=== PATIENT | male | born 1955 | race African-American/Black ===

== ENCOUNTER 2020-04-26 15:14 | Inpatient (IN) | payer BC ==
--- NOTE | 2020-04-26 15:38 | PDOC ---
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 Loss of appetite with poor PO fluid intake PE: Lethargic weak CTA RRR Plan: Labs EKG CXR Likely admit Pt to precede to ED for further treatment and care
[2020-04-26] MEDS ORDERED: SODIUM CHLORIDE 0.9% 500 ML INFUS.BAG IV ONE (16:28)
[2020-04-26 16:33] LABS: BASO % 0.4 % (0-2.0); EOS % 0.5 % (0-4.5); HEMATOCRIT 35.8 % (35.4-49); HEMOGLOBIN 11.6 GM/dL (11.7-16.9); LYMPH % 2.3 % (8-40); MCH 30.9 pg (25.7-33.7); MCHC 32.5 g/dl (32.0-35.9); MEAN PLT VOLUME 8.8 fl (7.5-11.1); MONO % 6.3 % (3.8-10.2); NEUT % 90.5 % (42.8-82.8); PLATELET COUNT 204 K/MM3 (134-434); RBC 3.77 M/mm3 (4.00-5.60); RDW 18.6 % (11.9-15.9); WHITE BLOOD COUNT 11.4 K/mm3 (4.0-10.0)
[2020-04-26 16:39] LABS: INR 1.12 (0.83-1.09); PROTHROMBIN TIME (PATIENT) 13.2 SEC (9.7-13.0)
--- NOTE | 2020-04-26 16:41 | PDOC ---
History of Present Illness - General Chief Complaint: Weakness Stated Complaint: DEHYDRATION/WEAKNESS Time Seen by Provider: 04/26/20 15:32 History Source: Patient, Spouse Exam Limitations: No Limitations - History of Present Illness Initial Comments: 65M with hx/o lung cancer with brain mets presents to the ED with lethargy and dehydration. His accompanied him and states that he didn't eat yesterday or today and wasn't drinking today, but has been prior. The patient states that he does not like the taste of water and prefers sweet tea. His last cancer treatment was in February 2020 and stopped bc he was becoming ataxic. He denies dizziness/lightheadedness, syncope, chest pain, SOB, n/v, diarrhea, constipation, dysuria, numbness, tingling, or weakness. PCP: Dr. Toscano PMH: See HPI SH: gammaknife therapy Allergies: NKDA ROS GENERAL/CONSTITUTIONAL: No fever or chills. No weakness. HEENT: No change in vision. No ear pain or discharge. No sore throat. CARDIOVASCULAR: No chest pain or shortness of breath RESPIRATORY: No cough, wheezing, or hemoptysis. GASTROINTESTINAL: No nausea, vomiting, diarrhea or constipation. GENITOURINARY: No dysuria, frequency, or change in urination. MUSCULOSKELETAL: No joint or muscle swelling or pain. No neck or back pain. SKIN: No rash NEUROLOGIC: No headache, vertigo, loss of consciousness, or change in strength/sensation. ENDOCRINE: No increased thirst. No abnormal weight change HEMATOLOGIC/LYMPHATIC: No anemia, easy bleeding, or history of blood clots. ALLERGIC/IMMUNOLOGIC: No hives or skin allergy. PE GENERAL: Awake, alert, and fully oriented, appears lethargic HEAD: No signs of trauma, normocephalic, atraumatic EYES: PERRLA, EOMI, sclera anicteric, conjunctiva clear ENT: Auricles normal inspection, hearing grossly normal, nares patent, oropharynx clear without exudates. Dry mucosa NECK: Normal ROM, supple, no lymphadenopathy, JVD, or masses HEART: Regular rate and rhythm, normal S1 and S2, no murmurs, rubs or gallops, peripheral pulses normal and equal bilaterally. LUNGS: No distress, speaks full sentences, clear to auscultation bilaterally ABDOMEN: Soft, nontender, normoactive bowel sounds. No guarding, no rebound. No masses EXTREMITIES: Normal inspection, Normal range of motion, no edema. No clubbing or cyanosis. NEUROLOGICAL: CNII-XII grossly intact. Normal speech, normal gait, no focal sensorimotor deficits SKIN: Warm, Dry, normal turgor, no rashes or lesions noted 04/26/20 18:48 Past History - Medical History Allergies/Adverse Reactions: Allergies Allergy/AdvReac Type Severity Reaction Status Date / Time No Known Allergies Allergy Verified 07/11/15 09:21 Cancer: Yes COPD: No - Immunization History Immunization Up to Date: No - Psycho-Social/Smoking History Smoking History: Former smoker Have you smoked in the past 12 months: No Information on smoking cessation initiated: No *Physical Exam - Vital Signs Last Vital Signs Temp Pulse Resp BP Pulse Ox 98.8 F 76 16 130/77 98 04/26/20 15:35 04/26/20 15:35 04/26/20 15:35 04/26/20 15:35 04/26/20 16:14 ED Treatment Course - LABORATORY CBC & Chemistry Diagram: 04/26/20 16:00 04/26/20 16:00 - RADIOLOGY Radiology Studies Ordered: Category Date Time Status HEAD CT WITHOUT CONTRAST [CT] Stat CT Scan 04/26/20 16:14 Ordered CHEST X-RAY PORTABLE* [RAD] Stat Radiology 04/26/20 15:55 Ordered Medical Decision Making - Medical Decision Making 65M with hx/o lung cancer with brain mets presents to the ED for lethargy and dehydration. The patient's said he did not eat yesterday and today and didn't drink water today. CBC remarkable for Hgb 11.6 and borderline leukocytosis at 11.4. CMP remarkable for hypocalcemia with Ca 7.9, hyponatremia with Na 130, and BUN 21.6. Coags unremarkable. CT Head did not demonstrate intracranial bleeding, mass effect, or midline displacement. While in the ED, the patient got 1L NS and was eating. He will be admitted for IV fluids and management of failure to thrive. Discharge - Discharge Information Problems reviewed: Yes Clinical Impression/Diagnosis: Failure to thrive Qualifiers: Failure to thrive age range: in adult Qualified Code(s): R62.7 - Adult failure to thrive Condition: Guarded - Admission Yes - Follow up/Referral Referrals: Manjit Toscano MD [Primary Care Provider] - - Patient Discharge Instructions - Post Discharge Activity
[2020-04-26 16:42] LABS: ACTIVATED PTT 29.6 SECONDS (25.2-36.5)
[2020-04-26 16:53] LABS: ALBUMIN 3.2 g/dl (3.4-5.0); ALK PHOS 63 U/L (45-117); ANION GAP 9 MMOL/L (8-16); BLOOD UREA NITROGEN 21.9 mg/dL (7-18); CALCIUM 7.9 mg/dL (8.5-10.1); CHLORIDE 100 mmol/L (98-107); CO2 21 mmol/L (21-32); GLUCOSE,RANDOM 85 mg/dL (74-106); LIPASE 95 U/L (73-393); N-TERMINAL BNP 1471.8 pg/ml (5-125); POTASSIUM 5.1 mmol/L (3.5-5.1); SGOT/AST 66 U/L (15-37); SGPT/ALT 71 U/L (13-61); SODIUM 130 mmol/L (136-145); TOT PROT 6.6 g/dl (6.4-8.2)
[2020-04-26] MEDS ORDERED: SODIUM CHLORIDE 1,000 ML IV SCH (19:15)
--- NOTE | 2020-04-26 19:22 | HP ---
Admitting History and Physical - Primary Care Physician PCP: Manjit Toscano - Admission Chief Complaint: Lethargy, Dehydration History of Present Illness: This is a 65 y/o male with a PMHx of Lung Ca with metastasis Brain (04/25/16). Who presents to the ED with his for lethargy and dehydration. Per the Mr. Ramon has had a decrease in his oral intake for the last several days. She also reports him being lethargic today. She reports that he is normally ambulatory with a walker and he has not been ambulatory since last Thursday. The denies patient having fever, chills, cough, SOB, MAY, CP, palpitations, AP, N/V/D, constipation, dysuria. She denies sick contacts or recent travel. 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 ? Antibiotic name/dose unknown po Mon, Wed, Fri only. (the will bring it in tomorrow) Family Medical History Family History: Unable to Obtain Family Hx Cancer: Mother (unknown- ), Sister (Lung) Family Hx Coronary Artery Disease: Sister Other Family History: Brother- HIV/AIDs- Review of Systems Unable to obtain ROS, reason: Clinical Condition Physical Examination Vital Signs: Vital Signs Temperature 98.8 F 04/26/20 15:35 Pulse Rate 65 04/26/20 17:02 Respiratory Rate 16 04/26/20 15:35 Blood Pressure 130/77 04/26/20 15:35 O2 Sat by Pulse Oximetry (%) 98 04/26/20 17:02 Constitutional: Yes: Thin, Other (lethargic) Eyes: Yes: Conjunctiva Clear (pale), EOM Intact, PERRL HENT: Yes: Atraumatic, Normocephalic, Other (dry mucous membranes) Neck: Yes: Supple, Trachea Midline Cardiovascular: Yes: Regular Rate and Rhythm, S1, S2 Respiratory: Yes: Regular, CTA Bilaterally Gastrointestinal: Yes: Soft, Hypoactive Bowel Sounds. No: Tenderness, Tenderne ss, Epigastrium ...Rectal Exam: Yes: Deferred Renal/: Yes: WNL Breast(s): Yes: WNL Musculoskeletal: Yes: Muscle Weakness (LUE) Extremities: Yes: Other (Left UE contracture) Edema: Yes Edema: LLE: 1+ (foot/ankle), RLE: 1+ (foot/ankle) Integumentary: Yes: Tenting, Other (dry) Neurological: Yes: Lethargy, Weakness (LUE) Psychiatric: Yes: Other (Lethargic) Labs: CBC, BMP 04/26/20 16:00 04/26/20 16:00 Laboratory Results - last 24 hr 04/26/20 04/26/20 04/26/20 16:00 16:00 16:00 WBC 11.4 H RBC 3.77 L Hgb 11.6 L Hct 35.8 MCV 95.0 MCH 30.9 MCHC 32.5 RDW 18.6 H Plt Count 204 MPV 8.8 Absolute Neuts (auto) 10.4 H Neutrophils % 90.5 H Lymphocytes % 2.3 L Monocytes % 6.3 Eosinophils % 0.5 Basophils % 0.4 Nucleated RBC % 0 PT with INR 13.20 H INR 1.12 H PTT (Actin FS) 29.6 Sodium Potassium Chloride Carbon Dioxide Anion Gap BUN Creatinine Est GFR (CKD-EPI)AfAm Est GFR (CKD-EPI)NonAf Random Glucose Lactic Acid Calcium Total Bilirubin AST ALT Alkaline Phosphatase Creatine Kinase Creatine Kinase Index CK-MB (CK-2) Troponin I B-Natriuretic Peptide Total Protein Albumin Lipase Urine Color Urine Appearance Urine pH Ur Specific [place] Urine Protein Urine Glucose (UA) Urine Ketones Urine Blood Urine Nitrite Urine Bilirubin Urine Urobilinogen Ur Leukocyte Esterase Urine WBC (Auto) Urine RBC (Auto) Urine Casts (Auto) U Epithel Cells (Auto) Urine Bacteria (Auto) Blood Type O POSITIVE Antibody Screen Negative 04/26/20 04/26/20 04/26/20 16:00 16:00 19:50 WBC RBC Hgb Hct MCV MCH MCHC RDW Plt Count MPV Absolute Neuts (auto) Neutrophils % Lymphocytes % Monocytes % Eosinophils % Basophils % Nucleated RBC % PT with INR INR PTT (Actin FS) Sodium 130 L Potassium 5.1 Chloride 100 Carbon Dioxide 21 Anion Gap 9 BUN 21.9 H Creatinine 1.0 Est GFR (CKD-EPI)AfAm 91.78 Est GFR (CKD-EPI)NonAf 79.19 Random Glucose 85 Lactic Acid 0.9 Calcium 7.9 L Total Bilirubin 1.0 AST 66 H ALT 71 H Alkaline Phosphatase 63 Creatine Kinase 352 H Creatine Kinase Index 1.1 CK-MB (CK-2) 4.1 H Troponin I < 0.02 B-Natriuretic Peptide 1471.8 H Total Protein 6.6 Albumin 3.2 L Lipase 95 Urine Color Yellow Urine Appearance Clear Urine pH 6.0 Ur Specific [place] 1.004 L Urine Protein Negative Urine Glucose (UA) Negative Urine Ketones Negative Urine Blood Trace Urine Nitrite Negative Urine Bilirubin Negative Urine Urobilinogen 0.2 Ur Leukocyte Esterase Negative Urine WBC (Auto) 2 Urine RBC (Auto) 5 Urine Casts (Auto) 0 U Epithel Cells (Auto) 1 Urine Bacteria (Auto) 31 Blood Type Antibody Screen Intake & Output 04/24/20 04/25/20 04/26/20 04/27/20 23:59 23:59 23:59 23:59 Weight 68.039 kg Current Medications Generic Name Dose Route Start Last Admin Trade Name Freq PRN Reason Stop Dose Admin Acetaminophen 650 mg 04/26/20 21:38 Tylenol - PO Q4H PRN PAIN Dexamethasone 2 mg 04/27/20 10:00 Decadron - PO DAILY SHARI Sodium Chloride 1,000 mls @ 42 mls/hr 04/26/20 19:15 04/26/20 20:12 Normal Saline - IV 42 mls/hr ASDIR SHARI Administration Imaging - Results Chest X-ray: Report Reviewed, Image Reviewed Cat Scan: Report Reviewed, Image Reviewed EKG: Image Reviewed Problem List - Problems (1) Failure to thrive Assessment/Plan: Likely secondary to advancing disease process vs dehydration BUN 21.9 Albumin 3.2 NS bolus given in ED Continue gentle IVF Encourage PO intake Consider RD eval Monitor CBC, CMP Code(s): [id number] - Qualifiers: Failure to thrive age range: in adult Qualified Code(s): R62.7 - Adult failure to thrive (2) Dehydration Assessment/Plan: see above Code(s): E86.0 - DEHYDRATION (3) Hyponatremia Assessment/Plan: Likely secondary to Dehydration Na Deficit 383 NS bolus given in ED Will continue gentle IVF Urine Osmo, Serum osmo, Na spot, Urine Lytes-pending Consider Nephrology consult if no improvement Code(s): E87.1 - HYPO-OSMOLALITY AND HYPONATREMIA (4) Metastatic lung cancer (metastasis from lung to other site) Assessment/Plan: s/p Gammaknife Therapy s/p Chemo/RT (completed) Head CT- neg ICH Consider Oncology consult Monitor CBC, CMP Monitor vitals Code(s): C34.90 - MALIGNANT NEOPLASM OF UNSP PART OF UNSP BRONCHUS OR LUNG (5) Hypocalcemia Assessment/Plan: Calcium corrected 8.5 Code(s): E83.51 - HYPOCALCEMIA (6) Leukocytosis Assessment/Plan: less likely Infection Pt is currently on corticosteroids Blood Cultures-pending Urine Culture-pending Chest Xray image reviewed- did not appreciate an infiltrate Will defer ABX for now Monitor CBC Monitor vitals Code(s): D72.829 - ELEVATED WHITE BLOOD CELL COUNT, UNSPECIFIED Assessment/Plan This is a 65 y/o male with a PMHx of Lung ca with Brain mets (04/2016) s/p Gammaknife Therapy x2, s/p chemo/RT (not active), Immunotherapy (stopped last February). Admitted to [facility] for Failure to Thrive, Hyponatremia for further evaluation of their emergent condition. Plan: See Problem List FEN NS@42ml/hr Replete lytes prn Regular Diet DVT ppx OOB SCDs Lovenox SQ Dispo: Requires Inpatient Care Visit type - Emergency Visit Emergency Visit: Yes ED Registration Date: 04/26/20 Care time: The patient presented to the Emergency Department on the above date and was hospitalized for further evaluation of their emergent condition. - New Patient This patient is new to me today: Yes Date on this admission: 04/26/20 - Critical Care Critical Care patient: No
[2020-04-26 20:30] LABS: EPI CELLS 1 /uL (0-25.1); HYALINE CASTS 0 /uL (0-3.1); URINE APPEARANCE CLEAR; URINE BACTERIA 31 /uL (0-1359); URINE BILIRUBIN NEGATIVE (NEGATIVE); URINE COLOR YELLOW; URINE GLUCOSE (UA) NEGATIVE (NEGATIVE); URINE KETONE NEGATIVE (NEGATIVE); URINE LEUK ESTERASE NEGATIVE (NEGATIVE); URINE NITRITE NEGATIVE (NEGATIVE); URINE PROTEIN NEGATIVE (NEGATIVE); URINE RBC 5 /uL (0-23.9); URINE UROBILINOGEN 0.2 mg/dL (0.2-1.0); URINE WBC 2 /uL (0-25.8)
[2020-04-27 04:19] VITALS: BMI 23.0
[2020-04-27 08:35] LABS: BASO % 0.5 % (0-2.0); EOS % 1.3 % (0-4.5); HEMATOCRIT 34.2 % (35.4-49); HEMOGLOBIN 11.3 GM/dL (11.7-16.9); LYMPH % 7.3 % (8-40); MCH 31.6 pg (25.7-33.7); MCHC 33.1 g/dl (32.0-35.9); MEAN CELL VOLUME 95.5 fl (80-96); MEAN PLT VOLUME 7.8 fl (7.5-11.1); MONO % 8.2 % (3.8-10.2); NEUT % 82.7 % (42.8-82.8); PLATELET COUNT 185 K/MM3 (134-434); RBC 3.59 M/mm3 (4.00-5.60); RDW 18.7 % (11.9-15.9); WHITE BLOOD COUNT 6.8 K/mm3 (4.0-10.0)
[2020-04-27 08:54] LABS: ALBUMIN 2.9 g/dl (3.4-5.0); BILIRUBIN,TOTAL 0.7 mg/dL (0.2-1); BLOOD UREA NITROGEN 19.2 mg/dL (7-18); CALCIUM 7.7 mg/dL (8.5-10.1); CREATININE 0.7 mg/dL (0.55-1.3); MAGNESIUM 2.2 mg/dL (1.8-2.4); POTASSIUM 4.1 mmol/L (3.5-5.1); TOT PROT 5.8 g/dl (6.4-8.2)
[2020-04-27] MEDS ORDERED: PT OWN MED DRAWER 7, Y5N ONE (10:01)
[2020-04-27] MEDS: DEXAMETHASONE 4 MG TABLET (FP) PO SCH (10:03)
--- NOTE | 2020-04-27 10:40 | PN ---
Progress Note, Physician Chief Complaint: AMS Lethargy Hyponatremia RLL pneumonia History of Present Illness: NAD lethargic answering in single words and nodding his head, falling asleep. Denies any pain,N/V/D at this time. - Current Medication List Current Medications: Active Medications Acetaminophen (Tylenol -) 650 mg PO Q4H PRN PRN Reason: PAIN Dexamethasone (Decadron -) 2 mg PO DAILY [facility] Last Admin: 04/27/20 10:03 Dose: 2 mg Documented by: Sodium Chloride (Normal Saline -) 1,000 mls @ 42 mls/hr IV ASDIR [facility] Last Admin: 04/26/20 20:12 Dose: 42 mls/hr Documented by: - Objective Vital Signs: Vital Signs Temperature 98.8 F 04/27/20 06:18 Pulse Rate 60 04/27/20 06:18 Respiratory Rate 18 04/27/20 06:18 Blood Pressure 124/71 04/27/20 06:18 O2 Sat by Pulse Oximetry (%) 99 04/27/20 06:18 Constitutional: Yes: Well Nourished, No Distress, Calm, Other (weak appearing) Cardiovascular: Yes: Regular Rate and Rhythm Respiratory: Yes: Regular, CTA Bilaterally Gastrointestinal: Yes: Normal Bowel Sounds, Soft Genitourinary: Yes: WNL Musculoskeletal: Yes: Muscle Weakness Extremities: Yes: WNL Edema: No Peripheral Pulses WNL: Yes Neurological: Yes: Alert, Lethargy Psychiatric: Yes: Alert Labs: CBC, BMP 04/27/20 07:40 04/27/20 07:40 INR, PTT INR 1.12 (0.83-1.09) H 04/26/20 16:00 Problem List - Problems (1) Dehydration Assessment/Plan: -Continue IVF -Encourage PO intake Problems reviewed: Yes Code(s): E86.0 - DEHYDRATION (2) Failure to thrive Problems reviewed: Yes Code(s): [id number] - Qualifiers: Failure to thrive age range: in adult Qualified Code(s): R62.7 - Adult failure to thrive (3) Leukocytosis Assessment/Plan: -BC/UC pending -Afebrile -CXR possible BLL pneumonia Problems reviewed: Yes Code(s): D72.829 - ELEVATED WHITE BLOOD CELL COUNT, UNSPECIFIED (4) Metastatic lung cancer (metastasis from lung to other site) Assessment/Plan: -CXR reviewed -Oncology consult -Palliative care consult Problems reviewed: Yes Code(s): C34.90 - MALIGNANT NEOPLASM OF UNSP PART OF UNSP BRONCHUS OR LUNG (5) Pneumonia Assessment/Plan: -CXR BLL possible infiltrates -Pulmonary consult -Start Azithro + Rocephin -ID consult -afebrile -Monitor leukocytosis -CT chest upon pulmonary discretion Problems reviewed: Yes Code(s): J18.9 - PNEUMONIA, UNSPECIFIED ORGANISM (6) Odynophagia Assessment/Plan: -Oral vs esophageal candidiasis? 2/2 to chemo + immunotherapy -Speech therapy consult -ENT consult -Tylenol for pain -Nystatin swish and swallow -magic mouthwash Problems reviewed: Yes Code(s): R13.10 - DYSPHAGIA, UNSPECIFIED (7) Elevated LFTs Assessment/Plan: -U/S Liver negative for any acute pathology -Trending down -monitor trend Problems reviewed: Yes Code(s): R79.89 - OTHER SPECIFIED ABNORMAL FINDINGS OF BLOOD CHEMISTRY Assessment/Plan See problem list
--- NOTE | 2020-04-27 11:17 | EKG ---
Test Reason : Blood Pressure : / mmHG Vent. Rate : 054 BPM Atrial Rate : 054 BPM P-R Int : 180 ms QRS Dur : 086 ms QT Int : 434 ms P-R-T Axes : 074 071 041 degrees QTc Int : 411 ms SINUS BRADYCARDIA WITH MARKED SINUS ARRHYTHMIA WITH CHEST PAIN PRESENCE, CONSIDER ACUTE ISCHMIA PREMATURE VENTRICULAR COMPLEXES OTHERWISE NORMAL ECG NO PREVIOUS ECGS AVAILABLE Confirmed by LORE CHANEL, KYLE ([id number]) on 04/27/2020 11:16:35 AM Referred By: Confirmed By:KYLE TORREZ MD
--- NOTE | 2020-04-27 11:19 | CONSULT ---
Consult Consult Specialty:: Nephrology Reason for Consultation:: hyponatremia - History of Present Illness Chief Complaint: sent in for lethargy History of Present Illness: Pt is a 65 year old mal with pmhx of lung cancer with brain mets who presented with lethargy. He was found to be hyponatremic and I was called to evaluate him. He has had decreased po intake for the week before admission. He normally ambulated with a walker. He is a poor historian. He says he came in because he felt sick. Family denies fevers or chills. 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[employer] History of Recent Travel: No Home Medications - Allergies Allergies/Adverse Reactions: Allergies Allergy/AdvReac Type Severity Reaction Status Date / Time No Known Allergies Allergy Verified 07/11/15 09:21 Family Medical History Family History: Denies Review of Systems - Review of Systems Constitutional: reports: Loss of Appetite, Malaise, Weakness Eyes: reports: No Symptoms HENT: reports: No Symptoms Neck: reports: No Symptoms Cardiovascular: reports: No Symptoms Respiratory: reports: No Symptoms Gastrointestinal: reports: No Symptoms Genitourinary: reports: No Symptoms Musculoskeletal: reports: No Symptoms Integumentary: reports: No Symptoms Neurological: reports: No Symptoms Endocrine: reports: No Symptoms Hematology/Lymphatic: reports: No Symptoms Psychiatric: reports: No Symptoms Physical Exam Vital Signs: Vital Signs Temperature 98.8 F 04/27/20 06:18 Pulse Rate 60 04/27/20 06:18 Respiratory Rate 18 04/27/20 06:18 Blood Pressure 124/71 04/27/20 06:18 O2 Sat by Pulse Oximetry (%) 99 04/27/20 06:18 Constitutional: Yes: Calm Eyes: Yes: Conjunctiva Clear HENT: Yes: Atraumatic Neck: Yes: Supple Cardiovascular: Yes: S1, S2 Respiratory: Yes: CTA Bilaterally Gastrointestinal: Yes: Soft Renal/: Yes: WNL Musculoskeletal: Yes: Muscle Weakness Extremities: Yes: WNL Edema: No Neurological: Yes: Confusion Labs: CBC, BMP 04/27/20 07:40 04/27/20 07:40 Imaging - Results X-ray: Report Reviewed Problem List - Problems (1) Dehydration Code(s): E86.0 - DEHYDRATION (2) Failure to thrive Code(s): [id number] - Qualifiers: Failure to thrive age range: in adult Qualified Code(s): R62.7 - Adult failure to thrive (3) Hyponatremia Code(s): E87.1 - HYPO-OSMOLALITY AND HYPONATREMIA (4) Metastatic lung cancer (metastasis from lung to other site) Code(s): C34.90 - MALIGNANT NEOPLASM OF UNSP PART OF UNSP BRONCHUS OR LUNG Assessment/Plan Current Medications Generic Name Dose Route Start Last Admin Trade Name Freq PRN Reason Stop Dose Admin Acetaminophen 650 mg 04/26/20 21:38 Tylenol - PO Q4H PRN PAIN Dexamethasone 2 mg 04/27/20 10:00 04/27/20 10:03 Decadron - PO 2 mg DAILY SHARI Administration Sodium Chloride 1,000 mls @ 42 mls/hr 04/26/20 19:15 04/26/20 20:12 Normal Saline - IV 42 mls/hr ASDIR SHARI Administration Laboratory Tests 04/26/20 04/26/20 04/26/20 16:00 19:50 19:50 Sodium 130 L BUN 21.9 H Creatinine 1.0 Ur Specific [place] 1.004 L Urine Protein Negative Urine Blood Trace Ur Random Sodium 36 L 04/27/20 07:40 Sodium 137 BUN 19.2 H Creatinine 0.7 Ur Specific [place] Urine Protein Urine Blood Ur Random Sodium Impression 1. hyponatremia 2. dehydration 3. failure to thrive 4. lung cancer with mets Plan - cont fluids - change to 1/2 ns to decrease rate of rise - repeat labs in am - monitor volume status - encourage po intake
--- NOTE | 2020-04-27 12:48 | CONSULT ---
Consultation: REQUESTING PROVIDER: Manuel Briones ENTERTAINMENT & MEDIA CORRESPONDENT CONSULT REQUEST: We have been asked to medically evaluate this patient for Metastases to brain. HISTORY OF PRESENT ILLNESS: Pt. is a 65 y.o. M w/ PMHx. of Lung CA (Metastases to Brain, s/p RT to brain(gamma knife x2) and to chest, s/p chemotherapy, s/p immunotherapy) presents for increased lethargy. Pt. denies any pain and is unclear why he is in the hospital. Pt. does endorse weakness. Pt. answering only in 1 word answers but endorses decreased PO intake over the last few days and decreased ability to ambulate. Pt. states that his cancer workup and and procedures were all done at [facility]. Pt states he last saw his oncologist 1 year ago, unable to provide name. Pt. denies any symptoms currently aside from generalized weakness. Pt. denies pain anywhere. Pt. denies numbness/tingling in extremities. Pt. denies history of fever, chills, nausea, vomiting, constipation or diarrhea. Pt. states he would like to be FULL CODE. Discussed with at bedside who stated that Pt. was in his usual state of health until Thursday when became dehydrated. It was noted that he had increased difficulty clearing his throat and tolerating PO intake including fluids. Pt. also had increased weakness and was unable to ambulate with walker. brought Pt. here for dehydration and increased weakness. Of note Pt. was discontinued from immunotherapy and steroids in February by primary Oncologist Dr. Sal Thapa because of increased difficulty ambulating. Per Pt. last had brain imaged in February and there were no changes to his brain lesions, he was told his masses were stable. REVIEW OF SYSTEMS: As above PHYSICAL EXAMINATION Vital Signs - 24 hr 04/26/20 04/26/20 04/26/20 15:35 16:14 17:02 Temperature 98.8 F Pulse Rate 76 65 Pulse Rate [ Apical] Respiratory 16 Rate Blood Pressure 130/77 Blood Pressure [Right Arm] O2 Sat by Pulse 99 98 98 Oximetry (%) 04/26/20 04/27/20 04/27/20 19:25 00:54 04:00 Temperature 98.9 F 99.0 F Pulse Rate 58 L 62 Pulse Rate [ 58 L 60 Apical] Respiratory 21 H 19 20 Rate Blood Pressure 104/65 Blood Pressure 99/65 106/62 [Right Arm] O2 Sat by Pulse 99 98 99 Oximetry (%) 04/27/20 06:18 Temperature 98.8 F Pulse Rate 60 Pulse Rate [ Apical] Respiratory 18 Rate Blood Pressure 124/71 Blood Pressure [Right Arm] O2 Sat by Pulse 99 Oximetry (%) GENERAL: Awake, alert, and fully oriented, in no acute distress. HEAD: Normal with no signs of trauma. EYES: Sclera anicteric, conjunctiva clear. EARS, NOSE, THROAT: Ears normal, nares patent, oropharynx clear without exudates. Dry mucous membranes. NECK: Normal range of motion, supple without lymphadenopathy, JVD, or masses. LUNGS: Breath sounds equal, clear to auscultation bilaterally anteriorly. No wheezes, and no crackles. No accessory muscle use. HEART: Regular rate and rhythm, normal S1 and S2 without murmur ABDOMEN: Soft, nontender, not distended, normoactive bowel sounds, no guarding, no rebound. MUSCULOSKELETAL: Normal range of motion at all joints. No bony deformities or tenderness. UPPER EXTREMITIES: 2+ radial pulses, warm, well-perfused. No cyanosis. No peripheral edema. LOWER EXTREMITIES: 2+ dorsal pedal pulses, warm, well-perfused. No calf tenderness. No peripheral edema. NEUROLOGICAL: Decreased proximal muscle strength 3/5 in lower extremities, 5/5 in upper extremities. No sensory deficits. PSYCHIATRIC: Decreased affect, Decreased eye contact. Stilted speech. SKIN: Warm, dry, normal turgor Laboratory Results - last 24 hr 04/26/20 04/26/20 04/26/20 16:00 16:00 16:00 WBC 11.4 H RBC 3.77 L Hgb 11.6 L Hct 35.8 MCV 95.0 MCH 30.9 MCHC 32.5 RDW 18.6 H Plt Count 204 MPV 8.8 Absolute Neuts (auto) 10.4 H Neutrophils % 90.5 H Lymphocytes % 2.3 L Monocytes % 6.3 Eosinophils % 0.5 Basophils % 0.4 Nucleated RBC % 0 PT with INR 13.20 H INR 1.12 H PTT (Actin FS) 29.6 Sodium Potassium Chloride Carbon Dioxide Anion Gap BUN Creatinine Est GFR (CKD-EPI)AfAm Est GFR (CKD-EPI)NonAf Random Glucose Serum Osmolality Lactic Acid Calcium Magnesium Total Bilirubin AST ALT Alkaline Phosphatase Creatine Kinase Creatine Kinase Index CK-MB (CK-2) Troponin I B-Natriuretic Peptide Total Protein Albumin Lipase Urine Color Urine Appearance Urine pH Ur Specific [place] Urine Protein Urine Glucose (UA) Urine Ketones Urine Blood Urine Nitrite Urine Bilirubin Urine Urobilinogen Ur Leukocyte Esterase Urine WBC (Auto) Urine RBC (Auto) Urine Casts (Auto) U Epithel Cells (Auto) Urine Bacteria (Auto) Urine Osmolality Ur Random Sodium Blood Type O POSITIVE Antibody Screen Negative 04/26/20 04/26/20 04/26/20 16:00 16:00 19:50 WBC RBC Hgb Hct MCV MCH MCHC RDW Plt Count MPV Absolute Neuts (auto) Neutrophils % Lymphocytes % Monocytes % Eosinophils % Basophils % Nucleated RBC % PT with INR INR PTT (Actin FS) Sodium 130 L Potassium 5.1 Chloride 100 Carbon Dioxide 21 Anion Gap 9 BUN 21.9 H Creatinine 1.0 Est GFR (CKD-EPI)AfAm 91.78 Est GFR (CKD-EPI)NonAf 79.19 Random Glucose 85 Serum Osmolality Lactic Acid 0.9 Calcium 7.9 L Magnesium Total Bilirubin 1.0 AST 66 H ALT 71 H Alkaline Phosphatase 63 Creatine Kinase 352 H Creatine Kinase Index 1.1 CK-MB (CK-2) 4.1 H Troponin I < 0.02 B-Natriuretic Peptide 1471.8 H Total Protein 6.6 Albumin 3.2 L Lipase 95 Urine Color Yellow Urine Appearance Clear Urine pH 6.0 Ur Specific [place] 1.004 L Urine Protein Negative Urine Glucose (UA) Negative Urine Ketones Negative Urine Blood Trace Urine Nitrite Negative Urine Bilirubin Negative Urine Urobilinogen 0.2 Ur Leukocyte Esterase Negative Urine WBC (Auto) 2 Urine RBC (Auto) 5 Urine Casts (Auto) 0 U Epithel Cells (Auto) 1 Urine Bacteria (Auto) 31 Urine Osmolality Ur Random Sodium Blood Type Antibody Screen 04/26/20 04/27/20 04/27/20 19:50 07:40 07:40 WBC 6.8 RBC 3.59 L Hgb 11.3 L Hct 34.2 L MCV 95.5 MCH 31.6 MCHC 33.1 RDW 18.7 H Plt Count 185 MPV 7.8 D Absolute Neuts (auto) 5.6 Neutrophils % 82.7 Lymphocytes % 7.3 L D Monocytes % 8.2 Eosinophils % 1.3 D Basophils % 0.5 Nucleated RBC % 0 PT with INR INR PTT (Actin FS) Sodium 137 Potassium 4.1 Chloride 107 Carbon Dioxide 20 L Anion Gap 10 BUN 19.2 H Creatinine 0.7 Est GFR (CKD-EPI)AfAm 115.59 Est GFR (CKD-EPI)NonAf 99.73 Random Glucose 87 Serum Osmolality Lactic Acid Calcium 7.7 L Magnesium 2.2 Total Bilirubin 0.7 AST 42 H ALT 69 H Alkaline Phosphatase 63 Creatine Kinase Creatine Kinase Index CK-MB (CK-2) Troponin I B-Natriuretic Peptide Total Protein 5.8 L Albumin 2.9 L Lipase Urine Color Urine Appearance Urine pH Ur Specific [place] Urine Protein Urine Glucose (UA) Urine Ketones Urine Blood Urine Nitrite Urine Bilirubin Urine Urobilinogen Ur Leukocyte Esterase Urine WBC (Auto) Urine RBC (Auto) Urine Casts (Auto) U Epithel Cells (Auto) Urine Bacteria (Auto) Urine Osmolality 160 L Ur Random Sodium 36 L Blood Type Antibody Screen 04/27/20 07:40 WBC RBC Hgb Hct MCV MCH MCHC RDW Plt Count MPV Absolute Neuts (auto) Neutrophils % Lymphocytes % Monocytes % Eosinophils % Basophils % Nucleated RBC % PT with INR INR PTT (Actin FS) Sodium Potassium Chloride Carbon Dioxide Anion Gap BUN Creatinine Est GFR (CKD-EPI)AfAm Est GFR (CKD-EPI)NonAf Random Glucose Serum Osmolality 292 Lactic Acid Calcium Magnesium Total Bilirubin AST ALT Alkaline Phosphatase Creatine Kinase Creatine Kinase Index CK-MB (CK-2) Troponin I B-Natriuretic Peptide Total Protein Albumin Lipase Urine Color Urine Appearance Urine pH Ur Specific [place] Urine Protein Urine Glucose (UA) Urine Ketones Urine Blood Urine Nitrite Urine Bilirubin Urine Urobilinogen Ur Leukocyte Esterase Urine WBC (Auto) Urine RBC (Auto) Urine Casts (Auto) U Epithel Cells (Auto) Urine Bacteria (Auto) Urine Osmolality Ur Random Sodium Blood Type Antibody Screen Active Medications Generic Name Dose Route Start Last Admin Trade Name Freq PRN Reason Stop Dose Admin Acetaminophen 650 mg 04/26/20 21:38 Tylenol - PO Q4H PRN PAIN Dexamethasone 2 mg 04/27/20 10:00 04/27/20 10:03 Decadron - PO 2 mg DAILY SHARI Administration Sodium Chloride 1,000 mls @ 42 mls/hr 04/26/20 19:15 04/26/20 20:12 Normal Saline - IV 42 mls/hr ASDIR SHARI Administration ASSESSMENT/PLAN: Pt. is a 65 y.o. M w/ PMHx. of Lung CA (Metastases to Brain, s/p RT to brain(gamma knife?) and to chest) presents for increased lethargy. #Hx. of Lung CA (s/p SRS to brain and RT to chest) Head CT: Moderate to marked periventricular and subcortical white matter hypodensity noted without mass effect, suspected from chronic microvascular ischemic gliosis. Per discussion with those hyposensities may be masses. 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 is s/p gamma knife x2, s/p chemotherapy, s/p immunotherapy FULL CODE c/w IV hydration until taking adequate PO intake Dispo: Thank you for this consultative opportunity. Visit type - Emergency Visit Emergency Visit: Yes ED Registration Date: 04/26/20 Care time: The patient presented to the Emergency Department on the above date and was hospitalized for further evaluation of their emergent condition. - New Patient This patient is new to me today: Yes Date on this admission: 04/27/20 - Critical Care Critical Care patient: No ATTENDING PHYSICIAN STATEMENT I saw and evaluated the patient. I reviewed the resident's note and discussed the case with the resident. I agree with the resident's findings and plan as documented. SUBJECTIVE: OBJECTIVE: ASSESSMENT AND PLAN:
[2020-04-27] MEDS: SODIUM CHLORIDE 0.45% 1,000 ML IV SCH (15:17)
[2020-04-27] MEDS: ACETAMINOPHEN 325 MG TABLET (FP) PO PRN (18:24)
--- NOTE | 2020-04-27 21:17 | CON.HO ---
Consult - text type - Consultation Consultation Note: ATTENDING PHYSICIAN STATEMENT I saw and evaluated the patient. I reviewed the resident's note and discussed the case with the resident. I agree with the resident's findings and plan as documented. Discussed with patients in detail PAtient unable to give detaile history due to throat pain generalized weakness Pt. is a 65 y.o. M w/ PMHx. of Lung CA , diagnosed 2016, ?? stage IIIB initially progressing to stage IV. Initially treated with SRS x2 ?? in Received chemotherapy and had been on immunotherapy for 2 yrs. Last received 01/22 Unclear if immunotherapy was stopped due to ?/ toxicity -- is unclear but states that he was on steroids and since steroid use he slowly stopped walking over last 2-3 months ? steroid myopathy He presents with odynophagia, failure to thrive Head CT: Moderate to marked periventricular and subcortical white matter hypodensity noted without mass effect, suspected from chronic microvascular ischemic gliosis. Abd US: No acute pathology odynophagia -- check throat culture check ENT consult will discuss with ID Continue decadron 2mg with bactrim prophylaxis On rocephin/azithro for LLL infiltrate Rt. > Lt. leg weakness -- ? 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 No back pain PAtient has an appt. to f/u with primary oncologist/neurologist as outpatient on the
[2020-04-27] MEDS ORDERED: AZITHROMYCIN IVPB 500 MG/250 ML BAG IVPB ONE (22:32)
[2020-04-27] MEDS ORDERED: cefTRIAXone SODIUM 1 GM VIAL ONE (22:55)
[2020-04-27] MEDS ORDERED: DEXTROSE 5%-WATER - 50 ML IVPB ONE (22:55)
[2020-04-27] MEDS: MAG HYDROX/ALH/SMC/DPHA/LIDO 240 ML MOUTHWASH MM SCH (23:30)
[2020-04-28] MEDS: CEFTRIAXONE 1 GM in DEXTROSE 5%-WATER - 50 ML IVPB SCH ×2 (00:35→09:24)
[2020-04-28] MEDS: NYSTATIN 500,000 UNITS/5 ML SUSPENSION PO SCH ×7 (00:36→23:59)
[2020-04-28] MEDS: MAG HYDROX/ALH/SMC/DPHA/LIDO 240 ML MOUTHWASH MM SCH ×6 (05:41→23:48)
[2020-04-28] MEDS: SODIUM CHLORIDE 0.45% 1,000 ML IV SCH (06:49)
[2020-04-28 07:41] LABS: BASO % 0.4 % (0-2.0); EOS % 0.8 % (0-4.5); HEMATOCRIT 37.5 % (35.4-49); HEMOGLOBIN 12.2 GM/dL (11.7-16.9); LYMPH % 3.8 % (8-40); MCH 30.8 pg (25.7-33.7); MCHC 32.6 g/dl (32.0-35.9); MEAN CELL VOLUME 94.6 fl (80-96); MONO % 3.6 % (3.8-10.2); NEUT % 91.4 % (42.8-82.8); PLATELET COUNT 190 K/MM3 (134-434); RBC 3.97 M/mm3 (4.00-5.60); RDW 18.3 % (11.9-15.9); WHITE BLOOD COUNT 11.7 K/mm3 (4.0-10.0)
[2020-04-28 08:04] LABS: ALBUMIN 2.7 g/dl (3.4-5.0); BILIRUBIN,TOTAL 0.6 mg/dL (0.2-1); BLOOD UREA NITROGEN 15.7 mg/dL (7-18); CALCIUM 7.8 mg/dL (8.5-10.1); CREATININE 0.7 mg/dL (0.55-1.3); POTASSIUM 3.7 mmol/L (3.5-5.1); TOT PROT 5.8 g/dl (6.4-8.2)
[2020-04-28] MEDS ORDERED: DEXTROSE 5%-WATER - 50 ML IVPB ONE (09:09)
[2020-04-28] MEDS ORDERED: cefTRIAXone SODIUM 1 GM VIAL ONE (09:09)
[2020-04-28] MEDS: DEXAMETHASONE 4 MG TABLET (FP) PO SCH (09:24)
[2020-04-28] MEDS: AZITHROMYCIN IVPB 250 MG in DEXTROSE 5%-WATER - 250 ML IVPB SCH (09:24)
--- NOTE | 2020-04-28 09:36 | PN ---
Progress Note, Physician Chief Complaint: AMS Lethargy Hyponatremia RLL pneumonia History of Present Illness: NAD lethargic, opens his eyes to name doesn't answer any questions Ate 25% of his breakfast - Current Medication List Current Medications: Active Medications Acetaminophen (Tylenol -) 650 mg PO Q4H PRN PRN Reason: PAIN Last Admin: 04/27/20 18:24 Dose: 650 mg Documented by: Dexamethasone (Decadron -) 2 mg PO DAILY SHARI Last Admin: 04/28/20 09:24 Dose: 2 mg Documented by: Sodium Chloride (1/2 Normal Saline) 1,000 mls @ 75 mls/hr IV ASDIR SHARI Last Admin: 04/28/20 06:49 Dose: 75 mls/hr Documented by: Azithromycin 250 mg/ Dextrose 250 mls @ 250 mls/hr IVPB DAILY SHARI Last Admin: 04/28/20 09:24 Dose: 250 mls/hr Documented by: Ceftriaxone Sodium 1 gm/ (Dextrose) 50 mls @ 100 mls/hr IVPB DAILY [facility]; Protocol Last Admin: 04/28/20 09:24 Dose: 100 mls/hr Documented by: Lidocaine/Aluminum/Magnesium/Simeth (Magic Mouthwash *Sjr Formula* -) 5 ml MM Q6HPO [facility] Last Admin: 04/28/20 06:59 Dose: Not Given Documented by: Nystatin (Nystatin Oral Suspension -) 500,000 units PO Q6HPO [facility] Last Admin: 04/28/20 06:59 Dose: Not Given Documented by: - Objective Vital Signs: Vital Signs Temperature 99 F 04/28/20 06:00 Pulse Rate 72 04/28/20 06:00 Respiratory Rate 18 04/28/20 06:00 Blood Pressure 143/80 04/28/20 06:00 O2 Sat by Pulse Oximetry (%) 97 04/28/20 06:00 Constitutional: Yes: Well Nourished, No Distress, Calm Cardiovascular: Yes: Regular Rate and Rhythm Respiratory: Yes: Regular, CTA Bilaterally Gastrointestinal: Yes: Normal Bowel Sounds, Soft Genitourinary: Yes: WNL Musculoskeletal: Yes: Muscle Weakness Extremities: Yes: WNL Edema: No Peripheral Pulses WNL: Yes Neurological: Yes: Alert, Confusion Labs: CBC, BMP 04/28/20 07:05 04/28/20 07:05 INR, PTT INR 1.12 (0.83-1.09) H 04/26/20 16:00 Problem List - Problems (1) Dehydration Assessment/Plan: -Continue IVF -Encourage PO intake Problems reviewed: Yes Code(s): E86.0 - DEHYDRATION (2) Failure to thrive Problems reviewed: Yes Code(s): NHT5466 - Qualifiers: Failure to thrive age range: in adult Qualified Code(s): R62.7 - Adult failure to thrive (3) Leukocytosis Assessment/Plan: -BC/UC pending -Afebrile -CXR possible BLL pneumonia Problems reviewed: Yes Code(s): D72.829 - ELEVATED WHITE BLOOD CELL COUNT, UNSPECIFIED (4) Metastatic lung cancer (metastasis from lung to other site) Assessment/Plan: -CXR reviewed -Oncology consult -Palliative care consult Problems reviewed: Yes Code(s): C34.90 - MALIGNANT NEOPLASM OF UNSP PART OF UNSP BRONCHUS OR LUNG (5) Pneumonia Assessment/Plan: -CXR BLL possible infiltrates -Pulmonary consult -Start Azithro + Rocephin -ID consult -afebrile -Monitor leukocytosis -CT chest upon pulmonary discretion Problems reviewed: Yes Code(s): J18.9 - PNEUMONIA, UNSPECIFIED ORGANISM (6) Odynophagia Assessment/Plan: -Oral vs esophageal candidiasis? 2/2 to chemo + immunotherapy -Speech therapy consult -ENT consult -Tylenol for pain -Nystatin swish and swallow -magic mouthwash Problems reviewed: Yes Code(s): R13.10 - DYSPHAGIA, UNSPECIFIED (7) Elevated LFTs Assessment/Plan: -U/S Liver negative for any acute pathology -resolved -monitor trend Problems reviewed: Yes Code(s): R79.89 - OTHER SPECIFIED ABNORMAL FINDINGS OF BLOOD CHEMISTRY Assessment/Plan See problem list
[2020-04-28 09:47] LABS: PLATELET ESTIMATE NORMAL
--- NOTE | 2020-04-28 11:40 | CON.PULM ---
Consult Consult Specialty:: PULMONARY Referred by:: BOUBACAR Reason for Consultation:: LUNG CA W BRAIN METS - History of Present Illness Chief Complaint: FAILURE TO THRIVE History of Present Illness: This is a 65 y/o male with a PMHx of Lung Ca with metastasis Brain (04/25/16). Who presents to the ED with his for lethargy and dehydration. Per the Mr. Ramon has had a decrease in his oral intake for the last several days. She also reports him being lethargic today. She reports that he is normally ambulatory with a walker and he has not been ambulatory since last Thursday. The denies patient having fever, chills, cough, SOB, MAY, CP, palpitations, AP, N/V/D, constipation, dysuria. She denies sick contacts or recent travel. 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 History of Recent Travel: No Home Medications - Allergies Allergies/Adverse Reactions: Allergies Allergy/AdvReac Type Severity Reaction Status Date / Time No Known Allergies Allergy Verified 07/11/15 09:21 Family Medical History Family History: Unable to Obtain Review of Systems Unable to obtain ROS, reason: unable Physical Exam Vital Sings: Vital Signs Temperature 98.9 F 04/28/20 11:12 Pulse Rate 78 04/28/20 11:12 Respiratory Rate 18 04/28/20 11:12 Blood Pressure 132/76 04/28/20 11:12 O2 Sat by Pulse Oximetry (%) 99 04/28/20 11:12 Constitutional: Yes: No Distress Eyes: Yes: EOM Intact HENT: Yes: Normocephalic Neck: Yes: Trachea Midline Cardiovascular: Yes: Regular Rate and Rhythm Respiratory: Yes: Diminished Gastrointestinal: Yes: Normal Bowel Sounds Edema: No Labs: CBC, BMP 04/28/20 07:05 04/28/20 07:05 rest reviewed Imaging - Results Chest X-ray: Report Reviewed Cat Scan: Report Reviewed Ultrasound: Report Reviewed Problem List - Problems (1) Dehydration Code(s): E86.0 - DEHYDRATION (2) Elevated LFTs Code(s): R79.89 - OTHER SPECIFIED ABNORMAL FINDINGS OF BLOOD CHEMISTRY (3) Failure to thrive Code(s): [id number] - Qualifiers: Failure to thrive age range: in adult Qualified Code(s): R62.7 - Adult failure to thrive (4) Metastatic lung cancer (metastasis from lung to other site) Code(s): C34.90 - MALIGNANT NEOPLASM OF UNSP PART OF UNSP BRONCHUS OR LUNG Assessment/Plan FAILURE TO THRIVE HYPONATREMIA METASTATIC LUNG CA TO BRAIN SUPPORTIVE CARE CORRECT NA NUTRITION IV ANTIBIOTICS FOR PRESUMED PNEUMONIA WILL FOLLOW Libby VIRGEN MD
--- NOTE | 2020-04-28 13:07 | CON.ID ---
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 Cardio/Vascular: No: AFIB Pulmonary: Yes: Cancer (with Brain mets) Gastrointestinal: No: Ascites Renal/: Yes: Renal Inusuff - Alcohol/Substance Use Hx Alcohol Use: No History of Substance Use: reports: None - Smoking History Smoking history: Former smoker Have you smoked in the past 12 months: No - Social History Usual Living Arrangement: With Spouse ADL: Family Assistance 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 History of Recent Travel: No Home Medications - Allergies Allergies/Adverse Reactions: Allergies Allergy/AdvReac Type Severity Reaction Status Date / Time No Known Allergies Allergy Verified 07/11/15 09:21 Family Medical History Family History: Unable to Obtain Physical Exam Vital Signs: Vital Signs Temperature 98.9 F 04/28/20 11:12 Pulse Rate 78 04/28/20 11:12 Respiratory Rate 18 04/28/20 11:12 Blood Pressure 132/76 04/28/20 11:12 O2 Sat by Pulse Oximetry (%) 99 04/28/20 11:12 Constitutional: Yes: Well Nourished, No Distress, Calm, Other (alert) Eyes: Yes: WNL HENT: Yes: Atraumatic, Normocephalic. No: Thrush Neck: Yes: Supple Cardiovascular: Yes: Regular Rate and Rhythm Respiratory: Yes: Regular, Diminished (at bases) Gastrointestinal: Yes: Normal Bowel Sounds, Soft ...Rectal Exam: Yes: Deferred Renal/: No: Bladder Distention, Ram Present Extremities: Yes: WNL Edema: No Neurological: Yes: Alert, Other (follows commands, not talking to me but per nurse speaks with ) Labs: CBC, BMP 04/28/20 07:05 04/28/20 07:05 Imaging - Results Chest X-ray: Report Reviewed, Image Reviewed Cat Scan: Report Reviewed Problem List - Problems (1) Pneumonia Code(s): J18.9 - PNEUMONIA, UNSPECIFIED ORGANISM (2) Metastatic lung cancer (metastasis from lung to other site) Code(s): C34.90 - MALIGNANT NEOPLASM OF UNSP PART OF UNSP BRONCHUS OR LUNG (3) Failure to thrive Code(s): [id number] - Qualifiers: Failure to thrive age range: in adult Qualified Code(s): R62.7 - Adult failure to thrive Assessment/Plan no recent admissions, covid pcr negative continue rocephin and zithromax for CAP f/u culutres f/u legionella urinary antigen metastatic lung cancer- management per hospitalist
--- NOTE | 2020-04-28 14:04 | PN ---
Progress Note, Physician History of Present Illness: Pt seen and examined at bedside. He appears comfortable. - Current Medication List Current Medications: Active Medications Acetaminophen (Tylenol -) 650 mg PO Q4H PRN PRN Reason: PAIN Last Admin: 04/27/20 18:24 Dose: 650 mg Documented by: Dexamethasone (Decadron -) 2 mg PO DAILY SHARI Last Admin: 04/28/20 09:24 Dose: 2 mg Documented by: Sodium Chloride (1/2 Normal Saline) 1,000 mls @ 75 mls/hr IV ASDIR SHARI Last Admin: 04/28/20 06:49 Dose: 75 mls/hr Documented by: Azithromycin 250 mg/ Dextrose 250 mls @ 250 mls/hr IVPB DAILY SHARI Last Admin: 04/28/20 09:24 Dose: 250 mls/hr Documented by: Ceftriaxone Sodium 1 gm/ (Dextrose) 50 mls @ 100 mls/hr IVPB DAILY SHARI; Protocol Last Admin: 04/28/20 09:24 Dose: 100 mls/hr Documented by: Lidocaine/Aluminum/Magnesium/Simeth (Magic Mouthwash *Sjr Formula* -) 5 ml MM Q6HPO SHARI Last Admin: 04/28/20 06:59 Dose: Not Given Documented by: Nystatin (Nystatin Oral Suspension -) 500,000 units PO Q6HPO SHARI Last Admin: 04/28/20 06:59 Dose: Not Given Documented by: Trimethoprim/Sulfamethoxazole (Bactrim Ds -) 1 each PO MoWeFr@1000 SHARI - Objective Vital Signs: Vital Signs Temperature 98.9 F 04/28/20 11:12 Pulse Rate 78 04/28/20 11:12 Respiratory Rate 18 04/28/20 11:12 Blood Pressure 132/76 04/28/20 11:12 O2 Sat by Pulse Oximetry (%) 99 04/28/20 11:12 Constitutional: Yes: Calm Eyes: Yes: Conjunctiva Clear HENT: Yes: Atraumatic Neck: Yes: Supple Cardiovascular: Yes: S1, S2 Respiratory: Yes: CTA Bilaterally Gastrointestinal: Yes: Soft Genitourinary: Yes: Incontinence Musculoskeletal: Yes: Muscle Weakness Edema: No Neurological: Yes: Confusion Labs: CBC, BMP 04/28/20 07:05 04/28/20 07:05 INR, PTT INR 1.12 (0.83-1.09) H 04/26/20 16:00 Problem List - Problems (1) Dehydration Code(s): E86.0 - DEHYDRATION (2) Failure to thrive Code(s): [id number] - Qualifiers: Failure to thrive age range: in adult Qualified Code(s): R62.7 - Adult failure to thrive (3) Hyponatremia Code(s): E87.1 - HYPO-OSMOLALITY AND HYPONATREMIA (4) Metastatic lung cancer (metastasis from lung to other site) Code(s): C34.90 - MALIGNANT NEOPLASM OF UNSP PART OF UNSP BRONCHUS OR LUNG Assessment/Plan Current Medications Generic Name Dose Route Start Last Admin Trade Name Freq PRN Reason Stop Dose Admin Acetaminophen 650 mg 04/26/20 21:38 04/27/20 18:24 Tylenol - PO 650 mg Q4H PRN Administration PAIN Dexamethasone 2 mg 04/27/20 10:00 04/28/20 09:24 Decadron - PO 2 mg DAILY SHARI Administration Sodium Chloride 1,000 mls @ 75 mls/hr 04/27/20 15:15 04/28/20 06:49 1/2 Normal Saline IV 75 mls/hr ASDIR SHARI Administration Azithromycin 250 mg/ Dextrose 250 mls @ 250 mls/hr 04/28/20 10:00 04/28/20 09:24 IVPB 250 mls/hr DAILY SHARI Administration Ceftriaxone Sodium 1 gm/ 50 mls @ 100 mls/hr 04/27/20 22:36 04/28/20 09:24 Dextrose IVPB 100 mls/hr DAILY SHARI Administration Protocol Lidocaine/Aluminum/Magnesium/Simeth 5 ml 04/28/20 00:00 04/28/20 06:59 Magic Mouthwash *Sjr Formula* - MM Not Given Q6HPO SHARI Nystatin 500,000 units 04/28/20 00:00 04/28/20 06:59 Nystatin Oral Suspension - PO Not Given Q6HPO SHARI Trimethoprim/Sulfamethoxazole 1 each 04/30/20 10:00 Bactrim Ds - PO MoWeFr@1000 SHARI Impression 1. hyponatremia 2. dehydration 3. failure to thrive 4. lung cancer with mets Plan - change fluids to ns - encourage po intake - repeat labs in am - monitor volume status - will add potassium to fluids as well
[2020-04-28] MEDS: SODIUM CHLORIDE 1,000 ML with POTASSIUM CHLORIDE 10 MEQ IVPB SCH ×2 (14:14→14:25)
[2020-04-28] MEDS ORDERED: PT OWN MED DRAWER 7, Y5N ONE ×2 (14:19→23:39)
[2020-04-28] MEDS ORDERED: POTASSIUM CHLORIDE 10 MEQ in SODIUM CHLORIDE 1,000 ML IVPB SCH (14:24)
--- NOTE | 2020-04-28 14:51 | CON.ENT ---
Consult Consult Specialty:: ENT Referred by:: Dr Toscano Reason for Consultation:: Decreased oral intake - History of Present Illness Chief Complaint: Decreased oral intake History of Present Illness: Pt with failure to thrive, lethargy, inability to walk, decreased oral intake. I have seen him in my office 4 yrs ago for 35-40 db sensorineural hearing loss. I observed a nursing assistant feed him. He falls asleep, when not stimulated. He can slowly swallow pureed diet. There are no upper airway sounds, nor coughing with po intake. He has a h/o lung ca with brain mets and hyponatremia. - History Source History Provided By: Medical Record Limitations to Obtaining History: Other (He visually acknowledges me, but will not talk. 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 History of Recent Travel: No Home Medications - Allergies Allergies/Adverse Reactions: Allergies Allergy/AdvReac Type Severity Reaction Status Date / Time No Known Allergies Allergy Verified 07/11/15 09:21 Physical Exam-ENT Vital Signs: Vital Signs Temperature 98.9 F 04/28/20 11:12 Pulse Rate 78 04/28/20 11:12 Respiratory Rate 18 04/28/20 11:12 Blood Pressure 132/76 04/28/20 11:12 O2 Sat by Pulse Oximetry (%) 99 04/28/20 11:12 Constitutional: Yes: No Distress Head: Yes: WNL, Normocephalic Face: Yes: WNL, Symmetrical Eyes: Yes: WNL Nose: Yes: WNL Nasal Passage: Yes: WNL Oral/Pharynx: Yes: WNL Outer Ear: Yes: WNL Ear Canal: Yes: WNL Neck: Yes: WNL, Supple, Trachea Midline Problem List - Problems (1) Sensorineural hearing loss (SNHL) of both ears Assessment/Plan: Last audiogram 4 years ago showed significant bilateral hearing loss of 35-40 db. Code(s): H90.3 - SENSORINEURAL HEARING LOSS, BILATERAL (2) Failure to thrive Assessment/Plan: Decreased oral intake most likely due to neuromotor coordination issues, since his PE is NORMAL. Code(s): [id number] - Qualifiers: Failure to thrive age range: in adult Qualified Code(s): R62.7 - Adult failure to thrive (3) Odynophagia Assessment/Plan: I don't believe there is any odynophagia (pain on swallowing) other than perhaps a dry dehydrated throat with reduced saliva. Code(s): R13.10 - DYSPHAGIA, UNSPECIFIED Procedure Note Procedure: fiberoptic laryngoscopy through a normal, non obstructed nose, without sign of infection. The nasopharynx, oropharynx and hypopharynx appear normal. His larynx is normal in appearance and there is no paralysis nor obstruction.
--- NOTE | 2020-04-28 15:03 | CON.NEURO ---
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 Cardio/Vascular: No: AFIB Pulmonary: Yes: Cancer (with Brain mets) Gastrointestinal: No: Ascites Renal/: Yes: Renal Inusuff - Alcohol/Substance Use Hx Alcohol Use: No History of Substance Use: reports: None - Smoking History Smoking history: Former smoker Have you smoked in the past 12 months: No - Social History ADL: Family Assistance 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 History of Recent Travel: No Home Medications - Allergies Allergies/Adverse Reactions: Allergies Allergy/AdvReac Type Severity Reaction Status Date / Time No Known Allergies Allergy Verified 07/11/15 09:21 Family Medical History Family History: Unable to Obtain Review of Systems - Review of Systems Constitutional: reports: Loss of Appetite, Malaise, Night Sweats Neurological: reports: Dizziness, Incoordination, Numbness, Parasthesia Physical Exam-Neuro Vital Signs: Vital Signs Temperature 98.9 F 04/28/20 11:12 Pulse Rate 78 04/28/20 11:12 Respiratory Rate 18 04/28/20 11:12 Blood Pressure 132/76 04/28/20 11:12 O2 Sat by Pulse Oximetry (%) 99 04/28/20 11:12 Constitutional: Yes: Well Nourished Neck: Yes: WNL Cardiovascular: Yes: WNL Respiratory: Yes: WNL Gastrointestinal: Yes: WNL Labs: CBC, BMP 04/28/20 07:05 04/28/20 07:05 INR, PTT INR 1.12 (0.83-1.09) H 04/26/20 16:00 - Neuro Exam Level Of Consciousness: Yes: Oriented to Person, Oriented to Place, Oriented to Time Eyes: Yes: PERRLA Speech: Garbled Dominant Hand: Right Cranial Nerves II-XII Intact: Yes DTR's: 1+ Left Tricep, 1+ Right Tricep, 1+ Left Brachioradialis, 1+ Right Brachioradialis Response to light touch: Abnormal Response to pain prick: Abnormal Response to temperature: Abnormal Motor Strength: 3/5: Left Arm, Right Arm, Left Leg Imaging - Results Cat Scan: Image Reviewed Assessment/Plan Lung Cancer with Brain Mets ?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 will try to get the records 2. MRI BRAIN no Christopher 3. fall precautions 4. CK MM MYOGLOBIN ALDOLASE 5. PT 6. DVT prophylaxis 7. NCV EMG LOWER EXT NICO VITAL MD
[2020-04-29] MEDS: POTASSIUM CHLORIDE 10 MEQ in SODIUM CHLORIDE 1,000 ML IVPB SCH ×2 (04:12→15:48)
[2020-04-29] MEDS: MAG HYDROX/ALH/SMC/DPHA/LIDO 240 ML MOUTHWASH MM SCH ×3 (05:02→17:53)
[2020-04-29] MEDS: NYSTATIN 500,000 UNITS/5 ML SUSPENSION PO SCH ×3 (05:02→17:53)
[2020-04-29 08:02] LABS: ALBUMIN 2.4 g/dl (3.4-5.0); BILIRUBIN,TOTAL 0.5 mg/dL (0.2-1); BLOOD UREA NITROGEN 16.3 mg/dL (7-18); CALCIUM 7.5 mg/dL (8.5-10.1); CREATININE 0.8 mg/dL (0.55-1.3); POTASSIUM 4.4 mmol/L (3.5-5.1); TOT PROT 5.3 g/dl (6.4-8.2)
--- NOTE | 2020-04-29 08:19 | PN ---
Progress Note, Physician Chief Complaint: AMS Lethargy Hyponatremia RLL pneumonia History of Present Illness: NAD More alert and awake Ate 100% of his breakfast AXO x 3 - Current Medication List Current Medications: Active Medications Acetaminophen (Tylenol -) 650 mg PO Q4H PRN PRN Reason: PAIN Last Admin: 04/27/20 18:24 Dose: 650 mg Documented by: Dexamethasone (Decadron -) 2 mg PO DAILY [facility] Last Admin: 04/28/20 09:24 Dose: 2 mg Documented by: Azithromycin 250 mg/ Dextrose 250 mls @ 250 mls/hr IVPB DAILY [facility] Last Admin: 04/28/20 09:24 Dose: 250 mls/hr Documented by: Ceftriaxone Sodium 1 gm/ (Dextrose) 50 mls @ 100 mls/hr IVPB DAILY [facility]; Protocol Last Admin: 04/28/20 09:24 Dose: 100 mls/hr Documented by: Potassium Chloride 10 meq/ (Sodium Chloride) 1,005 mls @ 42 mls/hr IVPB Q24H [facility] Last Admin: 04/29/20 04:12 Dose: 42 mls/hr Documented by: Lidocaine/Aluminum/Magnesium/Simeth (Magic Mouthwash *Sjr Formula* -) 5 ml MM Q6HPO [facility] Last Admin: 04/29/20 05:02 Dose: 5 ml Documented by: Nystatin (Nystatin Oral Suspension -) 500,000 units PO Q6HPO [facility] Last Admin: 04/29/20 05:02 Dose: 500,000 units Documented by: Trimethoprim/Sulfamethoxazole (Bactrim Ds -) 1 each PO MoWeFr@1000 [facility] - Objective Vital Signs: Vital Signs Temperature 98.5 F 04/29/20 05:00 Pulse Rate 51 L 04/29/20 05:00 Respiratory Rate 18 04/29/20 05:00 Blood Pressure 88/54 L 04/29/20 05:00 O2 Sat by Pulse Oximetry (%) 97 04/29/20 05:00 Constitutional: Yes: Well Nourished, No Distress, Calm Cardiovascular: Yes: Regular Rate and Rhythm Respiratory: Yes: Regular, CTA Bilaterally Gastrointestinal: Yes: Normal Bowel Sounds, Soft Genitourinary: Yes: WNL Musculoskeletal: Yes: Muscle Weakness Extremities: Yes: WNL Edema: No Peripheral Pulses WNL: Yes Neurological: Yes: Alert, Oriented Psychiatric: Yes: Alert, Oriented Labs: CBC, BMP 04/28/20 07:05 04/29/20 06:55 INR, PTT INR 1.12 (0.83-1.09) H 04/26/20 16:00 Problem List - Problems (1) Dehydration Assessment/Plan: -Continue IVF -Encourage PO intake Problems reviewed: Yes Code(s): E86.0 - DEHYDRATION (2) Failure to thrive Problems reviewed: Yes Code(s): [id number] - Qualifiers: Failure to thrive age range: in adult Qualified Code(s): R62.7 - Adult failure to thrive (3) Leukocytosis Assessment/Plan: -BC/UC: Microbiology 04/28/20 21:51 Legionella Antigen - Final Urine For Antigen Detection Streptococcus pneumoniae Antigen (M - Final 04/27/20 03:50 Blood Culture - Preliminary Blood - Peripheral Venous NO GROWTH OBTAINED AFTER 48 HOURS, INCUBATION TO CONTINUE FOR 3 DAYS. 04/27/20 03:50 Blood Culture - Preliminary Blood - Peripheral Venous NO GROWTH OBTAINED AFTER 48 HOURS, INCUBATION TO CONTINUE FOR 3 DAYS. -Afebrile -CXR possible BLL pneumonia Problems reviewed: Yes Code(s): D72.829 - ELEVATED WHITE BLOOD CELL COUNT, UNSPECIFIED (4) Metastatic lung cancer (metastasis from lung to other site) Assessment/Plan: -CXR reviewed -Oncology consult -Palliative care consult -Started on dexamethasone Problems reviewed: Yes Code(s): C34.90 - MALIGNANT NEOPLASM OF UNSP PART OF UNSP BRONCHUS OR LUNG (5) Pneumonia Assessment/Plan: -CXR BLL possible infiltrates -Pulmonary consult -Start Rocephin -ID consult -afebrile -Monitor leukocytosis -CT chest upon pulmonary discretion Problems reviewed: Yes Code(s): J18.9 - PNEUMONIA, UNSPECIFIED ORGANISM (6) Odynophagia Assessment/Plan: -Oral vs esophageal candidiasis? 2/2 to chemo + immunotherapy -Speech therapy consult -ENT consult appreciated -Tylenol for pain -Nystatin swish and swallow -magic mouthwash -Throat culture pending Problems reviewed: Yes Code(s): R13.10 - DYSPHAGIA, UNSPECIFIED (7) Elevated LFTs Assessment/Plan: -U/S Liver negative for any acute pathology -resolved -monitor trend Problems reviewed: Yes Code(s): R79.89 - OTHER SPECIFIED ABNORMAL FINDINGS OF BLOOD CHEMISTRY Assessment/Plan See problem list
[2020-04-29] MEDS ORDERED: DEXTROSE 5%-WATER - 50 ML IVPB ONE (09:28)
[2020-04-29] MEDS ORDERED: cefTRIAXone SODIUM 1 GM VIAL ONE (09:28)
[2020-04-29] MEDS: CEFTRIAXONE 1 GM in DEXTROSE 5%-WATER - 50 ML IVPB SCH (09:44)
[2020-04-29] MEDS: AZITHROMYCIN IVPB 250 MG in DEXTROSE 5%-WATER - 250 ML IVPB SCH (09:44)
[2020-04-29] MEDS: DEXAMETHASONE 4 MG TABLET (FP) PO SCH (09:44)
--- NOTE | 2020-04-29 11:06 | PN ---
Progress Note (short form) - Note Progress Note: PULMONARY APPEARS IN NO DISTRESS EYES OPEN NODS ANSWERS TO QUESTIONS NEURO EVAL REVIEWED MRI/NO KRIS PENDING AFEBRILE Problem List - Problems (1) Dehydration Code(s): E86.0 - DEHYDRATION (2) Elevated LFTs Code(s): R79.89 - OTHER SPECIFIED ABNORMAL FINDINGS OF BLOOD CHEMISTRY (3) Failure to thrive Code(s): [id number] - Qualifiers: Failure to thrive age range: in adult Qualified Code(s): R62.7 - Adult failure to thrive (4) Metastatic lung cancer (metastasis from lung to other site) Code(s): C34.90 - MALIGNANT NEOPLASM OF UNSP PART OF UNSP BRONCHUS OR LUNG
--- NOTE | 2020-04-29 11:08 | PN ---
Progress Note (short form) - Note Progress Note: PULMONARY APPEARS IN NO DISTRESS EYES OPEN NODS ANSWERS TO QUESTIONS NEURO EVAL REVIEWED MRI/NO KRIS PENDING AFEBRILE Constitutional: Yes: No Distress Eyes: Yes: EOM Intact HENT: Yes: Normocephalic Neck: Yes: Trachea Midline Cardiovascular: Yes: Regular Rate and Rhythm Respiratory: Yes: Diminished Gastrointestinal: Yes: Normal Bowel Sounds Edema: No Chest X-ray: Report Reviewed Cat Scan: Report Reviewed Ultrasound: Report Reviewed LABS NOTED Problem List - Problems (1) Dehydration Code(s): E86.0 - DEHYDRATION (2) Elevated LFTs Code(s): R79.89 - OTHER SPECIFIED ABNORMAL FINDINGS OF BLOOD CHEMISTRY (3) Failure to thrive Code(s): [id number] - Qualifiers: Failure to thrive age range: in adult Qualified Code(s): R62.7 - Adult failure to thrive (4) Metastatic lung cancer (metastasis from lung to other site) Code(s): C34.90 - MALIGNANT NEOPLASM OF UNSP PART OF UNSP BRONCHUS OR LUNG Assessment/Plan FAILURE TO THRIVE HYPONATREMIA CORRECTED METASTATIC LUNG CA TO BRAIN SUPPORTIVE CARE MRI BRAIN PENDING MAY NEED INCREASED DECADRON NUTRITION IV ANTIBIOTICS FOR PRESUMED PNEUMONIA Libby VIRGEN MD Problem List - Problems (1) Dehydration Code(s): E86.0 - DEHYDRATION (2) Elevated LFTs Code(s): R79.89 - OTHER SPECIFIED ABNORMAL FINDINGS OF BLOOD CHEMISTRY (3) Failure to thrive Code(s): [id number] - Qualifiers: Failure to thrive age range: in adult Qualified Code(s): R62.7 - Adult failure to thrive (4) Metastatic lung cancer (metastasis from lung to other site) Code(s): C34.90 - MALIGNANT NEOPLASM OF UNSP PART OF UNSP BRONCHUS OR LUNG
--- NOTE | 2020-04-29 13:54 | PN ---
Progress Note (short form) - Note Progress Note: more alert and conversant no complaints ate breakfast denies cough Vital Signs Period Temp Pulse Resp BP Sys/Blake Pulse Ox Last 24 Hr 98 F-98.7 F 51-66 18-18 88-101/54-62 97-100 cor-rrr lungs decreased bs at bases abd soft,nt ext no edema CBC, BMP 04/28/20 07:05 04/29/20 06:55 Microbiology 04/28/20 21:51 Urine For Antigen Detection Legionella Antigen - Final 04/28/20 21:51 Urine For Antigen Detection Streptococcus pneumoniae Antigen (M - Final 04/27/20 03:50 Blood - Peripheral Venous Blood Culture - Preliminary NO GROWTH OBTAINED AFTER 48 HOURS, INCUBATION TO CONTINUE FOR 3 DAYS. 04/27/20 03:50 Blood - Peripheral Venous Blood Culture - Preliminary NO GROWTH OBTAINED AFTER 48 HOURS, INCUBATION TO CONTINUE FOR 3 DAYS. 04/26/20 19:50 Urine - Urine Clean Catch Urine Culture - Final Normal Urogenital Layla a/p CAP- continue rocephin, can d/c zithromax metastatic lung cancer- per oncology Problem List - Problems (1) Pneumonia Code(s): J18.9 - PNEUMONIA, UNSPECIFIED ORGANISM (2) Metastatic lung cancer (metastasis from lung to other site) Code(s): C34.90 - MALIGNANT NEOPLASM OF UNSP PART OF UNSP BRONCHUS OR LUNG (3) Failure to thrive Code(s): [id number] - Qualifiers: Failure to thrive age range: in adult Qualified Code(s): R62.7 - Adult failure to thrive
--- NOTE | 2020-04-29 14:49 | PN ---
Progress Note, Physician History of Present Illness: Pt seen and examined at bedside. He is awake and appears comfortable. He is tolerating diet and says that he feels better today. - Current Medication List Current Medications: Active Medications Acetaminophen (Tylenol -) 650 mg PO Q4H PRN PRN Reason: PAIN Last Admin: 04/27/20 18:24 Dose: 650 mg Documented by: Dexamethasone (Decadron -) 2 mg PO DAILY [facility] Last Admin: 04/29/20 09:44 Dose: 2 mg Documented by: Ceftriaxone Sodium 1 gm/ (Dextrose) 50 mls @ 100 mls/hr IVPB DAILY [facility]; Protocol Last Admin: 04/29/20 09:44 Dose: 100 mls/hr Documented by: Potassium Chloride 10 meq/ (Sodium Chloride) 1,005 mls @ 42 mls/hr IVPB Q24H [facility] Last Admin: 04/29/20 04:12 Dose: 42 mls/hr Documented by: Lidocaine/Aluminum/Magnesium/Simeth (Magic Mouthwash *Sjr Formula* -) 5 ml MM Q6HPO [facility] Last Admin: 04/29/20 13:08 Dose: 5 ml Documented by: Nystatin (Nystatin Oral Suspension -) 500,000 units PO Q6HPO [facility] Last Admin: 04/29/20 13:09 Dose: 500,000 units Documented by: Trimethoprim/Sulfamethoxazole (Bactrim Ds -) 1 each PO MoWeFr@1000 [facility] - Objective Vital Signs: Vital Signs Temperature 98.6 F 04/29/20 14:36 Pulse Rate 57 L 04/29/20 14:36 Respiratory Rate 18 04/29/20 14:36 Blood Pressure 87/62 L 04/29/20 14:36 O2 Sat by Pulse Oximetry (%) 98 04/29/20 14:36 Constitutional: Yes: Calm Eyes: Yes: Conjunctiva Clear HENT: Yes: Atraumatic Neck: Yes: Supple Cardiovascular: Yes: S1, S2 Respiratory: Yes: CTA Bilaterally Gastrointestinal: Yes: Soft Genitourinary: Yes: WNL Musculoskeletal: Yes: WNL Edema: No Neurological: Yes: Oriented Psychiatric: Yes: Oriented Labs: CBC, BMP 04/28/20 07:05 04/29/20 06:55 INR, PTT INR 1.12 (0.83-1.09) H 04/26/20 16:00 Problem List - Problems (1) Dehydration Code(s): E86.0 - DEHYDRATION (2) Failure to thrive Code(s): [id number] - Qualifiers: Failure to thrive age range: in adult Qualified Code(s): R62.7 - Adult failure to thrive (3) Hyponatremia Code(s): E87.1 - HYPO-OSMOLALITY AND HYPONATREMIA (4) Metastatic lung cancer (metastasis from lung to other site) Code(s): C34.90 - MALIGNANT NEOPLASM OF UNSP PART OF UNSP BRONCHUS OR LUNG Assessment/Plan Current Medications Generic Name Dose Route Start Last Admin Trade Name Freq PRN Reason Stop Dose Admin Acetaminophen 650 mg 04/26/20 21:38 04/27/20 18:24 Tylenol - PO 650 mg Q4H PRN Administration PAIN Dexamethasone 2 mg 04/27/20 10:00 04/29/20 09:44 Decadron - PO 2 mg DAILY [facility] Administration Ceftriaxone Sodium 1 gm/ 50 mls @ 100 mls/hr 04/27/20 22:36 04/29/20 09:44 Dextrose IVPB 100 mls/hr DAILY [facility] Administration Protocol Potassium Chloride 10 meq/ 1,005 mls @ 42 mls/hr 04/29/20 14:24 04/29/20 04:12 Sodium Chloride IVPB 42 mls/hr Q24H [facility] Administration Lidocaine/Aluminum/Magnesium/Simeth 5 ml 04/28/20 00:00 04/29/20 13:08 Magic Mouthwash *Sjr Formula* - MM 5 ml Q6HPO [facility] Administration Nystatin 500,000 units 04/28/20 00:00 04/29/20 13:09 Nystatin Oral Suspension - PO 500,000 units Q6HPO [facility] Administration Trimethoprim/Sulfamethoxazole 1 each 04/30/20 10:00 Bactrim Ds - PO MoWeFr@1000 [facility] Impression 1. hyponatremia 2. dehydration 3. failure to thrive 4. lung cancer with mets Plan - cont fluids as bp is low - repeat labs in am - sodium improved - monitor volume status
[2020-04-29] MEDS ORDERED: POTASSIUM CHLORIDE 10 MEQ in SODIUM CHLORIDE 1,000 ML IVPB SCH (15:39)
[2020-04-30] MEDS: MAG HYDROX/ALH/SMC/DPHA/LIDO 240 ML MOUTHWASH MM SCH ×4 (00:04→18:51)
[2020-04-30] MEDS: NYSTATIN 500,000 UNITS/5 ML SUSPENSION PO SCH ×4 (00:04→18:53)
[2020-04-30] MEDS ORDERED: POTASSIUM CHLORIDE 10 MEQ in SODIUM CHLORIDE 1,000 ML IVPB SCH (02:11)
[2020-04-30] MEDS: ACETAMINOPHEN 325 MG TABLET (FP) PO PRN (04:12)
--- NOTE | 2020-04-30 08:41 | PN ---
Progress Note, Physician - Current Medication List Current Medications: Active Medications Acetaminophen (Tylenol -) 650 mg PO Q4H PRN PRN Reason: PAIN Last Admin: 04/30/20 04:12 Dose: 650 mg Documented by: Dexamethasone (Decadron -) 2 mg PO DAILY [facility] Last Admin: 04/29/20 09:44 Dose: 2 mg Documented by: Ceftriaxone Sodium 1 gm/ (Dextrose) 50 mls @ 100 mls/hr IVPB DAILY [facility]; Protocol Last Admin: 04/29/20 09:44 Dose: 100 mls/hr Documented by: Potassium Chloride 10 meq/ (Sodium Chloride) 1,005 mls @ 60 mls/hr IVPB Q24H [facility] Last Admin: 04/30/20 02:36 Dose: 60 mls/hr Documented by: Lidocaine/Aluminum/Magnesium/Simeth (Magic Mouthwash *Sjr Formula* -) 5 ml MM Q6HPO [facility] Last Admin: 04/30/20 05:46 Dose: 5 ml Documented by: Nystatin (Nystatin Oral Suspension -) 500,000 units PO Q6HPO [facility] Last Admin: 04/30/20 05:46 Dose: 500,000 units Documented by: Trimethoprim/Sulfamethoxazole (Bactrim Ds -) 1 each PO MoWeFr@1000 [facility] - Objective Vital Signs: Vital Signs Temperature 98.0 F 04/30/20 06:09 Pulse Rate 51 L 04/30/20 06:09 Respiratory Rate 18 04/30/20 06:09 Blood Pressure 103/60 04/30/20 06:09 O2 Sat by Pulse Oximetry (%) 99 04/30/20 06:09 Labs: CBC, BMP 04/28/20 07:05 04/29/20 06:55 INR, PTT INR 1.12 (0.83-1.09) H 04/26/20 16:00 Assessment/Plan - Problems (1) Dehydration Assessment/Plan: -Continue IVF -Encourage PO intake Problems reviewed: Yes Code(s): E86.0 - DEHYDRATION (2) Failure to thrive Problems reviewed: Yes Code(s): [id number] - Qualifiers: Failure to thrive age range: in adult Qualified Code(s): R62.7 - Adult gladys lure to thrive (3) Leukocytosis Assessment/Plan: -BC/UC: Microbiology 04/27/20 03:50 Blood - Peripheral Venous Blood Culture - Preliminary NO GROWTH OBTAINED AFTER 72 HOURS, INCUBATION TO CONTINUE FOR 2 DAYS. 04/27/20 03:50 Blood - Peripheral Venous Blood Culture - Preliminary NO GROWTH OBTAINED AFTER 72 HOURS, INCUBATION TO CONTINUE FOR 2 DAYS. 04/28/20 21:51 Urine For Antigen Detection Legionella Antigen - Final 04/28/20 21:51 Urine For Antigen Detection Streptococcus pneumoniae Antigen (M - Final 04/26/20 19:50 Urine - Urine Clean Catch Urine Culture - Final Normal Urogenital Layla -Afebrile -CXR possible BLL pneumonia Problems reviewed: Yes Code(s): D72.829 - ELEVATED WHITE BLOOD CELL COUNT, UNSPECIFIED (4) Metastatic lung cancer (metastasis from lung to other site) Assessment/Plan: -CXR reviewed -Oncology consult -Palliative care consult -Started on dexamethasone Problems reviewed: Yes Code(s): C34.90 - MALIGNANT NEOPLASM OF UNSP PART OF UNSP BRONCHUS OR LUNG (5) Pneumonia Assessment/Plan: -CXR BLL possible infiltrates -Pulmonary consult -Start Rocephin -ID consult -afebrile -Monitor leukocytosis -CT chest upon pulmonary discretion Problems reviewed: Yes Code(s): J18.9 - PNEUMONIA, UNSPECIFIED ORGANISM (6) Odynophagia Assessment/Plan: -Oral vs esophageal candidiasis? 2/2 to chemo + immunotherapy -Speech therapy consult -ENT consult appreciated -Tylenol for pain -Nystatin swish and swallow -magic mouthwash -Throat culture pending Problems reviewed: Yes Code(s): R13.10 - DYSPHAGIA, UNSPECIFIED (7) Elevated LFTs Assessment/Plan: -U/S Liver negative for any acute pathology -resolved -monitor trend Problems reviewed: Yes Code(s): R79.89 - OTHER SPECIFIED ABNORMAL FINDINGS OF BLOOD CHEMISTRY
[2020-04-30 09:17] LABS: BASO % 0.3 % (0-2.0); EOS % 2.6 % (0-4.5); HEMOGLOBIN 10.7 GM/dL (11.7-16.9); LYMPH % 12.8 % (8-40); MCH 30.7 pg (25.7-33.7); MCHC 32.4 g/dl (32.0-35.9); MEAN CELL VOLUME 94.8 fl (80-96); MEAN PLT VOLUME 7.7 fl (7.5-11.1); MONO % 9.6 % (3.8-10.2); NEUT % 74.7 % (42.8-82.8); PLATELET COUNT 207 K/MM3 (134-434); RBC 3.48 M/mm3 (4.00-5.60); RDW 18.4 % (11.9-15.9); WHITE BLOOD COUNT 5.8 K/mm3 (4.0-10.0)
[2020-04-30 09:40] LABS: ALBUMIN 2.7 g/dl (3.4-5.0); BILIRUBIN,TOTAL 0.6 mg/dL (0.2-1); BLOOD UREA NITROGEN 15.2 mg/dL (7-18); CALCIUM 7.9 mg/dL (8.5-10.1); CREATININE 0.7 mg/dL (0.55-1.3); TOT PROT 5.6 g/dl (6.4-8.2)
[2020-04-30] MEDS ORDERED: cefTRIAXone SODIUM 1 GM VIAL ONE (10:11)
[2020-04-30] MEDS ORDERED: DEXTROSE 5%-WATER - 50 ML IVPB ONE (10:11)
[2020-04-30] MEDS: SULFAMETHOXAZOLE/TRIMETHOPRIM 800MG/160MG D.S. TABLET PO SCH (10:14)
[2020-04-30] MEDS: DEXAMETHASONE 4 MG TABLET (FP) PO SCH (10:14)
[2020-04-30] MEDS: CEFTRIAXONE 1 GM in DEXTROSE 5%-WATER - 50 ML IVPB SCH (10:15)
--- NOTE | 2020-04-30 11:23 | PN ---
Progress Note (short form) - Note Progress Note: PULMONARY Denies shortness of breath. +nonproductive cough. No fevers recorded. Vital Signs Period Temp Pulse Resp BP Sys/Blake Pulse Ox Last 24 Hr 98.0 F-98.6 F 51-57 18-18 87-103/51-62 97-99 Gen: NAD at rest Heart: RRR Lung: basilar rales Abd: soft, nontender Ext: no edema CBC, BMP 04/30/20 08:25 04/30/20 08:25 Active Medications Acetaminophen (Tylenol -) 650 mg PO Q4H PRN PRN Reason: PAIN Last Admin: 04/30/20 04:12 Dose: 650 mg Documented by: Dexamethasone (Decadron -) 2 mg PO DAILY [facility] Last Admin: 04/30/20 10:14 Dose: 2 mg Documented by: Ceftriaxone Sodium 1 gm/ (Dextrose) 50 mls @ 100 mls/hr IVPB DAILY [facility]; Protocol Last Admin: 04/30/20 10:15 Dose: 100 mls/hr Documented by: Potassium Chloride 10 meq/ (Sodium Chloride) 1,005 mls @ 60 mls/hr IVPB Q24H [facility] Last Admin: 04/30/20 02:36 Dose: 60 mls/hr Documented by: Lidocaine/Aluminum/Magnesium/Simeth (Magic Mouthwash *Sjr Formula* -) 5 ml MM Q6HPO [facility] Last Admin: 04/30/20 05:46 Dose: 5 ml Documented by: Nystatin (Nystatin Oral Suspension -) 500,000 units PO Q6HPO [facility] Last Admin: 04/30/20 05:46 Dose: 500,000 units Documented by: Trimethoprim/Sulfamethoxazole (Bactrim Ds -) 1 each PO MoWeFr@1000 [facility] Last Admin: 04/30/20 10:14 Dose: 1 each Documented by: A/P Pneumonia Hyponatremia improving Metastatic Lung Cancer Failure to Thrive Anemia - continue antibiotics - O2 to keep SpO2 >90% - PO as tolerated - DVT prophylaxis
[2020-04-30] MEDS ORDERED: PT OWN MED DRAWER 7, Y5N ONE (12:23)
--- NOTE | 2020-04-30 13:42 | PN ---
Progress Note, Physician History of Present Illness: events noted chart reviewed Seen on the floor Alert awake oriented Feels slightly better Still no MRI done - Current Medication List Current Medications: Active Medications Acetaminophen (Tylenol -) 650 mg PO Q4H PRN PRN Reason: PAIN Last Admin: 04/30/20 04:12 Dose: 650 mg Documented by: Dexamethasone (Decadron -) 2 mg PO DAILY [facility] Last Admin: 04/30/20 10:14 Dose: 2 mg Documented by: Ceftriaxone Sodium 1 gm/ (Dextrose) 50 mls @ 100 mls/hr IVPB DAILY [facility]; Protocol Last Admin: 04/30/20 10:15 Dose: 100 mls/hr Documented by: Potassium Chloride 10 meq/ (Sodium Chloride) 1,005 mls @ 60 mls/hr IVPB Q24H [facility] Last Admin: 04/30/20 02:36 Dose: 60 mls/hr Documented by: Lidocaine/Aluminum/Magnesium/Simeth (Magic Mouthwash *Sjr Formula* -) 5 ml MM Q6HPO [facility] Last Admin: 04/30/20 12:40 Dose: 5 ml Documented by: Nystatin (Nystatin Oral Suspension -) 500,000 units PO Q6HPO [facility] Last Admin: 04/30/20 12:28 Dose: 500,000 units Documented by: Trimethoprim/Sulfamethoxazole (Bactrim Ds -) 1 each PO MoWeFr@1000 [facility] Last Admin: 04/30/20 10:14 Dose: 1 each Documented by: - Objective Vital Signs: Vital Signs Temperature 98.0 F 04/30/20 06:09 Pulse Rate 51 L 04/30/20 06:09 Respiratory Rate 18 04/30/20 06:09 Blood Pressure 103/60 04/30/20 06:09 O2 Sat by Pulse Oximetry (%) 99 04/30/20 06:09 Constitutional: Yes: Well Nourished Eyes: Yes: WNL HENT: Yes: WNL (median) Neurological: Yes: Alert, Oriented, Babinski negative, Cran Nerves II-XII Intact ...Motor Strength: WNL Labs: CBC, BMP 04/30/20 08:25 04/30/20 08:25 INR, PTT INR 1.12 (0.83-1.09) H 04/26/20 16:00 Problem List - Problems (1) Dehydration Code(s): E86.0 - DEHYDRATION (2) Metastatic lung cancer (metastasis from lung to other site) Code(s): C34.90 - MALIGNANT NEOPLASM OF UNSP PART OF UNSP BRONCHUS OR LUNG Assessment/Plan 1. MRI of the brain with no contrast. Seizure precautions. 3. Ativan when necessary seizure. 4. Trial of Remeron 50 mg once daily. 5. follow-up with the infectious disease specialist
--- NOTE | 2020-04-30 15:06 | PN ---
Progress Note (short form) - Note Progress Note: more alert and conversant reports discomfort in his throat when he swallows Vital Signs Period Temp Pulse Resp BP Sys/Blake Pulse Ox Last 24 Hr 98.0 F-98.2 F 51-56 18-18 89-103/51-62 97-99 heent-no thrush, no pharyngitis cor-rrr lungs decreased bs at bases abd soft,nt ext no edema CBC, BMP 04/30/20 08:25 04/30/20 08:25 Microbiology 04/28/20 15:30 Throat Throat Culture - Preliminary 04/27/20 03:50 Blood - Peripheral Venous Blood Culture - Preliminary NO GROWTH OBTAINED AFTER 72 HOURS, INCUBATION TO CONTINUE FOR 2 DAYS. 04/27/20 03:50 Blood - Peripheral Venous Blood Culture - Preliminary NO GROWTH OBTAINED AFTER 72 HOURS, INCUBATION TO CONTINUE FOR 2 DAYS. 04/28/20 21:51 Urine For Antigen Detection Legionella Antigen - Final 04/28/20 21:51 Urine For Antigen Detection Streptococcus pneumoniae Antigen (M - Final 04/26/20 19:50 Urine - Urine Clean Catch Urine Culture - Final Normal Urogenital Layla a/p CAP- continue rocephin,day #4 metastatic lung cancer- per oncology-awaiting MRI, on decadron throat pain- consider ENT eval if it persists Problem List - Problems (1) Pneumonia Code(s): J18.9 - PNEUMONIA, UNSPECIFIED ORGANISM (2) Metastatic lung cancer (metastasis from lung to other site) Code(s): C34.90 - MALIGNANT NEOPLASM OF UNSP PART OF UNSP BRONCHUS OR LUNG (3) Failure to thrive Code(s): [id number] - Qualifiers: Failure to thrive age range: in adult Qualified Code(s): R62.7 - Adult failure to thrive
--- NOTE | 2020-04-30 16:39 | PN ---
Progress Note, Physician History of Present Illness: Pt seen and examined at bedside. He is awake and more interactive. He is tolerating diet. - Current Medication List Current Medications: Active Medications Acetaminophen (Tylenol -) 650 mg PO Q4H PRN PRN Reason: PAIN Last Admin: 04/30/20 04:12 Dose: 650 mg Documented by: Dexamethasone (Decadron -) 2 mg PO DAILY SHARI Last Admin: 04/30/20 10:14 Dose: 2 mg Documented by: Ceftriaxone Sodium 1 gm/ (Dextrose) 50 mls @ 100 mls/hr IVPB DAILY SHARI; Protocol Last Admin: 04/30/20 10:15 Dose: 100 mls/hr Documented by: Potassium Chloride 10 meq/ (Sodium Chloride) 1,005 mls @ 60 mls/hr IVPB Q24H [facility]ARI Last Admin: 04/30/20 02:36 Dose: 60 mls/hr Documented by: Lidocaine/Aluminum/Magnesium/Simeth (Magic Mouthwash *Sjr Formula* -) 5 ml MM Q 6HPO SHARI Last Admin: 04/30/20 12:40 Dose: 5 ml Documented by: Nystatin (Nystatin Oral Suspension -) 500,000 units PO Q6HPO SHARI Last Admin: 04/30/20 12:28 Dose: 500,000 units Documented by: Trimethoprim/Sulfamethoxazole (Bactrim Ds -) 1 each PO MoWeFr@1000 [facility] Last Admin: 04/30/20 10:14 Dose: 1 each Documented by: - Objective Vital Signs: Vital Signs Temperature 98.2 F 04/30/20 15:49 Pulse Rate 58 L 04/30/20 15:49 Respiratory Rate 18 04/30/20 15:49 Blood Pressure 102/71 04/30/20 15:49 O2 Sat by Pulse Oximetry (%) 99 04/30/20 06:09 Constitutional: Yes: Calm Eyes: Yes: Conjunctiva Clear HENT: Yes: Atraumatic Neck: Yes: Supple Cardiovascular: Yes: S1, S2 Respiratory: Yes: CTA Bilaterally Gastrointestinal: Yes: Soft Genitourinary: Yes: WNL Musculoskeletal: Yes: WNL Edema: No Integumentary: Yes: WNL Neurological: Yes: Oriented Labs: CBC, BMP 04/30/20 08:25 04/30/20 08:25 INR, PTT INR 1.12 (0.83-1.09) H 04/26/20 16:00 Problem List - Problems (1) Dehydration Code(s): E86.0 - DEHYDRATION (2) Failure to thrive Code(s): MBR1599 - Qualifiers: Failure to thrive age range: in adult Qualified Code(s): R62.7 - Adult failure to thrive (3) Hyponatremia Code(s): E87.1 - HYPO-OSMOLALITY AND HYPONATREMIA (4) Metastatic lung cancer (metastasis from lung to other site) Code(s): C34.90 - MALIGNANT NEOPLASM OF UNSP PART OF UNSP BRONCHUS OR LUNG Assessment/Plan Current Medications Generic Name Dose Route Start Last Admin Trade Name Freq PRN Reason Stop Dose Admin Acetaminophen 650 mg 04/26/20 21:38 04/30/20 04:12 Tylenol - PO 650 mg Q4H PRN Administration PAIN Dexamethasone 2 mg 04/27/20 10:00 04/30/20 10:14 Decadron - PO 2 mg DAILY SHARI Administration Ceftriaxone Sodium 1 gm/ 50 mls @ 100 mls/hr 04/27/20 22:36 04/30/20 10:15 Dextrose IVPB 100 mls/hr DAILY SHARI Administration Protocol Potassium Chloride 10 meq/ 1,005 mls @ 60 mls/hr 04/30/20 02:11 04/30/20 02:36 Sodium Chloride IVPB 60 mls/hr Q24H SHARI Administration Lidocaine/Aluminum/Magnesium/Simeth 5 ml 04/28/20 00:00 04/30/20 12:40 Magic Mouthwash *Sjr Formula* - MM 5 ml Q6HPO SHARI Administration Nystatin 500,000 units 04/28/20 00:00 04/30/20 12:28 Nystatin Oral Suspension - PO 500,000 units Q6HPO SHARI Administration Trimethoprim/Sulfamethoxazole 1 each 04/30/20 10:00 04/30/20 10:14 Bactrim Ds - PO 1 each [id number]@1000 SHARI Administration Impression 1. hyponatremia 2. dehydration 3. failure to thrive 4. lung cancer with mets Plan - decrease rate of fluids - repeat labs in am - sodium stable - encourage po intake - volume status stable
--- NOTE | 2020-04-30 16:46 | CONSULT ---
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 History of Recent Travel: No History - Admission Reason For Visit: DEHYDRATION FAILURE TO THRIVE - Hearing Hearing: Normal Hearing Aide: No Speech Evaluation - Communication Primary Language: AZERBAIJANI Communication: Yes: Within Normal Limits, Simple Responses Oral Expression Ability: Yes: Moderate Impairment - Speech Production Apraxia: No Able to Make Needs Known: Yes: Mildly Impaired Intelligibility: Yes: Mildly Impaired - Speech Characteristics Voice Loudness: Moderately Soft/Quiet Voice Pitch: Yes: Moderatley Low Voice Phonatory-based Quality: Yes: Hoarse, Breathy Speech Pattern: Impaired Speech Clarity: < 50% Nasal Resonance: Normal Articulation: Yes: Precise Dysfluency: Yes: Tonic Voice, Other Observations: Yes: Progressively Weak Voice Voice Comment: Vocal quality is impaired characterized as breathy with reduced intensity - Language/Auditory Comprehension Follows: Yes: 1 Stage Simple Commands (wfl), 2 Stage Simple Commands (wfl) Observation: Able to respond to yes/no queries: Yes, Yes/No Confusion: No, Comprehends Conversational Speech: Yes, Benefits from Slow Speech: No, Benefits from Repetiton: No, Benefits from Increased Volume of Speech: No - Language/Verbal Expression Able to Respond to Simple Queries: Yes: Mildly Impaired Able to Communicate Wants and Needs: Yes: Mildly Impaired (secondary to vocal quality) Functional Communication Status: Yes: Mildly Impaired Aware of Errors: Yes Attempts to Correct Errors: Yes Use of Gestures: No Written Expression: not examined Oral Expression: impaired Reading Comprehension: not examined Calculations: not examined Attention: Yes: Intact - Memory/Perception USP Memory: Yes: WNL - Swallow Evaluation/Bedside Assessment Current Nutritional Intake: Dysphagia Pureed, [place] Textured Liquids Oral Secretions: Yes: WFL Tracheostomy Present: No Patient on Ventilator: No Dentition: Yes: Adequate Facial Symmetry at Rest: Symmetrical Facial Symmetry on Retraction: Symmetrical Facial Movement: Controlled Sensation: Normal Facial Comment: WFL for speech and swallowing purposes Jaw Position: Open at Rest Against Resistance Opening: Normal Against Resistance Closing: Normal Pucker Lips: Normal Smile: Normal Lips, Comment: WFL for speech and swallowing purposes Lingual Movement: Normal Lingual Speed of Movement: Normal Lingual Movement Strgth Against Opposition: Normal Lingual Movement Characteristics: Normal Lingual Comment: WFL for speech and swallowing purposes Soft Palate Description: Normal Color Hard Palate Description: Normal Color Gag Reflex: Strong Bite Reflex: Present Velopharyngeal Movement: Normal Laryngeal Elevation: WFL Laryngeal Movement: Able to Palpate Needs Assistance: Yes Rate of Intake: WFL Bolus Size: WFL Labial Seal: WFL Chewing: WFL Oral Prep Time: WFL A-P Transit: WFL Pocketing: None Timing of Swallow: Delayed (2-4 seconds) Odynophagia: Pharyngeal Coughing/Throat Clear: No Change in Voice: No Other Findings/Remarks: 65 yo male seen at bedside for swallow eval to r/o dysphagia with family member present for this session.Pt is minimally verbal A&Ox3, cooperative, reliable yes / no response and able to follow some directives with minimal difficulty.PMHX includes metastatic Lung CA, FTT, PNA. Admitted for dehydration. Vocal quality is impaired characterized as breathy with reduced intensity and pitch. Dental status is WFL. Volitional airway protection (without bolus) and swallow is WNL. Hypothryriod elevation was present/strong to palpation of the anterior neck. Pt reports "pain in the throat" when swallowing. Current diet pureed with thicken liquids Pt given PO trials of pureed with total assistance revealed, good acceptance, adequate bolus formation and A P transport with a mild delayed pharyngeal swallow (2-3 second average). No change in voicing or respiration after the swallow. Pt given po trials of ice chips via spoon and thicken liquids via cup with minimal assistance revealed adequate acceptance, labial containment and bolus control. Pharyngeal swallows are mildly delayed. No change in voicing or respiration after the swallow. Recommendations - Speech Evaluation, Impression/Plan Impression: The oral and pharyngeal swallow is adequate for po intake of pureed solids and thicken liquids. Labial containment, bolus transport, and initiation of swallow were WFL. No coughing or changes in voicing to suggest penetration / aspiration at bedside at this time. However, pt continues to grimace in pain with swallowing. Director Talent Acquisition Goals: Tolerate the least restrictive diet without s/s of aspiration- like behavior. Short Term Goals: Tolerate puree with thicken liquids without s/s of aspiration - Dysphagia Impressions/Plan Swallowing Skills: Impaired Dysphagia Impressions: Mild Impairment (secondary to pain with swallowing), Risk of Aspiration, Ongoing Evaluation *Silent aspiration: cannot be R/O at bedside Dysphagia Evaluation Summary: Continue po intake of puree and nectar thicken liquids as tolerated secondary to pain with swallowing. PERSONAL FINANCIAL PLANNER to follow up for diet tolerance. Observe standard aspiration precautions. Crush medications in applesauce for ease of swallowing. Results given verbally to credit charge authorizer and to PCP via chart. - Recommendations Diet Consistency: Dysphagia Pureed Medication Administration: Crushed with applesauce Liquids: [place] Thick
--- NOTE | 2020-04-30 17:19 | CONSULT ---
Consult Consult Specialty:: Palliative care Referred by:: Manjit Tsocano Reason for Consultation:: Goals of care - History of Present Illness Chief Complaint: metastatic lung cancer with FTT History of Present Illness: 65 y/o male with a PMHx of Lung Ca with metastasis Brain (04/25/16) who was in [facility] till last Thursday when he developed lethargy and increased weakness, difficulty ambulating and presented to ED on 04/26/20. Per the Mr. Ramon has had a decrease in his oral intake for the last several days. . She reports that he is normally ambulatory with a walker and he has not been ambulatory since last Thursday. The denies patient having fever, chills, cough, SOB, MAY, CP, palpitations, AP, N/V/D, constipation, dysuria. She denies sick contacts or recent travel. 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 Loss, Weakness HENT: reports: Difficult Swallowing, Throat Pain Musculoskeletal: reports: Muscle Weakness Physical Exam Vital Signs: Vital Signs Temperature 98.2 F 04/30/20 15:49 Pulse Rate 58 L 04/30/20 15:49 Respiratory Rate 18 04/30/20 15:49 Blood Pressure 102/71 04/30/20 15:49 O2 Sat by Pulse Oximetry (%) 99 04/30/20 06:09 Constitutional: Yes: Well Nourished, Calm Eyes: Yes: WNL, Conjunctiva Clear, EOM Intact HENT: Yes: Atraumatic, Normocephalic Neck: Yes: Supple Cardiovascular: Yes: Regular Rate and Rhythm Respiratory: Yes: Regular, CTA Bilaterally Gastrointestinal: Yes: Normal Bowel Sounds, Soft Neurological: Yes: Alert, Oriented Labs: CBC, BMP 04/30/20 08:25 04/30/20 08:25 Imaging - Results Chest X-ray: Report Reviewed Cat Scan: Report Reviewed Ultrasound: Report Reviewed Problem List - Problems (1) Dehydration Code(s): E86.0 - DEHYDRATION (2) Failure to thrive Code(s): [id number] - Qualifiers: Failure to thrive age range: in adult Qualified Code(s): R62.7 - Adult failure to thrive (3) Metastatic lung cancer (metastasis from lung to other site) Code(s): C34.90 - MALIGNANT NEOPLASM OF UNSP PART OF UNSP BRONCHUS OR LUNG (4) Odynophagia Code(s): R13.10 - DYSPHAGIA, UNSPECIFIED (5) Pneumonia Code(s): J18.9 - PNEUMONIA, UNSPECIFIED ORGANISM Assessment/Plan 65 y/o male with metastatic lung cancer diagnosed 2016, ?? stage IIIB initially progressing to stage IV. Initially treated with SRS x2 ?? in Received chemotherapy and had been on immunotherapy for 2 yrs. Last received . As per pt's primary oncologist is Dr Sal Thapa at [place]- [phone]. He is also followed by neurologist at [place]. His immunotherapy was discontinued as he was having difficulty ambulating thought to be due to toxicity of the treatment. He was then started on steroids and his weakness improved and he was able to ambulate with a cane. He lives at home with his who is his primary caregiver. Before last thursday patient was independent in ADLs with a cane. Hx + hearing loss Patient presented to [facility] with weakness, lethargy, dehydration, abnl LFT, elevated CK ( mild), painful and difficult swallowing. Abnl CXR with rt pl effusion, rt atelectasis, mild leucocytosis- on a/bs for pneumonia on nystatin for oral candidiasis - ENT examn nl FTT- lost 15 lb in 3 weeks CTH shows stable hypodensities- MRI brain pending ( no mass effect) Patient has been slowly improving with hydration, a/bs ST- now tolerating pureed diet with NTL I had a detailed conversation with pt's and his . Patient was alert, conversant. provided most of the history. As per , pt's CTH and chest were stable back in February and he was scheduled for a f/up with his oncologist on 05/02 when the plan was to dc decadron and he would have rpt imaging. We discussed advanced directives and patient is a full code. I would recommend to continue current supportive care. If esophageal candidiasis is a concern he might benefit from diflucan magic mouthwash 15 cc qid swish and swallow marinol/ remeron may be considered as appetite stimulant He would benefit from multidisciplinary rehab We discussed possible STR for now so patient can regain his strength f/up with oncology. Thankyou for allowing me to participate in the care of this patient. Please call with questions. Be Dubon MD [phone] Total time for chart review, examination, conference and coordination of care- 70 minutes.
[2020-04-30] MEDS: POTASSIUM CHLORIDE 10 MEQ in SODIUM CHLORIDE 1,000 ML IVPB SCH ×2 (18:40→18:50)
[2020-05-01] MEDS: MAG HYDROX/ALH/SMC/DPHA/LIDO 240 ML MOUTHWASH MM SCH ×4 (00:21→18:55)
[2020-05-01] MEDS: NYSTATIN 500,000 UNITS/5 ML SUSPENSION PO SCH ×4 (00:21→18:55)
--- NOTE | 2020-05-01 09:27 | PN ---
Progress Note (short form) - Note Progress Note: Palliative care f/up 65 y/o male with metastatic lung cancer diagnosed 2016, ?? stage IIIB initially progressing to stage IV. Initially treated with SRS x2 ?? in 2017/2018 Received chemotherapy and had been on immunotherapy for 2 yrs. Last received 01/22. lethargy and confusion improving appetite remains poor weak frail VSS labs reviewed AMS Lethargy Hyponatremia- resolved RLL pneumonia- on iv a/bs As per pt's primary oncologist is Dr Sal Thapa at [place]- [phone]. He is also followed by neurologist at [place]- Neurology Dr Gregor Abad [phone]. His immunotherapy was discontinued as he was having difficulty ambulating thought to be due to toxicity of the treatment. He was then started on steroids and his weakness improved and he was able to ambulate with a cane. He lives at home with his who is his primary caregiver. Before last thursday patient was independent in ADLs with a cane. Hx + hearing loss Patient presented to [facility] with weakness, lethargy, dehydration, abnl LFT, elevated CK ( mild), painful and difficult swallowing. Abnl CXR with rt pl effusion, rt atelectasis, mild leucocytosis- on a/bs for pneumonia FTT- lost 15 lb in 3 weeks CTH shows stable hypodensities- MRI brain pending ( no mass effect) Patient has been slowly improving with hydration, a/bs ST- now tolerating pureed diet with NTL on diflucan and magic mouthwash appears more comfortable today As per , pt's CTH and chest were stable back in February and he was scheduled for a f/up with his oncologist on 05/02 when the plan was to dc decadron and he would have rpt imaging. We discussed advanced directives and patient is a full code. continue current supportive care. ? esophageal candidiasis - diflucan, magic mouthwash 15 cc qid swish and swallow marinol/ remeron may be considered as appetite stimulant He would benefit from multidisciplinary rehab We discussed possible STR for now so patient can regain his strength patient is currently off chemotherapy and may be appropriate for STR. f/up with oncology. Team is reaching out to pt's primary oncologist and neurologist regarding disease status and current plan of care, prognosis. WIll follow. Problem List - Problems (1) Dehydration Code(s): E86.0 - DEHYDRATION (2) Failure to thrive Code(s): GQI2019 - Qualifiers: Failure to thrive age range: in adult Qualified Code(s): R62.7 - Adult failure to thrive (3) Metastatic lung cancer (metastasis from lung to other site) Code(s): C34.90 - MALIGNANT NEOPLASM OF UNSP PART OF UNSP BRONCHUS OR LUNG (4) Odynophagia Code(s): R13.10 - DYSPHAGIA, UNSPECIFIED (5) Pneumonia Code(s): J18.9 - PNEUMONIA, UNSPECIFIED ORGANISM
[2020-05-01] MEDS ORDERED: DEXTROSE 5%-WATER - 50 ML IVPB ONE (09:52)
[2020-05-01] MEDS ORDERED: cefTRIAXone SODIUM 1 GM VIAL ONE (09:52)
[2020-05-01] MEDS ORDERED: PT OWN MED DRAWER 7, Y5N ONE ×2 (09:52→14:40)
[2020-05-01] MEDS: CEFTRIAXONE 1 GM in DEXTROSE 5%-WATER - 50 ML IVPB SCH (10:29)
[2020-05-01] MEDS: DEXAMETHASONE 4 MG TABLET (FP) PO SCH (10:29)
[2020-05-01 10:46] LABS: BASO % 0.6 % (0-2.0); EOS % 3.8 % (0-4.5); HEMATOCRIT 37.7 % (35.4-49); HEMOGLOBIN 12.1 GM/dL (11.7-16.9); MEAN CELL VOLUME 96.7 fl (80-96); MEAN PLT VOLUME 7.7 fl (7.5-11.1); MONO % 8.8 % (3.8-10.2); NEUT % 75.8 % (42.8-82.8); PLATELET COUNT 68 K/MM3 (134-434); RDW 17.9 % (11.9-15.9); WHITE BLOOD COUNT 6.9 K/mm3 (4.0-10.0)
--- NOTE | 2020-05-01 11:58 | PN ---
Progress Note, Physician History of Present Illness: pulmonary awake,alert,non-verbal today,comfortable,-sob - Current Medication List Current Medications: Active Medications Acetaminophen (Tylenol -) 650 mg PO Q4H PRN PRN Reason: PAIN Last Admin: 04/30/20 04:12 Dose: 650 mg Documented by: Dexamethasone (Decadron -) 2 mg PO DAILY [facility] Last Admin: 05/01/20 10:29 Dose: 2 mg Documented by: Ceftriaxone Sodium 1 gm/ (Dextrose) 50 mls @ 100 mls/hr IVPB DAILY SHARI; Protocol Last Admin: 05/01/20 10:29 Dose: 100 mls/hr Documented by: Potassium Chloride 10 meq/ (Sodium Chloride) 1,005 mls @ 40 mls/hr IVPB Q24H [facility] Last Admin: 04/30/20 18:50 Dose: 40 mls/hr Documented by: Lidocaine/Aluminum/Magnesium/Simeth (Magic Mouthwash *Sjr Formula* -) 5 ml MM Q6HPO [facility] Last Admin: 05/01/20 05:07 Dose: 5 ml Documented by: Nystatin (Nystatin Oral Suspension -) 500,000 units PO Q6HPO [facility] Last Admin: 05/01/20 05:07 Dose: 500,000 units Documented by: Trimethoprim/Sulfamethoxazole (Bactrim Ds -) 1 each PO [id number]@1000 [facility] Last Admin: 04/30/20 10:14 Dose: 1 each Documented by: - Objective Vital Signs: Vital Signs Temperature 98.5 F 05/01/20 04:00 Pulse Rate 64 05/01/20 04:00 Respiratory Rate 18 05/01/20 04:00 Blood Pressure 120/64 05/01/20 04:00 O2 Sat by Pulse Oximetry (%) 98 05/01/20 04:00 Constitutional: Yes: Well Nourished, Calm Eyes: Yes: WNL HENT: Yes: WNL Neck: Yes: WNL Cardiovascular: Yes: Regular Rate and Rhythm, S1, S2 Respiratory: Yes: Diminished Gastrointestinal: Yes: Normal Bowel Sounds, Soft Extremities: Yes: WNL Edema: No Labs: CBC, BMP 05/01/20 10:15 Assessment/Plan A/P Pneumonia Hyponatremia improved Metastatic Lung Cancer Failure to Thrive Anemia - antibiotics - O2 to keep SpO2 >90% - PO as tolerated - DVT prophylaxis - chest x-ray DR GARCIA
--- NOTE | 2020-05-01 12:19 | PN ---
Progress Note, Physician Chief Complaint: AMS Lethargy Hyponatremia RLL pneumonia History of Present Illness: NAD Alert and awake but delayed speech Didn't eat much of his breakfast, refusing lunch was AXO x 3, more verbal on Thursday, - Current Medication List Current Medications: Active Medications Acetaminophen (Tylenol -) 650 mg PO Q4H PRN PRN Reason: PAIN Last Admin: 04/30/20 04:12 Dose: 650 mg Documented by: Dexamethasone (Decadron -) 2 mg PO DAILY [facility] Last Admin: 05/01/20 10:29 Dose: 2 mg Documented by: Ceftriaxone Sodium 1 gm/ (Dextrose) 50 mls @ 100 mls/hr IVPB DAILY [facility]; Protocol Last Admin: 05/01/20 10:29 Dose: 100 mls/hr Documented by: Potassium Chloride 10 meq/ (Sodium Chloride) 1,005 mls @ 40 mls/hr IVPB Q24H [facility] Last Admin: 04/30/20 18:50 Dose: 40 mls/hr Documented by: Lidocaine/Aluminum/Magnesium/Simeth (Magic Mouthwash *Sjr Formula* -) 5 ml MM Q6HPO [facility] Last Admin: 05/01/20 05:07 Dose: 5 ml Documented by: Nystatin (Nystatin Oral Suspension -) 500,000 units PO Q6HPO [facility] Last Admin: 05/01/20 05:07 Dose: 500,000 units Documented by: Trimethoprim/Sulfamethoxazole (Bactrim Ds -) 1 each PO MoWeFr@1000 [facility] Last Admin: 04/30/20 10:14 Dose: 1 each Documented by: - Objective Vital Signs: Vital Signs Temperature 98.5 F 05/01/20 04:00 Pulse Rate 64 05/01/20 04:00 Respiratory Rate 18 05/01/20 04:00 Blood Pressure 120/64 05/01/20 04:00 O2 Sat by Pulse Oximetry (%) 98 05/01/20 04:00 Constitutional: Yes: Well Nourished, No Distress, Calm Cardiovascular: Yes: Regular Rate and Rhythm Respiratory: Yes: Regular, CTA Bilaterally Gastrointestinal: Yes: Normal Bowel Sounds, Soft Genitourinary: Yes: WNL Musculoskeletal: Yes: Muscle Weakness Extremities: Yes: WNL Edema: No Peripheral Pulses WNL: Yes Neurological: Yes: Alert, Lethargy Psychiatric: Yes: Alert Labs: CBC, BMP 05/01/20 10:15 04/30/20 08:25 INR, PTT INR 1.12 (0.83-1.09) H 04/26/20 16:00 Problem List - Problems (1) Dehydration Assessment/Plan: -Continue IVF -Encourage PO intake Problems reviewed: Yes Code(s): E86.0 - DEHYDRATION (2) Failure to thrive Problems reviewed: Yes Code(s): [id number] - Qualifiers: Failure to thrive age range: in adult Qualified Code(s): R62.7 - Adult failure to thrive (3) Leukocytosis Assessment/Plan: -ID consult -Afebrile -IV Rocephin -Cultures: Microbiology 04/28/20 15:30 Throat Throat Culture - Final Yeast Like Organism 04/27/20 03:50 Blood - Peripheral Venous Blood Culture - Preliminary NO GROWTH OBTAINED AFTER 96 HOURS, INCUBATION TO CONTINUE FOR 1 DAYS. 04/27/20 03:50 Blood - Peripheral Venous Blood Culture - Preliminary NO GROWTH OBTAINED AFTER 96 HOURS, INCUBATION TO CONTINUE FOR 1 DAYS. 04/28/20 21:51 Urine For Antigen Detection Legionella Antigen - Final 04/28/20 21:51 Urine For Antigen Detection Streptococcus pneumoniae Antigen (M - Final 04/26/20 19:50 Urine - Urine Clean Catch Urine Culture - Final Normal Urogenital Layla Problems reviewed: Yes Code(s): D72.829 - ELEVATED WHITE BLOOD CELL COUNT, UNSPECIFIED (4) Metastatic lung cancer (metastasis from lung to other site) Assessment/Plan: -CXR reviewed -Oncology consult -Palliative care consult -Started on dexamethasone Problems reviewed: Yes Code(s): C34.90 - MALIGNANT NEOPLASM OF UNSP PART OF UNSP BRONCHUS OR LUNG (5) Pneumonia Assessment/Plan: -CXR BLL possible infiltrates -Pulmonary consult -IV Rocephin -ID consult -afebrile -Monitor leukocytosis -Repeat CXR Problems reviewed: Yes Code(s): J18.9 - PNEUMONIA, UNSPECIFIED ORGANISM (6) Odynophagia Assessment/Plan: -Oral vs esophageal candidiasis? 2/2 to chemo + immunotherapy -Speech therapy consult -ENT consult appreciated -Tylenol for pain -Nystatin swish and swallow -magic mouthwash -Diflucan 100 mg po daily -Throat culture yeast like org -MRI brain without contrast Problems reviewed: Yes Code(s): R13.10 - DYSPHAGIA, UNSPECIFIED (7) Elevated LFTs Assessment/Plan: -U/S Liver negative for any acute pathology -resolved -monitor trend Problems reviewed: Yes Code(s): R79.89 - OTHER SPECIFIED ABNORMAL FINDINGS OF BLOOD CHEMISTRY (8) Weakness Assessment/Plan: -MRI brain without contrast -EMG -Seen by Neurology -Also check B12, thyroid profile Problems reviewed: Yes Code(s): R53.1 - WEAKNESS (9) Sensorineural hearing loss (SNHL) of both ears Assessment/Plan: -Seen by ENT -Last audiogram 4 years ago showed significant bilateral hearing loss of 35-40 db. Problems reviewed: Yes Code(s): H90.3 - SENSORINEURAL HEARING LOSS, BILATERAL Assessment/Plan See problem list Spoke RN for Gregor Brandt at Left msg for Dr Sal Thapa at (alt ext [phone]) Left msg for [facility] GI + DVT ppx
[2020-05-01] MEDS ORDERED: FLUCONAZOLE 100 MG TABLET (UD) PO SCH (12:45)
[2020-05-01] MEDS ORDERED: HEPARIN NA (PORCINE) 5,000 UNITS/ML 1ML VIAL SQ SCH (13:15)
[2020-05-01 14:42] LABS: ALBUMIN 2.7 g/dl (3.4-5.0); BILIRUBIN,TOTAL 0.4 mg/dL (0.2-1); BLOOD UREA NITROGEN 14.1 mg/dL (7-18); CREATININE 0.7 mg/dL (0.55-1.3); POTASSIUM 4.2 mmol/L (3.5-5.1); TOT PROT 5.9 g/dl (6.4-8.2)
[2020-05-01] MEDS: FLUCONAZOLE 100 MG TABLET (UD) PO SCH (15:17)
[2020-05-01] MEDS: ACETAMINOPHEN 325 MG TABLET (FP) PO PRN (15:17)
[2020-05-01] MEDS: PANTOPRAZOLE SODIUM 40 MG VIAL IVPUSH SCH (15:18)
--- NOTE | 2020-05-01 16:50 | PN ---
Progress Note, Physician History of Present Illness: Pt seen and examined at bedside. He is awake and appears comfortable. - Current Medication List Current Medications: Active Medications Acetaminophen (Tylenol -) 650 mg PO Q4H PRN PRN Reason: PAIN Last Admin: 05/01/20 15:17 Dose: 650 mg Documented by: Amino Acids (Prosource No Carb Liquid Pkt) 30 ml PO BID@0800,1730 [facility] Dexamethasone (Decadron -) 2 mg PO DAILY [facility] Last Admin: 05/01/20 10:29 Dose: 2 mg Documented by: Fluconazole (Diflucan -) 100 mg PO DAILY [facility] Last Admin: 05/01/20 15:17 Dose: 100 mg Documented by: Heparin Sodium (Porcine) (Heparin -) 5,000 unit SQ BID [facility] Last Admin: 05/01/20 15:20 Dose: 5,000 unit Documented by: Ceftriaxone Sodium 1 gm/ (Dextrose) 50 mls @ 100 mls/hr IVPB DAILY [facility]; Protocol Last Admin: 05/01/20 10:29 Dose: 100 mls/hr Documented by: Potassium Chloride 10 meq/ (Sodium Chloride) 1,005 mls @ 40 mls/hr IVPB Q24H [facility] Last Admin: 04/30/20 18:50 Dose: 40 mls/hr Documented by: Lidocaine/Aluminum/Magnesium/Simeth (Magic Mouthwash *Sjr Formula* -) 5 ml MM Q6HPO [facility] Last Admin: 05/01/20 12:52 Dose: 5 ml Documented by: Nystatin (Nystatin Oral Suspension -) 500,000 units PO Q6HPO [facility] Last Admin: 05/01/20 12:52 Dose: 500,000 units Documented by: Pantoprazole Sodium (Protonix Iv) 40 mg IVPUSH DAILY [facility] Last Admin: 05/01/20 15:18 Dose: 40 mg Documented by: Trimethoprim/Sulfamethoxazole (Bactrim Ds -) 1 each PO MoWeFr@1000 [facility] Last Admin: 04/30/20 10:14 Dose: 1 each Documented by: - Objective Vital Signs: Vital Signs Temperature 98.3 F 05/01/20 14:00 Pulse Rate 63 05/01/20 14:00 Respiratory Rate 18 05/01/20 14:00 Blood Pressure 114/82 05/01/20 14:00 O2 Sat by Pulse Oximetry (%) 94 L 05/01/20 14:00 Constitutional: Yes: Calm Eyes: Yes: Conjunctiva Clear HENT: Yes: Atraumatic Cardiovascular: Yes: S1, S2 Respiratory: Yes: CTA Bilaterally Gastrointestinal: Yes: Normal Bowel Sounds, Soft Genitourinary: Yes: WNL Musculoskeletal: Yes: WNL Extremities: Yes: WNL Edema: No Integumentary: Yes: WNL Neurological: Yes: Oriented Psychiatric: Yes: Oriented Labs: CBC, BMP 05/01/20 10:15 05/01/20 13:11 INR, PTT INR 1.12 (0.83-1.09) H 04/26/20 16:00 Problem List - Problems (1) Dehydration Code(s): E86.0 - DEHYDRATION (2) Failure to thrive Code(s): [id number] - Qualifiers: Failure to thrive age range: in adult Qualified Code(s): R62.7 - Adult failure to thrive (3) Hyponatremia Code(s): E87.1 - HYPO-OSMOLALITY AND HYPONATREMIA (4) Metastatic lung cancer (metastasis from lung to other site) Code(s): C34.90 - MALIGNANT NEOPLASM OF UNSP PART OF UNSP BRONCHUS OR LUNG Assessment/Plan Current Medications Generic Name Dose Route Start Last Admin Trade Name Freq PRN Reason Stop Dose Admin Acetaminophen 650 mg 04/26/20 21:38 05/01/20 15:17 Tylenol - PO 650 mg Q4H PRN Administration PAIN Amino Acids 30 ml 05/01/20 17:30 Prosource No Carb Liquid Pkt PO BID@0800,1730 [facility] Dexamethasone 2 mg 04/27/20 10:00 05/01/20 10:29 Decadron - PO 2 mg DAILY [facility] Administration Fluconazole 100 mg 05/01/20 13:30 05/01/20 15:17 Diflucan - PO 100 mg DAILY [facility] Administration Heparin Sodium (Porcine) 5,000 unit 05/01/20 13:15 05/01/20 15:20 Heparin - SQ 5,000 unit BID [facility] Administration Ceftriaxone Sodium 1 gm/ 50 mls @ 100 mls/hr 04/27/20 22:36 05/01/20 10:29 Dextrose IVPB 100 mls/hr DAILY [facility] Administration Protocol Potassium Chloride 10 meq/ 1,005 mls @ 40 mls/hr 04/30/20 16:39 04/30/20 18:50 Sodium Chloride IVPB 40 mls/hr Q24H [facility] Administration Lidocaine/Aluminum/Magnesium/Simeth 5 ml 04/28/20 00:00 05/01/20 12:52 Magic Mouthwash *Sjr Formula* - MM 5 ml Q6HPO [facility] Administration Nystatin 500,000 units 04/28/20 00:00 05/01/20 12:52 Nystatin Oral Suspension - PO 500,000 units Q6HPO [facility] Administration Pantoprazole Sodium 40 mg 05/01/20 13:30 05/01/20 15:18 Protonix Iv IVPUSH 40 mg DAILY [facility] Administration Trimethoprim/Sulfamethoxazole 1 each 04/30/20 10:00 04/30/20 10:14 Bactrim Ds - PO 1 each MoWeFr@1000 [facility] Administration Impression 1. hyponatremia 2. dehydration 3. failure to thrive 4. lung cancer with mets Plan - lytes are stable - encourage po intake - sodium stable - volume status stable - will follow prn
[2020-05-01] MEDS: AMINO ACIDS/PROTEIN HYDROLYS 30 ML LIQUID.PKT PO SCH (18:55)
[2020-05-01] MEDS: POTASSIUM CHLORIDE 10 MEQ in SODIUM CHLORIDE 1,000 ML IVPB SCH (18:55)
[2020-05-02] MEDS: NYSTATIN 500,000 UNITS/5 ML SUSPENSION PO SCH ×4 (00:05→18:31)
[2020-05-02] MEDS: POTASSIUM CHLORIDE 10 MEQ in SODIUM CHLORIDE 1,000 ML IVPB SCH (00:06)
[2020-05-02] MEDS: MAG HYDROX/ALH/SMC/DPHA/LIDO 240 ML MOUTHWASH MM SCH ×4 (00:06→18:31)
[2020-05-02 09:15] LABS: BASO % 0.3 % (0-2.0); EOS % 2.8 % (0-4.5); HEMATOCRIT 34.6 % (35.4-49); HEMOGLOBIN 11.1 GM/dL (11.7-16.9); LYMPH % 9.8 % (8-40); MCH 30.3 pg (25.7-33.7); MCHC 32.1 g/dl (32.0-35.9); MEAN CELL VOLUME 94.2 fl (80-96); MEAN PLT VOLUME 7.2 fl (7.5-11.1); MONO % 7.3 % (3.8-10.2); NEUT % 79.8 % (42.8-82.8); PLATELET COUNT 254 K/MM3 (134-434); RBC 3.67 M/mm3 (4.00-5.60); RDW 17.8 % (11.9-15.9); WHITE BLOOD COUNT 8.3 K/mm3 (4.0-10.0)
[2020-05-02 09:39] LABS: ALBUMIN 2.8 g/dl (3.4-5.0); BILIRUBIN,TOTAL 0.5 mg/dL (0.2-1); BLOOD UREA NITROGEN 14.7 mg/dL (7-18); CALCIUM 8.4 mg/dL (8.5-10.1); CREATININE 0.7 mg/dL (0.55-1.3); POTASSIUM 4.5 mmol/L (3.5-5.1); TOT PROT 6.1 g/dl (6.4-8.2)
--- NOTE | 2020-05-02 10:17 | PN ---
Progress Note, Physician Chief Complaint: AMS Lethargy Hyponatremia RLL pneumonia History of Present Illness: NAD Alert and awake, eating breakfast, appetite still decreased Rocephin day 6 - Current Medication List Current Medications: Active Medications Acetaminophen (Tylenol -) 650 mg PO Q4H PRN PRN Reason: PAIN Last Admin: 05/01/20 15:17 Dose: 650 mg Documented by: Amino Acids (Prosource No Carb Liquid Pkt) 30 ml PO BID@0800,1730 [facility] Last Admin: 05/01/20 18:55 Dose: Not Given Documented by: Dexamethasone (Decadron -) 4 mg PO DAILY [facility] Fluconazole (Diflucan -) 100 mg PO DAILY [facility] Last Admin: 05/01/20 15:17 Dose: 100 mg Documented by: Ceftriaxone Sodium 1 gm/ (Dextrose) 50 mls @ 100 mls/hr IVPB DAILY [facility]; Protocol Last Admin: 05/01/20 10:29 Dose: 100 mls/hr Documented by: Potassium Chloride 10 meq/ (Sodium Chloride) 1,005 mls @ 40 mls/hr IVPB Q24H [facility] Last Admin: 05/02/20 00:06 Dose: 40 mls/hr Documented by: Lidocaine/Aluminum/Magnesium/Simeth (Magic Mouthwash *Sjr Formula* -) 5 ml MM Q6HPO [facility] Last Admin: 05/02/20 06:14 Dose: 5 ml Documented by: Nystatin (Nystatin Oral Suspension -) 500,000 units PO Q6HPO [facility] Last Admin: 05/02/20 06:15 Dose: 500,000 units Documented by: Pantoprazole Sodium (Protonix Iv) 40 mg IVPUSH DAILY [facility] Last Admin: 05/01/20 15:18 Dose: 40 mg Documented by: Trimethoprim/Sulfamethoxazole (Bactrim Ds -) 1 each PO MoWeFr@1000 [facility] Last Admin: 04/30/20 10:14 Dose: 1 each Documented by: - Objective Vital Signs: Vital Signs Temperature 98.1 F 05/02/20 06:00 Pulse Rate 68 05/02/20 06:00 Respiratory Rate 18 05/02/20 06:00 Blood Pressure 162/97 05/02/20 06:00 O2 Sat by Pulse Oximetry (%) 96 05/02/20 06:00 Constitutional: Yes: Well Nourished, No Distress, Calm Cardiovascular: Yes: Regular Rate and Rhythm Respiratory: Yes: Regular, CTA Bilaterally Gastrointestinal: Yes: Normal Bowel Sounds, Soft Genitourinary: Yes: Incontinence Musculoskeletal: Yes: Muscle Weakness Extremities: Yes: WNL Edema: No Peripheral Pulses WNL: Yes Neurological: Yes: Alert, Oriented Psychiatric: Yes: Alert, Oriented Labs: CBC, BMP 05/02/20 07:55 05/02/20 06:00 INR, PTT INR 1.12 (0.83-1.09) H 04/26/20 16:00 Problem List - Problems (1) Dehydration Assessment/Plan: -Resolved -Encourage PO intake Problems reviewed: Yes Code(s): E86.0 - DEHYDRATION (2) Failure to thrive Problems reviewed: Yes Code(s): [id number] - Qualifiers: Failure to thrive age range: in adult Qualified Code(s): R62.7 - Adult failure to thrive (3) Leukocytosis Assessment/Plan: -ID consult -Afebrile -IV Rocephin -Cultures: Microbiology 04/28/20 15:30 Throat Throat Culture - Final Yeast Like Organism 04/27/20 03:50 Blood - Peripheral Venous Blood Culture - Preliminary NO GROWTH OBTAINED AFTER 96 HOURS, INCUBATION TO CONTINUE FOR 1 DAYS. 04/27/20 03:50 Blood - Peripheral Venous Blood Culture - Preliminary NO GROWTH OBTAINED AFTER 96 HOURS, INCUBATION TO CONTINUE FOR 1 DAYS. 04/28/20 21:51 Urine For Antigen Detection Legionella Antigen - Final 04/28/20 21:51 Urine For Antigen Detection Streptococcus pneumoniae Antigen (M - Final 04/26/20 19:50 Urine - Urine Clean Catch Urine Culture - Final Normal Urogenital Layla Problems reviewed: Yes Code(s): D72.829 - ELEVATED WHITE BLOOD CELL COUNT, UNSPECIFIED (4) Metastatic lung cancer (metastasis from lung to other site) Assessment/Plan: -CXR reviewed -Oncology consult -Palliative care consult -Increase dexamethasone to 4 mg po dialy Problems reviewed: Yes Code(s): C34.90 - MALIGNANT NEOPLASM OF UNSP PART OF UNSP BRONCHUS OR LUNG (5) Pneumonia Assessment/Plan: -CXR BLL possible infiltrates -Pulmonary consult -IV Rocephin -ID consult -afebrile -Monitor leukocytosis -Repeat CXR-no changes Problems reviewed: Yes Code(s): J18.9 - PNEUMONIA, UNSPECIFIED ORGANISM (6) Odynophagia Assessment/Plan: -Oral vs esophageal candidiasis? 2/2 to chemo + immunotherapy -Speech therapy consult -ENT consult appreciated -Tylenol for pain -Nystatin swish and swallow -magic mouthwash -Diflucan 100 mg po daily -Throat culture yeast like org -MRI brain without contrast-reviewed Problems reviewed: Yes Code(s): R13.10 - DYSPHAGIA, UNSPECIFIED (7) Elevated LFTs Assessment/Plan: -U/S Liver negative for any acute pathology -resolved -monitor trend Code(s): R79.89 - OTHER SPECIFIED ABNORMAL FINDINGS OF BLOOD CHEMISTRY (8) Weakness Assessment/Plan: -MRI brain without contrast -EMG -Seen by Neurology -Also check B12, thyroid profile Problems reviewed: Yes Code(s): R53.1 - WEAKNESS (9) Sensorineural hearing loss (SNHL) of both ears Assessment/Plan: -Seen by ENT -Last audiogram 4 years ago showed significant bilateral hearing loss of 35-40 db. Problems reviewed: Yes Code(s): H90.3 - SENSORINEURAL HEARING LOSS, BILATERAL Assessment/Plan See problem list Spoke RN for Gregor Brandt at Left msg for Dr Sal Thapa at (alt [phone]) Left msg for Mon[facility] GI + DVT ppx
--- NOTE | 2020-05-02 10:37 | PN ---
Progress Note, Physician History of Present Illness: pulmonary awake,non-verbal,-sob,-congestion - Current Medication List Current Medications: Active Medications Acetaminophen (Tylenol -) 650 mg PO Q4H PRN PRN Reason: PAIN Last Admin: 05/01/20 15:17 Dose: 650 mg Documented by: Amino Acids (Prosource No Carb Liquid Pkt) 30 ml PO BID@0800,1730 [facility] Last Admin: 05/01/20 18:55 Dose: Not Given Documented by: Dexamethasone (Decadron -) 4 mg PO DAILY [facility] Fluconazole (Diflucan -) 100 mg PO DAILY [facility] Last Admin: 05/01/20 15:17 Dose: 100 mg Documented by: Ceftriaxone Sodium 1 gm/ (Dextrose) 50 mls @ 100 mls/hr IVPB DAILY [facility]; Protocol Last Admin: 05/01/20 10:29 Dose: 100 mls/hr Documented by: Potassium Chloride 10 meq/ (Sodium Chloride) 1,005 mls @ 40 mls/hr IVPB Q24H [facility] Last Admin: 05/02/20 00:06 Dose: 40 mls/hr Documented by: Lidocaine/Aluminum/Magnesium/Simeth (Magic Mouthwash *Sjr Formula* -) 5 ml MM Q6HPO [facility] Last Admin: 05/02/20 06:14 Dose: 5 ml Documented by: Nystatin (Nystatin Oral Suspension -) 500,000 units PO Q6HPO [facility] Last Admin: 05/02/20 06:15 Dose: 500,000 units Documented by: Pantoprazole Sodium (Protonix Iv) 40 mg IVPUSH DAILY [facility] Last Admin: 05/01/20 15:18 Dose: 40 mg Documented by: Trimethoprim/Sulfamethoxazole (Bactrim Ds -) 1 each PO MoWeFr@1000 [facility] Last Admin: 04/30/20 10:14 Dose: 1 each Documented by: - Objective Vital Signs: Vital Signs Temperature 98.1 F 05/02/20 06:00 Pulse Rate 68 05/02/20 06:00 Respiratory Rate 18 05/02/20 06:00 Blood Pressure 162/97 05/02/20 06:00 O2 Sat by Pulse Oximetry (%) 96 05/02/20 06:00 Constitutional: Yes: Well Nourished, Calm Eyes: Yes: WNL HENT: Yes: WNL Neck: Yes: WNL Cardiovascular: Yes: Regular Rate and Rhythm, S1, S2 Respiratory: Yes: CTA Bilaterally Gastrointestinal: Yes: Normal Bowel Sounds, Soft Extremities: Yes: WNL Edema: No Labs: CBC, BMP 05/02/20 07:55 05/02/20 06:00 INR, PTT INR 1.12 (0.83-1.09) H 04/26/20 16:00 - ....Imaging Chest X-ray: Report Reviewed, Image Reviewed Assessment/Plan A/P Pneumonia Hyponatremia improved Metastatic Lung Cancer Failure to Thrive Anemia - antibiotics - O2 to keep SpO2 >90% - PO as tolerated - DVT prophylaxis DR GARCIA
[2020-05-02] MEDS ORDERED: cefTRIAXone SODIUM 1 GM VIAL ONE (10:59)
[2020-05-02] MEDS ORDERED: PT OWN MED DRAWER 7, Y5N ONE ×3 (10:59→17:25)
[2020-05-02] MEDS ORDERED: DEXTROSE 5%-WATER - 50 ML IVPB ONE (10:59)
[2020-05-02] MEDS: SULFAMETHOXAZOLE/TRIMETHOPRIM 800MG/160MG D.S. TABLET PO SCH (11:07)
[2020-05-02] MEDS: DEXAMETHASONE 4 MG TABLET (FP) PO SCH ×2 (11:07→12:01)
[2020-05-02] MEDS: AMINO ACIDS/PROTEIN HYDROLYS 30 ML LIQUID.PKT PO SCH ×2 (11:07→18:31)
[2020-05-02] MEDS: FLUCONAZOLE 100 MG TABLET (UD) PO SCH (11:07)
[2020-05-02] MEDS: PANTOPRAZOLE SODIUM 40 MG VIAL IVPUSH SCH (11:08)
[2020-05-02] MEDS: CEFTRIAXONE 1 GM in DEXTROSE 5%-WATER - 50 ML IVPB SCH (11:09)
[2020-05-02] MEDS: ACETAMINOPHEN 325 MG TABLET (FP) PO PRN ×3 (11:10→23:17)
--- NOTE | 2020-05-02 11:57 | PN ---
Progress Note, Physician History of Present Illness: Pt seen and examined at bedside. He is awake and appears comfortable. - Current Medication List Current Medications: Active Medications Acetaminophen (Tylenol -) 650 mg PO Q4H PRN PRN Reason: PAIN Last Admin: 05/02/20 11:10 Dose: 650 mg Documented by: Amino Acids (Prosource No Carb Liquid Pkt) 30 ml PO BID@0800,1730 [facility] Last Admin: 05/02/20 11:07 Dose: 30 ml Documented by: Dexamethasone (Decadron -) 4 mg PO DAILY [facility] Last Admin: 05/02/20 11:07 Dose: 4 mg Documented by: Fluconazole (Diflucan -) 100 mg PO DAILY [facility] Last Admin: 05/02/20 11:07 Dose: 100 mg Documented by: Ceftriaxone Sodium 1 gm/ (Dextrose) 50 mls @ 100 mls/hr IVPB DAILY [facility]; Protocol Last Admin: 05/02/20 11:09 Dose: 100 mls/hr Documented by: Potassium Chloride 10 meq/ (Sodium Chloride) 1,005 mls @ 40 mls/hr IVPB Q24H [facility] Last Admin: 05/02/20 00:06 Dose: 40 mls/hr Documented by: Lidocaine/Aluminum/Magnesium/Simeth (Magic Mouthwash *Sjr Formula* -) 5 ml MM Q6HPO [facility] Last Admin: 05/02/20 06:14 Dose: 5 ml Documented by: Nystatin (Nystatin Oral Suspension -) 500,000 units PO Q6HPO [facility] Last Admin: 05/02/20 06:15 Dose: 500,000 units Documented by: Pantoprazole Sodium (Protonix Iv) 40 mg IVPUSH DAILY [facility] Last Admin: 05/02/20 11:08 Dose: 40 mg Documented by: Trimethoprim/Sulfamethoxazole (Bactrim Ds -) 1 each PO MoWeFr@1000 [facility] Last Admin: 05/02/20 11:07 Dose: 1 each Documented by: - Objective Vital Signs: Vital Signs Temperature 98.1 F 05/02/20 06:00 Pulse Rate 68 05/02/20 06:00 Respiratory Rate 18 05/02/20 06:00 Blood Pressure 162/97 05/02/20 06:00 O2 Sat by Pulse Oximetry (%) 96 05/02/20 06:00 Constitutional: Yes: Calm Eyes: Yes: Conjunctiva Clear HENT: Yes: Atraumatic Neck: Yes: Supple Cardiovascular: Yes: S1, S2 Respiratory: Yes: CTA Bilaterally Gastrointestinal: Yes: Soft Genitourinary: Yes: WNL Edema: No Neurological: Yes: Oriented Psychiatric: Yes: Oriented Labs: CBC, BMP 05/02/20 07:55 05/02/20 06:00 INR, PTT INR 1.12 (0.83-1.09) H 04/26/20 16:00 Problem List - Problems (1) Dehydration Code(s): E86.0 - DEHYDRATION (2) Failure to thrive Code(s): [id number] - Qualifiers: Failure to thrive age range: in adult Qualified Code(s): R62.7 - Adult failure to thrive (3) Hyponatremia Code(s): E87.1 - HYPO-OSMOLALITY AND HYPONATREMIA (4) Metastatic lung cancer (metastasis from lung to other site) Code(s): C34.90 - MALIGNANT NEOPLASM OF UNSP PART OF UNSP BRONCHUS OR LUNG Assessment/Plan Current Medications Generic Name Dose Route Start Last Admin Trade Name Freq PRN Reason Stop Dose Admin Acetaminophen 650 mg 04/26/20 21:38 05/02/20 11:10 Tylenol - PO 650 mg Q4H PRN Administration PAIN Amino Acids 30 ml 05/01/20 17:30 05/02/20 11:07 Prosource No Carb Liquid Pkt PO 30 ml BID@0800,1730 [facility] Administration Dexamethasone 4 mg 05/02/20 10:00 05/02/20 11:07 Decadron - PO 4 mg DAILY [facility] Administration Fluconazole 100 mg 05/01/20 13:30 05/02/20 11:07 Diflucan - PO 100 mg DAILY [facility] Administration Ceftriaxone Sodium 1 gm/ 50 mls @ 100 mls/hr 04/27/20 22:36 05/02/20 11:09 Dextrose IVPB 100 mls/hr DAILY [facility] Administration Protocol Potassium Chloride 10 meq/ 1,005 mls @ 40 mls/hr 04/30/20 16:39 05/02/20 00:06 Sodium Chloride IVPB 40 mls/hr Q24H [facility] Administration Lidocaine/Aluminum/Magnesium/Simeth 5 ml 04/28/20 00:00 05/02/20 06:14 Magic Mouthwash *Sjr Formula* - MM 5 ml Q6HPO [facility] Administration Nystatin 500,000 units 04/28/20 00:00 05/02/20 06:15 Nystatin Oral Suspension - PO 500,000 units Q6HPO [facility] Administration Pantoprazole Sodium 40 mg 05/01/20 13:30 05/02/20 11:08 Protonix Iv IVPUSH 40 mg DAILY [facility] Administration Trimethoprim/Sulfamethoxazole 1 each 04/30/20 10:00 05/02/20 11:07 Bactrim Ds - PO 1 each MoWeFr@1000 [facility] Administration Impression 1. hyponatremia 2. dehydration 3. failure to thrive 4. lung cancer with mets Plan - can d/c fluids - sodium stable - cont pt - volume status stable - will follow prn
--- NOTE | 2020-05-02 13:41 | CONSULT ---
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 He was admitted with failure to thrive 2/2 advancing cancer vs dehydration, as well as hypoNa ad hypoCa. Pulm was consulted for possible PNA. Neuro was consulted for weakness, who recommended MRI brain, EMG, and neuropathy work-up. MRI brain 05/01/2020 showed no acute pathology. Physiatry was requested to perform EMG BLE, evaluate for myopathy vs neuropathy. 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 Notes diffusely weak, has Ram in place Physical Exam Vital Signs: Vital Signs Temperature 98.1 F 05/02/20 10:00 Pulse Rate 91 H 05/02/20 10:00 Respiratory Rate 18 05/02/20 10:00 Blood Pressure 115/80 05/02/20 10:00 O2 Sat by Pulse Oximetry (%) 96 05/02/20 06:00 Musculoskeletal: Yes: Other (General: calm elderly AAM sitting in bed NAD, hypophonic, slow to follow commands; reduced BLE PROM 2/2 diffusely increased tone, 1/5 L HF, 2/5 R HF/ B KE, 3/5 B DF/ EHL; no BLE pitting edema, no B calf tenderness) Labs: CBC, BMP 05/02/20 07:55 05/02/20 06:00 Assessment/Plan Electrodiagnostics were performed, please see scanned images for details (EMG sometimes entered under day of admission, not day performed). This was an abnormal study. There is electrophysiological evidence of a sensorimotor axonal neuropathy without evidence of demyelination. Needle study was limited by weakness, but R iliopsoas showed increased polyphasics and decreased amplitude which is seen in myopathy. Impression: 1) Deficits mobility/ ADLs 2) Gait abnormality 3) Sensorimotor axonal peripheral neuropathy: ddx includes but is not limited to chronic disease, hypothyroidism, gout, connective tissue disease (RA, SLE), vitamin deficiency (B12, folate, thiamine), steroid use 4) Possible myopathy 5) Failure to thrive 6) Dehydration 7) Metastatic lung cancer with mets to brain 8) PNA 9) Odynophagia 10) Sensorieural hearing loss B ears 11) BMI WNL 12) Up to date flu shot, no documented pneumovax 13) Anemia Recomendations: 1) PT for stretching strengthening ROM and functional mobility 2) Falls, safety precautions 3) Cardiopulmonary precautions 4) DVT ppx: was on hep sc, now held 5) Denies constipation on current bowel regimen 6) Skin protection: float heels, frequent turning 7) Nutrition consult for FTT 8) ST, ENT following odynophagia 9) Monitor CBC given anemia 10) Continue work-up per Neurology 11) Continue plan per primary team 12) Discharge planning: given level of weakness, he will likely benefit from inpatient rehabilitation once medically stable Thank you for this referral.
[2020-05-03] MEDS: MAG HYDROX/ALH/SMC/DPHA/LIDO 240 ML MOUTHWASH MM SCH ×5 (00:26→23:58)
[2020-05-03] MEDS: NYSTATIN 500,000 UNITS/5 ML SUSPENSION PO SCH ×5 (00:26→23:57)
[2020-05-03] MEDS ORDERED: PT OWN MED DRAWER 7, Y5N ONE (09:57)
[2020-05-03] MEDS ORDERED: cefTRIAXone SODIUM 1 GM VIAL ONE (09:58)
[2020-05-03] MEDS ORDERED: DEXTROSE 5%-WATER - 50 ML IVPB ONE (09:58)
[2020-05-03] MEDS: AMINO ACIDS/PROTEIN HYDROLYS 30 ML LIQUID.PKT PO SCH ×2 (10:01→18:07)
[2020-05-03] MEDS: FLUCONAZOLE 100 MG TABLET (UD) PO SCH (10:01)
[2020-05-03] MEDS: DEXAMETHASONE 4 MG TABLET (FP) PO SCH (10:01)
[2020-05-03] MEDS: CEFTRIAXONE 1 GM in DEXTROSE 5%-WATER - 50 ML IVPB SCH (10:02)
[2020-05-03] MEDS: PANTOPRAZOLE SODIUM 40 MG VIAL IVPUSH SCH (10:34)
--- NOTE | 2020-05-03 10:37 | PN ---
Progress Note, Physician Chief Complaint: AMS Lethargy Hyponatremia RLL pneumonia History of Present Illness: NAD, lethargic today Refusing to eat Rocephin day 7 Was trying to get out of bed earlier - Current Medication List Current Medications: Active Medications Acetaminophen (Tylenol -) 650 mg PO Q4H PRN PRN Reason: PAIN Last Admin: 05/02/20 23:17 Dose: 650 mg Documented by: Amino Acids (Prosource No Carb Liquid Pkt) 30 ml PO BID@0800,1730 [facility] Last Admin: 05/03/20 10:01 Dose: 30 ml Documented by: Dexamethasone (Decadron -) 4 mg PO DAILY [facility] Last Admin: 05/03/20 10:01 Dose: 4 mg Documented by: Fluconazole (Diflucan -) 100 mg PO DAILY [facility] Last Admin: 05/03/20 10:01 Dose: 100 mg Documented by: Ceftriaxone Sodium 1 gm/ (Dextrose) 50 mls @ 100 mls/hr IVPB DAILY [facility]; Protocol Last Admin: 05/03/20 10:02 Dose: 100 mls/hr Documented by: Lidocaine/Aluminum/Magnesium/Simeth (Magic Mouthwash *Sjr Formula* -) 5 ml MM Q6HPO [facility] Last Admin: 05/03/20 06:11 Dose: 5 ml Documented by: Nystatin (Nystatin Oral Suspension -) 500,000 units PO Q6HPO [facility] Last Admin: 05/03/20 06:10 Dose: 500,000 units Documented by: Pantoprazole Sodium (Protonix Iv) 40 mg IVPUSH DAILY [facility] Last Admin: 05/02/20 11:08 Dose: 40 mg Documented by: Trimethoprim/Sulfamethoxazole (Bactrim Ds -) 1 each PO MoWeFr@1000 [facility] Last Admin: 05/02/20 11:07 Dose: 1 each Documented by: - Objective Vital Signs: Vital Signs Temperature 98.4 F 05/03/20 08:50 Pulse Rate 56 L 05/03/20 08:50 Respiratory Rate 18 05/03/20 08:50 Blood Pressure 127/78 05/03/20 08:50 O2 Sat by Pulse Oximetry (%) 99 05/03/20 08:50 Constitutional: Yes: Well Nourished, No Distress, Calm Cardiovascular: Yes: Regular Rate and Rhythm Respiratory: Yes: Regular, CTA Bilaterally Gastrointestinal: Yes: Normal Bowel Sounds, Soft Genitourinary: Yes: Incontinence Musculoskeletal: Yes: Muscle Weakness Extremities: Yes: WNL Edema: No Peripheral Pulses WNL: Yes Neurological: Yes: Alert Psychiatric: Yes: Alert Labs: CBC, BMP 05/02/20 07:55 05/02/20 06:00 INR, PTT INR 1.12 (0.83-1.09) H 04/26/20 16:00 Problem List - Problems (1) Dehydration Assessment/Plan: -Resolved -Encourage PO intake Problems reviewed: Yes Code(s): E86.0 - DEHYDRATION (2) Failure to thrive Problems reviewed: Yes Code(s): [id number] - Qualifiers: Failure to thrive age range: in adult Qualified Code(s): R62.7 - Adult failure to thrive (3) Leukocytosis Assessment/Plan: -ID consult -Afebrile -IV Rocephin -Cultures: Microbiology 04/28/20 15:30 Throat Throat Culture - Final Yeast Like Organism 04/27/20 03:50 Blood - Peripheral Venous Blood Culture - Preliminary NO GROWTH OBTAINED AFTER 96 HOURS, INCUBATION TO CONTINUE FOR 1 DAYS. 04/27/20 03:50 Blood - Peripheral Venous Blood Culture - Preliminary NO GROWTH OBTAINED AFTER 96 HOURS, INCUBATION TO CONTINUE FOR 1 DAYS. 04/28/20 21:51 Urine For Antigen Detection Legionella Antigen - Final 04/28/20 21:51 Urine For Antigen Detection Streptococcus pneumoniae Antigen (M - Final 04/26/20 19:50 Urine - Urine Clean Catch Urine Culture - Final Normal Urogenital Layla Problems reviewed: Yes Code(s): D72.829 - ELEVATED WHITE BLOOD CELL COUNT, UNSPECIFIED (4) Metastatic lung cancer (metastasis from lung to other site) Assessment/Plan: -CXR reviewed -Oncology consult -Palliative care consult -Increase dexamethasone to 4 mg po dialy Problems reviewed: Yes Code(s): C34.90 - MALIGNANT NEOPLASM OF UNSP PART OF UNSP BRONCHUS OR LUNG (5) Pneumonia Assessment/Plan: -CXR BLL possible infiltrates -Pulmonary consult -IV Rocephin -ID consult -afebrile -Monitor leukocytosis -Repeat CXR-no changes Problems reviewed: Yes Code(s): J18.9 - PNEUMONIA, UNSPECIFIED ORGANISM (6) Odynophagia Assessment/Plan: -Oral vs esophageal candidiasis? 2/2 to chemo + immunotherapy -Speech therapy consult -ENT consult appreciated -Tylenol for pain -Nystatin swish and swallow -magic mouthwash -Diflucan 100 mg po daily -Throat culture yeast like org -MRI brain without contrast-reviewed -Add Chloroseptic throat spray tid Problems reviewed: Yes Code(s): R13.10 - DYSPHAGIA, UNSPECIFIED (7) Elevated LFTs Assessment/Plan: -U/S Liver negative for any acute pathology -resolved -monitor trend Problems reviewed: Yes Code(s): R79.89 - OTHER SPECIFIED ABNORMAL FINDINGS OF BLOOD CHEMISTRY (8) Weakness Assessment/Plan: -MRI brain without contrast unremarkable -EMG abnormal -Seen by Neurology- to re-evaluate - B12, thyroid profile was normal -Seen by Physiatry -MRI or CT L spine at neurology discretion -Updated Dr Abad and Dr Thapa at [facility] Problems reviewed: Yes Code(s): R53.1 - WEAKNESS (9) Sensorineural hearing loss (SNHL) of both ears Assessment/Plan: -Seen by ENT -Last audiogram 4 years ago showed significant bilateral hearing loss of 35-40 db. Problems reviewed: Yes Code(s): H90.3 - SENSORINEURAL HEARING LOSS, BILATERAL Assessment/Plan See problem list Spoke RN for Gregor Brandt at Updatedfor Dr Sal Thapa at (alt ext [phone]) Left msg for Monique at [phone] GI + DVT ppx
--- NOTE | 2020-05-03 11:05 | PN ---
Progress Note (short form) - Note Progress Note: PULMONARY Denies shortness of breath. +nonproductive cough. No fevers recorded. Vital Signs Period Temp Pulse Resp BP Sys/Blake Pulse Ox Last 24 Hr 97.9 F-98.8 F 56-75 18-18 104-145/53-86 94-100 Gen: NAD at rest Heart: RRR Lung: basilar rales Abd: soft, nontender Ext: no edema CBC, BMP 05/02/20 07:55 05/02/20 06:00 Active Medications Acetaminophen (Tylenol -) 650 mg PO Q4H PRN PRN Reason: PAIN Last Admin: 05/02/20 23:17 Dose: 650 mg Documented by: Amino Acids (Prosource No Carb Liquid Pkt) 30 ml PO BID@0800,1730 [facility] Last Admin: 05/03/20 10:01 Dose: 30 ml Documented by: Dexamethasone (Decadron -) 4 mg PO DAILY [facility] Last Admin: 05/03/20 10:01 Dose: 4 mg Documented by: Fluconazole (Diflucan -) 100 mg PO DAILY [facility] Last Admin: 05/03/20 10:01 Dose: 100 mg Documented by: Ceftriaxone Sodium 1 gm/ (Dextrose) 50 mls @ 100 mls/hr IVPB DAILY [facility]; Protocol Last Admin: 05/03/20 10:02 Dose: 100 mls/hr Documented by: Lidocaine/Aluminum/Magnesium/Simeth (Magic Mouthwash *Sjr Formula* -) 5 ml MM Q6HPO [facility] Last Admin: 05/03/20 06:11 Dose: 5 ml Documented by: Nystatin (Nystatin Oral Suspension -) 500,000 units PO Q6HPO [facility] Last Admin: 05/03/20 06:10 Dose: 500,000 units Documented by: Pantoprazole Sodium (Protonix Iv) 40 mg IVPUSH DAILY [facility] Last Admin: 05/03/20 10:34 Dose: 40 mg Documented by: Phenol/Menthol (Chloraseptic -) 1 spray MM TID SHARI Trimethoprim/Sulfamethoxazole (Bactrim Ds -) 1 each PO MoWeFr@1000 [facility] Last Admin: 05/02/20 11:07 Dose: 1 each Documented by: A/P Pneumonia Hyponatremia improving Metastatic Lung Cancer Failure to Thrive Anemia - continue antibiotics - O2 to keep SpO2 >90% - PO as tolerated - DVT prophylaxis
--- NOTE | 2020-05-03 12:04 | PN ---
Progress Note (short form) - Note Progress Note: trying to get out of bed Vital Signs Period Temp Pulse Resp BP Sys/Blake Pulse Ox Last 24 Hr 97.9 F-98.8 F 56-75 18-18 104-145/53-86 94-100 cor-rrr lungs decreased bs at basese abd soft,nt ext no edema CBC, BMP 05/02/20 07:55 05/02/20 06:00 Microbiology 04/27/20 03:50 Blood - Peripheral Venous Blood Culture - Final NO GROWTH AFTER 5 DAYS INCUBATION 04/27/20 03:50 Blood - Peripheral Venous Blood Culture - Final NO GROWTH AFTER 5 DAYS INCUBATION 04/28/20 15:30 Throat Throat Culture - Final Yeast Like Organism 04/28/20 21:51 Urine For Antigen Detection Legionella Antigen - Final 04/28/20 21:51 Urine For Antigen Detection Streptococcus pneumoniae Antigen (M - Final 04/26/20 19:50 Urine - Urine Clean Catch Urine Culture - Final Normal Urogenital Layla a/p CAP- day #7 rocephin, will d/c metastatic lung cancer- per oncology-awaiting MRI, on decadron further plans per primary service please call back if needed Problem List - Problems (1) Pneumonia Code(s): J18.9 - PNEUMONIA, UNSPECIFIED ORGANISM (2) Metastatic lung cancer (metastasis from lung to other site) Code(s): C34.90 - MALIGNANT NEOPLASM OF UNSP PART OF UNSP BRONCHUS OR LUNG (3) Failure to thrive Code(s): [id number] - Qualifiers: Failure to thrive age range: in adult Qualified Code(s): R62.7 - Adult failure to thrive
--- NOTE | 2020-05-03 13:34 | PN ---
Progress Note, RETAIL AND RESTAURANT ASSOCIATE - Note Progress Note: Patient seen at bedside by RETAIL AND RESTAURANT ASSOCIATE as a follow up to clinical bedside evaluation wi th recommendation or dysphagia pureed solids with [place] thicken liquids as tolerated. Chart review indicates poor intake of meals (less than 25% of meal with staff) supply chain assistant reports that he does consume meals when spouse is present and feeding him. Recommendations: Continue po intake of pureed solids and nectar-like liquids as tolerated. Observe standard aspiration precautions. Consider alternative methods for providing medications, nutrition and hydration if pt continues to refuse meals. RETAIL AND RESTAURANT ASSOCIATE to follow up for diet tolerance.
[2020-05-03] MEDS: PHENOL 177 ML SPRAY BOTTLE MM SCH ×4 (14:00→22:20)
--- NOTE | 2020-05-03 14:16 | PN ---
Progress Note, Physician History of Present Illness: Pt seen and examined at bedside. He is awake and appears comfortable. - Current Medication List Current Medications: Active Medications Acetaminophen (Tylenol -) 650 mg PO Q4H PRN PRN Reason: PAIN Last Admin: 05/02/20 23:17 Dose: 650 mg Documented by: Amino Acids (Prosource No Carb Liquid Pkt) 30 ml PO BID@0800,1730 [facility] Last Admin: 05/03/20 10:01 Dose: 30 ml Documented by: Dexamethasone (Decadron -) [address] [facility] Last Admin: 05/03/20 10:01 Dose: 4 mg Documented by: Fluconazole (Diflucan -) [address] [facility] Last Admin: 05/03/20 10:01 Dose: 100 mg Documented by: Lidocaine/Aluminum/Magnesium/Simeth (Magic Mouthwash *Sjr Formula* -) [address] [facility] Last Admin: 05/03/20 12:20 Dose: 5 ml Documented by: Nystatin (Nystatin Oral Suspension -) 500,[address] [facility] Last Admin: 05/03/20 12:24 Dose: 500,000 units Documented by: Pantoprazole Sodium (Protonix Iv) [address] [facility] Last Admin: 05/03/20 10:34 Dose: 40 mg Documented by: Phenol/Menthol (Chloraseptic -) [address] [facility] Last Admin: 05/03/20 14:00 Dose: Not Given Documented by: Phenol/Menthol (Chloraseptic -) [address] [facility] Trimethoprim/Sulfamethoxazole (Bactrim Ds -) 1 each PO MoWeFr@1000 [facility] Last Admin: 05/02/20 11:07 Dose: 1 each Documented by: - Objective Vital Signs: Vital Signs Temperature 98.4 F 05/03/20 08:50 Pulse Rate 56 L 05/03/20 08:50 Respiratory Rate 18 05/03/20 08:50 Blood Pressure 127/78 05/03/20 08:50 O2 Sat by Pulse Oximetry (%) 99 05/03/20 08:50 Constitutional: Yes: Calm Eyes: Yes: Conjunctiva Clear HENT: Yes: Atraumatic Cardiovascular: Yes: S1, S2 Respiratory: Yes: CTA Bilaterally Gastrointestinal: Yes: Normal Bowel Sounds, Soft Genitourinary: Yes: WNL Musculoskeletal: Yes: WNL Neurological: Yes: Confusion Labs: CBC, BMP 05/02/20 07:55 05/02/20 06:00 INR, PTT INR 1.12 (0.83-1.09) H 04/26/20 16:00 Problem List - Problems (1) Dehydration Code(s): E86.0 - DEHYDRATION (2) Failure to thrive Code(s): [id number] - Qualifiers: Failure to thrive age range: in adult Qualified Code(s): R62.7 - Adult failure to thrive (3) Hyponatremia Code(s): E87.1 - HYPO-OSMOLALITY AND HYPONATREMIA (4) Metastatic lung cancer (metastasis from lung to other site) Code(s): C34.90 - MALIGNANT NEOPLASM OF UNSP PART OF UNSP BRONCHUS OR LUNG Assessment/Plan Current Medications Generic Name Dose Route Start Last Admin Trade Name Freq PRN Reason Stop Dose Admin Acetaminophen 650 mg 04/26/20 21:38 05/02/20 23:17 Tylenol - PO 650 mg Q4H PRN Administration PAIN Amino Acids 30 ml 05/01/20 17:30 05/03/20 10:01 Prosource No Carb Liquid Pkt PO 30 ml BID@0800,1730 SHARI Administration Dexamethasone 4 mg 05/02/20 10:00 05/03/20 10:01 Decadron - PO 4 mg DAILY SHARI Administration Fluconazole 100 mg 05/01/20 13:30 05/03/20 10:01 Diflucan - PO 100 mg DAILY SHARI Administration Lidocaine/Aluminum/Magnesium/Simeth 5 ml 04/28/20 00:00 05/03/20 12:20 Magic Mouthwash *Sjr Formula* - MM 5 ml Q6HPO SHARI Administration Nystatin 500,000 units 04/28/20 00:00 05/03/20 12:24 Nystatin Oral Suspension - PO 500,000 units Q6HPO SHARI Administration Pantoprazole Sodium 40 mg 05/01/20 13:30 05/03/20 10:34 Protonix Iv IVPUSH 40 mg DAILY SH[facility]I Administration Phenol/Menthol 1 spray 05/03/20 14:00 05/03/20 14:00 Chloraseptic - MM Not Given TID SHARI Phenol/Menthol 2 spray 05/03/20 14:00 Chloraseptic - MM TID SHARI Trimethoprim/Sulfamethoxazole 1 each 04/30/20 10:00 05/02/20 11:07 Bactrim Ds - PO 1 each MoWeFr@1000 [facility] Administration Impression 1. hyponatremia 2. dehydration 3. failure to thrive 4. lung cancer with mets Plan - lytes stable - repeat labs in am - encourage po intake - maintain adequate hydration - will follow prn
--- NOTE | 2020-05-03 19:12 | PN ---
Progress Note, Physician History of Present Illness: events noted chart reviewed patient seen on the floor Still very lethargic but arousable cooperate with the exam normal attention span Neurological testing including MRI of the brain and nerve conduction testing was noted - Current Medication List Current Medications: Active Medications Acetaminophen (Tylenol -) 650 mg PO Q4H PRN PRN Reason: PAIN Last Admin: 05/02/20 23:17 Dose: 650 mg Documented by: Amino Acids (Prosource No Carb Liquid Pkt) 30 ml PO BID@0800,1730 [facility] Last Admin: 05/03/20 18:07 Dose: 30 ml Documented by: Dexamethasone (Decadron -) 4 mg PO DAILY [facility] Last Admin: 05/03/20 10:01 Dose: 4 mg Documented by: Fluconazole (Diflucan -) 100 mg PO DAILY [facility] Last Admin: 05/03/20 10:01 Dose: 100 mg Documented by: Lidocaine/Aluminum/Magnesium/Simeth (Magic Mouthwash *Sjr Formula* -) 5 ml MM Q6HPO [facility] Last Admin: 05/03/20 18:08 Dose: 5 ml Documented by: Nystatin (Nystatin Oral Suspension -) 500,000 units PO Q6HPO [facility] Last Admin: 05/03/20 18:08 Dose: 500,000 units Documented by: Pantoprazole Sodium (Protonix Iv) 40 mg IVPUSH DAILY [facility] Last Admin: 05/03/20 10:34 Dose: 40 mg Documented by: Phenol/Menthol (Chloraseptic -) 1 spray MM TID [facility] Last Admin: 05/03/20 14:00 Dose: Not Given Documented by: Phenol/Menthol (Chloraseptic -) 2 spray MM TID [facility] Last Admin: 05/03/20 14:19 Dose: 2 sprays Documented by: Trimethoprim/Sulfamethoxazole (Bactrim Ds -) 1 each PO MoWeFr@1000 [facility] Last Admin: 05/02/20 11:07 Dose: 1 each Documented by: - Objective Vital Signs: Vital Signs Temperature 98.6 F 05/03/20 18:00 Pulse Rate 55 L 05/03/20 18:00 Respiratory Rate 18 05/03/20 18:00 Blood Pressure 111/69 05/03/20 18:00 O2 Sat by Pulse Oximetry (%) 96 05/03/20 14:00 Constitutional: Yes: Well Nourished, Calm Eyes: Yes: WNL Neurological: Yes: Alert, Oriented, Babinski negative, Cran Nerves II-XII Intact ...Motor Strength: WNL Labs: CBC, BMP 05/02/20 07:55 05/02/20 06:00 INR, PTT INR 1.12 (0.83-1.09) H 04/26/20 16:00 Problem List - Problems (1) Dehydration Code(s): E86.0 - DEHYDRATION (2) Metastatic lung cancer (metastasis from lung to other site) Code(s): C34.90 - MALIGNANT NEOPLASM OF UNSP PART OF UNSP BRONCHUS OR LUNG Assessment/Plan 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 Check SPEP UPEP and zinc and mercury 2. Physical therapy aggressive 3. Trial Metanx bid 4. Fall precautions. Myopathy 1.Check CK level 2. Check myoglobin and aldolase 3. Taper steroids Depression Trial of Lexapro
[2020-05-03] MEDS: ACETAMINOPHEN 325 MG TABLET (FP) PO PRN (23:58)
[2020-05-04] MEDS ORDERED: PT OWN MED DRAWER 7, Y5N ONE ×2 (06:17→09:45)
[2020-05-04] MEDS: PHENOL 177 ML SPRAY BOTTLE MM SCH ×7 (06:20→22:46)
[2020-05-04] MEDS: NYSTATIN 500,000 UNITS/5 ML SUSPENSION PO SCH ×3 (06:20→17:49)
[2020-05-04] MEDS: MAG HYDROX/ALH/SMC/DPHA/LIDO 240 ML MOUTHWASH MM SCH ×4 (06:20→18:49)
[2020-05-04] MEDS: PANTOPRAZOLE SODIUM 40 MG VIAL IVPUSH SCH (09:52)
[2020-05-04] MEDS: DEXAMETHASONE 4 MG TABLET (FP) PO SCH (09:52)
[2020-05-04] MEDS: FLUCONAZOLE 100 MG TABLET (UD) PO SCH (09:52)
[2020-05-04] MEDS: AMINO ACIDS/PROTEIN HYDROLYS 30 ML LIQUID.PKT PO SCH ×2 (09:52→17:49)
[2020-05-04] MEDS: SULFAMETHOXAZOLE/TRIMETHOPRIM 800MG/160MG D.S. TABLET PO SCH (09:52)
--- NOTE | 2020-05-04 09:56 | PN ---
Progress Note (short form) - Note Progress Note: Palliative care f/up 65 y/o male with metastatic lung cancer diagnosed 2016, ?? stage IIIB initially progressing to stage IV. Initially treated with SRS x2 ?? in 2017/2018 Received chemotherapy and had been on immunotherapy for 2 yrs. Last received 01/22. lethargy and confusion improving appetite remains poor weak frail s/p fall VSS Hyponatremia- resolved RLL pneumonia- s/p iv a/bs Patient presented to [facility] with weakness, lethargy, dehydration, abnl LFT, elevated CK ( mild), painful and difficult swallowing. 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 He was then started on steroids and his weakness improved and he was able to ambulate with a cane. He lives at home with his who is his primary caregiver. Before last thursday patient was independent in ADLs with a cane. I was able to speak to Dr Sal Thapa who last saw Mr Ramon in March. Back in January- February Mr Ramon had become w/c dependent and was taken off his immunotherapy. Due to continued weakness he was then referred to VNS and INTERPRETER TRANSLATOR. Because of his physical debility he is not a candidate for further chemo or treatment of his underlying disease. His disease was stable on scans in March. Patient has been slowly improving with hydration, a/bs ST- now tolerating pureed diet with NTL on diflucan and magic mouthwash + persistent throat pain, difficulty swallowing and poor appetite. continue current supportive care. ? esophageal candidiasis - diflucan, magic mouthwash 15 cc qid swish and swallow marinol/ remeron as appetite stimulant He would benefit from multidisciplinary rehab We discussed possible STR for now so patient can regain his strength. patient is not a candidate for further chemotherapy as per his oncologist Dr Thapa and may be appropriate for STR. However if there is no improvement and/or continued decline he may be appropriate for hospice. I have left a message with pt's to discuss same. Patient and family should f/up with oncology to discuss prognosis. Will follow. Problem List - Problems (1) Dehydration Code(s): E86.0 - DEHYDRATION (2) Failure to thrive Code(s): [id number] - Qualifiers: Failure to thrive age range: in adult Qualified Code(s): R62.7 - Adult failure to thrive (3) Metastatic lung cancer (metastasis from lung to other site) Code(s): C34.90 - MALIGNANT NEOPLASM OF UNSP PART OF UNSP BRONCHUS OR LUNG (4) Odynophagia Code(s): R13.10 - DYSPHAGIA, UNSPECIFIED (5) Pneumonia Code(s): J18.9 - PNEUMONIA, UNSPECIFIED ORGANISM
--- NOTE | 2020-05-04 09:57 | PN ---
Progress Note, Physician Chief Complaint: AMS Lethargy Hyponatremia RLL pneumonia History of Present Illness: NAD, wide awake and alert, oriented x 3- knows name, place, year, president and wifes name Ate breakfast Rocephin completed 7 days - Current Medication List Current Medications: Active Medications Acetaminophen (Tylenol -) 650 mg PO Q4H PRN PRN Reason: PAIN Last Admin: 05/03/20 23:58 Dose: 650 mg Documented by: Amino Acids (Prosource No Carb Liquid Pkt) 30 ml PO BID@0800,1730 [facility] Last Admin: 05/03/20 18:07 Dose: 30 ml Documented by: Dexamethasone (Decadron -) 4 mg PO DAILY [facility] Last Admin: 05/03/20 10:01 Dose: 4 mg Documented by: Fluconazole (Diflucan -) 100 mg PO DAILY [facility] Last Admin: 05/03/20 10:01 Dose: 100 mg Documented by: Lidocaine/Aluminum/Magnesium/Simeth (Magic Mouthwash *Sjr Formula* -) 5 ml MM Q6HPO [facility] Last Admin: 05/04/20 06:20 Dose: 5 ml Documented by: Nystatin (Nystatin Oral Suspension -) 500,000 units PO Q6HPO [facility] Last Admin: 05/04/20 06:20 Dose: 500,000 units Documented by: Pantoprazole Sodium (Protonix Iv) 40 mg IVPUSH DAILY [facility] Last Admin: 05/03/20 10:34 Dose: 40 mg Documented by: Phenol/Menthol (Chloraseptic -) 1 spray MM TID [facility] Last Admin: 05/04/20 06:21 Dose: Not Given Documented by: Phenol/Menthol (Chloraseptic -) 2 spray MM TID [facility] Last Admin: 05/04/20 06:20 Dose: 2 sprays Documented by: Trimethoprim/Sulfamethoxazole (Bactrim Ds -) 1 each PO MoWeFr@1000 [facility] Last Admin: 05/02/20 11:07 Dose: 1 each Documented by: - Objective Vital Signs: Vital Signs Temperature 97.7 F 05/04/20 09:48 Pulse Rate 66 05/04/20 09:48 Respiratory Rate 18 05/04/20 09:48 Blood Pressure 112/69 05/04/20 09:48 O2 Sat by Pulse Oximetry (%) 99 05/04/20 09:48 Constitutional: Yes: Well Nourished, No Distress, Calm Cardiovascular: Yes: Regular Rate and Rhythm Respiratory: Yes: Regular, CTA Bilaterally Gastrointestinal: Yes: Normal Bowel Sounds, Soft Genitourinary: Yes: Incontinence Musculoskeletal: Yes: Muscle Weakness Extremities: Yes: WNL Edema: No Peripheral Pulses WNL: Yes Neurological: Yes: Alert, Oriented Psychiatric: Yes: Alert, Oriented Labs: CBC, BMP 05/02/20 07:55 05/02/20 06:00 INR, PTT INR 1.12 (0.83-1.09) H 04/26/20 16:00 Problem List - Problems (1) Dehydration Assessment/Plan: -Resolved -Encourage PO intake -Trial of Marinol daily Problems reviewed: Yes Code(s): E86.0 - DEHYDRATION (2) Failure to thrive Problems reviewed: Yes Code(s): [id number] - Qualifiers: Failure to thrive age range: in adult Qualified Code(s): R62.7 - Adult failure to thrive (3) Leukocytosis Assessment/Plan: -ID consult -Afebrile -Finished IV Rocephin -Cultures: Microbiology 04/28/20 15:30 Throat Throat Culture - Final Yeast Like Organism 04/27/20 03:50 Blood - Peripheral Venous Blood Culture - Preliminary NO GROWTH OBTAINED AFTER 96 HOURS, INCUBATION TO CONTINUE FOR 1 DAYS. 04/27/20 03:50 Blood - Peripheral Venous Blood Culture - Preliminary NO GROWTH OBTAINED AFTER 96 HOURS, INCUBATION TO CONTINUE FOR 1 DAYS. 04/28/20 21:51 Urine For Antigen Detection Legionella Antigen - Final 04/28/20 21:51 Urine For Antigen Detection Streptococcus pneumoniae Antigen (M - Final 04/26/20 19:50 Urine - Urine Clean Catch Urine Culture - Final Normal Urogenital Layla Problems reviewed: Yes Code(s): D72.829 - ELEVATED WHITE BLOOD CELL COUNT, UNSPECIFIED (4) Metastatic lung cancer (metastasis from lung to other site) Assessment/Plan: -CXR reviewed -Oncology consult -Palliative care consult -Increase dexamethasone to 4 mg po dialy Problems reviewed: Yes Code(s): C34.90 - MALIGNANT NEOPLASM OF UNSP PART OF UNSP BRONCHUS OR LUNG (5) Pneumonia Assessment/Plan: -CXR BLL possible infiltrates -Pulmonary consult -Finished IV Rocephin -ID consult -afebrile -Monitor leukocytosis -Repeat CXR-no changes -Modified Barium swallow to r/o silent aspiration Problems reviewed: Yes Code(s): J18.9 - PNEUMONIA, UNSPECIFIED ORGANISM (6) Odynophagia Assessment/Plan: -Oral vs esophageal candidiasis? 2/2 to chemo + immunotherapy -Speech therapy consult -ENT consult appreciated -Tylenol for pain -Nystatin swish and swallow -magic mouthwash -Diflucan 100 mg po daily -Throat culture yeast like org -MRI brain without contrast-reviewed -Added Chloroseptic throat spray tid Problems reviewed: Yes Code(s): R13.10 - DYSPHAGIA, UNSPECIFIED (7) Elevated LFTs Assessment/Plan: -U/S Liver negative for any acute pathology -resolved -monitor trend Problems reviewed: Yes Code(s): R79.89 - OTHER SPECIFIED ABNORMAL FINDINGS OF BLOOD CHEMISTRY (8) Weakness Assessment/Plan: -MRI brain without contrast unremarkable -EMG abnormal -Seen by Neurology - B12, thyroid profile was normal -Seen by Physiatry -MRI or CT L spine to r/o metastatic disease-pending -Updated Dr Abad and Dr Thapa at [facility] Problems reviewed: Yes Code(s): R53.1 - WEAKNESS (9) Sensorineural hearing loss (SNHL) of both ears Assessment/Plan: -Seen by ENT -Last audiogram 4 years ago showed significant bilateral hearing loss of 35-40 db. Problems reviewed: Yes Code(s): H90.3 - SENSORINEURAL HEARING LOSS, BILATERAL Assessment/Plan See problem list Spoke RN for Gregor Brandt at Updated Dr Sal Thapa at (alt ext [phone]) Spoke to Monique at [phone] GI + DVT ppx
--- NOTE | 2020-05-04 10:45 | PN ---
Progress Note, Physician History of Present Illness: pulmonary alert,comfortable - Current Medication List Current Medications: Active Medications Acetaminophen (Tylenol -) 650 mg PO Q4H PRN PRN Reason: PAIN Last Admin: 05/03/20 23:58 Dose: 650 mg Documented by: Amino Acids (Prosource No Carb Liquid Pkt) 30 ml PO BID@0800,1730 [facility] Last Admin: 05/04/20 09:52 Dose: 30 ml Documented by: Dexamethasone (Decadron -) 4 mg PO DAILY [facility] Last Admin: 05/04/20 09:52 Dose: 4 mg Documented by: Dronabinol (Marinol -) 2.5 mg PO DAILY [facility] Fluconazole (Diflucan -) 100 mg PO DAILY [facility] Last Admin: 05/04/20 09:52 Dose: 100 mg Documented by: Lidocaine/Aluminum/Magnesium/Simeth (Magic Mouthwash *Sjr Formula* -) 5 ml MM Q6HPO [facility] Last Admin: 05/04/20 06:20 Dose: 5 ml Documented by: Nystatin (Nystatin Oral Suspension -) 500,000 units PO Q6HPO [facility] Last Admin: 05/04/20 06:20 Dose: 500,000 units Documented by: Pantoprazole Sodium (Protonix Iv) 40 mg IVPUSH DAILY [facility] Last Admin: 05/04/20 09:52 Dose: 40 mg Documented by: Phenol/Menthol (Chloraseptic -) 1 spray MM TID [facility] Last Admin: 05/04/20 06:21 Dose: Not Given Documented by: Phenol/Menthol (Chloraseptic -) 2 spray MM TID [facility] Last Admin: 05/04/20 06:20 Dose: 2 sprays Documented by: Trimethoprim/Sulfamethoxazole (Bactrim Ds -) 1 each PO MoWeFr@1000 [facility] Last Admin: 05/04/20 09:52 Dose: 1 each Documented by: - Objective Vital Signs: Vital Signs Temperature 97.7 F 05/04/20 09:48 Pulse Rate 66 05/04/20 09:48 Respiratory Rate 18 05/04/20 09:48 Blood Pressure 112/69 05/04/20 09:48 O2 Sat by Pulse Oximetry (%) 99 05/04/20 09:48 Constitutional: Yes: Well Nourished, Calm Eyes: Yes: WNL HENT: Yes: WNL Neck: Yes: WNL Cardiovascular: Yes: Regular Rate and Rhythm, S1, S2 Respiratory: Yes: Diminished, Other (poor inspiratory effort) Gastrointestinal: Yes: Normal Bowel Sounds, Soft Extremities: Yes: WNL Edema: No Labs: Assessment/Plan A/P Pneumonia Hyponatremia improved Metastatic Lung Cancer Failure to Thrive Anemia - antibiotics completed - O2 to keep SpO2 >90% - PO as tolerated - DVT prophylaxis DR GARCIA
[2020-05-04] MEDS: ACETAMINOPHEN 325 MG TABLET (FP) PO PRN (11:05)
[2020-05-04 11:44] LABS: BASO % 0.4 % (0-2.0); EOS % 0.8 % (0-4.5); HEMATOCRIT 37.2 % (35.4-49); LYMPH % 10.5 % (8-40); MCH 30.3 pg (25.7-33.7); MCHC 32.2 g/dl (32.0-35.9); MEAN CELL VOLUME 94.1 fl (80-96); MONO % 5.6 % (3.8-10.2); NEUT % 82.7 % (42.8-82.8); PLATELET COUNT 329 K/MM3 (134-434); RBC 3.96 M/mm3 (4.00-5.60); RDW 17.7 % (11.9-15.9); WHITE BLOOD COUNT 10.5 K/mm3 (4.0-10.0)
[2020-05-04] MEDS: DRONABINOL 2.5 MG CAPSULE PO SCH (11:47)
[2020-05-04 12:06] LABS: BLOOD UREA NITROGEN 20.8 mg/dL (7-18); CALCIUM 9.3 mg/dL (8.5-10.1); CREATININE 0.8 mg/dL (0.55-1.3); POTASSIUM 4.2 mmol/L (3.5-5.1)
[2020-05-04 12:07] LABS: ALBUMIN 3.3 g/dl (3.4-5.0); BILIRUBIN,TOTAL 0.4 mg/dL (0.2-1)
[2020-05-05] MEDS: MAG HYDROX/ALH/SMC/DPHA/LIDO 240 ML MOUTHWASH MM SCH ×4 (01:00→17:22)
[2020-05-05] MEDS: NYSTATIN 500,000 UNITS/5 ML SUSPENSION PO SCH ×4 (01:01→17:16)
[2020-05-05] MEDS: PHENOL 177 ML SPRAY BOTTLE MM SCH ×7 (06:30→22:18)
[2020-05-05] MEDS ORDERED: PT OWN MED DRAWER 7, Y5N ONE ×2 (09:16→21:41)
[2020-05-05] MEDS: DRONABINOL 2.5 MG CAPSULE PO SCH (09:19)
[2020-05-05] MEDS: PANTOPRAZOLE SODIUM 40 MG VIAL IVPUSH SCH (09:28)
[2020-05-05] MEDS: DEXAMETHASONE 4 MG TABLET (FP) PO SCH (09:28)
[2020-05-05] MEDS: AMINO ACIDS/PROTEIN HYDROLYS 30 ML LIQUID.PKT PO SCH ×2 (09:28→17:17)
[2020-05-05] MEDS: FLUCONAZOLE 100 MG TABLET (UD) PO SCH (09:28)
--- NOTE | 2020-05-05 12:15 | PN ---
Progress Note (short form) - Note Progress Note: PULMONARY More alert today. Denies shortness of breath. +nonproductive cough. No fevers recorded. Vital Signs Period Temp Pulse Resp BP Sys/Blake Pulse Ox Last 24 Hr 97.7 F-98.1 F 52-63 16-18 99-136/64-85 96-100 Gen: NAD at rest Heart: RRR Lung: basilar rales Abd: soft, nontender Ext: no edema CBC, BMP 05/04/20 11:05 05/04/20 11:05 Active Medications Acetaminophen (Tylenol -) 650 mg PO Q4H PRN PRN Reason: PAIN Last Admin: 05/04/20 11:05 Dose: 650 mg Documented by: Amino Acids (Prosource No Carb Liquid Pkt) 30 ml PO BID@0800,1730 [facility] Last Admin: 05/05/20 09:28 Dose: 30 ml Documented by: Dexamethasone (Decadron -) 4 mg PO DAILY [facility] Last Admin: 05/05/20 09:28 Dose: 4 mg Documented by: Dronabinol (Marinol -) 2.5 mg PO DAILY [facility] Last Admin: 05/05/20 09:19 Dose: 2.5 mg Documented by: Fluconazole (Diflucan -) 100 mg PO DAILY [facility] Last Admin: 05/05/20 09:28 Dose: 100 mg Documented by: Lidocaine/Aluminum/Magnesium/Simeth (Magic Mouthwash *Sjr Formula* -) 5 ml MM Q6HPO [facility] Last Admin: 05/05/20 06:29 Dose: 5 ml Documented by: Nystatin (Nystatin Oral Suspension -) 500,000 units PO Q6HPO [facility] Last Admin: 05/05/20 06:29 Dose: 500,000 units Documented by: Pantoprazole Sodium (Protonix Iv) 40 mg IVPUSH DAILY [facility] Last Admin: 05/05/20 09:28 Dose: 40 mg Documented by: Phenol/Menthol (Chloraseptic -) 1 spray MM TID [facility] Last Admin: 05/05/20 06:30 Dose: Not Given Documented by: Phenol/Menthol (Chloraseptic -) 2 spray MM QID [facility] Last Admin: 05/05/20 09:30 Dose: 2 sprays Documented by: Trimethoprim/Sulfamethoxazole (Bactrim Ds -) 1 each PO MoWeFr@1000 [facility] Last Admin: 05/04/20 09:52 Dose: 1 each Documented by: A/P Pneumonia Hyponatremia improving Metastatic Lung Cancer Failure to Thrive Anemia - completed antibiotics - O2 to keep SpO2 >90% - PO as tolerated - DVT prophylaxis
--- NOTE | 2020-05-05 12:54 | PN ---
Progress Note, Physician Chief Complaint: ASLEEP EVENTS AND NOTES REVIEWED NO CHANGES OVERNIGHT - Current Medication List Current Medications: Active Medications Acetaminophen (Tylenol -) 650 mg PO Q4H PRN PRN Reason: PAIN Last Admin: 05/04/20 11:05 Dose: 650 mg Documented by: Amino Acids (Prosource No Carb Liquid Pkt) 30 ml PO BID@0800,1730 [facility] Last Admin: 05/05/20 09:28 Dose: 30 ml Documented by: Dexamethasone (Decadron -) 4 mg PO DAILY [facility] Last Admin: 05/05/20 09:28 Dose: 4 mg Documented by: Dronabinol (Marinol -) 2.5 mg PO DAILY [facility] Last Admin: 05/05/20 09:19 Dose: 2.5 mg Documented by: Fluconazole (Diflucan -) 100 mg PO DAILY [facility] Last Admin: 05/05/20 09:28 Dose: 100 mg Documented by: Lidocaine/Aluminum/Magnesium/Simeth (Magic Mouthwash *Sjr Formula* -) 5 ml MM Q 6HPO [facility] Last Admin: 05/05/20 06:29 Dose: 5 ml Documented by: Nystatin (Nystatin Oral Suspension -) 500,000 units PO Q6HPO [facility] Last Admin: 05/05/20 06:29 Dose: 500,000 units Documented by: Pantoprazole Sodium (Protonix Iv) 40 mg IVPUSH DAILY [facility] Last Admin: 05/05/20 09:28 Dose: 40 mg Documented by: Phenol/Menthol (Chloraseptic -) 1 spray MM TID [facility] Last Admin: 05/05/20 06:30 Dose: Not Given Documented by: Phenol/Menthol (Chloraseptic -) 2 spray MM QID [facility] Last Admin: 05/05/20 09:30 Dose: 2 sprays Documented by: Trimethoprim/Sulfamethoxazole (Bactrim Ds -) 1 each PO MoWeFr@1000 [facility] Last Admin: 05/04/20 09:52 Dose: 1 each Documented by: - Objective Vital Signs: Vital Signs Temperature 97.8 F 05/05/20 09:53 Pulse Rate 52 L 05/05/20 09:53 Respiratory Rate 18 05/05/20 09:53 Blood Pressure 114/74 05/05/20 09:53 O2 Sat by Pulse Oximetry (%) 100 05/05/20 09:53 Constitutional: Yes: Mild Distress Cardiovascular: Yes: Pulse Irregular Respiratory: Yes: Diminished, On Nasal O2 Genitourinary: Yes: Incontinence Musculoskeletal: Yes: Muscle Weakness Labs: CBC, BMP 05/04/20 11:05 05/04/20 11:05 INR, PTT INR 1.12 (0.83-1.09) H 04/26/20 16:00 Problem List - Problems (1) Dehydration Code(s): E86.0 - DEHYDRATION (2) Elevated LFTs Code(s): R79.89 - OTHER SPECIFIED ABNORMAL FINDINGS OF BLOOD CHEMISTRY (3) Failure to thrive Code(s): [id number] - Qualifiers: Failure to thrive age range: in adult Qualified Code(s): R62.7 - Adult failure to thrive (4) Hypocalcemia Code(s): E83.51 - HYPOCALCEMIA (5) Hyponatremia Code(s): E87.1 - HYPO-OSMOLALITY AND HYPONATREMIA (6) Leukocytosis Code(s): D72.829 - ELEVATED WHITE BLOOD CELL COUNT, UNSPECIFIED (7) Metastatic lung cancer (metastasis from lung to other site) Code(s): C34.90 - MALIGNANT NEOPLASM OF UNSP PART OF UNSP BRONCHUS OR LUNG (8) Pneumonia Code(s): J18.9 - PNEUMONIA, UNSPECIFIED ORGANISM Assessment/Plan IV DECADRON GI AND DVT PROHYLAXIS 02 SUPPORT IV ABX PULM/ID F/U APPRECIATED PT EVAL SNF
[2020-05-05 13:53] LABS: BASO % 0.2 % (0-2.0); EOS % 0.4 % (0-4.5); HEMATOCRIT 37.5 % (35.4-49); HEMOGLOBIN 12.2 GM/dL (11.7-16.9); LYMPH % 6.7 % (8-40); MCH 30.8 pg (25.7-33.7); MCHC 32.4 g/dl (32.0-35.9); MEAN CELL VOLUME 94.9 fl (80-96); MEAN PLT VOLUME 7.1 fl (7.5-11.1); MONO % 6.4 % (3.8-10.2); NEUT % 86.3 % (42.8-82.8); PLATELET COUNT 337 K/MM3 (134-434); RBC 3.95 M/mm3 (4.00-5.60); RDW 17.7 % (11.9-15.9); WHITE BLOOD COUNT 11.9 K/mm3 (4.0-10.0)
[2020-05-05 14:35] LABS: ALBUMIN 3.3 g/dl (3.4-5.0); BLOOD UREA NITROGEN 30.1 mg/dL (7-18); CALCIUM 9.2 mg/dL (8.5-10.1); TOT PROT 6.9 g/dl (6.4-8.2)
[2020-05-05 14:46] LABS: BILIRUBIN,TOTAL 0.3 mg/dL (0.2-1)
[2020-05-06] MEDS: MAG HYDROX/ALH/SMC/DPHA/LIDO 240 ML MOUTHWASH MM SCH ×4 (00:15→18:03)
[2020-05-06] MEDS: NYSTATIN 500,000 UNITS/5 ML SUSPENSION PO SCH ×4 (00:15→18:03)
[2020-05-06] MEDS ORDERED: PT OWN MED DRAWER 7, Y5N ONE ×2 (03:36→05:34)
[2020-05-06] MEDS: PHENOL 177 ML SPRAY BOTTLE MM SCH ×7 (05:54→21:20)
[2020-05-06 07:55] LABS: BASO % 0.2 % (0-2.0); EOS % 0.5 % (0-4.5); HEMATOCRIT 38.6 % (35.4-49); HEMOGLOBIN 12.4 GM/dL (11.7-16.9); LYMPH % 7.9 % (8-40); MCH 30.3 pg (25.7-33.7); MEAN CELL VOLUME 94.7 fl (80-96); MEAN PLT VOLUME 6.9 fl (7.5-11.1); MONO % 7.1 % (3.8-10.2); NEUT % 84.3 % (42.8-82.8); PLATELET COUNT 334 K/MM3 (134-434); RBC 4.08 M/mm3 (4.00-5.60); WHITE BLOOD COUNT 11.5 K/mm3 (4.0-10.0)
[2020-05-06 08:15] LABS: ALBUMIN 3.3 g/dl (3.4-5.0); BILIRUBIN,TOTAL 0.3 mg/dL (0.2-1); CREATININE 0.9 mg/dL (0.55-1.3); POTASSIUM 4.5 mmol/L (3.5-5.1)
[2020-05-06 09:19] LABS: ANISOCYTOSIS 1+; MACROCYTOSIS 0; PLATELET ESTIMATE NORMAL
[2020-05-06] MEDS: DEXAMETHASONE 4 MG TABLET (FP) PO SCH (10:21)
[2020-05-06] MEDS: AMINO ACIDS/PROTEIN HYDROLYS 30 ML LIQUID.PKT PO SCH ×2 (10:21→18:03)
[2020-05-06] MEDS: FLUCONAZOLE 100 MG TABLET (UD) PO SCH (10:21)
[2020-05-06] MEDS: DRONABINOL 2.5 MG CAPSULE PO SCH (10:21)
[2020-05-06] MEDS: PANTOPRAZOLE SODIUM 40 MG VIAL IVPUSH SCH (10:24)
--- NOTE | 2020-05-06 11:22 | PN ---
Progress Note, Physician Chief Complaint: AWAKE ALERT MRI REVIEWED NEGATIVE FOR METASTASIS - Current Medication List Current Medications: Active Medications Acetaminophen (Tylenol -) 650 mg PO Q4H PRN PRN Reason: PAIN Last Admin: 05/04/20 11:05 Dose: 650 mg Documented by: Amino Acids (Prosource No Carb Liquid Pkt) 30 ml PO BID@0800,1730 [facility] Last Admin: 05/06/20 10:21 Dose: 30 ml Documented by: Dexamethasone (Decadron -) 4 mg PO DAILY [facility] Last Admin: 05/06/20 10:21 Dose: 4 mg Documented by: Dronabinol (Marinol -) 2.5 mg PO DAILY [facility] Last Admin: 05/06/20 10:21 Dose: 2.5 mg Documented by: Fluconazole (Diflucan -) 100 mg PO DAILY [facility] Last Admin: 05/06/20 10:21 Dose: 100 mg Documented by: Lidocaine/Aluminum/Magnesium/Simeth (Magic Mouthwash *Sjr Formula* -) 5 ml MM Q6HPO [facility] Last Admin: 05/06/20 05:53 Dose: 5 ml Documented by: Nystatin (Nystatin Oral Suspension -) 500,000 units PO Q6HPO [facility] Last Admin: 05/06/20 05:53 Dose: 500,000 units Documented by: Pantoprazole Sodium (Protonix Iv) 40 mg IVPUSH DAILY [facility] Last Admin: 05/06/20 10:24 Dose: 40 mg Documented by: Phenol/Menthol (Chloraseptic -) 1 spray MM TID [facility] Last Admin: 05/06/20 05:54 Dose: 1 spray Documented by: Phenol/Menthol (Chloraseptic -) 2 spray MM QID [facility] Last Admin: 05/06/20 10:22 Dose: 2 sprays Documented by: Trimethoprim/Sulfamethoxazole (Bactrim Ds -) 1 each PO MoWeFr@1000 [facility] Last Admin: 05/04/20 09:52 Dose: 1 each Documented by: - Objective Vital Signs: Vital Signs Temperature 98.8 F 05/06/20 06:00 Pulse Rate 56 L 05/06/20 06:00 Respiratory Rate 18 05/06/20 06:00 Blood Pressure 124/67 05/06/20 06:00 O2 Sat by Pulse Oximetry (%) 100 05/06/20 06:00 Constitutional: Yes: Mild Distress HENT: Yes: Thrush Cardiovascular: Yes: Regular Rate and Rhythm Respiratory: Yes: WNL Gastrointestinal: Yes: WNL Genitourinary: Yes: Incontinence Musculoskeletal: Yes: Muscle Weakness Neurological: Yes: Pre-Existing Deficit, Weakness Labs: CBC, BMP 05/06/20 07:06 05/06/20 07:06 INR, PTT INR 1.12 (0.83-1.09) H 04/26/20 16:00 Problem List - Problems (1) Dehydration Code(s): E86.0 - DEHYDRATION (2) Elevated LFTs Code(s): R79.89 - OTHER SPECIFIED ABNORMAL FINDINGS OF BLOOD CHEMISTRY (3) Failure to thrive Code(s): [id number] - Qualifiers: Failure to thrive age range: in adult Qualified Code(s): R62.7 - Adult failure to thrive (4) Hypocalcemia Code(s): E83.51 - HYPOCALCEMIA (5) Hyponatremia Code(s): E87.1 - HYPO-OSMOLALITY AND HYPONATREMIA (6) Leukocytosis Code(s): D72.829 - ELEVATED WHITE BLOOD CELL COUNT, UNSPECIFIED (7) Metastatic lung cancer (metastasis from lung to other site) Code(s): C34.90 - MALIGNANT NEOPLASM OF UNSP PART OF UNSP BRONCHUS OR LUNG (8) Pneumonia Code(s): J18.9 - PNEUMONIA, UNSPECIFIED ORGANISM Assessment/Plan IV DECADRON CONTINUED GI AND DVT PROHYLAXIS 02 SUPPORT MRI NEGATIVE FOR METS ORAL THRUSH TREATMENT NYSTATIN IV ABX PULM/ID F/U APPRECIATED PT EVAL SNF
--- NOTE | 2020-05-06 11:40 | PN ---
Progress Note (short form) - Note Progress Note: PULMONARY Denies shortness of breath. +nonproductive cough. No fevers recorded. Vital Signs Period Temp Pulse Resp BP Sys/Blake Pulse Ox Last 24 Hr 97.9 F-98.8 F 56-68 18-18 107-124/66-71 97-100 Gen: NAD at rest Heart: RRR Lung: basilar rales Abd: soft, nontender Ext: no edema CBC, BMP 05/06/20 07:06 05/06/20 07:06 Active Medications Acetaminophen (Tylenol -) 650 mg PO Q4H PRN PRN Reason: PAIN Last Admin: 05/04/20 11:05 Dose: 650 mg Documented by: Amino Acids (Prosource No Carb Liquid Pkt) 30 ml PO BID@0800,1730 [facility] Last Admin: 05/06/20 10:21 Dose: 30 ml Documented by: Dexamethasone (Decadron -) 4 mg PO DAILY [facility] Last Admin: 05/06/20 10:21 Dose: 4 mg Documented by: Dronabinol (Marinol -) 2.5 mg PO DAILY [facility] Last Admin: 05/06/20 10:21 Dose: 2.5 mg Documented by: Fluconazole (Diflucan -) 100 mg PO DAILY [facility] Last Admin: 05/06/20 10:21 Dose: 100 mg Documented by: Lidocaine/Aluminum/Magnesium/Simeth (Magic Mouthwash *Sjr Formula* -) 5 ml MM Q6HPO [facility] Last Admin: 05/06/20 05:53 Dose: 5 ml Documented by: Nystatin (Nystatin Oral Suspension -) 500,000 units PO Q6HPO [facility] Last Admin: 05/06/20 05:53 Dose: 500,000 units Documented by: Pantoprazole Sodium (Protonix Iv) 40 mg IVPUSH DAILY [facility] Last Admin: 05/06/20 10:24 Dose: 40 mg Documented by: Phenol/Menthol (Chloraseptic -) 1 spray MM TID [facility] Last Admin: 05/06/20 05:54 Dose: 1 spray Documented by: Phenol/Menthol (Chloraseptic -) 2 spray MM QID [facility] Last Admin: 05/06/20 10:22 Dose: 2 sprays Documented by: Trimethoprim/Sulfamethoxazole (Bactrim Ds -) 1 each PO MoWeFr@1000 [facility] Last Admin: 05/04/20 09:52 Dose: 1 each Documented by: A/P Pneumonia Hyponatremia improving Metastatic Lung Cancer Failure to Thrive Anemia - completed antibiotics - O2 to keep SpO2 >90% - PO as tolerated - DVT prophylaxis
[2020-05-07] MEDS: MAG HYDROX/ALH/SMC/DPHA/LIDO 240 ML MOUTHWASH MM SCH ×4 (00:14→17:10)
[2020-05-07] MEDS: NYSTATIN 500,000 UNITS/5 ML SUSPENSION PO SCH ×4 (00:15→17:10)
[2020-05-07] MEDS: PHENOL 177 ML SPRAY BOTTLE MM SCH ×7 (05:43→21:06)
[2020-05-07 08:10] LABS: BASO % 0.3 % (0-2.0); EOS % 0.3 % (0-4.5); HEMATOCRIT 37.5 % (35.4-49); LYMPH % 7.5 % (8-40); MCH 30.2 pg (25.7-33.7); MCHC 32.1 g/dl (32.0-35.9); MEAN CELL VOLUME 94.1 fl (80-96); MEAN PLT VOLUME 6.7 fl (7.5-11.1); MONO % 4.4 % (3.8-10.2); NEUT % 87.5 % (42.8-82.8); PLATELET COUNT 344 K/MM3 (134-434); RBC 3.98 M/mm3 (4.00-5.60); RDW 17.8 % (11.9-15.9)
[2020-05-07 08:31] LABS: ALBUMIN 3.2 g/dl (3.4-5.0); BILIRUBIN,TOTAL 0.6 mg/dL (0.2-1); BLOOD UREA NITROGEN 34.7 mg/dL (7-18); CALCIUM 9.2 mg/dL (8.5-10.1); CREATININE 0.9 mg/dL (0.55-1.3); POTASSIUM 4.2 mmol/L (3.5-5.1); TOT PROT 6.7 g/dl (6.4-8.2)
[2020-05-07] MEDS: AMINO ACIDS/PROTEIN HYDROLYS 30 ML LIQUID.PKT PO SCH ×2 (08:57→16:35)
[2020-05-07] MEDS: DRONABINOL 2.5 MG CAPSULE PO SCH (08:59)
[2020-05-07] MEDS: DEXAMETHASONE 4 MG TABLET (FP) PO SCH (08:59)
[2020-05-07] MEDS: FLUCONAZOLE 100 MG TABLET (UD) PO SCH (08:59)
[2020-05-07] MEDS: SULFAMETHOXAZOLE/TRIMETHOPRIM 800MG/160MG D.S. TABLET PO SCH (08:59)
[2020-05-07] MEDS: PANTOPRAZOLE SODIUM 40 MG VIAL IVPUSH SCH (09:00)
--- NOTE | 2020-05-07 09:17 | PN ---
Progress Note, Physician - Current Medication List Current Medications: Active Medications Acetaminophen (Tylenol -) 650 mg PO Q4H PRN PRN Reason: PAIN Last Admin: 05/04/20 11:05 Dose: 650 mg Documented by: Amino Acids (Prosource No Carb Liquid Pkt) 30 ml PO BID@0800,1730 [facility] Last Admin: 05/07/20 08:57 Dose: 30 ml Documented by: Dexamethasone (Decadron -) 4 mg PO DAILY [facility] Last Admin: 05/07/20 08:59 Dose: 4 mg Documented by: Dronabinol (Marinol -) 2.5 mg PO DAILY [facility] Last Admin: 05/07/20 08:59 Dose: 2.5 mg Documented by: Fluconazole (Diflucan -) 100 mg PO DAILY [facility] Last Admin: 05/07/20 08:59 Dose: 100 mg Documented by: Lidocaine/Aluminum/Magnesium/Simeth (Magic Mouthwash *Sjr Formula* -) 5 ml MM Q6HPO [facility] Last Admin: 05/07/20 05:43 Dose: 5 ml Documented by: Nystatin (Nystatin Oral Suspension -) 500,000 units PO Q6HPO [facility] Last Admin: 05/07/20 05:43 Dose: 500,000 units Documented by: Pantoprazole Sodium (Protonix Iv) 40 mg IVPUSH DAILY [facility] Last Admin: 05/07/20 09:00 Dose: 40 mg Documented by: Phenol/Menthol (Chloraseptic -) 1 spray MM TID [facility] Last Admin: 05/07/20 05:43 Dose: 1 spray Documented by: Phenol/Menthol (Chloraseptic -) 2 spray MM QID [facility] Last Admin: 05/07/20 09:01 Dose: 2 sprays Documented by: Trimethoprim/Sulfamethoxazole (Bactrim Ds -) 1 each PO MoWeFr@1000 [facility] Last Admin: 05/07/20 08:59 Dose: 1 each Documented by: - Objective Vital Signs: Vital Signs Temperature 97.9 F 05/07/20 06:00 Pulse Rate 53 L 05/07/20 06:00 Respiratory Rate 20 05/07/20 06:00 Blood Pressure 120/70 05/07/20 06:00 O2 Sat by Pulse Oximetry (%) 100 05/07/20 06:00 Cardiovascular: Yes: S1, S2 Respiratory: Yes: Regular, CTA Bilaterally Gastrointestinal: Yes: Normal Bowel Sounds, Soft Edema: No Labs: CBC, BMP 05/07/20 07:50 05/07/20 07:50 INR, PTT INR 1.12 (0.83-1.09) H 04/26/20 16:00 Assessment/Plan - Problems (1) Dehydration Assessment/Plan: -Resolved -Encourage PO intake -Trial of Marinol daily Problems reviewed: Yes Code(s): E86.0 - DEHYDRATION (2) Failure to thrive Problems reviewed: Yes Code(s): [id number] - Qualifiers: Failure to thrive age range: in adult Qualified Code(s): R62.7 - Adult failure to thrive (3) Leukocytosis Assessment/Plan: -ID consult -Afebrile -Finished IV Rocephin -Cultures: Microbiology 04/28/20 15:30 Throat Throat Culture - Final Yeast Like Organism 04/27/20 03:50 Blood - Peripheral Venous Blood Culture - Preliminary NO GROWTH OBTAINED AFTER 96 HOURS, INCUBATION TO CONTINUE FOR 1 DAYS. 04/27/20 03:50 Blood - Peripheral Venous Blood Culture - Preliminary NO GROWTH OBTAINED AFTER 96 HOURS, INCUBATION TO CONTINUE FOR 1 DAYS. 04/28/20 21:51 Urine For Antigen Detection Legionella Antigen - Final 04/28/20 21:51 Urine For Antigen Detection Streptococcus pneumoniae Antigen (M - Final 04/26/20 19:50 Urine - Urine Clean Catch Urine Culture - Final Normal Urogenital Layla Problems reviewed: Yes Code(s): D72.829 - ELEVATED WHITE BLOOD CELL COUNT, UNSPECIFIED (4) Metastatic lung cancer (metastasis from lung to other site) Assessment/Plan: -CXR reviewed -Oncology consult -Palliative care consult -Increase dexamethasone to 4 mg po dialy Problems reviewed: Yes Code(s): C34.90 - MALIGNANT NEOPLASM OF UNSP PART OF UNSP BRONCHUS OR LUNG (5) Pneumonia Assessment/Plan: -CXR BLL possible infiltrates -Pulmonary consult -Finished IV Rocephin -ID consult -afebrile -Monitor leukocytosis -Repeat CXR-no changes -Modified Barium swallow to r/o silent aspiration Problems reviewed: Yes Code(s): J18.9 - PNEUMONIA, UNSPECIFIED ORGANISM (6) Odynophagia Assessment/Plan: -Oral vs esophageal candidiasis? 2/2 to chemo + immunotherapy -Speech therapy consult -ENT consult appreciated -Tylenol for pain -Nystatin swish and swallow -magic mouthwash -Diflucan 100 mg po daily -Throat culture yeast like org -MRI brain without contrast-reviewed -Added Chloroseptic throat spray tid Problems reviewed: Yes Code(s): R13.10 - DYSPHAGIA, UNSPECIFIED (7) Elevated LFTs Assessment/Plan: -U/S Liver negative for any acute pathology -resolved -monitor trend Problems reviewed: Yes Code(s): R79.89 - OTHER SPECIFIED ABNORMAL FINDINGS OF BLOOD CHEMISTRY (8) Weakness Assessment/Plan: -MRI brain without contrast unremarkable -EMG abnormal -Seen by Neurology - B12, thyroid profile was normal -Seen by Physiatry -MRI or CT L spine to r/o metastatic disease-No mets -Updated Dr Abad and Dr Thapa at [facility] Problems reviewed: Yes Code(s): R53.1 - WEAKNESS (9) Sensorineural hearing loss (SNHL) of both ears Assessment/Plan: -Seen by ENT -Last audiogram 4 years ago showed significant bilateral hearing loss of 35-40 db. Problems reviewed: Yes Code(s): H90.3 - SENSORINEURAL HEARING LOSS, BILATERAL
[2020-05-07 09:49] LABS: ANISOCYTOSIS 0; MACROCYTOSIS 0; PLATELET ESTIMATE NORMAL
--- NOTE | 2020-05-07 10:40 | PN ---
Progress Note, [employer] LETTER [employer]ER - Note Progress Note: Selected Entries 05/06/20 05/06/20 05/07/20 14:44 22:00 01:30 Breakfast 25% Diet Tolerated Poor Poor Lunch 0 Supper 25% Temperature 98.1 F Pulse Rate 54 L Blood Pressure 118/75 05/07/20 06:00 Breakfast Diet Tolerated Lunch Supper Temperature 97.9 F Pulse Rate 53 L Blood Pressure 120/70 Laboratory Tests 05/04/20 05/05/20 05/06/20 11:05 12:35 07:06 WBC 10.5 H 11.9 H 11.5 H 05/07/20 07:50 WBC 12.0 H A/P Pneumonia Hyponatremia improving Metastatic Lung Cancer Failure to Thrive Anemia MBS -No aspiration but risk. Downgraded to pureed solids and nectar liquids Per nursing-Patient alert and oriented x 3, confused. Denies pain. Poor clearing of oral secretions, suction performed Last CXR-05/01-congestive changes Full code- Seen by Palliative care Nursing reports pt coughing with all po trials. Pt c/o of difficulty. Staff concerned about feeding pt. Suggest-repeat MBS
--- NOTE | 2020-05-07 11:46 | PN ---
Progress Note (short form) - Note Progress Note: PULMONARY Thick white sputum/weak cough Initial MBS: aspiration risk Have spoken with speech pathologist María Elena Marino will order repeat study VSS/AFEBRILE Gen: NAD at rest Heart: RRR Lung: basilar rales/scattered rhonchi Abd: soft, nontender Ext: no edema labs/meds/notes/images reviewed A/P Pneumonia likely aspiration Hyponatremia improved Metastatic Lung Cancer Failure to Thrive Anemia - completed antibiotics - O2 to keep SpO2 >90% - PO as tolerated - DVT prophylaxis - Have ordered nebs/ - suctioning Libby VIRGEN MD Problem List - Problems (1) Dehydration Code(s): E86.0 - DEHYDRATION (2) Elevated LFTs Code(s): R79.89 - OTHER SPECIFIED ABNORMAL FINDINGS OF BLOOD CHEMISTRY (3) Failure to thrive Code(s): [id number] - Qualifiers: Failure to thrive age range: in adult Qualified Code(s): R62.7 - Adult failure to thrive (4) Metastatic lung cancer (metastasis from lung to other site) Code(s): C34.90 - MALIGNANT NEOPLASM OF UNSP PART OF UNSP BRONCHUS OR LUNG
[2020-05-07] MEDS: ALBUTEROL SO4 0.083% IH SOL 2.5 MG/3 ML VIAL.NEB. NEB SCH ×3 (12:18→20:05)
--- NOTE | 2020-05-07 16:18 | PN ---
Progress Note, Physician History of Present Illness: Pt seen and examined at bedside. PO intake is poor. - Current Medication List Current Medications: Active Medications Acetaminophen (Tylenol -) 650 mg PO Q4H PRN PRN Reason: PAIN Last Admin: 05/04/20 11:05 Dose: 650 mg Documented by: Albuterol Sulfate (Ventolin 0.083% Nebulizer Soln -) 1 amp NEB RQID [facility] Last Admin: 05/07/20 15:47 Dose: 1 amp Documented by: Amino Acids (Prosource No Carb Liquid Pkt) 30 ml PO BID@0800,1730 [facility] Last Admin: 05/07/20 08:57 Dose: 30 ml Documented by: Dexamethasone (Decadron -) 4 mg PO DAILY [facility] Last Admin: 05/07/20 08:59 Dose: 4 mg Documented by: Dronabinol (Marinol -) 2.5 mg PO DAILY [facility] Last Admin: 05/07/20 08:59 Dose: 2.5 mg Documented by: Fluconazole (Diflucan -) 100 mg PO DAILY [facility] Last Admin: 05/07/20 08:59 Dose: 100 mg Documented by: Lidocaine/Aluminum/Magnesium/Simeth (Magic Mouthwash *Sjr Formula* -) 5 ml MM Q6HPO [facility] Last Admin: 05/07/20 11:26 Dose: 5 ml Documented by: Nystatin (Nystatin Oral Suspension -) 500,000 units PO Q6HPO [facility] Last Admin: 05/07/20 11:25 Dose: 500,000 units Documented by: Pantoprazole Sodium (Protonix -) 40 mg PO DAILY [facility] Phenol/Menthol (Chloraseptic -) 1 spray MM TID [facility] Last Admin: 05/07/20 13:21 Dose: Not Given Documented by: Phenol/Menthol (Chloraseptic -) 2 spray MM QID [facility] Last Admin: 05/07/20 13:21 Dose: 2 sprays Documented by: Trimethoprim/Sulfamethoxazole (Bactrim Ds -) 1 each PO MoWeFr@1000 [facility] Last Admin: 05/07/20 08:59 Dose: 1 each Documented by: - Objective Vital Signs: Vital Signs Temperature 97.6 F 05/07/20 10:49 Pulse Rate 53 L 05/07/20 10:49 Respiratory Rate 05/07/20 10:49 Blood Pressure 117/67 05/07/20 10:49 O2 Sat by Pulse Oximetry (%) 98 05/07/20 10:49 Constitutional: Yes: Calm Eyes: Yes: Conjunctiva Clear HENT: Yes: Atraumatic Cardiovascular: Yes: S1, S2 Respiratory: Yes: CTA Bilaterally Gastrointestinal: Yes: Normal Bowel Sounds, Soft Genitourinary: Yes: Other (external catheter) Musculoskeletal: Yes: Muscle Weakness Edema: No Integumentary: Yes: WNL Labs: CBC, BMP 05/07/20 07:50 05/07/20 07:50 INR, PTT INR 1.12 (0.83-1.09) H 04/26/20 16:00 Problem List - Problems (1) Dehydration Code(s): E86.0 - DEHYDRATION (2) Failure to thrive Code(s): [id number] - Qualifiers: Failure to thrive age range: in adult Qualified Code(s): R62.7 - Adult failure to thrive (3) Hyponatremia Code(s): E87.1 - HYPO-OSMOLALITY AND HYPONATREMIA (4) Metastatic lung cancer (metastasis from lung to other site) Code(s): C34.90 - MALIGNANT NEOPLASM OF UNSP PART OF UNSP BRONCHUS OR LUNG Assessment/Plan Current Medications Generic Name Dose Route Start Last Admin Trade Name Freq PRN Reason Stop Dose Admin Acetaminophen 650 mg 04/26/20 21:38 05/04/20 11:05 Tylenol - PO 650 mg Q4H PRN Administration PAIN Albuterol Sulfate 1 amp 05/07/20 12:00 05/07/20 15:47 Ventolin 0.083% Nebulizer Soln - NEB 1 amp RQID [facility] Administration Amino Acids 30 ml 05/01/20 17:30 05/07/20 08:57 Prosource No Carb Liquid Pkt PO 30 ml BID@0800,1730 [facility] Administration Dexamethasone 4 mg 05/02/20 10:00 05/07/20 08:59 Decadron - PO 4 mg DAILY [facility] Administration Dronabinol 2.5 mg 05/04/20 10:45 05/07/20 08:59 Marinol - PO 2.5 mg DAILY [facility] Administration Fluconazole 100 mg 05/01/20 13:30 05/07/20 08:59 Diflucan - PO 100 mg DAILY [facility] Administration Lidocaine/Aluminum/Magnesium/Simeth 5 ml 05/04/20 12:35 05/07/20 11:26 Magic Mouthwash *Sjr Formula* - MM 5 ml Q6HPO [facility] Administration Nystatin 500,000 units 04/28/20 00:00 05/07/20 11:25 Nystatin Oral Suspension - PO 500,000 units Q6HPO [facility] Administration Pantoprazole Sodium 40 mg 05/08/20 10:00 Protonix - PO DAILY [facility] Phenol/Menthol 1 spray 05/03/20 14:00 05/07/20 13:21 Chloraseptic - MM Not Given TID [facility] Phenol/Menthol 2 spray 05/04/20 14:00 05/07/20 13:21 Chloraseptic - MM 2 sprays QID [facility] Administration Trimethoprim/Sulfamethoxazole 1 each 04/30/20 10:00 05/07/20 08:59 Bactrim Ds - PO 1 each MoWeFr@1000 [facility] Administration Impression 1. hyponatremia 2. dehydration 3. failure to thrive 4. lung cancer with mets Plan - start gentle hydration if not eating - follow swallow eval - bun rising - dietary follow up - maintain adequate hydration
[2020-05-07] MEDS ORDERED: PT OWN MED DRAWER 7, Y5N ONE (19:43)
[2020-05-08] MEDS: MAG HYDROX/ALH/SMC/DPHA/LIDO 240 ML MOUTHWASH MM SCH ×4 (00:43→17:21)
[2020-05-08] MEDS: NYSTATIN 500,000 UNITS/5 ML SUSPENSION PO SCH ×4 (00:44→17:21)
[2020-05-08] MEDS: PHENOL 177 ML SPRAY BOTTLE MM SCH ×7 (06:13→21:42)
[2020-05-08] MEDS: ALBUTEROL SO4 0.083% IH SOL 2.5 MG/3 ML VIAL.NEB. NEB SCH ×4 (08:00→20:38)
[2020-05-08] MEDS: AMINO ACIDS/PROTEIN HYDROLYS 30 ML LIQUID.PKT PO SCH ×2 (09:07→16:31)
[2020-05-08] MEDS: DEXAMETHASONE 4 MG TABLET (FP) PO SCH (09:15)
[2020-05-08] MEDS: PANTOPRAZOLE 40 MG TABLET PO SCH (09:15)
[2020-05-08] MEDS: DRONABINOL 2.5 MG CAPSULE PO SCH (09:15)
[2020-05-08] MEDS: FLUCONAZOLE 100 MG TABLET (UD) PO SCH (09:15)
--- NOTE | 2020-05-08 11:18 | PN ---
Progress Note, Physician History of Present Illness: Pt seen and examined at bedside. He is more awake and alert. He denies shortness of breath. - Current Medication List Current Medications: Active Medications Acetaminophen (Tylenol -) 650 mg PO Q4H PRN PRN Reason: PAIN Last Admin: 05/04/20 11:05 Dose: 650 mg Documented by: Albuterol Sulfate (Ventolin 0.083% Nebulizer Soln -) 1 amp NEB RQID [facility] Last Admin: 05/07/20 20:05 Dose: 1 amp Documented by: Amino Acids (Prosource No Carb Liquid Pkt) 30 ml PO BID@0800,1730 [facility] Last Admin: 05/08/20 09:07 Dose: 30 ml Documented by: Dexamethasone (Decadron -) 4 mg PO DAILY [facility] Last Admin: 05/08/20 09:15 Dose: 4 mg Documented by: Dronabinol (Marinol -) 2.5 mg PO DAILY [facility] Last Admin: 05/08/20 09:15 Dose: 2.5 mg Documented by: Fluconazole (Diflucan -) 100 mg PO DAILY [facility] Last Admin: 05/08/20 09:15 Dose: 100 mg Documented by: Lidocaine/Aluminum/Magnesium/Simeth (Magic Mouthwash *Sjr Formula* -) 5 ml MM Q6HPO [facility] Last Admin: 05/08/20 11:08 Dose: 5 ml Documented by: Nystatin (Nystatin Oral Suspension -) 500,000 units PO Q6HPO [facility] Last Admin: 05/08/20 11:08 Dose: 500,000 units Documented by: Pantoprazole Sodium (Protonix -) 40 mg PO DAILY [facility] Last Admin: 05/08/20 09:15 Dose: 40 mg Documented by: Phenol/Menthol (Chloraseptic -) 1 spray MM TID [facility] Last Admin: 05/08/20 06:13 Dose: 1 spray Documented by: Phenol/Menthol (Chloraseptic -) 2 spray MM QID [facility] Last Admin: 05/08/20 09:11 Dose: 2 sprays Documented by: Trimethoprim/Sulfamethoxazole (Bactrim Ds -) 1 each PO MoWeFr@1000 [facility] Last Admin: 05/07/20 08:59 Dose: 1 each Documented by: - Objective Vital Signs: Vital Signs Temperature 97.6 F 05/08/20 08:23 Pulse Rate 62 05/08/20 08:23 Respiratory Rate 18 05/08/20 09:00 Blood Pressure 109/65 05/08/20 08:23 O2 Sat by Pulse Oximetry (%) 97 05/08/20 09:00 Constitutional: Yes: Calm Eyes: Yes: Conjunctiva Clear HENT: Yes: Atraumatic Neck: Yes: Supple Cardiovascular: Yes: S1, S2 Respiratory: Yes: CTA Bilaterally Gastrointestinal: Yes: Normal Bowel Sounds, Soft Genitourinary: Yes: Incontinence Musculoskeletal: Yes: Muscle Weakness Edema: No Neurological: Yes: Oriented Labs: CBC, BMP 05/07/20 07:50 05/07/20 07:50 INR, PTT INR 1.12 (0.83-1.09) H 04/26/20 16:00 Problem List - Problems (1) Dehydration Code(s): E86.0 - DEHYDRATION (2) Failure to thrive Code(s): [id number] - Qualifiers: Failure to thrive age range: in adult Qualified Code(s): R62.7 - Adult failure to thrive (3) Hyponatremia Code(s): E87.1 - HYPO-OSMOLALITY AND HYPONATREMIA (4) Metastatic lung cancer (metastasis from lung to other site) Code(s): C34.90 - MALIGNANT NEOPLASM OF UNSP PART OF UNSP BRONCHUS OR LUNG Assessment/Plan Current Medications Generic Name Dose Route Start Last Admin Trade Name Freq PRN Reason Stop Dose Admin Acetaminophen 650 mg 04/26/20 21:38 05/04/20 11:05 Tylenol - PO 650 mg Q4H PRN Administration PAIN Albuterol Sulfate 1 amp 05/07/20 12:00 05/07/20 20:05 Ventolin 0.083% Nebulizer Soln - NEB 1 amp RQID [facility] Administration Amino Acids 30 ml 05/01/20 17:30 05/08/20 09:07 Prosource No Carb Liquid Pkt PO 30 ml BID@0800,1730 [facility] Administration Dexamethasone 4 mg 05/02/20 10:00 05/08/20 09:15 Decadron - PO 4 mg DAILY [facility] Administration Dronabinol 2.5 mg 05/04/20 10:45 05/08/20 09:15 Marinol - PO 2.5 mg DAILY [facility] Administration Fluconazole 100 mg 05/01/20 13:30 05/08/20 09:15 Diflucan - PO 100 mg DAILY [facility] Administration Lidocaine/Aluminum/Magnesium/Simeth 5 ml 05/04/20 12:35 05/08/20 11:08 Magic Mouthwash *Sjr Formula* - MM 5 ml Q6HPO [facility] Administration Nystatin 500,000 units 04/28/20 00:00 05/08/20 11:08 Nystatin Oral Suspension - PO 500,000 units Q6HPO [facility] Administration Pantoprazole Sodium 40 mg 05/08/20 10:00 05/08/20 09:15 Protonix - PO 40 mg DAILY [facility] Administration Phenol/Menthol 1 spray 05/03/20 14:00 05/08/20 06:13 Chloraseptic - MM 1 spray TID [facility] Administration Phenol/Menthol 2 spray 05/04/20 14:00 05/08/20 09:11 Chloraseptic - MM 2 sprays QID [facility] Administration Trimethoprim/Sulfamethoxazole 1 each 04/30/20 10:00 05/07/20 08:59 Bactrim Ds - PO 1 each MoWeFr@1000 [facility] Administration Impression 1. hyponatremia 2. dehydration 3. failure to thrive 4. lung cancer with mets Plan - will start fluids - repeat labs in am - follow swallow eval - bun rising - dietary follow up - maintain adequate hydration
[2020-05-08] MEDS ORDERED: POTASSIUM CHLORIDE 10 MEQ in SODIUM CHLORIDE 0.45% 1,000 ML IVPB SCH (11:30)
--- NOTE | 2020-05-08 11:46 | PN ---
Progress Note, MANAGER RADIATION - Note Progress Note: Selected Entries 05/07/20 05/07/20 05/07/20 12:40 15:46 21:53 Breakfast 25% Diet Tolerated Poor Poor Poor Lunch 25% Temperature Pulse Rate Blood Pressure 05/08/20 05/08/20 05/08/20 06:00 08:23 09:25 Breakfast 25% Diet Tolerated Poor Lunch Temperature 97.5 F L 97.6 F Pulse Rate 62 62 Blood Pressure 109/71 109/65 Laboratory Tests 05/06/20 05/07/20 07:06 07:50 WBC 11.5 H 12.0 H MBS completed. Risk of aspiration, dehydration, malnutrition. Discussed case/mbs with palliative care/ PMD/nursing/RD regarding pt's wishes. He is a full code. Consider supplemental PEG for nocturnaL FEEDINGS. pO FEEDINGS FOR PLEASURE. tOLERATING AND ACCEPTING MAINLY 2 LISANDRO. Calorie count initiated by RD. Effortful swallow initiation. Pt's requesting cheese grits- Suggest thinning out with a little 2 lisandro. Reviewed with IMPLEMENTATION COORDINATOR for tomorrow's breakfaST.
--- NOTE | 2020-05-08 13:31 | PN ---
Progress Note, Physician Chief Complaint: AMS Lethargy Hyponatremia RLL pneumonia History of Present Illness: NAD, lethargic, feels tired. Ate lunch Rocephin completed 7 days - Current Medication List Current Medications: Active Medications Acetaminophen (Tylenol -) 650 mg PO Q4H PRN PRN Reason: PAIN Last Admin: 05/04/20 11:05 Dose: 650 mg Documented by: Albuterol Sulfate (Ventolin 0.083% Nebulizer Soln -) [address] [facility] Last Admin: 05/07/20 20:05 Dose: 1 amp Documented by: Amino Acids (Prosource No Carb Liquid Pkt) 30 ml PO BID@0800,1730 [facility] Last Admin: 05/08/20 09:07 Dose: 30 ml Documented by: Dexamethasone (Decadron -) [address] [facility] Last Admin: 05/08/20 09:15 Dose: 4 mg Documented by: Dronabinol (Marinol -) 2.[address] [facility] Last Admin: 05/08/20 09:15 Dose: 2.5 mg Documented by: Potassium Chloride 10 meq/ (Sodium Chloride) 1,005 mls @ 42 mls/hr IVPB Q24H [facility] Last Admin: 05/08/20 13:09 Dose: 42 mls/hr Documented by: Lidocaine/Aluminum/Magnesium/Simeth (Magic Mouthwash *Sjr Formula* -) [address] [facility] Last Admin: 05/08/20 11:08 Dose: 5 ml Documented by: Nystatin (Nystatin Oral Suspension -) 500,[address] [facility] Last Admin: 05/08/20 11:08 Dose: 500,000 units Documented by: Pantoprazole Sodium (Protonix -) [address] [facility] Last Admin: 05/08/20 09:15 Dose: 40 mg Documented by: Phenol/Menthol (Chloraseptic -) [address] [facility] Last Admin: 05/08/20 13:11 Dose: Not Given Documented by: Phenol/Menthol (Chloraseptic -) [address] [facility] Last Admin: 05/08/20 13:10 Dose: 2 sprays Documented by: Trimethoprim/Sulfamethoxazole (Bactrim Ds -) 1 each PO MoWeFr@1000 [facility] Last Admin: 05/07/20 08:59 Dose: 1 each Documented by: - Objective Vital Signs: Vital Signs Temperature 97.6 F 05/08/20 08:23 Pulse Rate 62 05/08/20 08:23 Respiratory Rate 18 05/08/20 09:00 Blood Pressure 109/65 05/08/20 08:23 O2 Sat by Pulse Oximetry (%) 97 05/08/20 09:00 Constitutional: Yes: Well Nourished, No Distress, Calm Cardiovascular: Yes: Regular Rate and Rhythm Respiratory: Yes: WNL, Regular, Diminished Gastrointestinal: Yes: Normal Bowel Sounds, Soft Genitourinary: Yes: Incontinence Musculoskeletal: Yes: Muscle Weakness Extremities: Yes: WNL Edema: No Peripheral Pulses WNL: Yes Neurological: Yes: Alert, Lethargy Psychiatric: Yes: Alert Labs: CBC, BMP 05/07/20 07:50 05/07/20 07:50 INR, PTT INR 1.12 (0.83-1.09) H 04/26/20 16:00 Problem List - Problems (1) Dehydration Assessment/Plan: -Resolved -Encourage PO intake -Trial of Marinol daily Problems reviewed: Yes Code(s): E86.0 - DEHYDRATION (2) Failure to thrive Assessment/Plan: -Po intake still decreased -Seen by speech pathology. -MBS x 2 negative for aspiration, but at risk for aspiration. -On dysphagia pureed diet. -Needs PEG to meet nutritional demand. -Left message for Monique to discuss. Problems reviewed: Yes Code(s): [id number] - Qualifiers: Failure to thrive age range: in adult Qualified Code(s): R62.7 - Adult failure to thrive (3) Leukocytosis Assessment/Plan: -ID consult -Afebrile -Finished IV Rocephin -Cultures: Microbiology 04/28/20 15:30 Throat Throat Culture - Final Yeast Like Organism 04/27/20 03:50 Blood - Peripheral Venous Blood Culture - Preliminary NO GROWTH OBTAINED AFTER 96 HOURS, INCUBATION TO CONTINUE FOR 1 DAYS. 04/27/20 03:50 Blood - Peripheral Venous Blood Culture - Preliminary NO GROWTH OBTAINED AFTER 96 HOURS, INCUBATION TO CONTINUE FOR 1 DAYS. 04/28/20 21:51 Urine For Antigen Detection Legionella Antigen - Final 04/28/20 21:51 Urine For Antigen Detection Streptococcus pneumoniae Antigen (M - Final 04/26/20 19:50 Urine - Urine Clean Catch Urine Culture - Final Normal Urogenital Layla Problems reviewed: Yes Code(s): D72.829 - ELEVATED WHITE BLOOD CELL COUNT, UNSPECIFIED (4) Metastatic lung cancer (metastasis from lung to other site) Assessment/Plan: -CXR reviewed -Oncology consult -Palliative care consult Problems reviewed: Yes Code(s): C34.90 - MALIGNANT NEOPLASM OF UNSP PART OF UNSP BRONCHUS OR LUNG (5) Pneumonia Assessment/Plan: -CXR BLL possible infiltrates -Pulmonary consult -Finished IV Rocephin -ID consult -afebrile -Monitor leukocytosis -Repeat CXR-no changes Problems reviewed: Yes Code(s): J18.9 - PNEUMONIA, UNSPECIFIED ORGANISM (6) Odynophagia Assessment/Plan: -Oral vs esophageal candidiasis? 2/2 to chemo + immunotherapy -Speech therapy consult -ENT consult appreciated -Tylenol for pain -Nystatin swish and swallow -magic mouthwash -Diflucan 100 mg po daily -Throat culture yeast like org -MRI brain without contrast-reviewed -Added Chloroseptic throat spray tid Problems reviewed: Yes Code(s): R13.10 - DYSPHAGIA, UNSPECIFIED (7) Elevated LFTs Assessment/Plan: -U/S Liver negative for any acute pathology -resolved -monitor trend Problems reviewed: Yes Code(s): R79.89 - OTHER SPECIFIED ABNORMAL FINDINGS OF BLOOD CHEMISTRY (8) Weakness Assessment/Plan: -MRI brain without contrast unremarkable -EMG abnormal -Seen by Neurology - B12, thyroid profile was normal -Seen by Physiatry -MRI or CT L spine- Reviewed possible metastatic lesion on spleen, L spine negative for metatasis. -Updated Dr Abad and Dr Thapa at [facility] Problems reviewed: Yes Code(s): R53.1 - WEAKNESS (9) Sensorineural hearing loss (SNHL) of both ears Assessment/Plan: -Seen by ENT -Last audiogram 4 years ago showed significant bilateral hearing loss of 35-40 db. Problems reviewed: Yes Code(s): H90.3 - SENSORINEURAL HEARING LOSS, BILATERAL Assessment/Plan See problem list Spoke RN for Gregor Brandt at Updated Dr Sal Thapa at (alt ext [phone]) Left message for Monique at [phone] GI + DVT ppx
[2020-05-08] MEDS: POTASSIUM CHLORIDE 10 MEQ in SODIUM CHLORIDE 0.45% 1,000 ML IVPB SCH (16:30)
[2020-05-09] MEDS: NYSTATIN 500,000 UNITS/5 ML SUSPENSION PO SCH ×5 (01:04→23:24)
[2020-05-09] MEDS: MAG HYDROX/ALH/SMC/DPHA/LIDO 240 ML MOUTHWASH MM SCH ×5 (01:04→23:24)
[2020-05-09] MEDS: PHENOL 177 ML SPRAY BOTTLE MM SCH ×6 (05:59→21:59)
[2020-05-09 06:35] LABS: BASO % 0.1 % (0-2.0); HEMATOCRIT 34.7 % (35.4-49); HEMOGLOBIN 11.1 GM/dL (11.7-16.9); LYMPH % 3.9 % (8-40); MCH 30.3 pg (25.7-33.7); MEAN CELL VOLUME 94.8 fl (80-96); MEAN PLT VOLUME 7.1 fl (7.5-11.1); MONO % 2.8 % (3.8-10.2); NEUT % 93.2 % (42.8-82.8); PLATELET COUNT 283 K/MM3 (134-434); RBC 3.66 M/mm3 (4.00-5.60); RDW 17.7 % (11.9-15.9)
[2020-05-09 06:52] LABS: ALBUMIN 2.9 g/dl (3.4-5.0); BLOOD UREA NITROGEN 43.4 mg/dL (7-18); CALCIUM 8.7 mg/dL (8.5-10.1); MAGNESIUM 2.3 mg/dL (1.8-2.4); POTASSIUM 4.8 mmol/L (3.5-5.1)
[2020-05-09 06:55] LABS: BILIRUBIN,TOTAL 0.4 mg/dL (0.2-1); CREATININE 0.9 mg/dL (0.55-1.3); TOT PROT 6.3 g/dl (6.4-8.2)
[2020-05-09] MEDS: ALBUTEROL SO4 0.083% IH SOL 2.5 MG/3 ML VIAL.NEB. NEB SCH ×4 (08:32→20:31)
[2020-05-09 09:03] LABS: ANISOCYTOSIS 0; MACROCYTOSIS 0; PLATELET ESTIMATE NORMAL
[2020-05-09] MEDS: PANTOPRAZOLE 40 MG TABLET PO SCH (09:08)
[2020-05-09] MEDS: DRONABINOL 2.5 MG CAPSULE PO SCH (09:08)
[2020-05-09] MEDS: DEXAMETHASONE 4 MG TABLET (FP) PO SCH (09:08)
[2020-05-09] MEDS: AMINO ACIDS/PROTEIN HYDROLYS 30 ML LIQUID.PKT PO SCH ×2 (09:08→17:33)
[2020-05-09] MEDS: SULFAMETHOXAZOLE/TRIMETHOPRIM 800MG/160MG D.S. TABLET PO SCH (09:08)
--- NOTE | 2020-05-09 10:20 | PN ---
Progress Note, PRESCRIPTIONIST - Note Progress Note: Selected Entries 05/07/20 05/07/20 05/07/20 12:40 15:46 21:53 Breakfast 25% Diet Tolerated Poor Poor Poor Lunch 25% Temperature Pulse Rate Blood Pressure 05/08/20 05/08/20 05/08/20 06:00 08:23 09:25 Breakfast 25% Diet Tolerated Poor Lunch Temperature 97.5 F L 97.6 F Pulse Rate 62 62 Blood Pressure 109/71 109/65 Laboratory Tests 05/06/20 05/07/20 07:06 07:50 WBC 11.5 H 12.0 H Selected Entries 05/08/20 05/08/20 05/08/20 06:00 08:23 09:25 Breakfast 25% Diet Tolerated Poor Temperature 97.5 F L 97.6 F Pulse Rate 62 62 Blood Pressure 05/08/20 05/08/20 05/08/20 14:04 18:31 23:49 Breakfast Diet Tolerated Temperature 98.3 F 98.7 F 98.4 F Pulse Rate 77 70 76 Blood Pressure 05/09/20 05:53 Breakfast Diet Tolerated Temperature 97.6 F Pulse Rate 66 Blood Pressure 100/69 Laboratory Tests 05/07/20 05/09/20 07:50 05:47 WBC 12.0 H 20.0 H Pt remains with inadequate oral intake for the past few days. Pt is on marinol to enhance nutrient intake and finishing diflucan. Average intake over the past 5 days <25% intake of meals. 3 day calorie count started (05/08) Accepted 3 can 2 lisandro yesterday, refused foods offered. MBS completed. Risk of aspiration, dehydration, malnutrition.Effortful swallow initiation. He is a full code. NGT ordered, pt refused, will likely result in less PO acceptance. Reviewed with med team Pending family decision regarding supplemental PEG for nocturnaL FEEDINGS. Daytime PO FEEDINGS FOR PLEASURE..
--- NOTE | 2020-05-09 10:36 | PN ---
Progress Note, Physician Chief Complaint: AMS Lethargy Hyponatremia RLL pneumonia History of Present Illness: NAD, wide awake today, alert and orient x 3, knows president, his 's name ate breakfast 1 can of 2 lisandro, 1 magic cup and 8 oz of snapple Refused NGT for trial of feedings On Calorie count RD on board [place] completed 7 days - Current Medication List Current Medications: Active Medications Acetaminophen (Tylenol -) 650 mg PO Q4H PRN PRN Reason: PAIN Last Admin: 05/04/20 11:05 Dose: 650 mg Documented by: Albuterol Sulfate (Ventolin 0.083% Nebulizer Soln -) 1 amp NEB RQID [facility] Last Admin: 05/08/20 20:38 Dose: 1 amp Documented by: Amino Acids (Prosource No Carb Liquid Pkt) 30 ml PO BID@0800,1730 [facility] Last Admin: 05/09/20 09:08 Dose: 30 ml Documented by: Dexamethasone (Decadron -) 4 mg PO DAILY [facility] Last Admin: 05/09/20 09:08 Dose: 4 mg Documented by: Dronabinol (Marinol -) 2.5 mg PO DAILY [facility] Last Admin: 05/09/20 09:08 Dose: 2.5 mg Documented by: Potassium Chloride 10 meq/ (Sodium Chloride) 1,005 mls @ 50 mls/hr IVPB Q20H [facility] Last Admin: 05/08/20 16:30 Dose: Not Given Documented by: Lidocaine/Aluminum/Magnesium/Simeth (Magic Mouthwash *Sjr Formula* -) 5 ml MM Q6HPO [facility] Last Admin: 05/09/20 06:00 Dose: 5 ml Documented by: Nystatin (Nystatin Oral Suspension -) 500,000 units PO Q6HPO [facility] Last Admin: 05/09/20 06:00 Dose: 500,000 units Documented by: Pantoprazole Sodium (Protonix -) 40 mg PO DAILY [facility] Last Admin: 05/09/20 09:08 Dose: 40 mg Documented by: Phenol/Menthol (Chloraseptic -) 1 spray MM TID [facility] Last Admin: 05/09/20 05:59 Dose: 1 spray Documented by: Phenol/Menthol (Chloraseptic -) 2 spray MM QID [facility] Last Admin: 05/09/20 09:17 Dose: 2 sprays Documented by: Trimethoprim/Sulfamethoxazole (Bactrim Ds -) 1 each PO MoWeFr@1000 [facility] Last Admin: 05/09/20 09:08 Dose: 1 each Documented by: - Objective Vital Signs: Vital Signs Temperature 97.6 F 05/09/20 05:53 Pulse Rate 66 05/09/20 05:53 Respiratory Rate 18 05/09/20 05:53 Blood Pressure 100/69 05/09/20 05:53 O2 Sat by Pulse Oximetry (%) 99 05/09/20 05:53 Constitutional: Yes: Well Nourished, No Distress, Calm Cardiovascular: Yes: Regular Rate and Rhythm Respiratory: Yes: Regular, CTA Bilaterally Gastrointestinal: Yes: Normal Bowel Sounds, Soft Genitourinary: Yes: Incontinence Musculoskeletal: Yes: Muscle Weakness Extremities: Yes: WNL Edema: No Peripheral Pulses WNL: Yes Neurological: Yes: Alert, Oriented Psychiatric: Yes: Alert, Oriented Labs: CBC, BMP 05/09/20 05:47 05/09/20 05:47 INR, PTT INR 1.12 (0.83-1.09) H 04/26/20 16:00 Problem List - Problems (1) Dehydration Assessment/Plan: -Resolved -Encourage PO intake -Marinol daily -Continue gentle IVF for now Problems reviewed: Yes Code(s): E86.0 - DEHYDRATION (2) Failure to thrive Assessment/Plan: -Po intake still decreased -Seen by speech pathology. -MBS x 2 negative for aspiration, but at risk for aspiration. -On dysphagia pureed diet. -May need PEG to meet nutritional demand. -Discussion with family in progress -Yesterday Monique wanted us to try NGT first although she understands that it is not permanent and eventually pt would need peg Problems reviewed: Yes Code(s): [id number] - Qualifiers: Failure to thrive age range: in adult Qualified Code(s): R62.7 - Adult failure to thrive (3) Leukocytosis Assessment/Plan: -ID consult -Afebrile -Finished IV Rocephin -Cultures: Microbiology 04/28/20 15:30 Throat Throat Culture - Final Yeast Like Organism 04/27/20 03:50 Blood - Peripheral Venous Blood Culture - Preliminary NO GROWTH OBTAINED AFTER 96 HOURS, INCUBATION TO CONTINUE FOR 1 DAYS. 07/24/20 03:50 Blood - Peripheral Venous Blood Culture - Preliminary NO GROWTH OBTAINED AFTER 96 HOURS, INCUBATION TO C ONTINUE FOR 1 DAYS. 04/28/20 21:51 Urine For Antigen Detection Legionella Antigen - Final 04/28/20 21:51 Urine For Antigen Detection Streptococcus pneumoniae Antigen (M - Final 04/26/20 19:50 Urine - Urine Clean Catch Urine Culture - Final Normal Urogenital Layla Problems reviewed: Yes Code(s): D72.829 - ELEVATED WHITE BLOOD CELL COUNT, UNSPECIFIED (4) Metastatic lung cancer (metastasis from lung to other site) Assessment/Plan: -CXR reviewed -Oncology consult -Palliative care consult -Brain MRI no new lesions -MRI L spine shows a lesion on spleen Problems reviewed: Yes Code(s): C34.90 - MALIGNANT NEOPLASM OF UNSP PART OF UNSP BRONCHUS OR LUNG (5) Pneumonia Assessment/Plan: -CXR BLL possible infiltrates -Pulmonary consult -Finished IV Rocephin -ID consult -afebrile -Monitor leukocytosis -Repeat CXR-no changes Problems reviewed: Yes Code(s): J18.9 - PNEUMONIA, UNSPECIFIED ORGANISM (6) Odynophagia Assessment/Plan: -Oral vs esophageal candidiasis? 2/2 to chemo + immunotherapy -Speech therapy consult -ENT consult appreciated -Tylenol for pain -Nystatin swish and swallow -magic mouthwash -Diflucan 100 mg po daily -Throat culture yeast like org -MRI brain without contrast-reviewed -Added Chloroseptic throat spray tid Problems reviewed: Yes Code(s): R13.10 - DYSPHAGIA, UNSPECIFIED (7) Elevated LFTs Assessment/Plan: -U/S Liver negative for any acute pathology -resolved -monitor trend Problems reviewed: Yes Code(s): R79.89 - OTHER SPECIFIED ABNORMAL FINDINGS OF BLOOD CHEMISTRY (8) Weakness Assessment/Plan: -MRI brain without contrast unremarkable -EMG abnormal -Seen by Neurology - B12, thyroid profile was normal -Seen by Physiatry -MRI or CT L spine- Reviewed possible metastatic lesion on spleen, L spine negative for metatasis. -Updated Dr Abad and Dr Thapa at [facility] Problems reviewed: Yes Code(s): R53.1 - WEAKNESS (9) Sensorineural hearing loss (SNHL) of both ears Assessment/Plan: -Seen by ENT -Last audiogram 4 years ago showed significant bilateral hearing loss of 35-40 db. Problems reviewed: Yes Code(s): H90.3 - SENSORINEURAL HEARING LOSS, BILATERAL Assessment/Plan See problem list Spoke RN for Gregor Brandt at Updated Dr Sal Thapa at (alt ext [phone]) Spoke to Monique at [phone] about pt status. she will discuss PEG with family and Palliative care team. Pt is agreeable to PEG placement GI + DVT ppx
[2020-05-09] MEDS ORDERED: PT OWN MED DRAWER 7, Y5N ONE (11:41)
[2020-05-09] MEDS: POTASSIUM CHLORIDE 10 MEQ in SODIUM CHLORIDE 0.45% 1,000 ML IVPB SCH (11:47)
--- NOTE | 2020-05-09 12:12 | PN ---
Progress Note (short form) - Note Progress Note: Denies shortness of breath. Some nonproductive cough. No fevers recorded. Intake & Output 05/06/20 05/07/20 05/08/20 05/09/20 23:59 23:59 23:59 23:59 Intake Total 20 0 1327 750 Output Total 950 900 500 400 Balance -930 -900 827 350 Last Vital Signs Temp Pulse Resp BP Pulse Ox 97.6 F 60 19 104/69 100 05/09/20 10:58 05/09/20 10:58 05/09/20 10:58 05/09/20 10:58 05/09/20 10:58 Active Medications Acetaminophen (Tylenol -) 650 mg PO Q4H PRN PRN Reason: PAIN Last Admin: 05/04/20 11:05 Dose: 650 mg Documented by: Albuterol Sulfate (Ventolin 0.083% Nebulizer Soln -) 1 amp NEB RQID [facility] Last Admin: 05/08/20 20:38 Dose: 1 amp Documented by: Amino Acids (Prosource No Carb Liquid Pkt) 30 ml PO BID@0800,1730 [facility] Last Admin: 05/09/20 09:08 Dose: 30 ml Documented by: Dexamethasone (Decadron -) 4 mg PO DAILY [facility] Last Admin: 05/09/20 09:08 Dose: 4 mg Documented by: Dronabinol (Marinol -) 2.5 mg PO DAILY [facility] Last Admin: 05/09/20 09:08 Dose: 2.5 mg Documented by: Potassium Chloride 10 meq/ (Sodium Chloride) 1,005 mls @ 50 mls/hr IVPB Q20H [facility] Last Admin: 05/09/20 11:47 Dose: 50 mls/hr Documented by: Lidocaine/Aluminum/Magnesium/Simeth (Magic Mouthwash *Sjr Formula* -) 5 ml MM Q6HPO [facility] Last Admin: 05/09/20 11:57 Dose: 5 ml Documented by: Nystatin (Nystatin Oral Suspension -) 500,000 units PO Q6HPO [facility] Last Admin: 05/09/20 11:46 Dose: 500,000 units Documented by: Pantoprazole Sodium (Protonix -) 40 mg PO DAILY [facility] Last Admin: 05/09/20 09:08 Dose: 40 mg Documented by: Phenol/Menthol (Chloraseptic -) 1 spray MM TID [facility] Last Admin: 05/09/20 05:59 Dose: 1 spray Documented by: Phenol/Menthol (Chloraseptic -) 2 spray MM QID [facility] Last Admin: 05/09/20 09:17 Dose: 2 sprays Documented by: Trimethoprim/Sulfamethoxazole (Bactrim Ds -) 1 each PO MoWeFr@1000 [facility] Last Admin: 05/09/20 09:08 Dose: 1 each Documented by: Gen: NAD at rest Heart: RRR Lung: basilar coarse rales Abd: soft, nontender Ext: no edema Laboratory Results - last 24 hr 05/09/20 05/09/20 05:47 05:47 WBC 20.0 H RBC 3.66 L Hgb 11.1 L Hct 34.7 L MCV 94.8 MCH 30.3 MCHC 32.0 RDW 17.7 H Plt Count 283 MPV 7.1 L Absolute Neuts (auto) 18.6 H Neutrophils % 93.2 H Neutrophils % (Manual) 87.9 H Band Neutrophils % 3.0 Lymphocytes % 3.9 L D Lymphocytes % (Manual) 4.0 L D Monocytes % 2.8 L Monocytes % (Manual) 5 Eosinophils % 0.0 D Eosinophils % (Manual) 0.0 Basophils % 0.1 Basophils % (Manual) 0.0 Myelocytes % (Man) 0 D Promyelocytes % (Man) 0 Blast Cells % (Manual) 0 Nucleated RBC % 0 Metamyelocytes 0 Hypochromia 0 Platelet Estimate Normal Polychromasia 0 Poikilocytosis 0 Anisocytosis 0 Microcytosis 0 Macrocytosis 0 Sodium 140 Potassium 4.8 Chloride 107 Carbon Dioxide 25 Anion Gap 8 BUN 43.4 H Creatinine 0.9 Est GFR (CKD-EPI)AfAm 104.24 Est GFR (CKD-EPI)NonAf 89.94 Random Glucose 123 H Calcium 8.7 Magnesium 2.3 Total Bilirubin 0.4 AST 19 ALT 44 Alkaline Phosphatase 73 Total Protein 6.3 L Albumin 2.9 L A/P Pneumonia Hyponatremia improving Metastatic Lung Cancer Failure to Thrive Anemia - completed antibiotics - O2 to keep SpO2 >90% - PO as tolerated - DVT prophylaxis Dr Andersen
--- NOTE | 2020-05-09 13:22 | PN ---
Progress Note, Physician History of Present Illness: Pt seen and examined at bedside. He says that he feels better today. - Current Medication List Current Medications: Active Medications Acetaminophen (Tylenol -) 650 mg PO Q4H PRN PRN Reason: PAIN Last Admin: 05/04/20 11:05 Dose: 650 mg Documented by: Albuterol Sulfate (Ventolin 0.083% Nebulizer Soln -) 1 amp NEB RQID [facility] Last Admin: 05/09/20 12:32 Dose: 1 amp Documented by: Amino Acids (Prosource No Carb Liquid Pkt) 30 ml PO BID@0800,1730 [facility] Last Admin: 05/09/20 09:08 Dose: 30 ml Documented by: Dexamethasone (Decadron -) 4 mg PO DAILY [facility] Last Admin: 05/09/20 09:08 Dose: 4 mg Documented by: Dronabinol (Marinol -) 2.5 mg PO DAILY [facility] Last Admin: 05/09/20 09:08 Dose: 2.5 mg Documented by: Potassium Chloride 10 meq/ (Sodium Chloride) 1,005 mls @ 50 mls/hr IVPB Q20H [facility] Last Admin: 05/09/20 11:47 Dose: 50 mls/hr Documented by: Lidocaine/Aluminum/Magnesium/Simeth (Magic Mouthwash *Sjr Formula* -) 5 ml MM Q6HPO [facility] Last Admin: 05/09/20 11:57 Dose: 5 ml Documented by: Nystatin (Nystatin Oral Suspension -) 500,000 units PO Q6HPO [facility] Last Admin: 05/09/20 11:46 Dose: 500,000 units Documented by: Pantoprazole Sodium (Protonix -) 40 mg PO DAILY [facility] Last Admin: 05/09/20 09:08 Dose: 40 mg Documented by: Phenol/Menthol (Chloraseptic -) 1 spray MM TID [facility] Last Admin: 05/09/20 05:59 Dose: 1 spray Documented by: Phenol/Menthol (Chloraseptic -) 2 spray MM QID [facility] Last Admin: 05/09/20 09:17 Dose: 2 sprays Documented by: Trimethoprim/Sulfamethoxazole (Bactrim Ds -) 1 each PO MoWeFr@1000 [facility] Last Admin: 05/09/20 09:08 Dose: 1 each Documented by: - Objective Vital Signs: Vital Signs Temperature 97.6 F 05/09/20 10:58 Pulse Rate 60 05/09/20 10:58 Respiratory Rate 19 05/09/20 10:58 Blood Pressure 104/69 05/09/20 10:58 O2 Sat by Pulse Oximetry (%) 100 05/09/20 10:58 Constitutional: Yes: Calm Eyes: Yes: Conjunctiva Clear HENT: Yes: Atraumatic Cardiovascular: Yes: S1, S2 Respiratory: Yes: CTA Bilaterally Gastrointestinal: Yes: Soft Musculoskeletal: Yes: Muscle Weakness Edema: No Neurological: Yes: Oriented Labs: CBC, BMP 05/09/20 05:47 05/09/20 05:47 INR, PTT INR 1.12 (0.83-1.09) H 04/26/20 16:00 Problem List - Problems (1) Dehydration Code(s): E86.0 - DEHYDRATION (2) Failure to thrive Code(s): [id number] - Qualifiers: Failure to thrive age range: in adult Qualified Code(s): R62.7 - Adult failure to thrive (3) Hyponatremia Code(s): E87.1 - HYPO-OSMOLALITY AND HYPONATREMIA (4) Metastatic lung cancer (metastasis from lung to other site) Code(s): C34.90 - MALIGNANT NEOPLASM OF UNSP PART OF UNSP BRONCHUS OR LUNG Assessment/Plan Current Medications Generic Name Dose Route Start Last Admin Trade Name Freq PRN Reason Stop Dose Admin Acetaminophen 650 mg 04/26/20 21:38 05/04/20 11:05 Tylenol - PO 650 mg Q4H PRN Administration PAIN Albuterol Sulfate 1 amp 05/07/20 12:00 05/09/20 12:32 Ventolin 0.083% Nebulizer Soln - NEB 1 amp RQID [facility] Administration Amino Acids 30 ml 05/01/20 17:30 05/09/20 09:08 Prosource No Carb Liquid Pkt PO 30 ml BID@0800,1730 [facility] Administration Dexamethasone 4 mg 05/02/20 10:00 05/09/20 09:08 Decadron - PO 4 mg DAILY [facility] Administration Dronabinol 2.5 mg 05/04/20 10:45 05/09/20 09:08 Marinol - PO 2.5 mg DAILY [facility] Administration Potassium Chloride 10 meq/ 1,005 mls @ 50 mls/hr 05/08/20 16:15 05/09/20 11:47 Sodium Chloride IVPB 50 mls/hr Q20H [facility] Administration Lidocaine/Aluminum/Magnesium/Simeth 5 ml 05/04/20 12:35 05/09/20 11:57 Magic Mouthwash *Sjr Formula* - MM 5 ml Q6HPO [facility] Administration Nystatin 500,000 units 04/28/20 00:00 05/09/20 11:46 Nystatin Oral Suspension - PO 500,000 units Q6HPO [facility] Administration Pantoprazole Sodium 40 mg 05/08/20 10:00 05/09/20 09:08 Protonix - PO 40 mg DAILY [facility] Administration Phenol/Menthol 1 spray 05/03/20 14:00 05/09/20 05:59 Chloraseptic - MM 1 spray TID [facility] Administration Phenol/Menthol 2 spray 05/04/20 14:00 05/09/20 09:17 Chloraseptic - MM 2 sprays QID [facility] Administration Trimethoprim/Sulfamethoxazole 1 each 04/30/20 10:00 05/09/20 09:08 Bactrim Ds - PO 1 each MoWeFr@1000 [facility] Administration Impression 1. hyponatremia 2. dehydration 3. failure to thrive 4. lung cancer with mets Plan - bun rising likely secondary to steroids, cont to monitor - repeat labs in am - cont fluids until po intake improves - dietary follow up - maintain adequate hydration
[2020-05-10] MEDS: NYSTATIN 500,000 UNITS/5 ML SUSPENSION PO SCH ×3 (06:18→17:34)
[2020-05-10] MEDS: MAG HYDROX/ALH/SMC/DPHA/LIDO 240 ML MOUTHWASH MM SCH ×3 (06:18→17:34)
[2020-05-10] MEDS: ALBUTEROL SO4 0.083% IH SOL 2.5 MG/3 ML VIAL.NEB. NEB SCH ×4 (08:18→20:13)
[2020-05-10] MEDS: AMINO ACIDS/PROTEIN HYDROLYS 30 ML LIQUID.PKT PO SCH ×2 (09:13→16:32)
[2020-05-10] MEDS: PHENOL 177 ML SPRAY BOTTLE MM SCH ×4 (09:17→21:15)
[2020-05-10] MEDS: POTASSIUM CHLORIDE 10 MEQ in SODIUM CHLORIDE 0.45% 1,000 ML IVPB SCH (09:17)
[2020-05-10] MEDS: PANTOPRAZOLE 40 MG TABLET PO SCH (09:19)
[2020-05-10] MEDS: DEXAMETHASONE 4 MG TABLET (FP) PO SCH (09:19)
[2020-05-10] MEDS: DRONABINOL 2.5 MG CAPSULE PO SCH (09:19)
--- NOTE | 2020-05-10 09:41 | PN ---
Progress Note, Physician Chief Complaint: AMS Lethargy Hyponatremia RLL pneumonia History of Present Illness: NAD, lethargic for me today Had 2 cans of 2 René today so far On Calorie count RD on board Rocephin completed 7 days - Current Medication List Current Medications: Active Medications Acetaminophen (Tylenol -) 650 mg PO Q4H PRN PRN Reason: PAIN Last Admin: 05/04/20 11:05 Dose: 650 mg Documented by: Albuterol Sulfate (Ventolin 0.083% Nebulizer Soln -) 1 amp NEB RQID [facility] Last Admin: 05/10/20 08:18 Dose: 1 amp Documented by: Amino Acids (Prosource No Carb Liquid Pkt) 30 ml PO BID@0800,1730 [facility] Last Admin: 05/10/20 09:13 Dose: 30 ml Documented by: Dexamethasone (Decadron -) 4 mg PO DAILY [facility] Last Admin: 05/10/20 09:19 Dose: 4 mg Documented by: Dronabinol (Marinol -) 2.5 mg PO DAILY [facility] Last Admin: 05/10/20 09:19 Dose: 2.5 mg Documented by: Potassium Chloride 10 meq/ (Sodium Chloride) 1,005 mls @ 50 mls/hr IVPB Q20H [facility] Last Admin: 05/10/20 09:17 Dose: 50 mls/hr Documented by: Lidocaine/Aluminum/Magnesium/Simeth (Magic Mouthwash *Sjr Formula* -) 5 ml MM Q6HPO [facility] Last Admin: 05/10/20 06:18 Dose: 5 ml Documented by: Nystatin (Nystatin Oral Suspension -) 500,000 units PO Q6HPO [facility] Last Admin: 05/10/20 06:18 Dose: 500,000 units Documented by: Pantoprazole Sodium (Protonix -) 40 mg PO DAILY [facility] Last Admin: 05/10/20 09:19 Dose: 40 mg Documented by: Phenol/Menthol (Chloraseptic -) 2 spray MM QID [facility] Last Admin: 05/10/20 09:17 Dose: 2 sprays Documented by: Trimethoprim/Sulfamethoxazole (Bactrim Ds -) 1 each PO MoWeFr@1000 [facility] Last Admin: 05/09/20 09:08 Dose: 1 each Documented by: - Objective Vital Signs: Vital Signs Temperature 98.3 F 05/10/20 07:32 Pulse Rate 65 05/10/20 07:32 Respiratory Rate 18 05/10/20 07:32 Blood Pressure 94/56 L 05/10/20 07:32 O2 Sat by Pulse Oximetry (%) 99 05/10/20 07:32 Constitutional: Yes: Well Nourished, No Distress, Calm Cardiovascular: Yes: Regular Rate and Rhythm Respiratory: Yes: Regular, CTA Bilaterally Gastrointestinal: Yes: Normal Bowel Sounds, Soft Genitourinary: Yes: Incontinence Musculoskeletal: Yes: Muscle Weakness Extremities: Yes: WNL Edema: No Peripheral Pulses WNL: Yes Neurological: Yes: Alert, Lethargy Psychiatric: Yes: Alert Labs: CBC, BMP 05/09/20 05:47 05/09/20 05:47 INR, PTT INR 1.12 (0.83-1.09) H 04/26/20 16:00 Problem List - Problems (1) Dehydration Assessment/Plan: -Resolved -Encourage PO intake -Marinol daily -Continue gentle IVF for now Problems reviewed: Yes Code(s): E86.0 - DEHYDRATION (2) Failure to thrive Assessment/Plan: -Po intake still decreased -Seen by speech pathology. -MBS x 2 negative for aspiration, but at risk for aspiration. -On dysphagia pureed diet. -May need PEG to meet nutritional demand. -Discussion with family in progress -Yesterday Monique wanted us to try NGT first although she understands that it is not permanent and eventually pt would need peg Problems reviewed: Yes Code(s): [id number] - Qualifiers: Failure to thrive age range: in adult Qualified Code(s): R62.7 - Adult failure to thrive (3) Leukocytosis Assessment/Plan: -ID consult -Afebrile -Finished IV Rocephin -Cultures: Microbiology 04/28/20 15:30 Throat Throat Culture - Final Yeast Like Organism 04/27/20 03:50 Blood - Peripheral Venous Blood Culture - Preliminary NO GROWTH OBTAINED AFTER 96 HOURS, INCUBATION TO CONTINUE FOR 1 DAYS. 04/27/20 03:50 Blood - Peripheral Venous Blood Culture - Preliminary NO GROWTH OBTAINED AFTER 96 HOURS, INCUBATION TO CONTINUE FOR 1 DAYS. 04/28/20 21:51 Urine For Antigen Detection Legionella Antigen - Final 04/28/20 21:51 Urine For Antigen Detection Streptococcus pneumoniae Antigen (M - Final 04/26/20 19:50 Urine - Urine Clean Catch Urine Culture - Final Normal Urogenital Layla Problems reviewed: Yes Code(s): D72.829 - ELEVATED WHITE BLOOD CELL COUNT, UNSPECIFIED (4) Metastatic lung cancer (metastasis from lung to other site) Assessment/Plan: -CXR reviewed -Oncology consult -Palliative care consult -Brain MRI no new lesions -MRI L spine shows a lesion on spleen Problems reviewed: Yes Code(s): C34.90 - MALIGNANT NEOPLASM OF UNSP PART OF UNSP BRONCHUS OR LUNG (5) Pneumonia Assessment/Plan: -CXR BLL possible infiltrates -Pulmonary consult -Finished IV Rocephin -ID consult -afebrile -Monitor leukocytosis -Repeat CXR-no changes Problems reviewed: Yes Code(s): J18.9 - PNEUMONIA, UNSPECIFIED ORGANISM (6) Odynophagia Assessment/Plan: -Oral vs esophageal candidiasis? 2/2 to chemo + immunotherapy -Speech therapy consult appreciated -ENT consult appreciated -Tylenol for pain -Nystatin swish and swallow -magic mouthwash -Finished Diflucan -Throat culture yeast like org -MRI brain without contrast-reviewed -Added Chloroseptic throat spray tid Problems reviewed: Yes Code(s): R13.10 - DYSPHAGIA, UNSPECIFIED (7) Elevated LFTs Assessment/Plan: -U/S Liver negative for any acute pathology -resolved -monitor trend Problems reviewed: Yes Code(s): R79.89 - OTHER SPECIFIED ABNORMAL FINDINGS OF BLOOD CHEMISTRY (8) Weakness Assessment/Plan: -MRI brain without contrast unremarkable -EMG abnormal -Seen by Neurology - B12, thyroid profile was normal -Seen by Physiatry -MRI or CT L spine- Reviewed possible metastatic lesion on spleen, L spine negative for metatasis. -Updated Dr Abad and Dr Thapa at [facility] Problems reviewed: Yes Code(s): R53.1 - WEAKNESS (9) Sensorineural hearing loss (SNHL) of both ears Assessment/Plan: -Seen by ENT -Last audiogram 4 years ago showed significant bilateral hearing loss of 35-40 db. Problems reviewed: Yes Code(s): H90.3 - SENSORINEURAL HEARING LOSS, BILATERAL Assessment/Plan See problem list Spoke RN for Gregor Brandt at Updated Dr Sal Thapa at (alt ext [phone]) Spoke to Monique at [phone] about pt status. She is still apprehensive about PEG, I explained that pt is at risk for dehydration without PEG if he goes to SNF, Monique understands. She is coming in today,still thinking about it. GI + DVT ppx
--- NOTE | 2020-05-10 10:38 | PN ---
Progress Note, POSTIE - Note Progress Note: Selected Entries 05/10/20 05/10/20 05/10/20 05:50 07:32 09:29 Breakfast 25% Diet Tolerated Poor Temperature 97.9 F 98.3 F Blood Pressure 97/58 L 94/56 L Consumed breakfast 1 can of 2 lisandro, 1 magic cup and 8 oz of snapple
--- NOTE | 2020-05-10 11:54 | PN ---
Progress Note (short form) - Note Progress Note: Denies shortness of breath. Still with some nonproductive cough. No fevers recorded. Intake & Output 05/07/20 05/08/20 05/09/20 05/10/20 23:59 23:59 23:59 23:59 Intake Total 0 1327 1500 425 Output Total 212 100 2487 300 Balance -900 827 400 125 Last Vital Signs Temp Pulse Resp BP Pulse Ox 98.3 F 65 18 94/56 L 99 05/10/20 07:32 05/10/20 07:32 05/10/20 09:00 05/10/20 07:32 05/10/20 09:00 Active Medications Acetaminophen (Tylenol -) 650 mg PO Q4H PRN PRN Reason: PAIN Last Admin: 05/04/20 11:05 Dose: 650 mg Documented by: Albuterol Sulfate (Ventolin 0.083% Nebulizer Soln -) 1 amp NEB RQID [facility] Last Admin: 05/10/20 11:39 Dose: 1 amp Documented by: Amino Acids (Prosource No Carb Liquid Pkt) 30 ml PO BID@0800,1730 [facility] Last Admin: 05/10/20 09:13 Dose: 30 ml Documented by: Dexamethasone (Decadron -) 4 mg PO DAILY [facility] Last Admin: 05/10/20 09:19 Dose: 4 mg Documented by: Dronabinol (Marinol -) 2.5 mg PO DAILY [facility] Last Admin: 05/10/20 09:19 Dose: 2.5 mg Documented by: Potassium Chloride 10 meq/ (Sodium Chloride) 1,005 mls @ 50 mls/hr IVPB Q20H [facility] Last Admin: 05/10/20 09:17 Dose: 50 mls/hr Documented by: Lidocaine/Aluminum/Magnesium/Simeth (Magic Mouthwash *Sjr Formula* -) 5 ml MM Q6HPO [facility] Last Admin: 05/10/20 11:28 Dose: 5 ml Documented by: Nystatin (Nystatin Oral Suspension -) 500,000 units PO Q6HPO [facility] Last Admin: 05/10/20 11:27 Dose: 500,000 units Documented by: Pantoprazole Sodium (Protonix -) 40 mg PO DAILY [facility] Last Admin: 05/10/20 09:19 Dose: 40 mg Documented by: Phenol/Menthol (Chloraseptic -) 2 spray MM QID [facility] Last Admin: 05/10/20 09:17 Dose: 2 sprays Documented by: Trimethoprim/Sulfamethoxazole (Bactrim Ds -) 1 each PO MoWeFr@1000 [facility] Last Admin: 05/09/20 09:08 Dose: 1 each Documented by: Gen: NAD at rest Heart: RRR Lung: basilar coarse rales Abd: soft, nontender Ext: no edema A/P Pneumonia Hyponatremia improving Metastatic Lung Cancer Failure to Thrive Anemia - completed antibiotics - O2 to keep SpO2 >90% - PO as tolerated - DVT prophylaxis - Aspiration precautions Dr Andersen
--- NOTE | 2020-05-10 15:09 | PN ---
Progress Note, Physician History of Present Illness: Pt seen and examined at bedside. He is awake and tolerating diet. - Current Medication List Current Medications: Active Medications Acetaminophen (Tylenol -) 650 mg PO Q4H PRN PRN Reason: PAIN Last Admin: 05/04/20 11:05 Dose: 650 mg Documented by: Albuterol Sulfate (Ventolin 0.083% Nebulizer Soln -) 1 amp NEB RQID [facility] Last Admin: 05/10/20 11:39 Dose: 1 amp Documented by: Amino Acids (Prosource No Carb Liquid Pkt) 30 ml PO BID@0800,1730 [facility] Last Admin: 05/10/20 09:13 Dose: 30 ml Documented by: Dexamethasone (Decadron -) 4 mg PO DAILY [facility] Last Admin: 05/10/20 09:19 Dose: 4 mg Documented by: Dronabinol (Marinol -) 2.5 mg PO DAILY [facility] Last Admin: 05/10/20 09:19 Dose: 2.5 mg Documented by: Potassium Chloride 10 meq/ (Sodium Chloride) 1,005 mls @ 50 mls/hr IVPB Q20H [facility] Last Admin: 05/10/20 09:17 Dose: 50 mls/hr Documented by: Lidocaine/Aluminum/Magnesium/Simeth (Magic Mouthwash *Sjr Formula* -) 5 ml MM Q6HPO [facility] Last Admin: 05/10/20 11:28 Dose: 5 ml Documented by: Nystatin (Nystatin Oral Suspension -) 500,000 units PO Q6HPO [facility] Last Admin: 05/10/20 11:27 Dose: 500,000 units Documented by: Pantoprazole Sodium (Protonix -) 40 mg PO DAILY [facility] Last Admin: 05/10/20 09:19 Dose: 40 mg Documented by: Phenol/Menthol (Chloraseptic -) 2 spray MM QID [facility] Last Admin: 05/10/20 14:27 Dose: 2 sprays Documented by: Trimethoprim/Sulfamethoxazole (Bactrim Ds -) 1 each PO MoWeFr@1000 [facility] Last Admin: 05/09/20 09:08 Dose: 1 each Documented by: - Objective Vital Signs: Vital Signs Temperature 98.3 F 05/10/20 13:22 Pulse Rate 72 05/10/20 13:22 Respiratory Rate 18 05/10/20 13:22 Blood Pressure 95/41 L 05/10/20 13:22 O2 Sat by Pulse Oximetry (%) 99 05/10/20 09:00 Constitutional: Yes: Calm Eyes: Yes: Conjunctiva Clear HENT: Yes: Atraumatic Neck: Yes: Supple Cardiovascular: Yes: S1, S2 Respiratory: Yes: CTA Bilaterally Gastrointestinal: Yes: Normal Bowel Sounds, Soft Genitourinary: Yes: WNL Musculoskeletal: Yes: WNL Edema: No Integumentary: Yes: WNL Neurological: Yes: Oriented Psychiatric: Yes: Oriented Labs: CBC, BMP 05/09/20 05:47 05/09/20 05:47 INR, PTT INR 1.12 (0.83-1.09) H 04/26/20 16:00 Problem List - Problems (1) Dehydration Code(s): E86.0 - DEHYDRATION (2) Failure to thrive Code(s): [id number] - Qualifiers: Failure to thrive age range: in adult Qualified Code(s): R62.7 - Adult failure to thrive (3) Hyponatremia Code(s): E87.1 - HYPO-OSMOLALITY AND HYPONATREMIA (4) Metastatic lung cancer (metastasis from lung to other site) Code(s): C34.90 - MALIGNANT NEOPLASM OF UNSP PART OF UNSP BRONCHUS OR LUNG Assessment/Plan Current Medications Generic Name Dose Route Start Last Admin Trade Name Freq PRN Reason Stop Dose Admin Acetaminophen 650 mg 04/26/20 21:38 05/04/20 11:05 Tylenol - PO 650 mg Q4H PRN Administration PAIN Albuterol Sulfate 1 amp 05/07/20 12:00 05/10/20 11:39 Ventolin 0.083% Nebulizer Soln - NEB 1 amp RQID [facility]ARI Administration Amino Acids 30 ml 05/01/20 17:30 05/10/20 09:13 Prosource No Carb Liquid Pkt PO 30 ml BID@0800,1730 [facility] Administration Dexamethasone 4 mg 05/02/20 10:00 05/10/20 09:19 Decadron - PO 4 mg DAILY [facility] Administration Dronabinol 2.5 mg 05/04/20 10:45 05/10/20 09:19 Marinol - PO 2.5 mg DAILY [facility] Administration Potassium Chloride 10 meq/ 1,005 mls @ 50 mls/hr 05/08/20 16:15 05/10/20 09:17 Sodium Chloride IVPB 50 mls/hr Q20H [facility] Administration Lidocaine/Aluminum/Magnesium/Simeth 5 ml 05/04/20 12:35 05/10/20 11:28 Magic Mouthwash *Sjr Formula* - MM 5 ml Q6HPO [facility]I Administration Nystatin 500,000 units 04/28/20 00:00 05/10/20 11:27 Nystatin Oral Suspension - PO 500,000 units Q6HPO [facility]I Administration Pantoprazole Sodium 40 mg 05/08/20 10:00 05/10/20 09:19 Protonix - PO 40 mg DAILY [facility] Administration Phenol/Menthol 2 spray 05/04/20 14:00 05/10/20 14:27 Chloraseptic - MM 2 sprays QID [facility]I Administration Trimethoprim/Sulfamethoxazole 1 each 04/30/20 10:00 05/09/20 09:08 Bactrim Ds - PO 1 each MoWeFr@1000 [facility]I Administration Impression 1. hyponatremia 2. dehydration 3. failure to thrive 4. lung cancer with mets Plan - repeat labs in am - can stop fluids - monitor bun - steroids can contribute to elevated bun - encourage po intake
[2020-05-11] MEDS: NYSTATIN 500,000 UNITS/5 ML SUSPENSION PO SCH ×4 (00:01→17:09)
[2020-05-11] MEDS: MAG HYDROX/ALH/SMC/DPHA/LIDO 240 ML MOUTHWASH MM SCH ×4 (00:02→17:09)
[2020-05-11] MEDS: AMINO ACIDS/PROTEIN HYDROLYS 30 ML LIQUID.PKT PO SCH ×2 (08:34→17:09)
[2020-05-11] MEDS: ALBUTEROL SO4 0.083% IH SOL 2.5 MG/3 ML VIAL.NEB. NEB SCH ×4 (08:45→19:49)
[2020-05-11] MEDS ORDERED: PT OWN MED DRAWER 7, Y5N ONE (09:05)
[2020-05-11] MEDS: PANTOPRAZOLE 40 MG TABLET PO SCH (09:07)
[2020-05-11] MEDS: SULFAMETHOXAZOLE/TRIMETHOPRIM 800MG/160MG D.S. TABLET PO SCH (09:07)
[2020-05-11] MEDS: DRONABINOL 2.5 MG CAPSULE PO SCH (09:07)
[2020-05-11] MEDS: DEXAMETHASONE 4 MG TABLET (FP) PO SCH (09:07)
[2020-05-11] MEDS: PHENOL 177 ML SPRAY BOTTLE MM SCH ×5 (09:08→21:58)
--- NOTE | 2020-05-11 10:36 | PN ---
Progress Note, Physician History of Present Illness: PULMONARY ALERT,COMFORTABLE,-SOB,MILD COUGH - Current Medication List Current Medications: Active Medications Acetaminophen (Tylenol -) 650 mg PO Q4H PRN PRN Reason: PAIN Last Admin: 05/04/20 11:05 Dose: 650 mg Documented by: Albuterol Sulfate (Ventolin 0.083% Nebulizer Soln -) 1 amp NEB RQID [facility] Last Admin: 05/10/20 20:13 Dose: 1 amp Documented by: Amino Acids (Prosource No Carb Liquid Pkt) 30 ml PO BID@0800,1730 [facility] Last Admin: 05/11/20 08:34 Dose: 30 ml Documented by: Dexamethasone (Decadron -) 4 mg PO DAILY [facility] Last Admin: 05/11/20 09:07 Dose: 4 mg Documented by: Dronabinol (Marinol -) 2.5 mg PO DAILY [facility] Last Admin: 05/11/20 09:07 Dose: 2.5 mg Documented by: Lidocaine/Aluminum/Magnesium/Simeth (Magic Mouthwash *Sjr Formula* -) 5 ml MM Q6HPO [facility] Last Admin: 05/11/20 05:44 Dose: 5 ml Documented by: Nystatin (Nystatin Oral Suspension -) 500,000 units PO Q6HPO [facility] Last Admin: 05/11/20 05:45 Dose: 500,000 units Documented by: Pantoprazole Sodium (Protonix -) 40 mg PO DAILY [facility] Last Admin: 05/11/20 09:07 Dose: 40 mg Documented by: Phenol/Menthol (Chloraseptic -) 2 spray MM QID [facility] Last Admin: 05/11/20 09:08 Dose: 2 sprays Documented by: Trimethoprim/Sulfamethoxazole (Bactrim Ds -) 1 each PO MoWeFr@1000 [facility] Last Admin: 05/11/20 09:07 Dose: 1 each Documented by: - Objective Vital Signs: Vital Signs Temperature 97.9 F 05/11/20 01:00 Pulse Rate 61 05/11/20 01:00 Respiratory Rate 16 05/11/20 01:00 Blood Pressure 98/59 L 05/11/20 01:00 O2 Sat by Pulse Oximetry (%) 99 05/11/20 01:00 Constitutional: Yes: Calm, Thin Eyes: Yes: WNL HENT: Yes: WNL Neck: Yes: WNL Cardiovascular: Yes: Regular Rate and Rhythm, S1, S2 Respiratory: Yes: Diminished Gastrointestinal: Yes: Normal Bowel Sounds, Soft Extremities: Yes: WNL Edema: No Labs: CBC, BMP Assessment/Plan A/P Pneumonia clinically improved Hyponatremia improved Metastatic Lung Cancer Failure to Thrive Anemia - antibiotics completed - O2 to keep SpO2 >90% - PO as tolerated - DVT prophylaxis DR GARCIA
--- NOTE | 2020-05-11 11:44 | PN ---
Progress Note, [employer] - Note Progress Note: Selected Entries 05/10/20 05/10/20 05/10/20 05:50 07:32 09:29 Breakfast 25% Diet Tolerated Poor Temperature 97.9 F 98.3 F Blood Pressure 97/58 L 94/56 L Selected Entries 05/11/20 05/11/20 01:00 10:23 Breakfast 25% Diet Tolerated Poor Temperature 97.9 F Blood Pressure 98/59 L Metastatic Lung Cancer Failure to Thrive Per RD- 3 day calorie count -Estimated intake average meets ~80% estimated caloric needs and 100% of protein needs. Decision regarding PEG pending. Doing OK with 2cal and IV fluids.Tolerating PO intake. Questionable if nutrition/hydration can be maintained upon d/c. Option of d/c, if medically stable, with possibility of PEG insertion when family decides. Palliative care on case.
--- NOTE | 2020-05-11 13:25 | DS ---
Physical Examination Vital Signs: Vital Signs Temperature 98.5 F 05/11/20 07:00 Pulse Rate 67 05/11/20 07:00 Respiratory Rate 16 05/11/20 09:00 Blood Pressure 97/65 05/11/20 07:00 O2 Sat by Pulse Oximetry (%) 99 05/11/20 09:00 Labs: CBC, BMP 05/09/20 05:47 05/09/20 05:47 Discharge Summary Problems reviewed: Yes Reason For Visit: DEHYDRATION FAILURE TO THRIVE Current Active Problems Dehydration (Acute) Elevated LFTs (Acute) Failure to thrive (Acute) Hypocalcemia (Acute) Hyponatremia (Acute) Leukocytosis (Acute) Metastatic lung cancer (metastasis from lung to other site) (Acute) Odynophagia (Acute) Pneumonia (Acute) Sensorineural hearing loss (SNHL) of both ears (Acute) Weakness (Acute) Hospital Course: - Problems (1) Dehydration Assessment/Plan: -Resolved -Encourage PO intake -Marinol daily -Continue gentle IVF for now Problems reviewed: Yes Code(s): E86.0 - DEHYDRATION (2) Failure to thrive Assessment/Plan: -Po intake still decreased -Seen by speech pathology. -MBS x 2 negative for aspiration, but at risk for aspiration. -On dysphagia pureed diet. -May need PEG to meet nutritional demand. -Discussion with family in progress Problems reviewed: Yes Code(s): [id number] - Qualifiers: Failure to thrive age range: in adult Qualified Code(s): R62.7 - Adult failure to thrive (3) Leukocytosis Assessment/Plan: -ID consult -Afebrile -Finished IV Rocephin -Cultures: Microbiology 04/28/20 15:30 Throat Throat Culture - Final Yeast Like Organism 04/27/20 03:50 Blood - Peripheral Venous Blood Culture - Preliminary NO GROWTH OBTAINED AFTER 96 HOURS, INCUBATION TO CONTINUE FOR 1 DAYS. 04/27/20 03:50 Blood - Peripheral Venous Blood Culture - Preliminary NO GROWTH OBTAINED AFTER 96 HOURS, INCUBATION TO CONTINUE FOR 1 DAYS. 04/28/20 21:51 Urine For Antigen Detection Legionella Antigen - Final 04/28/20 21:51 Urine For Antigen Detection Streptococcus pneumoniae Antigen (M - Final 04/26/20 19:50 Urine - Urine Clean Catch Urine Culture - Final Normal Urogenital Layla Problems reviewed: Yes Code(s): D72.829 - ELEVATED WHITE BLOOD CELL COUNT, UNSPECIFIED (4) Metastatic lung cancer (metastasis from lung to other site) Assessment/Plan: -CXR reviewed -Oncology consult -Palliative care consult -Brain MRI no new lesions -MRI L spine shows a lesion on spleen Problems reviewed: Yes Code(s): C34.90 - MALIGNANT NEOPLASM OF UNSP PART OF UNSP BRONCHUS OR LUNG (5) Pneumonia Assessment/Plan: -CXR BLL possible infiltrates -Pulmonary consult -Finished IV Rocephin -ID consult -afebrile -Monitor leukocytosis -Repeat CXR-no changes Problems reviewed: Yes Code(s): J18.9 - PNEUMONIA, UNSPECIFIED ORGANISM (6) Odynophagia Assessment/Plan: -Oral vs esophageal candidiasis? 2/2 to chemo + immunotherapy -Speech therapy consult appreciated -ENT consult appreciated -Tylenol for pain -Nystatin swish and swallow -magic mouthwash -Finished Diflucan -Throat culture yeast like org -MRI brain without contrast-reviewed -Added Chloroseptic throat spray tid Problems reviewed: Yes Code(s): R13.10 - DYSPHAGIA, UNSPECIFIED (7) Elevated LFTs Assessment/Plan: -U/S Liver negative for any acute pathology -resolved -monitor trend Problems reviewed: Yes Code(s): R79.89 - OTHER SPECIFIED ABNORMAL FINDINGS OF BLOOD CHEMISTRY (8) Weakness Assessment/Plan: -MRI brain without contrast unremarkable -EMG abnormal -Seen by Neurology - B12, thyroid profile was normal -Seen by Physiatry -MRI or CT L spine- Reviewed possible metastatic lesion on spleen, L spine ne gative for metatasis. -Updated Dr Abad and Dr Thapa at [facility] Problems reviewed: Yes Code(s): R53.1 - WEAKNESS (9) Sensorineural hearing loss (SNHL) of both ears Assessment/Plan: -Seen by ENT -Last audiogram 4 years ago showed significant bilateral hearing loss of 35-40 db. Problems reviewed: Yes Code(s): H90.3 - SENSORINEURAL HEARING LOSS, BILATERAL Condition: Guarded - Instructions Referrals: Manjit Toscano MD [Primary Care Provider] - - Home Medications Comprehensive Discharge Medication List: Ambulatory Orders Acetaminophen [Tylenol .Regular Strength -] 650 mg PO Q4H PRN tablet 05/11/20 Amino Acids/Protein Hydrolys [Prosource No Carb Liquid Pkt] 30 ml PO BID@0800,1730 packet 05/11/20 Dexamethasone [Decadron -] 4 mg PO DAILY tablet 05/11/20 Dronabinol [Marinol -] 2.5 mg PO DAILY capsule 05/11/20 Mag Hydrox/Alh/Smc/Dpha/Lido [Magic Mouthwash *Sjr Formula* -] 5 ml MM Q6HPO bottle 05/11/20 Nystatin Oral Suspension - [Nystatin Oral Susp [id number] Units/5 ML -] 500,000 units PO Q6HPO cup 05/11/20 Pantoprazole Sodium [Protonix -] 40 mg PO DAILY tablet.ec 05/11/20 Phenol [Chloraseptic -] 2 spray MM QID bottle 05/11/20 Sulfamethoxazole/Trimethoprim [Bactrim DS -] 1 each PO MoWeFr@1000 tablet 05/11/20
[2020-05-11 15:34] LABS: BASO % 0.2 % (0-2.0); EOS % 0.4 % (0-4.5); HEMATOCRIT 35.5 % (35.4-49); HEMOGLOBIN 11.3 GM/dL (11.7-16.9); LYMPH % 2.9 % (8-40); MCH 30.2 pg (25.7-33.7); MEAN CELL VOLUME 94.5 fl (80-96); MEAN PLT VOLUME 7.4 fl (7.5-11.1); MONO % 1.3 % (3.8-10.2); NEUT % 95.2 % (42.8-82.8); PLATELET COUNT 255 K/MM3 (134-434); RBC 3.75 M/mm3 (4.00-5.60); RDW 17.5 % (11.9-15.9); WHITE BLOOD COUNT 12.3 K/mm3 (4.0-10.0)
[2020-05-11 16:13] LABS: ANISOCYTOSIS 0; MACROCYTOSIS 0; PLATELET ESTIMATE NORMAL
--- NOTE | 2020-05-11 17:47 | PN ---
Progress Note, Physician History of Present Illness: Pt seen and examined at bedside. He is tolerating diet. He denies shortness of breath. - Current Medication List Current Medications: Active Medications Acetaminophen (Tylenol -) 650 mg PO Q4H PRN PRN Reason: PAIN Last Admin: 05/04/20 11:05 Dose: 650 mg Documented by: Albuterol Sulfate (Ventolin 0.083% Nebulizer Soln -) 1 amp NEB RQID [facility] Last Admin: 05/11/20 15:45 Dose: 1 amp Documented by: Amino Acids (Prosource No Carb Liquid Pkt) 30 ml PO BID@0800,1730 [facility] Last Admin: 05/11/20 17:09 Dose: 30 ml Documented by: Dexamethasone (Decadron -) 4 mg PO DAILY [facility] Last Admin: 05/11/20 09:07 Dose: 4 mg Documented by: Dronabinol (Marinol -) 2.5 mg PO DAILY [facility] Last Admin: 05/11/20 09:07 Dose: 2.5 mg Documented by: Lidocaine/Aluminum/Magnesium/Simeth (Magic Mouthwash *Sjr Formula* -) 5 ml MM Q6HPO [facility] Last Admin: 05/11/20 17:09 Dose: 5 ml Documented by: Nystatin (Nystatin Oral Suspension -) 500,000 units PO Q6HPO [facility] Last Admin: 05/11/20 17:09 Dose: 500,000 units Documented by: Pantoprazole Sodium (Protonix -) 40 mg PO DAILY [facility] Last Admin: 05/11/20 09:07 Dose: 40 mg Documented by: Phenol/Menthol (Chloraseptic -) 2 spray MM QID [facility] Last Admin: 05/11/20 17:09 Dose: 2 sprays Documented by: Trimethoprim/Sulfamethoxazole (Bactrim Ds -) 1 each PO MoWeFr@1000 [facility] Last Admin: 05/11/20 09:07 Dose: 1 each Documented by: - Objective Vital Signs: Vital Signs Temperature 98.2 F 05/11/20 17:24 Pulse Rate 65 05/11/20 17:24 Respiratory Rate 18 05/11/20 17:24 Blood Pressure 105/67 05/11/20 17:24 O2 Sat by Pulse Oximetry (%) 99 05/11/20 17:24 Constitutional: Yes: Calm Eyes: Yes: Conjunctiva Clear HENT: Yes: Atraumatic Neck: Yes: Supple Cardiovascular: Yes: S1, S2 Respiratory: Yes: CTA Bilaterally Gastrointestinal: Yes: Normal Bowel Sounds, Soft Genitourinary: Yes: WNL Musculoskeletal: Yes: WNL Neurological: Yes: Oriented Labs: CBC, BMP 05/11/20 14:50 05/09/20 05:47 INR, PTT INR 1.12 (0.83-1.09) H 04/26/20 16:00 Problem List - Problems (1) Dehydration Code(s): E86.0 - DEHYDRATION (2) Failure to thrive Code(s): [id number] - Qualifiers: Failure to thrive age range: in adult Qualified Code(s): R62.7 - Adult failure to thrive (3) Hyponatremia Code(s): E87.1 - HYPO-OSMOLALITY AND HYPONATREMIA (4) Metastatic lung cancer (metastasis from lung to other site) Code(s): C34.90 - MALIGNANT NEOPLASM OF UNSP PART OF UNSP BRONCHUS OR LUNG Assessment/Plan Current Medications Generic Name Dose Route Start Last Admin Trade Name Freq PRN Reason Stop Dose Admin Acetaminophen 650 mg 04/26/20 21:38 05/04/20 11:05 Tylenol - PO 650 mg Q4H PRN Administration PAIN Albuterol Sulfate 1 amp 05/07/20 12:00 05/11/20 15:45 Ventolin 0.083% Nebulizer Soln - NEB 1 amp RQID SHARI Administration Amino Acids 30 ml 05/01/20 17:30 05/11/20 17:09 Prosource No Carb Liquid Pkt PO 30 ml BID@0800,1730 SHARI Administration Dexamethasone 4 mg 05/02/20 10:00 05/11/20 09:07 Decadron - PO 4 mg DAILY [facility] Administration Dronabinol 2.5 mg 05/04/20 10:45 05/11/20 09:07 Marinol - PO 2.5 mg DAILY [facility]I Administration Lidocaine/Aluminum/Magnesium/Simeth 5 ml 05/04/20 12:35 05/11/20 17:09 Magic Mouthwash *Sjr Formula* - MM 5 ml Q6HPO [facility]ARI Administration Nystatin 500,000 units 04/28/20 00:00 05/11/20 17:09 Nystatin Oral Suspension - PO 500,000 units Q6HPO [facility]ARI Administration Pantoprazole Sodium 40 mg 05/08/20 10:00 05/11/20 09:07 Protonix - PO 40 mg DAILY [facility]I Administration Phenol/Menthol 2 spray 05/04/20 14:00 05/11/20 17:09 Chloraseptic - MM 2 sprays QID [facility]I Administration Trimethoprim/Sulfamethoxazole 1 each 04/30/20 10:00 05/11/20 09:07 Bactrim Ds - PO 1 each MoWeFr@1000 SHARI Administration Impression 1. hyponatremia 2. dehydration 3. failure to thrive 4. lung cancer with mets Plan - no new llabs - monitor lytes - stable off of fluids - encourage po intake - steroids can contribute to elevated bun
[2020-05-12] MEDS: MAG HYDROX/ALH/SMC/DPHA/LIDO 240 ML MOUTHWASH MM SCH ×4 (00:49→17:05)
[2020-05-12] MEDS: NYSTATIN 500,000 UNITS/5 ML SUSPENSION PO SCH ×4 (00:50→17:05)
[2020-05-12] MEDS: ALBUTEROL SO4 0.083% IH SOL 2.5 MG/3 ML VIAL.NEB. NEB SCH (07:35)
--- NOTE | 2020-05-12 08:00 | PN ---
Progress Note, Physician History of Present Illness: pulmonary awake,comfortable,-resp distress - Current Medication List Current Medications: Active Medications Acetaminophen (Tylenol -) 650 mg PO Q4H PRN PRN Reason: PAIN Last Admin: 05/04/20 11:05 Dose: 650 mg Documented by: Albuterol Sulfate (Ventolin 0.083% Nebulizer Soln -) 1 amp NEB RQID [facility] Last Admin: 05/11/20 19:49 Dose: 1 amp Documented by: Amino Acids (Prosource No Carb Liquid Pkt) 30 ml PO BID@0800,1730 [facility] Last Admin: 05/11/20 17:09 Dose: 30 ml Documented by: Dexamethasone (Decadron -) 4 mg PO DAILY [facility] Last Admin: 05/11/20 09:07 Dose: 4 mg Documented by: Dronabinol (Marinol -) 2.5 mg PO DAILY [facility] Last Admin: 05/11/20 09:07 Dose: 2.5 mg Documented by: Lidocaine/Aluminum/Magnesium/Simeth (Magic Mouthwash *Sjr Formula* -) 5 ml MM Q6HPO [facility] Last Admin: 05/12/20 06:31 Dose: 5 ml Documented by: Nystatin (Nystatin Oral Suspension -) 500,000 units PO Q6HPO [facility] Last Admin: 05/12/20 06:32 Dose: 500,000 units Documented by: Pantoprazole Sodium (Protonix -) 40 mg PO DAILY [facility] Last Admin: 05/11/20 09:07 Dose: 40 mg Documented by: Phenol/Menthol (Chloraseptic -) 2 spray MM QID [facility] Last Admin: 05/11/20 21:58 Dose: 2 sprays Documented by: Trimethoprim/Sulfamethoxazole (Bactrim Ds -) 1 each PO MoWeFr@1000 [facility] Last Admin: 05/11/20 09:07 Dose: 1 each Documented by: - Objective Vital Signs: Vital Signs Temperature 97.9 F 05/12/20 05:42 Pulse Rate 72 05/12/20 05:42 Respiratory Rate 16 05/12/20 05:42 Blood Pressure 107/69 05/12/20 05:42 O2 Sat by Pulse Oximetry (%) 98 05/12/20 05:42 Constitutional: Yes: Calm, Thin Eyes: Yes: WNL HENT: Yes: WNL Neck: Yes: WNL Cardiovascular: Yes: Regular Rate and Rhythm, S1, S2 Respiratory: Yes: Diminished, Other (poor inspiratory effort) Extremities: Yes: WNL Edema: No Labs: CBC, BMP 05/11/20 14:50 Assessment/Plan A/P Pneumonia clinically improved Hyponatremia improved Metastatic Lung Cancer Failure to Thrive Anemia - antibiotics completed - O2 to keep SpO2 >90% - PO as tolerated - DVT prophylaxis DR GARCIA
[2020-05-12] MEDS: AMINO ACIDS/PROTEIN HYDROLYS 30 ML LIQUID.PKT PO SCH ×2 (09:30→17:05)
[2020-05-12] MEDS: PHENOL 177 ML SPRAY BOTTLE MM SCH ×4 (09:31→22:04)
[2020-05-12] MEDS: DEXAMETHASONE 4 MG TABLET (FP) PO SCH (09:32)
[2020-05-12] MEDS: DRONABINOL 2.5 MG CAPSULE PO SCH (09:32)
[2020-05-12] MEDS: PANTOPRAZOLE 40 MG TABLET PO SCH (09:32)
--- NOTE | 2020-05-12 11:24 | PN ---
Progress Note, Physician - Current Medication List Current Medications: Active Medications Acetaminophen (Tylenol -) 650 mg PO Q4H PRN PRN Reason: PAIN Last Admin: 05/04/20 11:05 Dose: 650 mg Documented by: Albuterol Sulfate (Ventolin 0.083% Nebulizer Soln -) 1 amp NEB RQID [facility] Last Admin: 05/12/20 07:35 Dose: Not Given Documented by: Amino Acids (Prosource No Carb Liquid Pkt) 30 ml PO BID@0800,1730 [facility] Last Admin: 05/12/20 09:30 Dose: 30 ml Documented by: Dexamethasone (Decadron -) 4 mg PO DAILY [facility] Last Admin: 05/12/20 09:32 Dose: 4 mg Documented by: Dronabinol (Marinol -) 2.5 mg PO DAILY [facility] Last Admin: 05/12/20 09:32 Dose: 2.5 mg Documented by: Lidocaine/Aluminum/Magnesium/Simeth (Magic Mouthwash *Sjr Formula* -) 5 ml MM Q6HPO [facility] Last Admin: 05/12/20 06:31 Dose: 5 ml Documented by: Nystatin (Nystatin Oral Suspension -) 500,000 units PO Q6HPO [facility] Last Admin: 05/12/20 06:32 Dose: 500,000 units Documented by: Pantoprazole Sodium (Protonix -) 40 mg PO DAILY [facility] Last Admin: 05/12/20 09:32 Dose: 40 mg Documented by: Phenol/Menthol (Chloraseptic -) 2 spray MM QID [facility] Last Admin: 05/12/20 09:31 Dose: 2 sprays Documented by: Trimethoprim/Sulfamethoxazole (Bactrim Ds -) 1 each PO MoWeFr@1000 [facility] Last Admin: 05/11/20 09:07 Dose: 1 each Documented by: - Objective Vital Signs: Vital Signs Temperature 98.3 F 05/12/20 08:32 Pulse Rate 57 L 05/12/20 08:32 Respiratory Rate 18 05/12/20 08:32 Blood Pressure 106/64 05/12/20 08:32 O2 Sat by Pulse Oximetry (%) 100 05/12/20 08:32 Cardiovascular: Yes: S1, S2 Respiratory: Yes: Regular, CTA Bilaterally Gastrointestinal: Yes: Normal Bowel Sounds, Soft Labs: CBC, BMP 05/11/20 14:50 05/09/20 05:47 INR, PTT INR 1.12 (0.83-1.09) H 04/26/20 16:00 Assessment/Plan - Problems (1) Dehydration Assessment/Plan: -Resolved -Encourage PO intake -Marinol daily -Continue gentle IVF for now Problems reviewed: Yes Code(s): E86.0 - DEHYDRATION (2) Failure to thrive Assessment/Plan: -Po intake still decreased -Seen by speech pathology. -MBS x 2 negative for aspiration, but at risk for aspiration. -On dysphagia pureed diet. -May need PEG to meet nutritional demand. -Discussion with family in progress Problems reviewed: Yes Code(s): [id number] - Qualifiers: Failure to thrive age range: in adult Qualified Code(s): R62.7 - Adult failure to thrive (3) Leukocytosis Assessment/Plan: -ID consult -Afebrile -Finished IV Rocephin -Cultures: Microbiology 04/28/20 15:30 Throat Throat Culture - Final Yeast Like Organism 04/27/20 03:50 Blood - Peripheral Venous Blood Culture - Preliminary NO GROWTH OBTAINED AFTER 96 HOURS, INCUBATION TO CONTINUE FOR 1 DAYS. 04/27/20 03:50 Blood - Peripheral Venous Blood Culture - Preliminary NO GROWTH OBTAINED AFTER 96 HOURS, INCUBATION TO CONTINUE FOR 1 DAYS. 04/28/20 21:51 Urine For Antigen Detection Legionella Antigen - Final 04/28/20 21:51 Urine For Antigen Detection Streptococcus pneumoniae Antigen (M - Final 04/26/20 19:50 Urine - Urine Clean Catch Urine Culture - Final Normal Urogenital Layla Problems reviewed: Yes Code(s): D72.829 - ELEVATED WHITE BLOOD CELL COUNT, UNSPECIFIED (4) Metastatic lung cancer (metastasis from lung to other site) Assessment/Plan: -CXR reviewed -Oncology consult -Palliative care consult -Brain MRI no new lesions -MRI L spine shows a lesion on spleen Problems reviewed: Yes Code(s): C34.90 - MALIGNANT NEOPLASM OF UNSP PART OF UNSP BRONCHUS OR LUNG (5) Pneumonia Assessment/Plan: -CXR BLL possible infiltrates -Pulmonary consult -Finished IV Rocephin -ID consult -afebrile -Monitor leukocytosis -Repeat CXR-no changes Problems reviewed: Yes Code(s): J18.9 - PNEUMONIA, UNSPECIFIED ORGANISM (6) Odynophagia Assessment/Plan: -Oral vs esophageal candidiasis? 2/2 to chemo + immunotherapy -Speech therapy consult appreciated -ENT consult appreciated -Tylenol for pain -Nystatin swish and swallow -magic mouthwash -Finished Diflucan -Throat culture yeast like org -MRI brain without contrast-reviewed -Added Chloroseptic throat spray tid Problems reviewed: Yes Code(s): R13.10 - DYSPHAGIA, UNSPECIFIED (7) Elevated LFTs Assessment/Plan: -U/S Liver negative for any acute pathology -resolved -monitor trend Problems reviewed: Yes Code(s): R79.89 - OTHER SPECIFIED ABNORMAL FINDINGS OF BLOOD CHEMISTRY (8) Weakness Assessment/Plan: -MRI brain without contrast unremarkable -EMG abnormal -Seen by Neurology - B12, thyroid profile was normal -Seen by Physiatry -MRI or CT L spine- Reviewed possible metastatic lesion on spleen, L spine negative for metatasis. -Updated Dr Abad and Dr Thapa at [facility] Problems reviewed: Yes Code(s): R53.1 - WEAKNESS (9) Sensorineural hearing loss (SNHL) of both ears Assessment/Plan: -Seen by ENT -Last audiogram 4 years ago showed significant bilateral hearing loss of 35-40 db. Problems reviewed: Yes Code(s): H90.3 - SENSORINEURAL HEARING LOSS, BILATERAL
[2020-05-13] MEDS: MAG HYDROX/ALH/SMC/DPHA/LIDO 240 ML MOUTHWASH MM SCH ×4 (00:55→16:59)
[2020-05-13] MEDS: NYSTATIN 500,000 UNITS/5 ML SUSPENSION PO SCH ×4 (00:55→16:59)
--- NOTE | 2020-05-13 07:15 | PN ---
Progress Note, Physician History of Present Illness: PULMONARY COMFORTABLE,-SOB - Current Medication List Current Medications: Active Medications Acetaminophen (Tylenol -) 650 mg PO Q4H PRN PRN Reason: PAIN Last Admin: 05/04/20 11:05 Dose: 650 mg Documented by: Amino Acids (Prosource No Carb Liquid Pkt) 30 ml PO BID@0800,1730 [facility] Last Admin: 05/12/20 17:05 Dose: 30 ml Documented by: Dexamethasone (Decadron -) 4 mg PO DAILY [facility] Last Admin: 05/12/20 09:32 Dose: 4 mg Documented by: Dronabinol (Marinol -) 2.5 mg PO DAILY [facility] Last Admin: 05/12/20 09:32 Dose: 2.5 mg Documented by: Lidocaine/Aluminum/Magnesium/Simeth (Magic Mouthwash *Sjr Formula* -) 5 ml MM Q6HPO [facility] Last Admin: 05/13/20 05:43 Dose: 5 ml Documented by: Nystatin (Nystatin Oral Suspension -) 500,000 units PO Q6HPO [facility] Last Admin: 05/13/20 05:43 Dose: 500,000 units Documented by: Pantoprazole Sodium (Protonix -) 40 mg PO DAILY [facility] Last Admin: 05/12/20 09:32 Dose: 40 mg Documented by: Phenol/Menthol (Chloraseptic -) 2 spray MM QID [facility] Last Admin: 05/12/20 22:04 Dose: 2 sprays Documented by: Trimethoprim/Sulfamethoxazole (Bactrim Ds -) 1 each PO MoWeFr@1000 [facility] Last Admin: 05/11/20 09:07 Dose: 1 each Documented by: - Objective Vital Signs: Vital Signs Temperature 98.0 F 05/13/20 05:43 Pulse Rate 60 05/13/20 05:43 Respiratory Rate 18 05/13/20 05:43 Blood Pressure 96/61 05/13/20 05:43 O2 Sat by Pulse Oximetry (%) 99 05/13/20 05:43 Constitutional: Yes: Calm, Thin Eyes: Yes: WNL HENT: Yes: WNL Neck: Yes: WNL Cardiovascular: Yes: Regular Rate and Rhythm, S1, S2 Respiratory: Yes: Diminished Gastrointestinal: Yes: Normal Bowel Sounds, Soft Extremities: Yes: WNL Edema: No Labs: CBC, BMP Assessment/Plan A/P Pneumonia clinically improved Hyponatremia improved Metastatic Lung Cancer Failure to Thrive Anemia - antibiotics completed - O2 to keep SpO2 >90% - PO as tolerated - DVT prophylaxis DR GARCIA
[2020-05-13] MEDS: AMINO ACIDS/PROTEIN HYDROLYS 30 ML LIQUID.PKT PO SCH ×2 (09:13→16:36)
[2020-05-13] MEDS: PHENOL 177 ML SPRAY BOTTLE MM SCH ×4 (09:13→21:40)
[2020-05-13] MEDS: PANTOPRAZOLE 40 MG TABLET PO SCH (09:15)
[2020-05-13] MEDS: DEXAMETHASONE 4 MG TABLET (FP) PO SCH (09:16)
[2020-05-13] MEDS: DRONABINOL 2.5 MG CAPSULE PO SCH (09:16)
--- NOTE | 2020-05-13 11:26 | DS ---
Physical Examination Vital Signs: Vital Signs Temperature 98.0 F 05/13/20 05:43 Pulse Rate 60 05/13/20 05:43 Respiratory Rate 18 05/13/20 09:00 Blood Pressure 96/61 05/13/20 05:43 O2 Sat by Pulse Oximetry (%) 99 05/13/20 09:00 Cardiovascular: Yes: Regular Rate and Rhythm Respiratory: Yes: Regular, CTA Bilaterally Gastrointestinal: Yes: Normal Bowel Sounds, Soft Labs: CBC, BMP 05/11/20 14:50 05/09/20 05:47 Discharge Summary Problems reviewed: Yes Reason For Visit: DEHYDRATION FAILURE TO THRIVE Current Active Problems Dehydration (Acute) Elevated LFTs (Acute) Failure to thrive (Acute) Hypocalcemia (Acute) Hyponatremia (Acute) Leukocytosis (Acute) Metastatic lung cancer (metastasis from lung to other site) (Acute) Odynophagia (Acute) Pneumonia (Acute) Sensorineural hearing loss (SNHL) of both ears (Acute) Weakness (Acute) Hospital Course: - Problems (1) Dehydration Assessment/Plan: -Resolved -Encourage PO intake -Marinol daily -Continue gentle IVF for now Problems reviewed: Yes Code(s): E86.0 - DEHYDRATION (2) Failure to thrive Assessment/Plan: -Po intake still decreased -Seen by speech pathology. -MBS x 2 negative for aspiration, but at risk for aspiration. -On dysphagia pureed diet. -May need PEG to meet nutritional demand. -Discussion with family in progress Problems reviewed: Yes Code(s): [id number] - Qualifiers: Failure to thrive age range: in adult Qualified Code(s): R62.7 - Adult failure to thrive (3) Leukocytosis Assessment/Plan: -ID consult -Afebrile -Finished IV Rocephin -Cultures: Microbiology 04/28/20 15:30 Throat Throat Culture - Final Yeast Like Organism 04/27/20 03:50 Blood - Peripheral Venous Blood Culture - Preliminary NO GROWTH OBTAINED AFTER 96 HOURS, INCUBATION TO CONTINUE FOR 1 DAYS. 04/27/20 03:50 Blood - Peripheral Venous Blood Culture - Preliminary NO GROWTH OBTAINED AFTER 96 HOURS, INCUBATION TO CONTINUE FOR 1 DAYS. 04/28/20 21:51 Urine For Antigen Detection Legionella Antigen - Final 04/28/20 21:51 Urine For Antigen Detection Streptococcus pneumoniae Antigen (M - Final 04/26/20 19:50 Urine - Urine Clean Catch Urine Culture - Final Normal Urogenital Layla Problems reviewed: Yes Code(s): D72.829 - ELEVATED WHITE BLOOD CELL COUNT, UNSPECIFIED (4) Metastatic lung cancer (metastasis from lung to other site) Assessment/Plan: -CXR reviewed -Oncology consult -Palliative care consult -Brain MRI no new lesions -MRI L spine shows a lesion on spleen Problems reviewed: Yes Code(s): C34.90 - MALIGNANT NEOPLASM OF UNSP PART OF UNSP BRONCHUS OR LUNG (5) Pneumonia Assessment/Plan: -CXR BLL possible infiltrates -Pulmonary consult -Finished IV Rocephin -ID consult -afebrile -Monitor leukocytosis -Repeat CXR-no changes Problems reviewed: Yes Code(s): J18.9 - PNEUMONIA, UNSPECIFIED ORGANISM (6) Odynophagia Assessment/Plan: -Oral vs esophageal candidiasis? 2/2 to chemo + immunotherapy -Speech therapy consult appreciated -ENT consult appreciated -Tylenol for pain -Nystatin swish and swallow -magic mouthwash -Finished Diflucan -Throat culture yeast like org -MRI brain without contrast-reviewed -Added Chloroseptic throat spray tid Problems reviewed: Yes Code(s): R13.10 - DYSPHAGIA, UNSPECIFIED (7) Elevated LFTs Assessment/Plan: -U/S Liver negative for any acute pathology -resolved -monitor trend Problems reviewed: Yes Code(s): R79.89 - OTHER SPECIFIED ABNORMAL FINDINGS OF BLOOD CHEMISTRY (8) Weakness Assessment/Plan: -MRI brain without contrast unremarkable -EMG abnormal -Seen by Neurology - B12, thyroid profile was normal -Seen by Physiatry -MRI or CT L spine- Reviewed possible metastatic lesion on spleen, L spine negative for metatasis. -Updated Dr Abad and Dr Thapa at [facility] Problems reviewed: Yes Code(s): R53.1 - WEAKNESS (9) Sensorineural hearing loss (SNHL) of both ears Assessment/Plan: -Seen by ENT -Last audiogram 4 years ago showed significant bilateral hearing loss of 35-40 db. Problems reviewed: Yes Code(s): H90.3 - SENSORINEURAL HEARING LOSS, BILATERAL Condition: Improved - Instructions Referrals: Manjit Toscano MD [Primary Care Provider] - - Home Medications Comprehensive Discharge Medication List: Ambulatory Orders Acetaminophen [Tylenol .Regular Strength -] 650 mg PO Q4H PRN tablet 05/11/20 Amino Acids/Protein Hydrolys [Prosource No Carb Liquid Pkt] 30 ml PO BID@0800,1730 packet 05/11/20 Dexamethasone [Decadron -] 4 mg PO DAILY tablet 05/11/20 Dronabinol [Marinol -] 2.5 mg PO DAILY capsule 05/11/20 Mag Hydrox/Alh/Smc/Dpha/Lido [Magic Mouthwash *Sjr Formula* -] 5 ml MM Q6HPO bottle 05/11/20 Nystatin Oral Suspension - [Nystatin Oral Susp 916808 Units/5 ML -] 500,000 units PO Q6HPO cup 05/11/20 Pantoprazole Sodium [Protonix -] 40 mg PO DAILY tablet.ec 05/11/20 Phenol [Chloraseptic -] 2 spray MM QID bottle 05/11/20 Sulfamethoxazole/Trimethoprim [Bactrim DS -] 1 each PO MoWeFr@1000 tablet 05/11/20
[2020-05-14] MEDS: MAG HYDROX/ALH/SMC/DPHA/LIDO 240 ML MOUTHWASH MM SCH ×5 (00:34→23:33)
[2020-05-14] MEDS: NYSTATIN 500,000 UNITS/5 ML SUSPENSION PO SCH ×5 (00:35→23:32)
[2020-05-14] MEDS: SULFAMETHOXAZOLE/TRIMETHOPRIM 800MG/160MG D.S. TABLET PO SCH (09:36)
[2020-05-14] MEDS: DRONABINOL 2.5 MG CAPSULE PO SCH (09:36)
[2020-05-14] MEDS: DEXAMETHASONE 4 MG TABLET (FP) PO SCH (09:37)
[2020-05-14] MEDS: PANTOPRAZOLE 40 MG TABLET PO SCH (09:37)
[2020-05-14] MEDS: PHENOL 177 ML SPRAY BOTTLE MM SCH ×4 (09:37→21:12)
[2020-05-14] MEDS: AMINO ACIDS/PROTEIN HYDROLYS 30 ML LIQUID.PKT PO SCH ×2 (09:37→17:15)
--- NOTE | 2020-05-14 10:23 | PN ---
Progress Note (short form) - Note Progress Note: PULMONARY Denies shortness of breath. Feels improved. No fevers recorded. Vital Signs Period Temp Pulse Resp BP Sys/Blake Pulse Ox Last 24 Hr 97.8 F-98.3 F 51-62 18-20 103-116/60-69 97-99 Gen: NAD at rest Heart: RRR Lung: decreased breath sounds at the bases Abd: soft, nontender Ext: no edema CBC, BMP 05/11/20 14:50 05/09/20 05:47 Active Medications Acetaminophen (Tylenol -) 650 mg PO Q4H PRN PRN Reason: PAIN Last Admin: 05/04/20 11:05 Dose: 650 mg Documented by: Amino Acids (Prosource No Carb Liquid Pkt) 30 ml PO BID@0800,1730 [facility] Last Admin: 05/14/20 09:37 Dose: 30 ml Documented by: Dexamethasone (Decadron -) 4 mg PO DAILY [facility] Last Admin: 05/14/20 09:37 Dose: 4 mg Documented by: Dronabinol (Marinol -) 2.5 mg PO DAILY [facility] Last Admin: 05/14/20 09:36 Dose: 2.5 mg Documented by: Lidocaine/Aluminum/Magnesium/Simeth (Magic Mouthwash *Sjr Formula* -) 5 ml MM Q6HPO [facility] Last Admin: 05/14/20 05:20 Dose: 5 ml Documented by: Nystatin (Nystatin Oral Suspension -) 500,000 units PO Q6HPO [facility] Last Admin: 05/14/20 05:20 Dose: 500,000 units Documented by: Pantoprazole Sodium (Protonix -) 40 mg PO DAILY [facility] Last Admin: 05/14/20 09:37 Dose: 40 mg Documented by: Phenol/Menthol (Chloraseptic -) 2 spray MM QID [facility] Last Admin: 05/14/20 09:37 Dose: 2 sprays Documented by: Trimethoprim/Sulfamethoxazole (Bactrim Ds -) 1 each PO MoWeFr@1000 [facility] Last Admin: 05/14/20 09:36 Dose: 1 each Documented by: A/P Pneumonia Hyponatremia improving Metastatic Lung Cancer Failure to Thrive Anemia - completed antibiotics - O2 to keep SpO2 >90% - PO as tolerated - DVT prophylaxis - d/c planning in progress
--- NOTE | 2020-05-14 11:17 | PN ---
Progress Note, Physician Chief Complaint: AMS Lethargy Hyponatremia RLL pneumonia History of Present Illness: NAD, lethargic for me today Appetite still decreased RD on board [place] completed 7 days - Current Medication List Current Medications: Active Medications Acetaminophen (Tylenol -) 650 mg PO Q4H PRN PRN Reason: PAIN Last Admin: 05/04/20 11:05 Dose: 650 mg Documented by: Amino Acids (Prosource No Carb Liquid Pkt) 30 ml PO BID@0800,1730 [facility] Last Admin: 05/14/20 09:37 Dose: 30 ml Documented by: Dexamethasone (Decadron -) 4 mg PO DAILY [facility] Last Admin: 05/14/20 09:37 Dose: 4 mg Documented by: Dronabinol (Marinol -) 2.5 mg PO DAILY [facility] Last Admin: 05/14/20 09:36 Dose: 2.5 mg Documented by: Lidocaine/Aluminum/Magnesium/Simeth (Magic Mouthwash *Sjr Formula* -) 5 ml MM Q6HPO [facility] Last Admin: 05/14/20 11:00 Dose: 5 ml Documented by: Nystatin (Nystatin Oral Suspension -) 500,000 units PO Q6HPO [facility] Last Admin: 05/14/20 11:00 Dose: 500,000 units Documented by: Pantoprazole Sodium (Protonix -) 40 mg PO DAILY [facility] Last Admin: 05/14/20 09:37 Dose: 40 mg Documented by: Phenol/Menthol (Chloraseptic -) 2 spray MM QID [facility] Last Admin: 05/14/20 09:37 Dose: 2 sprays Documented by: Trimethoprim/Sulfamethoxazole (Bactrim Ds -) 1 each PO MoWeFr@1000 [facility] Last Admin: 05/14/20 09:36 Dose: 1 each Documented by: - Objective Vital Signs: Vital Signs Temperature 97.9 F 05/14/20 10:01 Pulse Rate 58 L 05/14/20 10:01 Respiratory Rate 18 05/14/20 10:01 Blood Pressure 111/61 05/14/20 10:01 O2 Sat by Pulse Oximetry (%) 97 05/14/20 10:01 Constitutional: Yes: Well Nourished, No Distress, Calm Cardiovascular: Yes: Regular Rate and Rhythm Respiratory: Yes: Regular, CTA Bilaterally Gastrointestinal: Yes: Normal Bowel Sounds, Soft Musculoskeletal: Yes: Muscle Weakness Extremities: Yes: WNL Edema: No Peripheral Pulses WNL: Yes Neurological: Yes: Alert, Oriented Psychiatric: Yes: Alert, Oriented Labs: CBC, BMP 05/11/20 14:50 05/09/20 05:47 INR, PTT INR 1.12 (0.83-1.09) H 04/26/20 16:00 Problem List - Problems (1) Dehydration Assessment/Plan: -Resolved -Encourage PO intake -Marinol daily -Continue gentle IVF for now Problems reviewed: Yes Code(s): E86.0 - DEHYDRATION (2) Failure to thrive Assessment/Plan: -Po intake still decreased -Seen by speech pathology. -MBS x 2 negative for aspiration, but at risk for aspiration. -On dysphagia pureed diet. -May need PEG to meet nutritional demand. Family and pt refusing for now. Problems reviewed: Yes Code(s): [id number] - Qualifiers: Failure to thrive age range: in adult Qualified Code(s): R62.7 - Adult failure to thrive (3) Leukocytosis Assessment/Plan: -ID consult -Afebrile -Finished IV Rocephin -Cultures: Microbiology 04/28/20 15:30 Throat Throat Culture - Final Yeast Like Organism 04/27/20 03:50 Blood - Peripheral Venous Blood Culture - Preliminary NO GROWTH OBTAINED AFTER 96 HOURS, INCUBATION TO CONTINUE FOR 1 DAYS. 04/27/20 03:50 Blood - Peripheral Venous Blood Culture - Preliminary NO GROWTH OBTAINED AFTER 96 HOURS, INCUBATION TO CONTINUE FOR 1 DAYS. 04/28/20 21:51 Urine For Antigen Detection Legionella Antigen - Final 04/28/20 21:51 Urine For Antigen Detection Streptococcus pneumoniae Antigen (M - Final 04/26/20 19:50 Urine - Urine Clean Catch Urine Culture - Final Normal Urogenital Layla Problems reviewed: Yes Code(s): D72.829 - ELEVATED WHITE BLOOD CELL COUNT, UNSPECIFIED (4) Metastatic lung cancer (metastasis from lung to other site) Assessment/Plan: -CXR reviewed -Oncology consult -Palliative care consult -Brain MRI no new lesions -MRI L spine shows a lesion on spleen Problems reviewed: Yes Code(s): C34.90 - MALIGNANT NEOPLASM OF UNSP PART OF UNSP BRONCHUS OR LUNG (5) Pneumonia Assessment/Plan: -CXR BLL possible infiltrates -Pulmonary consult -Finished IV Rocephin -ID consult -afebrile -Monitor leukocytosis -Repeat CXR-no changes Problems reviewed: Yes Code(s): J18.9 - PNEUMONIA, UNSPECIFIED ORGANISM (6) Odynophagia Assessment/Plan: -Oral vs esophageal candidiasis? 2/2 to chemo + immunotherapy -Speech therapy consult appreciated -ENT consult appreciated -Tylenol for pain -Nystatin swish and swallow -magic mouthwash -Finished Diflucan -Throat culture yeast like org -MRI brain without contrast-reviewed -Added Chloroseptic throat spray tid Problems reviewed: Yes Code(s): R13.10 - DYSPHAGIA, UNSPECIFIED (7) Elevated LFTs Assessment/Plan: -U/S Liver negative for any acute pathology -resolved -monitor trend Problems reviewed: Yes Code(s): R79.89 - OTHER SPECIFIED ABNORMAL FINDINGS OF BLOOD CHEMISTRY (8) Weakness Assessment/Plan: -MRI brain without contrast unremarkable -EMG abnormal -Seen by Neurology - B12, thyroid profile was normal -Seen by Physiatry -MRI or CT L spine- Reviewed possible metastatic lesion on spleen, L spine negative for metatasis. -Updated Dr Abad and Dr Thapa at [facility] Problems reviewed: Yes Code(s): R53.1 - WEAKNESS (9) Sensorineural hearing loss (SNHL) of both ears Assessment/Plan: -Seen by ENT -Last audiogram 4 years ago showed significant bilateral hearing loss of 35-40 db. Problems reviewed: Yes Code(s): H90.3 - SENSORINEURAL HEARING LOSS, BILATERAL Assessment/Plan See problem list Spoke RN for Gregor Brandt at Updated Dr Sal Thapa at (alt ext [phone]) Spoke to Monique at [phone] about pt status. Awaiting COVID 19 PCR for DC to [facility] + DVT ppx
[2020-05-14] MEDS: ACETAMINOPHEN 325 MG TABLET (FP) PO PRN (18:55)
[2020-05-14] MEDS ORDERED: PT OWN MED DRAWER 7, Y5N ONE (22:31)
[2020-05-15] MEDS: MAG HYDROX/ALH/SMC/DPHA/LIDO 240 ML MOUTHWASH MM SCH ×3 (05:54→17:07)
[2020-05-15] MEDS: NYSTATIN 500,000 UNITS/5 ML SUSPENSION PO SCH ×3 (05:55→17:07)
[2020-05-15 06:26] VITALS: TEMP 97.4
[2020-05-15] MEDS: DRONABINOL 2.5 MG CAPSULE PO SCH (09:15)
[2020-05-15] MEDS: AMINO ACIDS/PROTEIN HYDROLYS 30 ML LIQUID.PKT PO SCH ×2 (09:15→16:34)
[2020-05-15] MEDS: PANTOPRAZOLE 40 MG TABLET PO SCH (09:15)
[2020-05-15] MEDS: PHENOL 177 ML SPRAY BOTTLE MM SCH ×3 (09:16→17:07)
[2020-05-15] MEDS: DEXAMETHASONE 4 MG TABLET (FP) PO SCH (09:16)
--- NOTE | 2020-05-15 10:11 | PN ---
Progress Note, Physician Chief Complaint: AMS Lethargy Hyponatremia RLL pneumonia History of Present Illness: NAD, lethargic Appetite still decreased RD on board Rocephin completed 7 days - Current Medication List Current Medications: Active Medications Acetaminophen (Tylenol -) 650 mg PO Q4H PRN PRN Reason: PAIN Last Admin: 05/14/20 18:55 Dose: 650 mg Documented by: Amino Acids (Prosource No Carb Liquid Pkt) 30 ml PO BID@0800,1730 [facility] Last Admin: 05/15/20 09:15 Dose: 30 ml Documented by: Dexamethasone (Decadron -) 4 mg PO DAILY [facility] Last Admin: 05/15/20 09:16 Dose: 4 mg Documented by: Dronabinol (Marinol -) 2.5 mg PO DAILY [facility] Last Admin: 05/15/20 09:15 Dose: 2.5 mg Documented by: Lidocaine/Aluminum/Magnesium/Simeth (Magic Mouthwash *Sjr Formula* -) 5 ml MM Q6HPO [facility] Last Admin: 05/15/20 05:54 Dose: 5 ml Documented by: Nystatin (Nystatin Oral Suspension -) 500,000 units PO Q6HPO [facility] Last Admin: 05/15/20 05:55 Dose: 500,000 units Documented by: Pantoprazole Sodium (Protonix -) 40 mg PO DAILY [facility] Last Admin: 05/15/20 09:15 Dose: 40 mg Documented by: Phenol/Menthol (Chloraseptic -) 2 spray MM QID [facility] Last Admin: 05/15/20 09:16 Dose: 2 sprays Documented by: Trimethoprim/Sulfamethoxazole (Bactrim Ds -) 1 each PO MoWeFr@1000 [facility] Last Admin: 05/14/20 09:36 Dose: 1 each Documented by: - Objective Vital Signs: Vital Signs Temperature 97.4 F L 05/15/20 06:00 Pulse Rate 55 L 05/15/20 06:00 Respiratory Rate 18 05/15/20 06:00 Blood Pressure 96/59 L 05/15/20 06:00 O2 Sat by Pulse Oximetry (%) 99 05/15/20 06:00 Constitutional: Yes: Well Nourished, No Distress, Calm Cardiovascular: Yes: Regular Rate and Rhythm Respiratory: Yes: Regular, CTA Bilaterally Gastrointestinal: Yes: Normal Bowel Sounds, Soft Genitourinary: Yes: Incontinence Musculoskeletal: Yes: Muscle Weakness Extremities: Yes: WNL Edema: No Peripheral Pulses WNL: Yes Neurological: Yes: Alert, Oriented Psychiatric: Yes: Alert, Oriented Labs: CBC, BMP 05/11/20 14:50 05/09/20 05:47 INR, PTT INR 1.12 (0.83-1.09) H 04/26/20 16:00 Problem List - Problems (1) Dehydration Assessment/Plan: -Resolved -Encourage PO intake -Marinol daily -Continue gentle IVF for now Problems reviewed: Yes Code(s): E86.0 - DEHYDRATION (2) Failure to thrive Assessment/Plan: -Po intake still decreased -Seen by speech pathology. -MBS x 2 negative for aspiration, but at risk for aspiration. -On dysphagia pureed diet. -May need PEG to meet nutritional demand. Family and pt refusing for now. Problems reviewed: Yes Code(s): MUS5001 - Qualifiers: Failure to thrive age range: in adult Qualified Code(s): R62.7 - Adult fail ure to thrive (3) Leukocytosis Assessment/Plan: -ID consult -Afebrile -Finished IV Rocephin -Cultures: Microbiology 04/28/20 15:30 Throat Throat Culture - Final Yeast Like Organism 04/27/20 03:50 Blood - Peripheral Venous Blood Culture - Preliminary NO GROWTH OBTAINED AFTER 96 HOURS, INCUBATION TO CONTINUE FOR 1 DAYS. 04/27/20 03:50 Blood - Peripheral Venous Blood Culture - Preliminary NO GROWTH OBTAINED AFTER 96 HOURS, INCUBATION TO CONTINUE FOR 1 DAYS. 04/28/20 21:51 Urine For Antigen Detection Legionella Antigen - Final 04/28/20 21:51 Urine For Antigen Detection Streptococcus pneumoniae Antigen (M - Final 04/26/20 19:50 Urine - Urine Clean Catch Urine Culture - Final Normal Urogenital Layla Problems reviewed: Yes Code(s): D72.829 - ELEVATED WHITE BLOOD CELL COUNT, UNSPECIFIED (4) Metastatic lung cancer (metastasis from lung to other site) Assessment/Plan: -CXR reviewed -Oncology consult -Palliative care consult -Brain MRI no new lesions -MRI L spine shows a lesion on spleen Problems reviewed: Yes Code(s): C34.90 - MALIGNANT NEOPLASM OF UNSP PART OF UNSP BRONCHUS OR LUNG (5) Pneumonia Assessment/Plan: -CXR BLL possible infiltrates -Pulmonary consult -Finished IV Rocephin -ID consult -afebrile -Monitor leukocytosis -Repeat CXR-no changes Problems reviewed: Yes Code(s): J18.9 - PNEUMONIA, UNSPECIFIED ORGANISM (6) Odynophagia Assessment/Plan: -Oral vs esophageal candidiasis? 2/2 to chemo + immunotherapy -Speech therapy consult appreciated -ENT consult appreciated -Tylenol for pain -Nystatin swish and swallow -magic mouthwash -Finished Diflucan -Throat culture yeast like org -MRI brain without contrast-reviewed -Added Chloroseptic throat spray tid Problems reviewed: Yes Code(s): R13.10 - DYSPHAGIA, UNSPECIFIED (7) Elevated LFTs Assessment/Plan: -U/S Liver negative for any acute pathology -resolved -monitor trend Problems reviewed: Yes Code(s): R79.89 - OTHER SPECIFIED ABNORMAL FINDINGS OF BLOOD CHEMISTRY (8) Weakness Assessment/Plan: -MRI brain without contrast unremarkable -EMG abnormal -Seen by Neurology - B12, thyroid profile was normal -Seen by Physiatry -MRI or CT L spine- Reviewed possible metastatic lesion on spleen, L spine negative for metatasis. -Updated Dr Abad and Dr Thapa at [facility] Problems reviewed: Yes Code(s): R53.1 - WEAKNESS (9) Sensorineural hearing loss (SNHL) of both ears Assessment/Plan: -Seen by ENT -Last audiogram 4 years ago showed significant bilateral hearing loss of 35-40 db. Problems reviewed: Yes Code(s): H90.3 - SENSORINEURAL HEARING LOSS, BILATERAL Assessment/Plan See problem list Spoke RN for Gregor Brandt at Updated Dr Sal Thapa at (alt ext [phone]) Spoke to Monique at [phone] about pt status. Awaiting COVID 19 PCR for DC to [facility] + DVT ppx
--- NOTE | 2020-05-15 10:30 | PN ---
Progress Note (short form) - Note Progress Note: PULMONARY No events overnight. Denies shortness of breath. No fevers recorded. Vital Signs Period Temp Pulse Resp BP Sys/Blake Pulse Ox Last 24 Hr 97.4 F-98.4 F 55-63 18-18 96-106/56-63 99-100 Gen: NAD at rest Heart: RRR Lung: decreased breath sounds at the bases Abd: soft, nontender Ext: no edema CBC, BMP 05/11/20 14:50 05/09/20 05:47 Active Medications Acetaminophen (Tylenol -) 650 mg PO Q4H PRN PRN Reason: PAIN Last Admin: 05/14/20 18:55 Dose: 650 mg Documented by: Amino Acids (Prosource No Carb Liquid Pkt) 30 ml PO BID@0800,1730 [facility] Last Admin: 05/15/20 09:15 Dose: 30 ml Documented by: Dexamethasone (Decadron -) 4 mg PO DAILY [facility] Last Admin: 05/15/20 09:16 Dose: 4 mg Documented by: Dronabinol (Marinol -) 2.5 mg PO DAILY [facility] Last Admin: 05/15/20 09:15 Dose: 2.5 mg Documented by: Lidocaine/Aluminum/Magnesium/Simeth (Magic Mouthwash *Sjr Formula* -) 5 ml MM Q6HPO [facility] Last Admin: 05/15/20 05:54 Dose: 5 ml Documented by: Nystatin (Nystatin Oral Suspension -) 500,000 units PO Q6HPO [facility] Last Admin: 05/15/20 05:55 Dose: 500,000 units Documented by: Pantoprazole Sodium (Protonix -) 40 mg PO DAILY [facility] Last Admin: 05/15/20 09:15 Dose: 40 mg Documented by: Phenol/Menthol (Chloraseptic -) 2 spray MM QID [facility] Last Admin: 05/15/20 09:16 Dose: 2 sprays Documented by: Trimethoprim/Sulfamethoxazole (Bactrim Ds -) 1 each PO MoWeFr@1000 [facility] Last Admin: 05/14/20 09:36 Dose: 1 each Documented by: A/P Pneumonia Hyponatremia improving Metastatic Lung Cancer Failure to Thrive Anemia - completed antibiotics - O2 to keep SpO2 >90% - PO as tolerated - DVT prophylaxis - d/c planning in progress
--- NOTE | 2020-05-15 11:09 | PN ---
Progress Note, [facility] - Note Progress Note: Selected Entries 05/10/20 05/10/20 05/10/20 05:50 07:32 09:29 Breakfast 25% Diet Tolerated Poor Temperature 97.9 F 98.3 F Blood Pressure 97/58 L 94/56 L Selected Entries 05/11/20 05/11/20 01:00 10:23 Breakfast 25% Diet Tolerated Poor Temperature 97.9 F Blood Pressure 98/59 L Metastatic Lung Cancer Failure to Thrive Po intake still decreased MBS x 2 negative for aspiration, but at risk for aspiration. -May benefit from supplemental PEG to meet nutritional demand. Family and pt refusing for now. Per RD- 3 day calorie count -Estimated intake average meets ~80% estimated caloric needs and 100% of protein needs. Doing OK with 2cal and IV fluids.Tolerating PO intake. Questionable if nutrition/hydration can be maintained upon d/c. Option of d/c, if medically stable, with possibility of PEG insertion when family decides. RD/Palliative care on case.
[2020-05-15 15:18] VITALS: BP 90/59; PULSE 60
== END 2020-05-15 18:25 | DRG 640 ==
LOC: JER 15:14 → JERBED 19:30 → J5S 04-27 02:11 → J7W 05-05 19:02
PROVIDERS: ADMIT Internal Medicine; ATTEND Family Medicine
PROC: 0CJS8ZZ Inspection of Larynx, Via Natural or Artificial Opening Endoscopic (ICD-10-PCS; principal; 2020-04-28)
DX: E86.0 Dehydration (principal); J18.9 Pneumonia, unspecified organism; C34.90 Malignant neoplasm of unspecified part of unspecified bronchus or lung; C79.31 Secondary malignant neoplasm of brain; E46 Unspecified protein-calorie malnutrition; Z68.1 Body mass index [BMI] 19.9 or less, adult; E87.1 Hypo-osmolality and hyponatremia; R62.7 Adult failure to thrive; E83.51 Hypocalcemia; D72.829 Elevated white blood cell count, unspecified; D64.9 Anemia, unspecified; R53.1 Weakness; R13.10 Dysphagia, unspecified; H90.3 Sensorineural hearing loss, bilateral; R79.89 Other specified abnormal findings of blood chemistry
CPT/HCPCS: 36415; 70450-TC; 70551-TC; 71045-TC-FY; 72148-TC; 74230-TC-FY; 76705-TC; 80053; 81003; 82085; 82550; 82553; 82607; 83605; 83615; 83690; 83735; 83874; 83880; 83930; 83935; 84300; 84439; 84443; 84484; 85025; 85610; 85730; 86850; 86900; 86901; 87040; 87070; 87077; 87086; 87899; 92611-GN; 93005; 93010; 94640; 95860-TC; 97116-GP; 97161-GP; 99285-25; J1644; U0003

== ENCOUNTER 2020-08-14 12:45 | Inpatient (IN) | payer BC, OTHER ==
[2020-08-14 13:22] VITALS: BMI 23.6
[2020-08-14] MEDS ORDERED: SODIUM CHLORIDE 2,368 ML IV ONE (13:31)
[2020-08-14] MEDS ORDERED: VANCOMYCIN 1 GM in D5W (PRE-DOCKED) 1,000 MG/250 ML IVPB ONE (13:44)
[2020-08-14] MEDS ORDERED: PIPERACILLIN/TAZOB 4.5 GM 4.5 GM in DEXTROSE 5%-WATER 100 ML IVPB ONE (13:44)
[2020-08-14] MEDS ORDERED: ACETAMINOPHEN 1000 MG/100 ML VIAL (NON FORMULARY) IVPB ONE (13:51)
[2020-08-14] MEDS ORDERED: ACETAMINOPHEN INJECTION 100 ML IVPB ONE (14:04)
[2020-08-14] MEDS ORDERED: PIPERACILLIN/TAZOB 4.5 GM 4.5 GM/100 ML BAG IVPB ONE ×2 (14:05→21:16)
[2020-08-14] MEDS ORDERED: VANCOMYCIN 1 GRAM (PRE-DOCKED) 1,000 MG/250 ML BAG IVPB ONE (14:05)
[2020-08-14 14:38] LABS: BASO % 0.4 % (0-2.0); HEMATOCRIT 36.9 % (35.4-49); HEMOGLOBIN 11.7 GM/dL (11.7-16.9); LYMPH % 2.6 % (8-40); MCH 30.6 pg (25.7-33.7); MCHC 31.8 g/dl (32.0-35.9); MEAN CELL VOLUME 96.3 fl (80-96); MEAN PLT VOLUME 6.8 fl (7.5-11.1); MONO % 3.1 % (3.8-10.2); NEUT % 93.9 % (42.8-82.8); PLATELET COUNT 413 K/MM3 (134-434); RBC 3.83 M/mm3 (4.00-5.60); RDW 17.3 % (11.9-15.9); WHITE BLOOD COUNT 16.8 K/mm3 (4.0-10.0)
[2020-08-14 14:44] LABS: INR 1.77 (0.83-1.09); PROTHROMBIN TIME (PATIENT) 21.1 SEC (9.7-13.0)
[2020-08-14 14:47] LABS: ACTIVATED PTT 35.1 SECONDS (25.2-36.5)
[2020-08-14 14:49] LABS: VENOUS O2 SATURATION 29.9 % (70-80); VENOUS PCO2 42.7 mmHg (38-52); VENOUS PH 7.373 (7.310-7.410)
[2020-08-14 15:09] LABS: POTASSIUM 4.9 mmol/L (3.5-5.1)
[2020-08-14 15:11] LABS: BLOOD UREA NITROGEN 24.2 mg/dL (7-18); CALCIUM 8.6 mg/dL (8.5-10.1)
[2020-08-14 15:14] LABS: CREATININE 1.2 mg/dL (0.55-1.3)
[2020-08-14 15:16] LABS: BILIRUBIN,TOTAL 0.6 mg/dL (0.2-1); TOT PROT 6.4 g/dl (6.4-8.2)
[2020-08-14 15:27] LABS: EPI CELLS 11 /uL (0-25.1); HYALINE CASTS 1 /uL (0-3.1); PH,URINE 7.5 (5.0-8.0); URINE APPEARANCE CLEAR; URINE BACTERIA 40 /uL (0-1359); URINE BILIRUBIN NEGATIVE (NEGATIVE); URINE COLOR YELLOW; URINE GLUCOSE (UA) NEGATIVE (NEGATIVE); URINE KETONE NEGATIVE (NEGATIVE); URINE LEUK ESTERASE TRACE (NEGATIVE); URINE NITRITE NEGATIVE (NEGATIVE); URINE PROTEIN NEGATIVE (NEGATIVE); URINE RBC 15 /uL (0-23.9); URINE UROBILINOGEN 0.2 mg/dL (0.2-1.0); URINE WBC 4 /uL (0-25.8)
[2020-08-14 15:48] LABS: ANISOCYTOSIS 1+; MACROCYTOSIS 0; OVALOCYTE 1+; PLATELET ESTIMATE NORMAL; TEAR DROP CELLS 1+
[2020-08-14] MEDS: SODIUM CHLORIDE 1,000 ML IV SCH (21:50)
[2020-08-14] MEDS: PIPERACILLIN/TAZOB 4.5 GM 4.5 GM in DEXTROSE 5%-WATER 100 ML IVPB SCH (21:51)
[2020-08-14] MEDS ORDERED: APIXABAN 5 MG TABLET ONE (22:40)
[2020-08-14] MEDS: APIXABAN 5 MG TABLET PO SCH (23:16)
[2020-08-15] MEDS ORDERED: VANCOMYCIN 1 GRAM (PRE-DOCKED) 1,000 MG/250 ML BAG IVPB ONE (03:33)
[2020-08-15] MEDS: VANCOMYCIN 1 GRAM (PRE-DOCKED) 1,000 MG/250 ML BAG IVPB SCH ×2 (03:42→14:47)
[2020-08-15] MEDS ORDERED: PIPERACILLIN/TAZOB 4.5 GM 4.5 GM/100 ML BAG IVPB ONE ×2 (04:51→08:41)
[2020-08-15] MEDS: PIPERACILLIN/TAZOB 4.5 GM 4.5 GM in DEXTROSE 5%-WATER 100 ML IVPB SCH ×5 (05:09→19:40)
[2020-08-15] MEDS ORDERED: DEXAMETHASONE 4 MG TABLET (FP) ONE (09:04)
[2020-08-15] MEDS ORDERED: APIXABAN 5 MG TABLET ONE (09:04)
[2020-08-15] MEDS: APIXABAN 5 MG TABLET PO SCH ×2 (09:31→21:17)
[2020-08-15] MEDS ORDERED: DEXAMETHASONE 4 MG TABLET (FP) PO SCH (10:00)
[2020-08-15 10:35] LABS: BASO % 1.2 % (0-2.0); EOS % 1.1 % (0-4.5); HEMATOCRIT 29.8 % (35.4-49); HEMOGLOBIN 9.9 GM/dL (11.7-16.9); LYMPH % 5.8 % (8-40); MCHC 33.3 g/dl (32.0-35.9); MEAN CELL VOLUME 96.1 fl (80-96); MEAN PLT VOLUME 6.5 fl (7.5-11.1); MONO % 5.7 % (3.8-10.2); NEUT % 86.2 % (42.8-82.8); PLATELET COUNT 308 K/MM3 (134-434); RDW 17.5 % (11.9-15.9); WHITE BLOOD COUNT 7.9 K/mm3 (4.0-10.0)
[2020-08-15 11:02] LABS: ANISOCYTOSIS 1+; MACROCYTOSIS 0; PLATELET ESTIMATE NORMAL
[2020-08-15 11:09] LABS: POTASSIUM 3.6 mmol/L (3.5-5.1)
[2020-08-15 11:15] LABS: ALBUMIN 2.5 g/dl (3.4-5.0); CALCIUM 7.3 mg/dL (8.5-10.1)
[2020-08-15 11:16] LABS: BLOOD UREA NITROGEN 19.5 mg/dL (7-18); MAGNESIUM 2.1 mg/dL (1.8-2.4)
[2020-08-15 11:20] LABS: BILIRUBIN,TOTAL 1.6 mg/dL (0.2-1)
[2020-08-15 11:21] LABS: TOT PROT 5.3 g/dl (6.4-8.2)
[2020-08-15] MEDS ORDERED: ALBUTEROL SO4 2.5/IPRATROPIUM 0.5 INH SOL 3 ML VIAL.NEB. NEB PRN (12:31)
[2020-08-15] MEDS ORDERED: PIPERACILLIN/TAZOBACTAM 4.5 GM VIAL IVPB ONE (14:33)
[2020-08-15] MEDS: D5-NS + 20 MEQ KCL - 20 MEQ/1,000 ML INFUS.BAG IV SCH (17:00)
[2020-08-15] MEDS: SODIUM CHLORIDE 1,000 ML IV SCH (19:15)
[2020-08-15] MEDS: VANCOMYCIN 1,000 MG in DEXTROSE 5%-WATER - 250 ML IVPB SCH ×2 (19:40→19:41)
[2020-08-16] MEDS ORDERED: DEXTROSE 5%-WATER 100 ML IVPB ONE ×3 (02:52→17:50)
[2020-08-16] MEDS ORDERED: PIPERACILLIN/TAZOBACTAM 4.5 GM VIAL IVPB ONE ×3 (02:52→17:50)
[2020-08-16] MEDS: PIPERACILLIN/TAZOB 4.5 GM 4.5 GM in DEXTROSE 5%-WATER 100 ML IVPB SCH ×3 (02:56→18:20)
[2020-08-16] MEDS: APIXABAN 5 MG TABLET PO SCH ×2 (10:00→21:30)
[2020-08-16] MEDS: DEXAMETHASONE 4 MG TABLET (FP) PO SCH (10:00)
[2020-08-16] MEDS: D5-NS + 20 MEQ KCL - 20 MEQ/1,000 ML INFUS.BAG IV SCH (18:20)
[2020-08-16] MEDS: SODIUM CHLORIDE 1,000 ML IV SCH (21:30)
[2020-08-17] MEDS ORDERED: DEXTROSE 5%-WATER 100 ML IVPB ONE ×3 (01:09→16:49)
[2020-08-17] MEDS ORDERED: PIPERACILLIN/TAZOBACTAM 4.5 GM VIAL IVPB ONE ×3 (01:09→16:49)
[2020-08-17] MEDS: PIPERACILLIN/TAZOB 4.5 GM 4.5 GM in DEXTROSE 5%-WATER 100 ML IVPB SCH ×3 (01:11→17:19)
[2020-08-17] MEDS: D5-NS + 20 MEQ KCL - 20 MEQ/1,000 ML INFUS.BAG IV SCH ×2 (05:21→17:19)
[2020-08-17] MEDS ORDERED: AMINO ACIDS/PROTEIN HYDROLYS 30 ML LIQUID.PKT PO SCH (08:00)
[2020-08-17] MEDS: APIXABAN 5 MG TABLET PO SCH ×2 (09:29→21:29)
[2020-08-17] MEDS: DEXAMETHASONE 4 MG TABLET (FP) PO SCH (09:29)
[2020-08-17] MEDS ORDERED: MULTIVIT-MINERALS ORAL LIQUID PO SCH (10:00)
[2020-08-17] MEDS ORDERED: ALBUTEROL SO4 2.5/IPRATROPIUM 0.5 INH SOL 3 ML VIAL.NEB. NEB PRN (13:01)
[2020-08-17] MEDS ORDERED: SODIUM CHLORIDE 1,000 ML IV SCH (13:01)
[2020-08-17] MEDS: ACETAMINOPHEN 325 MG TABLET (FP) PO PRN (17:58)
[2020-08-18] MEDS ORDERED: PIPERACILLIN/TAZOBACTAM 4.5 GM VIAL IVPB ONE ×3 (01:28→17:04)
[2020-08-18] MEDS ORDERED: DEXTROSE 5%-WATER 100 ML IVPB ONE ×3 (01:29→17:04)
[2020-08-18] MEDS: PIPERACILLIN/TAZOB 4.5 GM 4.5 GM in DEXTROSE 5%-WATER 100 ML IVPB SCH ×3 (02:01→17:08)
[2020-08-18] MEDS ORDERED: PT OWN MED DRAWER 7, Y5N ONE (09:14)
[2020-08-18] MEDS: DEXAMETHASONE 4 MG TABLET (FP) PO SCH (09:21)
[2020-08-18] MEDS: APIXABAN 5 MG TABLET PO SCH ×2 (09:21→21:29)
[2020-08-18] MEDS: AMINO ACIDS/PROTEIN HYDROLYS 30 ML LIQUID.PKT PO SCH (09:22)
[2020-08-18] MEDS: MULTIVIT-MINERALS ORAL LIQUID PO SCH (09:23)
[2020-08-18 09:43] LABS: HEMATOCRIT 31.3 % (35.4-49); HEMOGLOBIN 10.4 GM/dL (11.7-16.9); MCH 32.2 pg (25.7-33.7); MCHC 33.2 g/dl (32.0-35.9); MEAN PLT VOLUME 7.5 fl (7.5-11.1); PLATELET COUNT 317 K/MM3 (134-434); RBC 3.23 M/mm3 (4.00-5.60); WHITE BLOOD COUNT 8.6 K/mm3 (4.0-10.0)
[2020-08-18 10:12] LABS: POTASSIUM 3.9 mmol/L (3.5-5.1)
[2020-08-18 10:18] LABS: ALBUMIN 2.5 g/dl (3.4-5.0); BLOOD UREA NITROGEN 10.6 mg/dL (7-18); CALCIUM 8.6 mg/dL (8.5-10.1)
[2020-08-18 10:21] LABS: CREATININE 0.8 mg/dL (0.55-1.3)
[2020-08-18 10:23] LABS: BILIRUBIN,TOTAL 0.5 mg/dL (0.2-1); TOT PROT 5.5 g/dl (6.4-8.2)
[2020-08-18] MEDS: D5-NS + 20 MEQ KCL - 20 MEQ/1,000 ML INFUS.BAG IV SCH (13:48)
[2020-08-19] MEDS ORDERED: DEXTROSE 5%-WATER 100 ML IVPB ONE ×3 (02:04→17:06)
[2020-08-19] MEDS ORDERED: PIPERACILLIN/TAZOBACTAM 4.5 GM VIAL IVPB ONE ×3 (02:04→17:06)
[2020-08-19] MEDS: PIPERACILLIN/TAZOB 4.5 GM 4.5 GM in DEXTROSE 5%-WATER 100 ML IVPB SCH ×3 (02:08→17:14)
[2020-08-19] MEDS ORDERED: PT OWN MED DRAWER 7, Y5N ONE (10:01)
[2020-08-19] MEDS: APIXABAN 5 MG TABLET PO SCH ×2 (10:09→22:32)
[2020-08-19] MEDS: MULTIVIT-MINERALS ORAL LIQUID PO SCH (10:09)
[2020-08-19] MEDS: DEXAMETHASONE 4 MG TABLET (FP) PO SCH (10:09)
[2020-08-19] MEDS: AMINO ACIDS/PROTEIN HYDROLYS 30 ML LIQUID.PKT PO SCH (10:09)
[2020-08-19] MEDS: D5-NS + 20 MEQ KCL - 20 MEQ/1,000 ML INFUS.BAG IV SCH ×2 (11:26→17:13)
[2020-08-19] MEDS: ACETAMINOPHEN 325 MG TABLET (FP) PO PRN (22:31)
[2020-08-20] MEDS ORDERED: PIPERACILLIN/TAZOBACTAM 4.5 GM VIAL IVPB ONE ×3 (01:34→17:45)
[2020-08-20] MEDS ORDERED: DEXTROSE 5%-WATER 100 ML IVPB ONE ×3 (01:34→17:45)
[2020-08-20] MEDS: PIPERACILLIN/TAZOB 4.5 GM 4.5 GM in DEXTROSE 5%-WATER 100 ML IVPB SCH ×3 (02:23→17:53)
[2020-08-20] MEDS ORDERED: PT OWN MED DRAWER 7, Y5N ONE (10:07)
[2020-08-20] MEDS: MULTIVIT-MINERALS ORAL LIQUID PO SCH (10:17)
[2020-08-20] MEDS: AMINO ACIDS/PROTEIN HYDROLYS 30 ML LIQUID.PKT PO SCH (10:17)
[2020-08-20] MEDS: DEXAMETHASONE 4 MG TABLET (FP) PO SCH (10:17)
[2020-08-20] MEDS: APIXABAN 5 MG TABLET PO SCH ×2 (10:18→21:41)
[2020-08-20] MEDS ORDERED: HEPARIN NA (PORCINE) 5,000 UNITS/ML 1ML VIAL ONE (16:13)
[2020-08-20] MEDS ORDERED: LIDOCAINE HCL 1%, 10 MG/ML (20ML VIAL) ONE (16:13)
[2020-08-20] MEDS: D5-NS + 20 MEQ KCL - 20 MEQ/1,000 ML INFUS.BAG IV SCH (17:53)
[2020-08-21] MEDS ORDERED: PIPERACILLIN/TAZOBACTAM 4.5 GM VIAL IVPB ONE ×2 (01:05→10:33)
[2020-08-21] MEDS ORDERED: DEXTROSE 5%-WATER 100 ML IVPB ONE ×2 (01:05→10:33)
[2020-08-21] MEDS: PIPERACILLIN/TAZOB 4.5 GM 4.5 GM in DEXTROSE 5%-WATER 100 ML IVPB SCH ×2 (01:15→10:36)
[2020-08-21] MEDS ORDERED: PT OWN MED DRAWER 7, Y5N ONE (10:33)
[2020-08-21] MEDS: DEXAMETHASONE 4 MG TABLET (FP) PO SCH (10:36)
[2020-08-21] MEDS: AMINO ACIDS/PROTEIN HYDROLYS 30 ML LIQUID.PKT PO SCH (10:36)
[2020-08-21] MEDS: APIXABAN 5 MG TABLET PO SCH (10:37)
[2020-08-21] MEDS: MULTIVIT-MINERALS ORAL LIQUID PO SCH (10:37)
[2020-08-21 13:13] VITALS: TEMP 98.2
[2020-08-21 13:20] VITALS: BP 97/64; PULSE 64
== END 2020-08-21 13:10 | disposition home health service (06) | DRG 871 ==
LOC: JER 12:45 → JERBED 19:12 → J4W 08-15 13:28 → J8W 08-17 12:32
PROVIDERS: ADMIT Internal Medicine; ATTEND Family Medicine
DX: A41.9 Sepsis, unspecified organism (principal); G93.41 Metabolic encephalopathy; J96.01 Acute respiratory failure with hypoxia; J69.0 Pneumonitis due to inhalation of food and vomit; E87.2 Acidosis; E87.1 Hypo-osmolality and hyponatremia; J98.11 Atelectasis; R64 Cachexia; Z85.118 Personal history of other malignant neoplasm of bronchus and lung; Z85.841 Personal history of malignant neoplasm of brain; R00.0 Tachycardia, unspecified; D72.829 Elevated white blood cell count, unspecified; J44.9 Chronic obstructive pulmonary disease, unspecified; R41.82 Altered mental status, unspecified; R62.7 Adult failure to thrive; Z68.23 Body mass index [BMI] 23.0-23.9, adult
CPT/HCPCS: 36415; 70450-TC; 71045-TC-FY; 71275-TC; 74177-TC; 80053; 81003; 82728; 82803; 83605; 83615; 83735; 84484; 85025; 85027; 85610; 85730; 86140; 87040; 87086; 87804; 87899; 93005; 93010; 97162-GP; 99291; C9803; J0131; J1644; Q9967; U0003

== ENCOUNTER 2021-04-11 14:49 | Inpatient (IN) | payer BC, OTHER ==
[2021-04-11] MEDS ORDERED: ONDANSETRON 4 MG/2 ML VIAL IVPUSH ONE (18:01)
[2021-04-11] MEDS ORDERED: morphine CARPU-JECT 4 MG/1 ML DISP.SYRIN IVPUSH ONE (18:01)
[2021-04-11] MEDS ORDERED: ONDANSETRON 4 MG/2 ML VIAL ONE (18:21)
[2021-04-11] MEDS ORDERED: morphine SULFATE 4 MG/ML VIAL ONE (18:21)
[2021-04-11] MEDS ORDERED: LACTATED RINGERS SOLUTION 1000 ML INFUS.BAG IV ONE (18:36)
[2021-04-11 19:32] LABS: BASO % 0.1 % (0-2.0); EOS % 0.7 % (0-4.5); HEMATOCRIT 40.1 % (35.4-49); HEMOGLOBIN 13.1 GM/dL (11.7-16.9); LYMPH % 4.1 % (8-40); MCH 31.6 pg (25.7-33.7); MCHC 32.6 g/dl (32.0-35.9); MEAN CELL VOLUME 96.8 fl (80-96); MONO % 2.9 % (3.8-10.2); NEUT % 92.2 % (42.8-82.8); PLATELET COUNT 291 10^3/uL (134-434); RBC 4.14 M/mm3 (4.00-5.60); RDW 17.1 % (11.9-15.9); WHITE BLOOD COUNT 13.9 K/mm3 (4.0-10.0)
[2021-04-11 19:50] LABS: CHLORIDE 104 mmol/L (98-107); SODIUM 137 mmol/L (136-145)
[2021-04-11 19:51] LABS: INR 1.23 (0.83-1.09); PROTHROMBIN TIME (PATIENT) 14.8 SEC (9.7-13.0)
[2021-04-11 19:54] LABS: ACTIVATED PTT 30.1 SECONDS (25.2-36.5); ANION GAP 9 MMOL/L (8-16); BLOOD UREA NITROGEN 21.6 mg/dL (7-18); CALCIUM 8.3 mg/dL (8.5-10.1); CO2 24 mmol/L (21-32)
[2021-04-11 19:55] LABS: GLUCOSE,RANDOM 99 mg/dL (74-106)
[2021-04-11 19:58] LABS: CREATININE 0.7 mg/dL (0.55-1.3); SGOT/AST 42 U/L (15-37); SGPT/ALT 42 U/L (13-61)
[2021-04-11 19:59] LABS: TOT PROT 6.6 g/dl (6.4-8.2)
[2021-04-11 20:00] LABS: ALK PHOS 86 U/L (45-117)
[2021-04-11 20:32] LABS: ANISOCYTOSIS 2+; MACROCYTOSIS 0; PLATELET ESTIMATE NORMAL
[2021-04-11 22:31] LABS: PH,URINE 5.5 (5.0-8.0); URINE APPEARANCE CLEAR; URINE BILIRUBIN NEGATIVE (NEGATIVE); URINE COLOR YELLOW; URINE GLUCOSE (UA) NEGATIVE (NEGATIVE); URINE KETONE NEGATIVE (NEGATIVE); URINE LEUK ESTERASE NEGATIVE (NEGATIVE); URINE NITRITE NEGATIVE (NEGATIVE); URINE PROTEIN NEGATIVE (NEGATIVE); URINE UROBILINOGEN 0.2 mg/dL (0.2-1.0)
[2021-04-11] MEDS ORDERED: SODIUM PHOSPHATE/NA BIPHOS 133 ML ENEMA PR ONE (22:31)
[2021-04-11] MEDS ORDERED: SENNOSIDES 8.6MG TABLET (FP) PO PRN (23:55)
[2021-04-12] MEDS ORDERED: SODIUM CHLORIDE 1,000 ML IV SCH (05:45)
[2021-04-12] MEDS ORDERED: ALBUTEROL SO4 2.5/IPRATROPIUM 0.5 INH SOL 3 ML VIAL.NEB. NEB PRN (06:06)
[2021-04-12] MEDS ORDERED: ACETAMINOPHEN 1000 MG/100 ML VIAL (NON FORMULARY) IVPB PRN (08:56)
[2021-04-12] MEDS ORDERED: MORPHINE SULFATE 2 MG/ML VIAL IVPUSH PRN (08:56)
[2021-04-12 09:20] LABS: BASO % 0.3 % (0-2.0); EOS % 0.8 % (0-4.5); HEMATOCRIT 36.3 % (35.4-49); HEMOGLOBIN 11.6 GM/dL (11.7-16.9); LYMPH % 4.4 % (8-40); MCH 31.2 pg (25.7-33.7); MCHC 32.1 g/dl (32.0-35.9); MEAN CELL VOLUME 97.4 fl (80-96); MONO % 4.8 % (3.8-10.2); NEUT % 89.7 % (42.8-82.8); PLATELET COUNT 255 10^3/uL (134-434); RBC 3.73 M/mm3 (4.00-5.60); RDW 16.5 % (11.9-15.9); WHITE BLOOD COUNT 12.7 K/mm3 (4.0-10.0)
[2021-04-12 09:42] LABS: CREATININE 0.5 mg/dL (0.55-1.3)
[2021-04-12] MEDS: APIXABAN 5 MG TABLET PO SCH ×2 (10:36→21:49)
[2021-04-12] MEDS: LIDOCAINE 5% TOPICAL PATCH TP SCH (10:37)
[2021-04-12 12:29] LABS: ANISOCYTOSIS 1+; MACROCYTOSIS 1+; PLATELET ESTIMATE NORMAL
[2021-04-12] MEDS: GABAPENTIN 100 MG CAPSULE PO SCH ×2 (15:38→21:49)
[2021-04-12] MEDS ORDERED: LIDOCAINE PATCH REMOVAL MC SCH (22:00)
[2021-04-13] MEDS: GABAPENTIN 100 MG CAPSULE PO SCH ×3 (05:41→22:01)
[2021-04-13] MEDS: APIXABAN 5 MG TABLET PO SCH ×2 (09:53→22:02)
[2021-04-13] MEDS: LIDOCAINE 5% TOPICAL PATCH TP SCH (09:53)
[2021-04-13] MEDS ORDERED: levETIRAcetam 500 MG/5 ML INJECTION VIAL IVPB ONE (17:09)
[2021-04-13 17:24] LABS: ARTERIAL BLD GAS O2 SATURATION 98.8 mmHg (95-98); ARTERIAL BLOOD GAS BASE EXCESS 0.4 mmol/L (-2-2); ARTERIAL BLOOD GAS PO2 131.9 mmHg (80-100); ARTERIAL BLOOD GAS pH 7.455 (7.350-7.450)
[2021-04-13] MEDS ORDERED: MORPHINE SULFATE 2 MG/ML VIAL IVPUSH PRN (19:06)
[2021-04-13] MEDS ORDERED: SENNOSIDES 8.6MG TABLET (FP) PO PRN (19:06)
[2021-04-13] MEDS ORDERED: LIDOCAINE PATCH REMOVAL MC SCH (22:00)
[2021-04-13] MEDS ORDERED: levETIRAcetam 500 MG/5 ML INJECTION VIAL IVPB SCH (22:00)
[2021-04-13] MEDS: levETIRAcetam 500 MG/5 ML INJECTION VIAL IVPB SCH (22:01)
[2021-04-13] MEDS: LIDOCAINE PATCH REMOVAL MC SCH (22:02)
[2021-04-14] MEDS: GABAPENTIN 100 MG CAPSULE PO SCH ×3 (06:09→21:49)
[2021-04-14 08:04] LABS: BASO % 1.1 % (0-2.0); EOS % 1.5 % (0-4.5); HEMOGLOBIN 11.1 GM/dL (11.7-16.9); LYMPH % 6.5 % (8-40); MCH 31.6 pg (25.7-33.7); MCHC 32.6 g/dl (32.0-35.9); MEAN CELL VOLUME 97.1 fl (80-96); MEAN PLT VOLUME 6.8 fl (7.5-11.1); MONO % 8.7 % (3.8-10.2); NEUT % 82.2 % (42.8-82.8); PLATELET COUNT 242 10^3/uL (134-434); RDW 16.5 % (11.9-15.9); WHITE BLOOD COUNT 8.7 K/mm3 (4.0-10.0)
[2021-04-14 08:16] LABS: CHLORIDE 106 mmol/L (98-107); SODIUM 139 mmol/L (136-145)
[2021-04-14 08:19] LABS: ANION GAP 9 MMOL/L (8-16); BLOOD UREA NITROGEN 15.9 mg/dL (7-18); CO2 24 mmol/L (21-32); GLUCOSE,RANDOM 112 mg/dL (74-106)
[2021-04-14 08:22] LABS: CREATININE 0.6 mg/dL (0.55-1.3); SGOT/AST 16 U/L (15-37); SGPT/ALT 26 U/L (13-61)
[2021-04-14 08:24] LABS: BILIRUBIN,TOTAL 0.7 mg/dL (0.2-1); TOT PROT 5.1 g/dl (6.4-8.2)
[2021-04-14 08:25] LABS: ALK PHOS 64 U/L (45-117)
[2021-04-14 08:31] LABS: ALBUMIN 2.2 g/dl (3.4-5.0)
[2021-04-14] MEDS: levETIRAcetam 500 MG/5 ML INJECTION VIAL IVPB SCH ×2 (09:13→21:49)
[2021-04-14] MEDS: ASCORBIC ACID 500 MG TABLET (FP) PO SCH (09:13)
[2021-04-14] MEDS: APIXABAN 5 MG TABLET PO SCH ×2 (09:13→21:49)
[2021-04-14] MEDS: LIDOCAINE 5% TOPICAL PATCH TP SCH (09:13)
[2021-04-14 10:10] LABS: ANISOCYTOSIS 0; MACROCYTOSIS 0; PLATELET ESTIMATE NORMAL
[2021-04-14] MEDS: LIDOCAINE PATCH REMOVAL MC SCH (22:00)
[2021-04-15] MEDS: GABAPENTIN 100 MG CAPSULE PO SCH ×3 (06:08→21:34)
[2021-04-15] MEDS ORDERED: ACETAMINOPHEN 325 MG TABLET (FP) ONE (08:45)
[2021-04-15] MEDS ORDERED: METOPROLOL TARTRATE 5 MG/5 ML VIAL IVPUSH PRN ×2 (09:19→17:59)
[2021-04-15] MEDS: LIDOCAINE 5% TOPICAL PATCH TP SCH (09:36)
[2021-04-15] MEDS: ASCORBIC ACID 500 MG TABLET (FP) PO SCH (09:36)
[2021-04-15] MEDS: APIXABAN 5 MG TABLET PO SCH ×2 (09:36→21:34)
[2021-04-15] MEDS: levETIRAcetam 500 MG/5 ML INJECTION VIAL IVPB SCH ×2 (09:36→21:34)
[2021-04-15] MEDS: ALBUTEROL SO4 2.5/IPRATROPIUM 0.5 INH SOL 3 ML VIAL.NEB. NEB PRN ×2 (11:38→20:47)
[2021-04-15] MEDS ORDERED: traMADol HCL 50 MG TABLET PO PRN (13:52)
[2021-04-15] MEDS: LIDOCAINE PATCH REMOVAL MC SCH (21:36)
[2021-04-15] MEDS ORDERED: ACETAMINOPHEN 1000 MG/100 ML VIAL (NON FORMULARY) IVPB ONE (23:21)
[2021-04-16] MEDS ORDERED: SODIUM CHLORIDE 1,000 ML IV STA ×2 (01:47→03:41)
[2021-04-16] MEDS ORDERED: PIPERACILLIN/TAZOB 3.375 GM 3.375 GM in DEXTROSE 5%-WATER - 50 ML IVPB SCH (02:15)
[2021-04-16] MEDS ORDERED: VANCOMYCIN 1 GM in D5W (PRE-DOCKED) 1,000 MG/250 ML IVPB ONE (02:30)
[2021-04-16] MEDS ORDERED: PIPERACILLIN/TAZOBACTAM 3.375 GM VIAL IVPB ONE ×3 (02:31→16:53)
[2021-04-16] MEDS: ALBUTEROL SO4 2.5/IPRATROPIUM 0.5 INH SOL 3 ML VIAL.NEB. NEB PRN ×2 (02:31→20:22)
[2021-04-16] MEDS ORDERED: DEXTROSE 5%-WATER - 50 ML IVPB ONE ×3 (02:32→16:53)
[2021-04-16 02:34] LABS: BASO % 0.5 % (0-2.0); EOS % 0.7 % (0-4.5); HEMATOCRIT 33.1 % (35.4-49); HEMOGLOBIN 10.7 GM/dL (11.7-16.9); LYMPH % 5.2 % (8-40); MCH 32.3 pg (25.7-33.7); MCHC 32.3 g/dl (32.0-35.9); MEAN PLT VOLUME 7.6 fl (7.5-11.1); MONO % 5.8 % (3.8-10.2); NEUT % 87.8 % (42.8-82.8); PLATELET COUNT 188 10^3/uL (134-434); RBC 3.31 M/mm3 (4.00-5.60); RDW 16.7 % (11.9-15.9)
[2021-04-16 02:42] LABS: INR 2.29 (0.83-1.09)
[2021-04-16 02:44] LABS: ACTIVATED PTT 31.4 SECONDS (25.2-36.5)
[2021-04-16] MEDS: KETOROLAC TROMETHAMINE 30 MG/1 ML VIAL IVPUSH SCH (02:45)
[2021-04-16] MEDS: PIPERACILLIN/TAZOB 3.375 GM 3.375 GM in DEXTROSE 5%-WATER - 50 ML IVPB SCH ×3 (02:46→18:36)
[2021-04-16 02:53] LABS: CHLORIDE 106 mmol/L (98-107); SODIUM 139 mmol/L (136-145)
[2021-04-16 02:55] LABS: CALCIUM 8.2 mg/dL (8.5-10.1)
[2021-04-16 02:56] LABS: ANION GAP 12 MMOL/L (8-16); BLOOD UREA NITROGEN 24.6 mg/dL (7-18); CO2 21 mmol/L (21-32); GLUCOSE,RANDOM 135 mg/dL (74-106); MAGNESIUM 1.9 mg/dL (1.8-2.4)
[2021-04-16 02:59] LABS: CREATININE 1.6 mg/dL (0.55-1.3); PHOSPHOROUS 3.7 mg/dL (2.5-4.9); SGOT/AST 19 U/L (15-37); SGPT/ALT 22 U/L (13-61)
[2021-04-16 03:02] LABS: ALK PHOS 63 U/L (45-117)
[2021-04-16 03:08] LABS: ARTERIAL BLD GAS O2 SATURATION 97.9 mmHg (95-98); ARTERIAL BLOOD GAS BASE EXCESS -3.6 mmol/L (-2-2); ARTERIAL BLOOD GAS PO2 108.8 mmHg (80-100); ARTERIAL BLOOD GAS pH 7.381 (7.350-7.450)
[2021-04-16 03:09] LABS: ALLENS TEST POSITIVE
[2021-04-16] MEDS ORDERED: SODIUM CHLORIDE 500 ML IV STA (03:40)
[2021-04-16 04:59] LABS: ERYTHROCYTE SEDIMENTATION RATE 109 mm/hr (0-20)
[2021-04-16 05:21] LABS: ANISOCYTOSIS 2+; MACROCYTOSIS 2+; PLATELET ESTIMATE NORMAL
[2021-04-16] MEDS: GABAPENTIN 100 MG CAPSULE PO SCH ×4 (05:32→22:38)
[2021-04-16 09:07] LABS: BASO % 0.5 % (0-2.0); EOS % 4.4 % (0-4.5); HEMATOCRIT 31.9 % (35.4-49); HEMOGLOBIN 10.1 GM/dL (11.7-16.9); LYMPH % 8.1 % (8-40); MCH 31.7 pg (25.7-33.7); MCHC 31.8 g/dl (32.0-35.9); MEAN CELL VOLUME 99.8 fl (80-96); MONO % 5.5 % (3.8-10.2); NEUT % 81.5 % (42.8-82.8); PLATELET COUNT 228 10^3/uL (134-434); RDW 16.7 % (11.9-15.9); WHITE BLOOD COUNT 6.9 K/mm3 (4.0-10.0)
[2021-04-16 10:04] LABS: ALBUMIN 1.8 g/dl (3.4-5.0); BLOOD UREA NITROGEN 21.6 mg/dL (7-18); CALCIUM 7.4 mg/dL (8.5-10.1)
[2021-04-16 10:08] LABS: CREATININE 1.3 mg/dL (0.55-1.3); TOT PROT 4.6 g/dl (6.4-8.2)
[2021-04-16 10:09] LABS: BILIRUBIN,TOTAL 0.8 mg/dL (0.2-1)
[2021-04-16] MEDS: ASCORBIC ACID 500 MG TABLET (FP) PO SCH (10:24)
[2021-04-16] MEDS: levETIRAcetam 500 MG/5 ML INJECTION VIAL IVPB SCH ×2 (10:25→21:42)
[2021-04-16] MEDS: LIDOCAINE 5% TOPICAL PATCH TP SCH (10:25)
[2021-04-16] MEDS: APIXABAN 5 MG TABLET PO SCH ×3 (10:25→22:38)
[2021-04-16 12:21] LABS: LACTIC ACID 2.1 mmol/L (0.4-2.0)
[2021-04-16 13:13] LABS: EPI CELLS 1 /uL (0-25.1); HYALINE CASTS 1 /uL (0-3.1); URINE APPEARANCE CLEAR; URINE BACTERIA 7 /uL (0-1359); URINE BILIRUBIN 1+ (NEGATIVE); URINE COLOR DK YELLOW; URINE GLUCOSE (UA) NEGATIVE (NEGATIVE); URINE KETONE NEGATIVE (NEGATIVE); URINE LEUK ESTERASE NEGATIVE (NEGATIVE); URINE NITRITE NEGATIVE (NEGATIVE); URINE PROTEIN NEGATIVE (NEGATIVE); URINE RBC 40 /uL (0-23.9); URINE WBC 1 /uL (0-25.8)
[2021-04-16] MEDS ORDERED: SODIUM CHLORIDE 1,000 ML IV SCH (14:30)
[2021-04-16 19:42] LABS: EPI CELLS 10 /uL (0-25.1); HYALINE CASTS 4 /uL (0-3.1); PH,URINE 5.5 (5.0-8.0); URINE APPEARANCE TURBID; URINE BACTERIA 6 /uL (0-1359); URINE BILIRUBIN NEGATIVE (NEGATIVE); URINE COLOR YELLOW; URINE GLUCOSE (UA) NEGATIVE (NEGATIVE); URINE KETONE NEGATIVE (NEGATIVE); URINE LEUK ESTERASE 2+ (NEGATIVE); URINE NITRITE NEGATIVE (NEGATIVE); URINE PROTEIN TRACE (NEGATIVE); URINE RBC 460 /uL (0-23.9); URINE WBC 60 /uL (0-25.8)
[2021-04-16 20:53] LABS: YEAST NONE SEEN (NEGATIVE)
[2021-04-16] MEDS: LIDOCAINE PATCH REMOVAL MC SCH (21:43)
[2021-04-17] MEDS ORDERED: PIPERACILLIN/TAZOBACTAM 3.375 GM VIAL IVPB ONE ×3 (00:43→17:55)
[2021-04-17] MEDS ORDERED: DEXTROSE 5%-WATER - 50 ML IVPB ONE ×3 (00:43→17:56)
[2021-04-17] MEDS: PIPERACILLIN/TAZOB 3.375 GM 3.375 GM in DEXTROSE 5%-WATER - 50 ML IVPB SCH ×3 (01:03→18:42)
[2021-04-17] MEDS: GABAPENTIN 100 MG CAPSULE PO SCH ×3 (05:59→23:31)
[2021-04-17 08:04] LABS: ALBUMIN 1.7 g/dl (3.4-5.0); CALCIUM 7.1 mg/dL (8.5-10.1)
[2021-04-17 08:05] LABS: BLOOD UREA NITROGEN 21.5 mg/dL (7-18)
[2021-04-17 08:08] LABS: CREATININE 0.8 mg/dL (0.55-1.3)
[2021-04-17 08:09] LABS: BILIRUBIN,TOTAL 0.5 mg/dL (0.2-1); TOT PROT 4.4 g/dl (6.4-8.2)
[2021-04-17] MEDS ORDERED: SODIUM CHLORIDE 0.45%/POT 20 MEQ/1,000 ML INFUS.BAG IV SCH (09:30)
[2021-04-17] MEDS: KCL 10 MEQ IVPB 10 MEQ/100 ML INFUS.BAG IVPB SCH ×5 (09:30→18:57)
[2021-04-17] MEDS: ASCORBIC ACID 500 MG TABLET (FP) PO SCH (10:45)
[2021-04-17] MEDS: APIXABAN 5 MG TABLET PO SCH ×2 (10:45→23:31)
[2021-04-17] MEDS: levETIRAcetam 500 MG/5 ML INJECTION VIAL IVPB SCH ×2 (10:45→22:34)
[2021-04-17] MEDS: LIDOCAINE 5% TOPICAL PATCH TP SCH (10:45)
[2021-04-17] MEDS ORDERED: KCL 10 MEQ IVPB 10 MEQ/100 ML INFUS.BAG IVPB SCH (15:00)
[2021-04-17] MEDS: KETOROLAC TROMETHAMINE 30 MG/1 ML VIAL IVPUSH SCH ×2 (20:19→20:27)
[2021-04-17] MEDS ORDERED: ENOXAPARIN NA (PORCINE) 40 MG/0.4 ML DISP.SYRIN SQ SCH (23:32)
[2021-04-18] MEDS: LIDOCAINE PATCH REMOVAL MC SCH ×2 (00:05→23:04)
[2021-04-18] MEDS ORDERED: PIPERACILLIN/TAZOBACTAM 3.375 GM VIAL IVPB ONE ×3 (00:46→16:52)
[2021-04-18] MEDS ORDERED: DEXTROSE 5%-WATER - 50 ML IVPB ONE ×3 (00:46→16:52)
[2021-04-18] MEDS: ENOXAPARIN NA (PORCINE) 40 MG/0.4 ML DISP.SYRIN SQ SCH ×2 (00:54→09:17)
[2021-04-18] MEDS: PIPERACILLIN/TAZOB 3.375 GM 3.375 GM in DEXTROSE 5%-WATER - 50 ML IVPB SCH ×3 (02:54→17:05)
[2021-04-18] MEDS: GABAPENTIN 100 MG CAPSULE PO SCH (06:05)
[2021-04-18 07:42] LABS: BASO % 0.8 % (0-2.0); EOS % 2.3 % (0-4.5); HEMATOCRIT 30.5 % (35.4-49); HEMOGLOBIN 10.1 GM/dL (11.7-16.9); LYMPH % 4.4 % (8-40); MCH 32.1 pg (25.7-33.7); MCHC 33.1 g/dl (32.0-35.9); MEAN CELL VOLUME 97.1 fl (80-96); MEAN PLT VOLUME 6.8 fl (7.5-11.1); MONO % 4.8 % (3.8-10.2); NEUT % 87.7 % (42.8-82.8); PLATELET COUNT 274 10^3/uL (134-434); RBC 3.15 M/mm3 (4.00-5.60); RDW 16.9 % (11.9-15.9); WHITE BLOOD COUNT 8.9 K/mm3 (4.0-10.0)
[2021-04-18 08:09] LABS: ALBUMIN 1.7 g/dl (3.4-5.0); BLOOD UREA NITROGEN 20.4 mg/dL (7-18); CALCIUM 7.1 mg/dL (8.5-10.1)
[2021-04-18 08:12] LABS: CREATININE 0.7 mg/dL (0.55-1.3)
[2021-04-18 08:14] LABS: BILIRUBIN,TOTAL 0.6 mg/dL (0.2-1); TOT PROT 4.6 g/dl (6.4-8.2)
[2021-04-18] MEDS: LIDOCAINE 5% TOPICAL PATCH TP SCH (09:16)
[2021-04-18] MEDS: D5-1/2NS+20 MEQ KCL - 20 MEQ/1,000 ML INFUS.BAG IV SCH (09:16)
[2021-04-18] MEDS: levETIRAcetam 500 MG/5 ML INJECTION VIAL IVPB SCH ×2 (09:16→22:09)
[2021-04-18] MEDS: ASCORBIC ACID 500 MG TABLET (FP) PO SCH (09:17)
[2021-04-18] MEDS: ENOXAPARIN NA (PORCINE) 80 MG/0.8 ML DISP.SYRIN SQ SCH ×2 (11:23→22:09)
[2021-04-18 13:17] LABS: HIV INTERPRETATION NEGATIVE (NEGATIVE)
[2021-04-18 16:01] VITALS: BMI 28.3
[2021-04-19] MEDS ORDERED: DEXTROSE 5%-WATER - 50 ML IVPB ONE ×3 (02:00→17:11)
[2021-04-19] MEDS ORDERED: PIPERACILLIN/TAZOBACTAM 3.375 GM VIAL IVPB ONE ×3 (02:00→17:10)
[2021-04-19] MEDS: PIPERACILLIN/TAZOB 3.375 GM 3.375 GM in DEXTROSE 5%-WATER - 50 ML IVPB SCH ×3 (02:01→18:12)
[2021-04-19] MEDS: D5-1/2NS+20 MEQ KCL - 20 MEQ/1,000 ML INFUS.BAG IV SCH ×2 (05:42→09:14)
[2021-04-19 08:08] LABS: BASO % 0.7 % (0-2.0); EOS % 2.9 % (0-4.5); HEMATOCRIT 34.7 % (35.4-49); HEMOGLOBIN 11.2 GM/dL (11.7-16.9); LYMPH % 5.5 % (8-40); MCH 31.3 pg (25.7-33.7); MCHC 32.2 g/dl (32.0-35.9); MEAN CELL VOLUME 97.5 fl (80-96); MONO % 5.6 % (3.8-10.2); NEUT % 85.3 % (42.8-82.8); PLATELET COUNT 335 10^3/uL (134-434); RBC 3.56 M/mm3 (4.00-5.60); RDW 16.5 % (11.9-15.9); WHITE BLOOD COUNT 8.9 K/mm3 (4.0-10.0)
[2021-04-19 08:26] LABS: ALBUMIN 1.7 g/dl (3.4-5.0)
[2021-04-19 08:27] LABS: BLOOD UREA NITROGEN 17.4 mg/dL (7-18)
[2021-04-19 08:30] LABS: CREATININE 0.7 mg/dL (0.55-1.3)
[2021-04-19 08:31] LABS: BILIRUBIN,TOTAL 0.7 mg/dL (0.2-1); TOT PROT 4.9 g/dl (6.4-8.2)
[2021-04-19 08:44] LABS: CALCIUM 7.3 mg/dL (8.5-10.1)
[2021-04-19] MEDS: ASCORBIC ACID 500 MG TABLET (FP) PO SCH (09:13)
[2021-04-19] MEDS: ENOXAPARIN NA (PORCINE) 80 MG/0.8 ML DISP.SYRIN SQ SCH ×2 (09:13→21:49)
[2021-04-19] MEDS: levETIRAcetam 500 MG/5 ML INJECTION VIAL IVPB SCH ×2 (09:14→21:49)
[2021-04-19] MEDS: LIDOCAINE 5% TOPICAL PATCH TP SCH (09:14)
[2021-04-19] MEDS: AMINO ACIDS/PROTEIN HYDROLYS 30 ML LIQUID.PKT NGT SCH (17:32)
[2021-04-19] MEDS: LIDOCAINE PATCH REMOVAL MC SCH (21:56)
[2021-04-20] MEDS: PIPERACILLIN/TAZOB 3.375 GM 3.375 GM in DEXTROSE 5%-WATER - 50 ML IVPB SCH ×3 (03:00→17:48)
[2021-04-20] MEDS ORDERED: PIPERACILLIN/TAZOBACTAM 3.375 GM VIAL IVPB ONE ×3 (03:39→17:43)
[2021-04-20] MEDS ORDERED: DEXTROSE 5%-WATER - 50 ML IVPB ONE ×3 (03:40→17:43)
[2021-04-20 04:19] LABS: EOS % 2.5 % (0-4.5); HEMATOCRIT 32.1 % (35.4-49); HEMOGLOBIN 10.7 GM/dL (11.7-16.9); LYMPH % 9.5 % (8-40); MCH 31.8 pg (25.7-33.7); MCHC 33.3 g/dl (32.0-35.9); MEAN CELL VOLUME 95.4 fl (80-96); MEAN PLT VOLUME 6.8 fl (7.5-11.1); MONO % 6.2 % (3.8-10.2); NEUT % 80.8 % (42.8-82.8); PLATELET COUNT 341 10^3/uL (134-434); RBC 3.37 M/mm3 (4.00-5.60)
[2021-04-20 04:36] LABS: INR 1.43 (0.83-1.09); PROTHROMBIN TIME (PATIENT) 17.4 SEC (9.7-13.0)
[2021-04-20 04:38] LABS: ACTIVATED PTT 42.7 SECONDS (25.2-36.5)
[2021-04-20] MEDS ORDERED: SODIUM CHLORIDE 250 ML IV STA (04:41)
[2021-04-20 05:35] LABS: CHLORIDE 114 mmol/L (98-107); SODIUM 145 mmol/L (136-145)
[2021-04-20 05:37] LABS: CALCIUM 7.1 mg/dL (8.5-10.1)
[2021-04-20 05:38] LABS: ALBUMIN 1.6 g/dl (3.4-5.0); ANION GAP 13 MMOL/L (8-16); BLOOD UREA NITROGEN 18.1 mg/dL (7-18); CO2 18 mmol/L (21-32); GLUCOSE,RANDOM 126 mg/dL (74-106)
[2021-04-20 05:41] LABS: CREATININE 0.8 mg/dL (0.55-1.3); SGOT/AST 15 U/L (15-37); SGPT/ALT 19 U/L (13-61)
[2021-04-20 05:42] LABS: BILIRUBIN,TOTAL 0.4 mg/dL (0.2-1); TOT PROT 4.6 g/dl (6.4-8.2)
[2021-04-20 05:44] LABS: ALK PHOS 89 U/L (45-117)
[2021-04-20 05:51] LABS: RETICULOCYTES 0.77 % (0.5-1.5)
[2021-04-20 06:06] LABS: MAGNESIUM 1.6 mg/dL (1.8-2.4)
[2021-04-20 06:10] LABS: PHOSPHOROUS 2.6 mg/dL (2.5-4.9)
[2021-04-20] MEDS ORDERED: FUROSEMIDE 40 MG/4 ML INJECTABLE VIAL IVPUSH ONE (06:20)
[2021-04-20 07:09] LABS: ARTERIAL BLD GAS O2 SATURATION 97.9 % (95-98); ARTERIAL BLOOD GAS BASE EXCESS -4.2 mmol/L (-2-2); ARTERIAL BLOOD GAS PO2 96.6 mmHg (80-100); ARTERIAL BLOOD GAS pH 7.477 (7.350-7.450)
[2021-04-20 07:10] LABS: ALLENS TEST POSITIVE; PT'S TEMP 97.3
[2021-04-20 07:23] LABS: ANISOCYTOSIS 0; MACROCYTOSIS 0; PLATELET ESTIMATE NORMAL
[2021-04-20] MEDS ORDERED: RAPID SEQUENCE INTUBATION KIT NR ONE (07:48)
[2021-04-20] MEDS ORDERED: ROCURONIUM BROMIDE 100 MG/10 ML VIAL ONE (08:06)
[2021-04-20] MEDS: LORazepam 2 MG/ML SDV VIAL IVPUSH PRN ×2 (08:48→16:55)
[2021-04-20 09:36] LABS: HEMATOCRIT 31.6 % (35.4-49); HEMOGLOBIN 10.4 GM/dL (11.7-16.9); MCH 31.6 pg (25.7-33.7); MCHC 32.8 g/dl (32.0-35.9); MEAN CELL VOLUME 96.3 fl (80-96); PLATELET COUNT 330 10^3/uL (134-434); RBC 3.28 M/mm3 (4.00-5.60); RDW 16.2 % (11.9-15.9); WHITE BLOOD COUNT 10.4 K/mm3 (4.0-10.0)
[2021-04-20] MEDS: PANTOPRAZOLE SODIUM 80 MG in SODIUM CHLORIDE 100 ML IVPB SCH ×2 (09:52→18:21)
[2021-04-20] MEDS: MUPIROCIN 2% TOPICAL OINTMENT FOR DECOLONIZATION NS SCH ×2 (09:57→22:00)
[2021-04-20] MEDS: levETIRAcetam 500 MG/5 ML INJECTION VIAL IVPB SCH ×2 (09:57→22:00)
[2021-04-20] MEDS: LIDOCAINE 5% TOPICAL PATCH TP SCH (09:58)
[2021-04-20] MEDS ORDERED: PANTOPRAZOLE SODIUM 40 MG VIAL IVPUSH SCH (10:00)
[2021-04-20] MEDS: AMINO ACIDS/PROTEIN HYDROLYS 30 ML LIQUID.PKT NGT SCH ×2 (10:54→17:48)
[2021-04-20] MEDS: ASCORBIC ACID 500 MG TABLET (FP) PO SCH (10:54)
[2021-04-20 18:04] LABS: ARTERIAL BLD GAS O2 SATURATION 98.7 % (95-98); ARTERIAL BLOOD GAS BASE EXCESS -6.6 mmol/L (-2-2); ARTERIAL BLOOD GAS PO2 143.1 mmHg (80-100); ARTERIAL BLOOD GAS pH 7.318 (7.350-7.450)
[2021-04-20 18:05] LABS: ALLENS TEST POSITIVE; PT'S TEMP NORMAL; VENT MODE VOL/AC; VENT RATE 14
[2021-04-20 18:12] LABS: BASO % 0.7 % (0-2.0); EOS % 1.5 % (0-4.5); HEMATOCRIT 29.1 % (35.4-49); HEMOGLOBIN 9.6 GM/dL (11.7-16.9); LYMPH % 7.6 % (8-40); MCH 31.9 pg (25.7-33.7); MCHC 33.2 g/dl (32.0-35.9); MEAN CELL VOLUME 96.1 fl (80-96); MEAN PLT VOLUME 6.6 fl (7.5-11.1); MONO % 5.6 % (3.8-10.2); NEUT % 84.6 % (42.8-82.8); PLATELET COUNT 325 10^3/uL (134-434); RBC 3.02 M/mm3 (4.00-5.60); RDW 16.4 % (11.9-15.9); WHITE BLOOD COUNT 9.1 K/mm3 (4.0-10.0)
[2021-04-20] MEDS ORDERED: MIDAZOLAM IN 0.9 % SOD.CHLORID 100 MG/100 ML PLAST..BAG IVPB SCH (18:30)
[2021-04-20 19:02] LABS: ANISOCYTOSIS 1+; MACROCYTOSIS 1+; PLATELET ESTIMATE NORMAL; TARGET CELLS 1+
[2021-04-20] MEDS ORDERED: VASOPRESSIN 40 UNITS in SODIUM CHLORIDE 98 ML IVPB SCH (19:15)
[2021-04-20] MEDS: LIDOCAINE PATCH REMOVAL MC SCH (22:00)
[2021-04-20] MEDS: CHLORHEXIDINE GLUCONATE 4% CLEANSER FOR DECOLONIZATION TP SCH (22:00)
[2021-04-21] MEDS: PIPERACILLIN/TAZOB 3.375 GM 3.375 GM in DEXTROSE 5%-WATER - 50 ML IVPB SCH ×3 (02:00→18:00)
[2021-04-21] MEDS ORDERED: PIPERACILLIN/TAZOBACTAM 3.375 GM VIAL IVPB ONE ×3 (02:11→17:07)
[2021-04-21] MEDS ORDERED: DEXTROSE 5%-WATER - 50 ML IVPB ONE ×3 (02:12→17:07)
[2021-04-21] MEDS: PANTOPRAZOLE SODIUM 80 MG in SODIUM CHLORIDE 100 ML IVPB SCH ×2 (04:30→16:32)
[2021-04-21] MEDS ORDERED: VASOPRESSIN 40 UNITS in SODIUM CHLORIDE 98 ML IVPB SCH (06:05)
[2021-04-21 07:14] LABS: HEMATOCRIT 27.2 % (35.4-49); HEMOGLOBIN 8.7 GM/dL (11.7-16.9); MCHC 31.9 g/dl (32.0-35.9); MEAN CELL VOLUME 97.2 fl (80-96); MEAN PLT VOLUME 7.2 fl (7.5-11.1); PLATELET COUNT 320 10^3/uL (134-434); RDW 16.1 % (11.9-15.9); WHITE BLOOD COUNT 9.1 K/mm3 (4.0-10.0)
[2021-04-21 07:24] LABS: INR 1.45 (0.83-1.09); PROTHROMBIN TIME (PATIENT) 17.4 SEC (9.7-13.0)
[2021-04-21 07:50] LABS: BLOOD UREA NITROGEN 25.3 mg/dL (7-18); CALCIUM 7.5 mg/dL (8.5-10.1)
[2021-04-21 07:51] LABS: MAGNESIUM 1.8 mg/dL (1.8-2.4)
[2021-04-21 07:54] LABS: CREATININE 1.2 mg/dL (0.55-1.3); PHOSPHOROUS 4.3 mg/dL (2.5-4.9)
[2021-04-21] MEDS: MUPIROCIN 2% TOPICAL OINTMENT FOR DECOLONIZATION NS SCH ×2 (09:50→22:23)
[2021-04-21] MEDS: LIDOCAINE 5% TOPICAL PATCH TP SCH (09:54)
[2021-04-21] MEDS: levETIRAcetam 500 MG/5 ML INJECTION VIAL IVPB SCH ×2 (09:54→22:23)
[2021-04-21] MEDS: ASCORBIC ACID 500 MG TABLET (FP) PO SCH (09:54)
[2021-04-21] MEDS: AMINO ACIDS 4.25%/D5W 1,000 ML IV SCH (12:37)
[2021-04-21 13:04] LABS: HEMATOCRIT 25.2 % (35.4-49); HEMOGLOBIN 8.2 GM/dL (11.7-16.9); MCH 31.6 pg (25.7-33.7); MCHC 32.7 g/dl (32.0-35.9); MEAN CELL VOLUME 96.4 fl (80-96); PLATELET COUNT 304 10^3/uL (134-434); RBC 2.61 M/mm3 (4.00-5.60); RDW 16.3 % (11.9-15.9); WHITE BLOOD COUNT 8.7 K/mm3 (4.0-10.0)
[2021-04-21 20:26] LABS: HEMATOCRIT 25.9 % (35.4-49); HEMOGLOBIN 8.5 GM/dL (11.7-16.9); MCH 31.6 pg (25.7-33.7); MCHC 32.8 g/dl (32.0-35.9); MEAN CELL VOLUME 96.4 fl (80-96); PLATELET COUNT 326 10^3/uL (134-434); RBC 2.69 M/mm3 (4.00-5.60); RDW 16.7 % (11.9-15.9); WHITE BLOOD COUNT 9.8 K/mm3 (4.0-10.0)
[2021-04-21] MEDS: LIDOCAINE PATCH REMOVAL MC SCH (22:24)
[2021-04-21] MEDS: CHLORHEXIDINE GLUCONATE 4% CLEANSER FOR DECOLONIZATION TP SCH (22:24)
[2021-04-22] MEDS ORDERED: PIPERACILLIN/TAZOBACTAM 3.375 GM VIAL IVPB ONE ×3 (01:19→18:22)
[2021-04-22] MEDS ORDERED: DEXTROSE 5%-WATER - 50 ML IVPB ONE ×3 (01:19→18:22)
[2021-04-22] MEDS: PANTOPRAZOLE SODIUM 80 MG in SODIUM CHLORIDE 100 ML IVPB SCH ×3 (01:21→23:30)
[2021-04-22] MEDS: PIPERACILLIN/TAZOB 3.375 GM 3.375 GM in DEXTROSE 5%-WATER - 50 ML IVPB SCH ×3 (01:21→18:26)
[2021-04-22 07:21] LABS: HEMATOCRIT 25.2 % (35.4-49); HEMOGLOBIN 8.3 GM/dL (11.7-16.9); MCH 31.6 pg (25.7-33.7); MCHC 32.7 g/dl (32.0-35.9); MEAN CELL VOLUME 96.4 fl (80-96); MEAN PLT VOLUME 7.2 fl (7.5-11.1); PLATELET COUNT 334 10^3/uL (134-434); RBC 2.62 M/mm3 (4.00-5.60); RDW 16.1 % (11.9-15.9); WHITE BLOOD COUNT 9.7 K/mm3 (4.0-10.0)
[2021-04-22 07:42] LABS: BLOOD UREA NITROGEN 32.5 mg/dL (7-18); CALCIUM 7.6 mg/dL (8.5-10.1)
[2021-04-22 07:46] LABS: CREATININE 1.2 mg/dL (0.55-1.3)
[2021-04-22] MEDS: ASCORBIC ACID 500 MG TABLET (FP) PO SCH (09:51)
[2021-04-22] MEDS: levETIRAcetam 500 MG/5 ML INJECTION VIAL IVPB SCH ×2 (09:51→21:26)
[2021-04-22] MEDS: MUPIROCIN 2% TOPICAL OINTMENT FOR DECOLONIZATION NS SCH ×2 (09:51→21:26)
[2021-04-22] MEDS ORDERED: FUROSEMIDE 40 MG/4 ML INJECTABLE VIAL IVPUSH ONE (10:30)
[2021-04-22] MEDS: KCL 10 MEQ IVPB 10 MEQ/100 ML INFUS.BAG IVPB SCH ×3 (11:00→14:55)
[2021-04-22] MEDS ORDERED: PANTOPRAZOLE SODIUM 40 MG VIAL IVPUSH SCH (11:15)
[2021-04-22] MEDS: LIDOCAINE 5% TOPICAL PATCH TP SCH (12:00)
[2021-04-22] MEDS: AMINO ACIDS 4.25%/D5W 1,000 ML IV SCH (13:35)
[2021-04-22] MEDS: BACITRACIN 15 GM TUBE TOPICAL OINTMENT TP SCH (18:25)
[2021-04-22] MEDS: LORazepam 2 MG/ML SDV VIAL IVPUSH PRN (19:27)
[2021-04-22] MEDS: CHLORHEXIDINE GLUCONATE 4% CLEANSER FOR DECOLONIZATION TP SCH (21:26)
[2021-04-22] MEDS: LIDOCAINE PATCH REMOVAL MC SCH (21:27)
[2021-04-22] MEDS ORDERED: PANTOPRAZOLE 40 MG TABLET PO SCH (22:00)
[2021-04-23] MEDS ORDERED: PIPERACILLIN/TAZOBACTAM 3.375 GM VIAL IVPB ONE ×3 (01:49→17:28)
[2021-04-23] MEDS ORDERED: DEXTROSE 5%-WATER - 50 ML IVPB ONE ×3 (01:49→17:28)
[2021-04-23] MEDS: PIPERACILLIN/TAZOB 3.375 GM 3.375 GM in DEXTROSE 5%-WATER - 50 ML IVPB SCH ×3 (02:26→17:42)
[2021-04-23 03:11] LABS: FIBROSIS SCORE. 0.17 (0.00-0.21); HCV ALPHA 2 MACRO CHART 141 mg/dL (110-276); NECRO.INFLAM ACT.SCORE 0.07 (0.00-0.17); NECROINFLAM. ACTIVITY GRADE A0-No activity (.)
[2021-04-23 06:44] LABS: BASO % 0.5 % (0-2.0); EOS % 1.6 % (0-4.5); HEMATOCRIT 25.3 % (35.4-49); HEMOGLOBIN 8.1 GM/dL (11.7-16.9); LYMPH % 3.4 % (8-40); MCHC 31.8 g/dl (32.0-35.9); MEAN CELL VOLUME 97.5 fl (80-96); MEAN PLT VOLUME 7.3 fl (7.5-11.1); NEUT % 90.5 % (42.8-82.8); PLATELET COUNT 325 10^3/uL (134-434); RDW 16.5 % (11.9-15.9); WHITE BLOOD COUNT 16.6 K/mm3 (4.0-10.0)
[2021-04-23 06:54] LABS: CHLORIDE 113 mmol/L (98-107); SODIUM 143 mmol/L (136-145)
[2021-04-23 06:55] LABS: CALCIUM 7.8 mg/dL (8.5-10.1)
[2021-04-23 06:56] LABS: BLOOD UREA NITROGEN 34.4 mg/dL (7-18); CO2 20 mmol/L (21-32); GLUCOSE,RANDOM 152 mg/dL (74-106)
[2021-04-23 06:59] LABS: CREATININE 1.3 mg/dL (0.55-1.3)
[2021-04-23 07:26] LABS: ANION GAP 11 MMOL/L (8-16)
[2021-04-23] MEDS ORDERED: POTASSIUM CHLORIDE 20 MEQ PREMIX IVPB 100 ML IVPB ONE (09:00)
[2021-04-23] MEDS ORDERED: PT OWN MED DRAWER 7, Y5N ONE (09:20)
[2021-04-23] MEDS: KCL 10 MEQ IVPB 10 MEQ/100 ML INFUS.BAG IVPB SCH ×3 (09:41→12:45)
[2021-04-23] MEDS: AMINO ACIDS 4.25%/D5W 1,000 ML IV SCH (09:41)
[2021-04-23] MEDS: ASCORBIC ACID 500 MG TABLET (FP) PO SCH (09:42)
[2021-04-23] MEDS: levETIRAcetam 500 MG/5 ML INJECTION VIAL IVPB SCH ×2 (09:42→21:10)
[2021-04-23] MEDS: MUPIROCIN 2% TOPICAL OINTMENT FOR DECOLONIZATION NS SCH ×2 (09:43→21:11)
[2021-04-23] MEDS: LIDOCAINE 5% TOPICAL PATCH TP SCH (09:43)
[2021-04-23] MEDS: BACITRACIN 15 GM TUBE TOPICAL OINTMENT TP SCH (09:43)
[2021-04-23 09:52] LABS: ANISOCYTOSIS 1+; MACROCYTOSIS 1+; PLATELET ESTIMATE NORMAL
[2021-04-23] MEDS ORDERED: PROPOFOL 1,000,000 MCG/100 ML VIAL ONE (10:58)
[2021-04-23] MEDS: PANTOPRAZOLE SODIUM 80 MG in SODIUM CHLORIDE 100 ML IVPB SCH (11:21)
[2021-04-23 11:58] LABS: MAGNESIUM 1.4 mg/dL (1.8-2.4)
[2021-04-23] MEDS ORDERED: MAGNESIUM SULF 50% (8.12 MEQ/2 ML-1 GM VIAL) IVPB ONE (13:30)
[2021-04-23 19:44] LABS: ALBUMIN 1.4 g/dl (3.4-5.0); BLOOD UREA NITROGEN 34.2 mg/dL (7-18); CALCIUM 7.7 mg/dL (8.5-10.1)
[2021-04-23 19:48] LABS: CREATININE 1.2 mg/dL (0.55-1.3)
[2021-04-23 19:49] LABS: BILIRUBIN,TOTAL 0.3 mg/dL (0.2-1); TOT PROT 4.3 g/dl (6.4-8.2)
[2021-04-23] MEDS ORDERED: KCL 10 MEQ IVPB 10 MEQ/100 ML INFUS.BAG IVPB SCH (20:30)
[2021-04-23] MEDS: CHLORHEXIDINE GLUCONATE 4% CLEANSER FOR DECOLONIZATION TP SCH (21:05)
[2021-04-23] MEDS: LIDOCAINE PATCH REMOVAL MC SCH (21:05)
[2021-04-24] MEDS ORDERED: PIPERACILLIN/TAZOBACTAM 3.375 GM VIAL IVPB ONE ×3 (01:02→17:16)
[2021-04-24] MEDS ORDERED: DEXTROSE 5%-WATER - 50 ML IVPB ONE ×3 (01:03→17:16)
[2021-04-24] MEDS: PIPERACILLIN/TAZOB 3.375 GM 3.375 GM in DEXTROSE 5%-WATER - 50 ML IVPB SCH ×3 (01:04→17:45)
[2021-04-24] MEDS: PANTOPRAZOLE SODIUM 80 MG in SODIUM CHLORIDE 100 ML IVPB SCH ×3 (05:13→18:12)
[2021-04-24 07:34] LABS: BASO % 0.3 % (0-2.0); EOS % 1.1 % (0-4.5); HEMATOCRIT 22.8 % (35.4-49); HEMOGLOBIN 7.5 GM/dL (11.7-16.9); LYMPH % 3.9 % (8-40); MCH 31.4 pg (25.7-33.7); MCHC 32.6 g/dl (32.0-35.9); MEAN CELL VOLUME 96.1 fl (80-96); MEAN PLT VOLUME 7.1 fl (7.5-11.1); MONO % 2.5 % (3.8-10.2); NEUT % 92.2 % (42.8-82.8); PLATELET COUNT 298 10^3/uL (134-434); RBC 2.38 M/mm3 (4.00-5.60); RDW 16.6 % (11.9-15.9)
[2021-04-24 08:01] LABS: CALCIUM 7.8 mg/dL (8.5-10.1)
[2021-04-24 08:03] LABS: ALBUMIN 1.3 g/dl (3.4-5.0); BLOOD UREA NITROGEN 34.6 mg/dL (7-18); MAGNESIUM 1.6 mg/dL (1.8-2.4)
[2021-04-24 08:05] LABS: CREATININE 1.2 mg/dL (0.55-1.3)
[2021-04-24 08:06] LABS: BILIRUBIN,TOTAL 0.3 mg/dL (0.2-1); PHOSPHOROUS 2.2 mg/dL (2.5-4.9); TOT PROT 4.4 g/dl (6.4-8.2)
[2021-04-24] MEDS ORDERED: MAGNESIUM SULF 50% (8.12 MEQ/2 ML-1 GM VIAL) IVPB ONE ×2 (08:26→08:45)
[2021-04-24] MEDS ORDERED: KCL 10 MEQ IVPB 10 MEQ/100 ML INFUS.BAG IVPB SCH ×3 (08:30→21:30)
[2021-04-24] MEDS ORDERED: NAPH,MB-DB/K PH,MBDB POWDER PACKET NGT ONE (08:45)
[2021-04-24] MEDS: levETIRAcetam 500 MG/5 ML INJECTION VIAL IVPB SCH ×2 (09:52→21:26)
[2021-04-24] MEDS: ASCORBIC ACID 500 MG TABLET (FP) PO SCH (09:53)
[2021-04-24] MEDS: LIDOCAINE 5% TOPICAL PATCH TP SCH (09:53)
[2021-04-24] MEDS: MUPIROCIN 2% TOPICAL OINTMENT FOR DECOLONIZATION NS SCH ×2 (09:53→21:35)
[2021-04-24] MEDS: BACITRACIN 15 GM TUBE TOPICAL OINTMENT TP SCH (09:53)
[2021-04-24 10:03] LABS: ANISOCYTOSIS 1+; MACROCYTOSIS 0; PLATELET ESTIMATE NORMAL
[2021-04-24] MEDS: POTASSIUM CHLORIDE 20 MEQ in AMINO ACIDS 4.25%/D5W 1,000 ML IV SCH (11:36)
[2021-04-24] MEDS ORDERED: FUROSEMIDE 40 MG/4 ML INJECTABLE VIAL IVPUSH ONE (15:00)
[2021-04-24 18:58] LABS: BASO % 0.2 % (0-2.0); EOS % 1.2 % (0-4.5); HEMATOCRIT 26.8 % (35.4-49); HEMOGLOBIN 8.7 GM/dL (11.7-16.9); LYMPH % 2.5 % (8-40); MCH 30.8 pg (25.7-33.7); MCHC 32.6 g/dl (32.0-35.9); MEAN CELL VOLUME 94.3 fl (80-96); MONO % 1.9 % (3.8-10.2); NEUT % 94.2 % (42.8-82.8); PLATELET COUNT 292 10^3/uL (134-434); RBC 2.84 M/mm3 (4.00-5.60); RDW 17.1 % (11.9-15.9); WHITE BLOOD COUNT 20.5 K/mm3 (4.0-10.0)
[2021-04-24 19:27] LABS: ALBUMIN 1.4 g/dl (3.4-5.0); CALCIUM 8.1 mg/dL (8.5-10.1)
[2021-04-24 19:32] LABS: TOT PROT 4.6 g/dl (6.4-8.2)
[2021-04-24 20:03] LABS: MAGNESIUM 1.7 mg/dL (1.8-2.4)
[2021-04-24 20:07] LABS: PHOSPHOROUS 2.1 mg/dL (2.5-4.9)
[2021-04-24 20:26] LABS: ANISOCYTOSIS 1+; MACROCYTOSIS 0; PLATELET ESTIMATE NORMAL
[2021-04-24] MEDS ORDERED: MAGNESIUM 1GM/D5W - 1 GM/100 ML IVPB IVPB ONE (21:14)
[2021-04-24] MEDS: CHLORHEXIDINE GLUCONATE 4% CLEANSER FOR DECOLONIZATION TP SCH (21:35)
[2021-04-24] MEDS: LIDOCAINE PATCH REMOVAL MC SCH (21:36)
[2021-04-25] MEDS: PANTOPRAZOLE SODIUM 80 MG in SODIUM CHLORIDE 100 ML IVPB SCH ×3 (01:34→16:13)
[2021-04-25] MEDS ORDERED: PIPERACILLIN/TAZOBACTAM 3.375 GM VIAL IVPB ONE ×5 (01:36→21:45)
[2021-04-25] MEDS ORDERED: DEXTROSE 5%-WATER - 50 ML IVPB ONE ×4 (01:36→21:45)
[2021-04-25] MEDS: PIPERACILLIN/TAZOB 3.375 GM 3.375 GM in DEXTROSE 5%-WATER - 50 ML IVPB SCH ×3 (01:44→17:56)
[2021-04-25] MEDS ORDERED: MAGNESIUM SULF 50% (8.12 MEQ/2 ML-1 GM VIAL) IVPB ONE ×2 (05:47→23:36)
[2021-04-25] MEDS ORDERED: FUROSEMIDE 40 MG/4 ML INJECTABLE VIAL IVPUSH ONE ×3 (06:00→18:00)
[2021-04-25] MEDS: KCL 10 MEQ IVPB 10 MEQ/100 ML INFUS.BAG IVPB SCH ×2 (06:37→08:30)
[2021-04-25] MEDS: AMINO ACIDS 4.25%/D5W 1,000 ML IV SCH (07:05)
[2021-04-25 07:23] LABS: BASO % 0.1 % (0-2.0); EOS % 0.9 % (0-4.5); HEMATOCRIT 26.6 % (35.4-49); HEMOGLOBIN 8.7 GM/dL (11.7-16.9); LYMPH % 3.7 % (8-40); MCH 30.8 pg (25.7-33.7); MCHC 32.5 g/dl (32.0-35.9); MEAN CELL VOLUME 94.5 fl (80-96); MEAN PLT VOLUME 7.3 fl (7.5-11.1); MONO % 1.9 % (3.8-10.2); NEUT % 93.4 % (42.8-82.8); PLATELET COUNT 301 10^3/uL (134-434); RBC 2.82 M/mm3 (4.00-5.60); RDW 17.3 % (11.9-15.9); WHITE BLOOD COUNT 20.9 K/mm3 (4.0-10.0)
[2021-04-25 07:35] LABS: CHLORIDE 109 mmol/L (98-107); SODIUM 139 mmol/L (136-145)
[2021-04-25 07:38] LABS: ALBUMIN 1.4 g/dl (3.4-5.0); CALCIUM 8.2 mg/dL (8.5-10.1)
[2021-04-25 07:39] LABS: BLOOD UREA NITROGEN 30.6 mg/dL (7-18); CO2 20 mmol/L (21-32); GLUCOSE,RANDOM 139 mg/dL (74-106); MAGNESIUM 1.8 mg/dL (1.8-2.4)
[2021-04-25 07:43] LABS: BILIRUBIN,TOTAL 0.5 mg/dL (0.2-1); SGOT/AST 17 U/L (15-37); SGPT/ALT 12 U/L (13-61); TOT PROT 4.5 g/dl (6.4-8.2)
[2021-04-25 07:45] LABS: ALK PHOS 119 U/L (45-117)
[2021-04-25 07:46] LABS: ANION GAP 9 MMOL/L (8-16)
[2021-04-25] MEDS ORDERED: POTASSIUM CHLORIDE ORAL LIQUID 20 MEQ/15 ML GT ONE (07:50)
[2021-04-25] MEDS ORDERED: KCL 10 MEQ IVPB 10 MEQ/100 ML INFUS.BAG IVPB SCH (08:30)
[2021-04-25] MEDS ORDERED: POTASSIUM PHOSPHATE 30 MM in SODIUM CHLORIDE 250 ML IVPB ONE (09:00)
[2021-04-25 09:03] LABS: ANISOCYTOSIS 0; HELMET CELLS 0; HOWELL-JOLLY BODIES 0; MACROCYTOSIS 0; OVALOCYTE 0; PLATELET ESTIMATE NORMAL; ROULEAU 0; SICKELED CELLS 0; TARGET CELLS 0; TEAR DROP CELLS 0; TOXIC GRANULATION 0
[2021-04-25] MEDS: levETIRAcetam 500 MG/5 ML INJECTION VIAL IVPB SCH ×2 (10:15→21:46)
[2021-04-25] MEDS: ASCORBIC ACID 500 MG TABLET (FP) PO SCH (10:19)
[2021-04-25] MEDS: BACITRACIN 15 GM TUBE TOPICAL OINTMENT TP SCH (10:38)
[2021-04-25] MEDS ORDERED: fentaNYL CITRATE 250 MCG/5 ML VIAL IVPUSH PRN (10:44)
[2021-04-25] MEDS: POTASSIUM CHLORIDE 20 MEQ PREMIX IVPB 100 ML IVPB SCH ×3 (10:56→17:54)
[2021-04-25] MEDS ORDERED: PT OWN MED DRAWER 7, Y5N ONE (15:50)
[2021-04-25] MEDS: POTASSIUM CHLORIDE 20 MEQ in AMINO ACIDS 4.25%/D5W 1,000 ML IV SCH (16:47)
[2021-04-25] MEDS: CHLORHEXIDINE GLUCONATE 4% CLEANSER FOR DECOLONIZATION TP SCH (21:46)
[2021-04-25 22:01] LABS: BASO % 0.4 % (0-2.0); EOS % 0.4 % (0-4.5); HEMOGLOBIN 9.2 GM/dL (11.7-16.9); LYMPH % 2.4 % (8-40); MCH 31.2 pg (25.7-33.7); MEAN CELL VOLUME 94.4 fl (80-96); MEAN PLT VOLUME 7.2 fl (7.5-11.1); MONO % 1.6 % (3.8-10.2); NEUT % 95.2 % (42.8-82.8); PLATELET COUNT 298 10^3/uL (134-434); RBC 2.97 M/mm3 (4.00-5.60); RDW 17.4 % (11.9-15.9); WHITE BLOOD COUNT 24.3 K/mm3 (4.0-10.0)
[2021-04-25 22:20] LABS: CALCIUM 8.4 mg/dL (8.5-10.1)
[2021-04-25 22:21] LABS: BLOOD UREA NITROGEN 28.2 mg/dL (7-18); MAGNESIUM 1.6 mg/dL (1.8-2.4)
[2021-04-25 22:24] LABS: CREATININE 0.9 mg/dL (0.55-1.3)
[2021-04-25 22:51] LABS: ANISOCYTOSIS 2+; MACROCYTOSIS 0; PLATELET ESTIMATE NORMAL; TARGET CELLS 2+
[2021-04-26] MEDS: PANTOPRAZOLE SODIUM 80 MG in SODIUM CHLORIDE 100 ML IVPB SCH ×2 (00:31→09:27)
[2021-04-26] MEDS: PIPERACILLIN/TAZOB 3.375 GM 3.375 GM in DEXTROSE 5%-WATER - 50 ML IVPB SCH ×3 (02:41→17:40)
[2021-04-26] MEDS: FUROSEMIDE 40 MG/4 ML INJECTABLE VIAL IVPUSH SCH ×2 (05:53→13:36)
[2021-04-26 08:25] LABS: BASO % 0.2 % (0-2.0); EOS % 0.9 % (0-4.5); HEMATOCRIT 27.3 % (35.4-49); HEMOGLOBIN 9.1 GM/dL (11.7-16.9); LYMPH % 3.3 % (8-40); MCH 31.4 pg (25.7-33.7); MCHC 33.5 g/dl (32.0-35.9); MEAN CELL VOLUME 93.8 fl (80-96); MEAN PLT VOLUME 7.7 fl (7.5-11.1); MONO % 2.4 % (3.8-10.2); NEUT % 93.2 % (42.8-82.8); PLATELET COUNT 317 10^3/uL (134-434); RBC 2.91 M/mm3 (4.00-5.60); RDW 17.7 % (11.9-15.9); WHITE BLOOD COUNT 23.4 K/mm3 (4.0-10.0)
[2021-04-26 08:50] LABS: CALCIUM 8.4 mg/dL (8.5-10.1)
[2021-04-26 08:51] LABS: BLOOD UREA NITROGEN 26.3 mg/dL (7-18); MAGNESIUM 1.8 mg/dL (1.8-2.4)
[2021-04-26 08:54] LABS: CREATININE 0.9 mg/dL (0.55-1.3)
[2021-04-26 08:55] LABS: PHOSPHOROUS 3.8 mg/dL (2.5-4.9)
[2021-04-26 09:08] LABS: ANISOCYTOSIS 0; HELMET CELLS 0; HOWELL-JOLLY BODIES 0; MACROCYTOSIS 0; OVALOCYTE 0; PLATELET ESTIMATE NORMAL; ROULEAU 0; SICKELED CELLS 0; TARGET CELLS 0; TEAR DROP CELLS 0; TOXIC GRANULATION 0
[2021-04-26] MEDS ORDERED: PIPERACILLIN/TAZOBACTAM 3.375 GM VIAL IVPB ONE ×2 (09:16→16:30)
[2021-04-26] MEDS ORDERED: PT OWN MED DRAWER 7, Y5N ONE ×3 (09:16→13:06)
[2021-04-26] MEDS ORDERED: DEXTROSE 5%-WATER - 50 ML IVPB ONE ×2 (09:16→16:30)
[2021-04-26] MEDS: POTASSIUM CHLORIDE 20 MEQ in AMINO ACIDS 4.25%/D5W 1,000 ML IV SCH (09:36)
[2021-04-26] MEDS: levETIRAcetam 500 MG/5 ML INJECTION VIAL IVPB SCH ×2 (09:36→22:12)
[2021-04-26] MEDS: ASCORBIC ACID 500 MG TABLET (FP) PO SCH (09:37)
[2021-04-26] MEDS: BACITRACIN 15 GM TUBE TOPICAL OINTMENT TP SCH (09:38)
[2021-04-26] MEDS: PANTOPRAZOLE SODIUM 40 MG VIAL IVPUSH SCH (22:12)
[2021-04-26] MEDS: CHLORHEXIDINE GLUCONATE 4% CLEANSER FOR DECOLONIZATION TP SCH (22:12)
[2021-04-27] MEDS ORDERED: PIPERACILLIN/TAZOBACTAM 3.375 GM VIAL IVPB ONE ×3 (01:12→16:45)
[2021-04-27] MEDS ORDERED: DEXTROSE 5%-WATER - 50 ML IVPB ONE ×3 (01:13→16:45)
[2021-04-27] MEDS: PIPERACILLIN/TAZOB 3.375 GM 3.375 GM in DEXTROSE 5%-WATER - 50 ML IVPB SCH ×3 (01:38→17:08)
[2021-04-27] MEDS: FUROSEMIDE 40 MG/4 ML INJECTABLE VIAL IVPUSH SCH ×2 (05:43→13:47)
[2021-04-27] MEDS ORDERED: ASCORBIC ACID 500 MG TABLET (FP) GT SCH (08:47)
[2021-04-27] MEDS ORDERED: SENNOSIDES 8.8 MG/5 ML BULK BOTTLE GT PRN (08:48)
[2021-04-27] MEDS ORDERED: SENNOSIDES 8.8 MG/5 ML BULK BOTTLE PO PRN (08:48)
[2021-04-27] MEDS: levETIRAcetam 500 MG/5 ML INJECTION VIAL IVPB SCH ×2 (10:14→21:13)
[2021-04-27] MEDS: PANTOPRAZOLE SODIUM 40 MG VIAL IVPUSH SCH ×2 (10:14→21:13)
[2021-04-27] MEDS: ASCORBIC ACID 500 MG/5 ML UNIT DOSE CUP GT SCH (10:16)
[2021-04-27] MEDS: BACITRACIN 15 GM TUBE TOPICAL OINTMENT TP SCH (10:17)
[2021-04-27] MEDS: POTASSIUM CHLORIDE 20 MEQ in AMINO ACIDS 4.25%/D5W 1,000 ML IV SCH (13:47)
[2021-04-27] MEDS: CHLORHEXIDINE GLUCONATE 4% CLEANSER FOR DECOLONIZATION TP SCH (21:13)
[2021-04-28] MEDS ORDERED: DEXTROSE 5%-WATER - 50 ML IVPB ONE ×3 (02:43→18:32)
[2021-04-28] MEDS ORDERED: PIPERACILLIN/TAZOBACTAM 3.375 GM VIAL IVPB ONE ×3 (02:43→18:32)
[2021-04-28] MEDS: PIPERACILLIN/TAZOB 3.375 GM 3.375 GM in DEXTROSE 5%-WATER - 50 ML IVPB SCH ×3 (02:44→18:28)
[2021-04-28] MEDS: FUROSEMIDE 40 MG/4 ML INJECTABLE VIAL IVPUSH SCH (05:27)
[2021-04-28 06:05] LABS: HEMATOCRIT 25.7 % (35.4-49); HEMOGLOBIN 8.6 GM/dL (11.7-16.9); MCH 31.5 pg (25.7-33.7); MCHC 33.4 g/dl (32.0-35.9); MEAN CELL VOLUME 94.3 fl (80-96); MEAN PLT VOLUME 7.5 fl (7.5-11.1); PLATELET COUNT 292 10^3/uL (134-434); RBC 2.72 M/mm3 (4.00-5.60); RDW 17.4 % (11.9-15.9); WHITE BLOOD COUNT 19.7 K/mm3 (4.0-10.0)
[2021-04-28 06:06] LABS: BASO % 0.2 % (0-2.0); EOS % 0.4 % (0-4.5); HEMATOCRIT 25.9 % (35.4-49); HEMOGLOBIN 8.6 GM/dL (11.7-16.9); LYMPH % 5.5 % (8-40); MCH 31.5 pg (25.7-33.7); MCHC 33.1 g/dl (32.0-35.9); MEAN CELL VOLUME 95.1 fl (80-96); MEAN PLT VOLUME 7.5 fl (7.5-11.1); MONO % 3.2 % (3.8-10.2); NEUT % 90.7 % (42.8-82.8); PLATELET COUNT 284 10^3/uL (134-434); RBC 2.73 M/mm3 (4.00-5.60); WHITE BLOOD COUNT 20.2 K/mm3 (4.0-10.0)
[2021-04-28 06:24] LABS: CHLORIDE 104 mmol/L (98-107); SODIUM 136 mmol/L (136-145)
[2021-04-28 06:26] LABS: CALCIUM 8.3 mg/dL (8.5-10.1)
[2021-04-28 06:27] LABS: ALBUMIN 1.2 g/dl (3.4-5.0); CO2 20 mmol/L (21-32); GLUCOSE,RANDOM 164 mg/dL (74-106); MAGNESIUM 1.5 mg/dL (1.8-2.4)
[2021-04-28 06:30] LABS: CREATININE 1.2 mg/dL (0.55-1.3); SGOT/AST 20 U/L (15-37); SGPT/ALT 14 U/L (13-61)
[2021-04-28 06:31] LABS: BILIRUBIN,TOTAL 0.2 mg/dL (0.2-1); TOT PROT 4.6 g/dl (6.4-8.2)
[2021-04-28 06:33] LABS: ALK PHOS 134 U/L (45-117)
[2021-04-28 06:34] LABS: ANION GAP 12 MMOL/L (8-16)
[2021-04-28] MEDS ORDERED: MAGNESIUM SULF 50% (8.12 MEQ/2 ML-1 GM VIAL) IVPB ONE (06:36)
[2021-04-28] MEDS ORDERED: POTASSIUM CHLORIDE ORAL LIQUID 20 MEQ/15 ML PO ONE (06:38)
[2021-04-28] MEDS ORDERED: KCL 10 MEQ IVPB 10 MEQ/100 ML INFUS.BAG IVPB SCH (06:45)
[2021-04-28] MEDS: POTASSIUM CHLORIDE 20 MEQ PREMIX IVPB 100 ML IVPB SCH ×3 (09:00→13:52)
[2021-04-28 09:19] LABS: ANISOCYTOSIS 0; HELMET CELLS 0; HOWELL-JOLLY BODIES 0; MACROCYTOSIS 0; OVALOCYTE 0; PLATELET ESTIMATE NORMAL; ROULEAU 0; SICKELED CELLS 0; TARGET CELLS 0; TEAR DROP CELLS 0; TOXIC GRANULATION 0
[2021-04-28] MEDS ORDERED: PT OWN MED DRAWER 7, Y5N ONE ×2 (09:30→15:45)
[2021-04-28] MEDS: levETIRAcetam 500 MG/5 ML INJECTION VIAL IVPB SCH ×2 (10:00→21:27)
[2021-04-28] MEDS: PANTOPRAZOLE SODIUM 40 MG VIAL IVPUSH SCH ×2 (10:08→21:27)
[2021-04-28] MEDS: SPIRONOLACTONE 25 MG TABLET GT SCH (11:08)
[2021-04-28] MEDS: BACITRACIN 15 GM TUBE TOPICAL OINTMENT TP SCH (11:08)
[2021-04-28] MEDS: ASCORBIC ACID 500 MG/5 ML UNIT DOSE CUP GT SCH (11:09)
[2021-04-28] MEDS ORDERED: POTASSIUM CHLORIDE ORAL LIQUID 20 MEQ/15 ML GT ONE (16:00)
[2021-04-28 18:23] LABS: BLOOD UREA NITROGEN 33.6 mg/dL (7-18); CALCIUM 8.2 mg/dL (8.5-10.1)
[2021-04-28 18:27] LABS: CREATININE 1.2 mg/dL (0.55-1.3)
[2021-04-28] MEDS: POTASSIUM CHLORIDE 20 MEQ in AMINO ACIDS 4.25%/D5W 1,000 ML IV SCH (20:14)
[2021-04-28] MEDS: CHLORHEXIDINE GLUCONATE 4% CLEANSER FOR DECOLONIZATION TP SCH (21:27)
[2021-04-29] MEDS ORDERED: PIPERACILLIN/TAZOBACTAM 3.375 GM VIAL IVPB ONE ×3 (00:58→16:57)
[2021-04-29] MEDS ORDERED: DEXTROSE 5%-WATER - 50 ML IVPB ONE ×3 (00:58→16:57)
[2021-04-29] MEDS: PIPERACILLIN/TAZOB 3.375 GM 3.375 GM in DEXTROSE 5%-WATER - 50 ML IVPB SCH ×3 (01:07→17:10)
[2021-04-29 07:17] LABS: BASO % 0.5 % (0-2.0); EOS % 0.9 % (0-4.5); HEMATOCRIT 25.5 % (35.4-49); HEMOGLOBIN 8.4 GM/dL (11.7-16.9); LYMPH % 6.4 % (8-40); MCH 31.5 pg (25.7-33.7); MEAN CELL VOLUME 95.4 fl (80-96); MEAN PLT VOLUME 7.7 fl (7.5-11.1); NEUT % 89.2 % (42.8-82.8); PLATELET COUNT 274 10^3/uL (134-434); RBC 2.67 M/mm3 (4.00-5.60); RDW 17.7 % (11.9-15.9); WHITE BLOOD COUNT 13.9 K/mm3 (4.0-10.0)
[2021-04-29 07:43] LABS: ALBUMIN 1.2 g/dl (3.4-5.0); CALCIUM 8.3 mg/dL (8.5-10.1)
[2021-04-29 07:44] LABS: BLOOD UREA NITROGEN 36.2 mg/dL (7-18); MAGNESIUM 1.9 mg/dL (1.8-2.4)
[2021-04-29 07:46] LABS: BILIRUBIN,DIRECT 0.1 mg/dL (0.0-0.2); CREATININE 1.3 mg/dL (0.55-1.3)
[2021-04-29 07:47] LABS: PHOSPHOROUS 2.2 mg/dL (2.5-4.9)
[2021-04-29 07:48] LABS: BILIRUBIN,TOTAL 0.2 mg/dL (0.2-1)
[2021-04-29 07:50] LABS: TOT PROT 4.6 g/dl (6.4-8.2)
[2021-04-29] MEDS: POTASSIUM CHLORIDE 20 MEQ in AMINO ACIDS 4.25%/D5W 1,000 ML IV SCH (09:34)
[2021-04-29] MEDS ORDERED: PT OWN MED DRAWER 7, Y5N ONE (09:37)
[2021-04-29] MEDS: levETIRAcetam 500 MG/5 ML INJECTION VIAL IVPB SCH ×2 (09:42→21:38)
[2021-04-29] MEDS: SPIRONOLACTONE 25 MG TABLET GT SCH (09:42)
[2021-04-29] MEDS: BACITRACIN 15 GM TUBE TOPICAL OINTMENT TP SCH (09:42)
[2021-04-29] MEDS: PANTOPRAZOLE SODIUM 40 MG VIAL IVPUSH SCH ×2 (09:44→21:38)
[2021-04-29] MEDS: ASCORBIC ACID 500 MG/5 ML UNIT DOSE CUP GT SCH (09:44)
[2021-04-29 10:11] LABS: ANISOCYTOSIS 1+; MACROCYTOSIS 0; PLATELET ESTIMATE NORMAL
[2021-04-29] MEDS ORDERED: FUROSEMIDE 40 MG/4 ML INJECTABLE VIAL IVPUSH ONE (12:30)
[2021-04-29] MEDS ORDERED: POTASSIUM CHLORIDE ORAL LIQUID 20 MEQ/15 ML PO ONE (12:45)
[2021-04-29] MEDS ORDERED: ALBUTEROL SO4 2.5/IPRATROPIUM 0.5 INH SOL 3 ML VIAL.NEB. NEB ONE (13:28)
[2021-04-29] MEDS ORDERED: AMINO ACIDS/PROTEIN HYDROLYS 30 ML LIQUID.PKT GT SCH (17:30)
[2021-04-29] MEDS ORDERED: ALBUTEROL SO4 2.5/IPRATROPIUM 0.5 INH SOL 3 ML VIAL.NEB. NEB SCH (18:00)
[2021-04-29] MEDS ORDERED: SODIUM PHOSPHATE - 30 MM in SODIUM CHLORIDE 250 ML IVPB ONE (19:18)
[2021-04-29] MEDS ORDERED: SODIUM CHLORIDE 0.9% 500 ML INFUS.BAG IV ONE (19:34)
[2021-04-29] MEDS ORDERED: MIDAZOLAM IN 0.9 % SOD.CHLORID 1 MG/1 ML PLAST..BAG ONE (19:58)
[2021-04-29] MEDS: NOREPINEPHRINE BITARTRATE 16,000 MCG in SODIUM CHLORIDE 484 ML IV SCH (20:00)
[2021-04-29] MEDS: MIDAZOLAM IN 0.9 % SOD.CHLORID 100 MG/100 ML PLAST..BAG IVPB SCH (20:00)
[2021-04-29] MEDS ORDERED: NOREPINEPHRINE BITARTRATE 4 MG/4 ML ML IV ONE (20:06)
[2021-04-29 20:09] LABS: BASO % 0.5 % (0-2.0); EOS % 1.1 % (0-4.5); HEMOGLOBIN 8.5 GM/dL (11.7-16.9); LYMPH % 6.3 % (8-40); MCH 31.1 pg (25.7-33.7); MCHC 32.7 g/dl (32.0-35.9); MEAN CELL VOLUME 94.9 fl (80-96); MEAN PLT VOLUME 7.5 fl (7.5-11.1); MONO % 2.9 % (3.8-10.2); NEUT % 89.2 % (42.8-82.8); PLATELET COUNT 267 10^3/uL (134-434); RBC 2.74 M/mm3 (4.00-5.60); RDW 18.3 % (11.9-15.9); WHITE BLOOD COUNT 15.4 K/mm3 (4.0-10.0)
[2021-04-29] MEDS ORDERED: NOREPINEPHRINE NS PREMIX 8,000 MCG/500 ML BAG IVPB SCH (20:15)
[2021-04-29] MEDS: ALBUTEROL SO4 2.5/IPRATROPIUM 0.5 INH SOL 3 ML VIAL.NEB. NEB SCH (20:30)
[2021-04-29] MEDS: CHLORHEXIDINE GLUCONATE 4% CLEANSER FOR DECOLONIZATION TP SCH (21:38)
[2021-04-29 23:03] LABS: ANISOCYTOSIS 1+; MACROCYTOSIS 0; PLATELET ESTIMATE NORMAL
[2021-04-30 07:13] LABS: BASO % 0.5 % (0-2.0); EOS % 1.6 % (0-4.5); HEMATOCRIT 24.4 % (35.4-49); HEMOGLOBIN 8.1 GM/dL (11.7-16.9); LYMPH % 5.9 % (8-40); MCH 31.5 pg (25.7-33.7); MCHC 33.2 g/dl (32.0-35.9); MEAN CELL VOLUME 94.8 fl (80-96); MEAN PLT VOLUME 7.5 fl (7.5-11.1); MONO % 3.7 % (3.8-10.2); NEUT % 88.3 % (42.8-82.8); PLATELET COUNT 231 10^3/uL (134-434); RBC 2.57 M/mm3 (4.00-5.60); RDW 17.5 % (11.9-15.9); WHITE BLOOD COUNT 14.3 K/mm3 (4.0-10.0)
[2021-04-30] MEDS: ALBUTEROL SO4 2.5/IPRATROPIUM 0.5 INH SOL 3 ML VIAL.NEB. NEB SCH ×4 (07:40→20:10)
[2021-04-30 07:43] LABS: CALCIUM 8.5 mg/dL (8.5-10.1)
[2021-04-30 07:44] LABS: MAGNESIUM 1.8 mg/dL (1.8-2.4)
[2021-04-30 07:47] LABS: CREATININE 1.2 mg/dL (0.55-1.3)
[2021-04-30 07:48] LABS: PHOSPHOROUS 5.3 mg/dL (2.5-4.9)
[2021-04-30 09:02] LABS: ANISOCYTOSIS 0; MACROCYTOSIS 0; PLATELET ESTIMATE NORMAL
[2021-04-30] MEDS ORDERED: PT OWN MED DRAWER 7, Y5N ONE (09:23)
[2021-04-30] MEDS: SPIRONOLACTONE 25 MG TABLET GT SCH (09:53)
[2021-04-30] MEDS: PANTOPRAZOLE SODIUM 40 MG VIAL IVPUSH SCH ×2 (09:54→22:16)
[2021-04-30] MEDS: BACITRACIN 15 GM TUBE TOPICAL OINTMENT TP SCH (09:54)
[2021-04-30] MEDS: levETIRAcetam 500 MG/5 ML INJECTION VIAL IVPB SCH ×2 (09:54→22:16)
[2021-04-30] MEDS: VASOPRESSIN 40 UNITS in SODIUM CHLORIDE 98 ML IVPB SCH (10:15)
[2021-04-30] MEDS: ASCORBIC ACID 500 MG/5 ML UNIT DOSE CUP GT SCH (10:21)
[2021-04-30] MEDS: HYDROCORTISONE SOD SUCCINATE 100 MG/2 ML VIAL IVPUSH SCH ×3 (10:23→22:16)
[2021-04-30] MEDS: NOREPINEPHRINE BITARTRATE 16,000 MCG in SODIUM CHLORIDE 484 ML IV SCH (10:31)
[2021-04-30] MEDS: FLUDROCORTISONE ACETATE 0.1 MG TABLET (FP) PO SCH (12:38)
[2021-04-30] MEDS: MIDAZOLAM IN 0.9 % SOD.CHLORID 100 MG/100 ML PLAST..BAG IVPB SCH ×2 (14:24→22:15)
[2021-04-30] MEDS ORDERED: INSULIN (NOVOLOG) ASPART 100 UNITS/ML 10ML VIAL ONE (20:59)
[2021-04-30] MEDS: CHLORHEXIDINE GLUCONATE 4% CLEANSER FOR DECOLONIZATION TP SCH (22:16)
[2021-05-01] MEDS: NOREPINEPHRINE BITARTRATE 16,000 MCG in SODIUM CHLORIDE 484 ML IV SCH ×2 (04:35→23:04)
[2021-05-01] MEDS: HYDROCORTISONE SOD SUCCINATE 100 MG/2 ML VIAL IVPUSH SCH ×4 (04:36→22:26)
[2021-05-01 06:37] LABS: BASO % 0.4 % (0-2.0); HEMATOCRIT 23.6 % (35.4-49); HEMOGLOBIN 7.8 GM/dL (11.7-16.9); LYMPH % 4.1 % (8-40); MCH 31.6 pg (25.7-33.7); MCHC 33.2 g/dl (32.0-35.9); MEAN CELL VOLUME 95.2 fl (80-96); MEAN PLT VOLUME 7.9 fl (7.5-11.1); MONO % 1.2 % (3.8-10.2); NEUT % 94.3 % (42.8-82.8); PLATELET COUNT 262 10^3/uL (134-434); RBC 2.48 M/mm3 (4.00-5.60); RDW 17.6 % (11.9-15.9); WHITE BLOOD COUNT 15.5 K/mm3 (4.0-10.0)
[2021-05-01 06:56] LABS: ALBUMIN 1.2 g/dl (3.4-5.0); CALCIUM 8.2 mg/dL (8.5-10.1)
[2021-05-01 06:57] LABS: BLOOD UREA NITROGEN 31.2 mg/dL (7-18); MAGNESIUM 1.8 mg/dL (1.8-2.4)
[2021-05-01 07:00] LABS: CREATININE 1.1 mg/dL (0.55-1.3); PHOSPHOROUS 5.7 mg/dL (2.5-4.9)
[2021-05-01 07:01] LABS: BILIRUBIN,TOTAL 0.1 mg/dL (0.2-1); TOT PROT 4.8 g/dl (6.4-8.2)
[2021-05-01] MEDS: ALBUTEROL SO4 2.5/IPRATROPIUM 0.5 INH SOL 3 ML VIAL.NEB. NEB SCH ×4 (07:40→20:10)
[2021-05-01] MEDS ORDERED: PT OWN MED DRAWER 7, Y5N ONE (09:32)
[2021-05-01] MEDS: ASCORBIC ACID 500 MG/5 ML UNIT DOSE CUP GT SCH (10:22)
[2021-05-01] MEDS: BACITRACIN 15 GM TUBE TOPICAL OINTMENT TP SCH (10:22)
[2021-05-01] MEDS: PANTOPRAZOLE SODIUM 40 MG VIAL IVPUSH SCH ×2 (10:22→22:26)
[2021-05-01] MEDS: SPIRONOLACTONE 25 MG TABLET GT SCH (10:22)
[2021-05-01] MEDS: levETIRAcetam 500 MG/5 ML INJECTION VIAL IVPB SCH ×2 (10:22→22:26)
[2021-05-01] MEDS: FLUDROCORTISONE ACETATE 0.1 MG TABLET (FP) PO SCH (10:22)
[2021-05-01 11:13] LABS: ANISOCYTOSIS 1+; MACROCYTOSIS 0; PLATELET ESTIMATE NORMAL
[2021-05-01] MEDS: VASOPRESSIN 40 UNITS in SODIUM CHLORIDE 98 ML IVPB SCH (19:00)
[2021-05-01] MEDS: MIDAZOLAM IN 0.9 % SOD.CHLORID 100 MG/100 ML PLAST..BAG IVPB SCH (22:26)
[2021-05-01] MEDS: CHLORHEXIDINE GLUCONATE 4% CLEANSER FOR DECOLONIZATION TP SCH (22:27)
[2021-05-02] MEDS: HYDROCORTISONE SOD SUCCINATE 100 MG/2 ML VIAL IVPUSH SCH ×4 (03:11→22:15)
[2021-05-02 05:55] LABS: BASO % 0.3 % (0-2.0); HEMATOCRIT 23.3 % (35.4-49); HEMOGLOBIN 7.8 GM/dL (11.7-16.9); LYMPH % 3.5 % (8-40); MCH 31.7 pg (25.7-33.7); MCHC 33.3 g/dl (32.0-35.9); MEAN CELL VOLUME 95.1 fl (80-96); MEAN PLT VOLUME 7.8 fl (7.5-11.1); NEUT % 94.2 % (42.8-82.8); PLATELET COUNT 252 10^3/uL (134-434); RBC 2.45 M/mm3 (4.00-5.60); RDW 17.5 % (11.9-15.9); WHITE BLOOD COUNT 18.4 K/mm3 (4.0-10.0)
[2021-05-02 06:13] LABS: ALBUMIN 1.3 g/dl (3.4-5.0); BLOOD UREA NITROGEN 30.8 mg/dL (7-18); MAGNESIUM 1.9 mg/dL (1.8-2.4)
[2021-05-02 06:16] LABS: CREATININE 1.1 mg/dL (0.55-1.3); PHOSPHOROUS 4.5 mg/dL (2.5-4.9)
[2021-05-02 06:17] LABS: BILIRUBIN,TOTAL 0.1 mg/dL (0.2-1)
[2021-05-02] MEDS: ALBUTEROL SO4 2.5/IPRATROPIUM 0.5 INH SOL 3 ML VIAL.NEB. NEB SCH ×4 (07:20→20:23)
[2021-05-02 08:59] LABS: ANISOCYTOSIS 1+; MACROCYTOSIS 0; OVALOCYTE 1+; PLATELET ESTIMATE NORMAL; TOXIC GRANULATION 1+
[2021-05-02] MEDS: levETIRAcetam 500 MG/5 ML INJECTION VIAL IVPB SCH ×2 (09:22→22:15)
[2021-05-02] MEDS: PANTOPRAZOLE SODIUM 40 MG VIAL IVPUSH SCH ×2 (09:22→22:15)
[2021-05-02] MEDS: FLUDROCORTISONE ACETATE 0.1 MG TABLET (FP) PO SCH (09:23)
[2021-05-02] MEDS: SPIRONOLACTONE 25 MG TABLET GT SCH (09:23)
[2021-05-02] MEDS: BACITRACIN 15 GM TUBE TOPICAL OINTMENT TP SCH (09:24)
[2021-05-02] MEDS ORDERED: PT OWN MED DRAWER 7, Y5N ONE (09:27)
[2021-05-02] MEDS: ASCORBIC ACID 500 MG/5 ML UNIT DOSE CUP GT SCH (09:27)
[2021-05-02] MEDS: MIDAZOLAM IN 0.9 % SOD.CHLORID 100 MG/100 ML PLAST..BAG IVPB SCH ×2 (14:29→22:16)
[2021-05-02] MEDS: VASOPRESSIN 40 UNITS in SODIUM CHLORIDE 98 ML IVPB SCH (22:15)
[2021-05-02] MEDS: CHLORHEXIDINE GLUCONATE 4% CLEANSER FOR DECOLONIZATION TP SCH (22:16)
[2021-05-02] MEDS: NOREPINEPHRINE BITARTRATE 16,000 MCG in SODIUM CHLORIDE 484 ML IV SCH (22:17)
[2021-05-03] MEDS: MIDAZOLAM IN 0.9 % SOD.CHLORID 100 MG/100 ML PLAST..BAG IVPB SCH ×3 (00:45→22:06)
[2021-05-03] MEDS: HYDROCORTISONE SOD SUCCINATE 100 MG/2 ML VIAL IVPUSH SCH ×4 (02:39→23:14)
[2021-05-03 07:05] LABS: HEMATOCRIT 23.6 % (35.4-49); HEMOGLOBIN 7.7 GM/dL (11.7-16.9); MCH 31.4 pg (25.7-33.7); MCHC 32.9 g/dl (32.0-35.9); MEAN CELL VOLUME 95.3 fl (80-96); MEAN PLT VOLUME 7.7 fl (7.5-11.1); PLATELET COUNT 245 10^3/uL (134-434); RBC 2.47 M/mm3 (4.00-5.60); RDW 18.1 % (11.9-15.9); WHITE BLOOD COUNT 25.2 K/mm3 (4.0-10.0)
[2021-05-03] MEDS: ALBUTEROL SO4 2.5/IPRATROPIUM 0.5 INH SOL 3 ML VIAL.NEB. NEB SCH (08:10)
[2021-05-03 09:07] LABS: ALBUMIN 1.6 g/dl (3.4-5.0); BLOOD UREA NITROGEN 39.3 mg/dL (7-18); CALCIUM 7.8 mg/dL (8.5-10.1); MAGNESIUM 1.9 mg/dL (1.8-2.4)
[2021-05-03 09:10] LABS: PHOSPHOROUS 3.9 mg/dL (2.5-4.9)
[2021-05-03 09:11] LABS: CREATININE 1.4 mg/dL (0.55-1.3)
[2021-05-03 09:12] LABS: BILIRUBIN,TOTAL 0.1 mg/dL (0.2-1); TOT PROT 5.3 g/dl (6.4-8.2)
[2021-05-03] MEDS ORDERED: MORPHINE SULFATE/0.9% NACL/PF 100 MG/100 ML BAG IVPB SCH (09:30)
[2021-05-03] MEDS ORDERED: MORPHINE SULFATE/0.9% NACL/PF 100 MG/100 ML BAG ONE (09:38)
[2021-05-03] MEDS: PANTOPRAZOLE SODIUM 40 MG VIAL IVPUSH SCH ×2 (09:42→23:14)
[2021-05-03] MEDS: levETIRAcetam 500 MG/5 ML INJECTION VIAL IVPB SCH ×2 (09:44→23:14)
[2021-05-03] MEDS: BACITRACIN 15 GM TUBE TOPICAL OINTMENT TP SCH (09:45)
[2021-05-03] MEDS: FLUDROCORTISONE ACETATE 0.1 MG TABLET (FP) PO SCH (09:45)
[2021-05-03] MEDS: VASOPRESSIN 40 UNITS in SODIUM CHLORIDE 98 ML IVPB SCH (09:46)
[2021-05-03] MEDS: MORPHINE SULFATE/0.9% NACL/PF 100 MG/100 ML BAG IVPB SCH (09:50)
[2021-05-03] MEDS: CHLORHEXIDINE GLUCONATE 4% CLEANSER FOR DECOLONIZATION TP SCH (22:06)
[2021-05-03] MEDS: NOREPINEPHRINE BITARTRATE 16,000 MCG in SODIUM CHLORIDE 484 ML IV SCH (23:15)
[2021-05-04] MEDS: HYDROCORTISONE SOD SUCCINATE 100 MG/2 ML VIAL IVPUSH SCH ×4 (04:05→22:25)
[2021-05-04 07:33] LABS: HEMATOCRIT 23.9 % (35.4-49); HEMOGLOBIN 7.7 GM/dL (11.7-16.9); MCH 31.3 pg (25.7-33.7); MCHC 32.3 g/dl (32.0-35.9); MEAN CELL VOLUME 96.7 fl (80-96); MEAN PLT VOLUME 7.9 fl (7.5-11.1); PLATELET COUNT 247 10^3/uL (134-434); RBC 2.47 M/mm3 (4.00-5.60); RDW 17.9 % (11.9-15.9); WHITE BLOOD COUNT 27.3 K/mm3 (4.0-10.0)
[2021-05-04 07:51] LABS: CALCIUM 7.7 mg/dL (8.5-10.1)
[2021-05-04 07:52] LABS: ALBUMIN 1.6 g/dl (3.4-5.0); BLOOD UREA NITROGEN 48.9 mg/dL (7-18); MAGNESIUM 1.9 mg/dL (1.8-2.4)
[2021-05-04 07:55] LABS: CREATININE 1.9 mg/dL (0.55-1.3); PHOSPHOROUS 4.8 mg/dL (2.5-4.9)
[2021-05-04 07:56] LABS: BILIRUBIN,TOTAL 0.1 mg/dL (0.2-1); TOT PROT 5.4 g/dl (6.4-8.2)
[2021-05-04] MEDS: PANTOPRAZOLE SODIUM 40 MG VIAL IVPUSH SCH ×2 (09:50→22:25)
[2021-05-04] MEDS: VASOPRESSIN 40 UNITS in SODIUM CHLORIDE 98 ML IVPB SCH (09:50)
[2021-05-04] MEDS: MORPHINE SULFATE/0.9% NACL/PF 100 MG/100 ML BAG IVPB SCH (09:50)
[2021-05-04] MEDS: levETIRAcetam 500 MG/5 ML INJECTION VIAL IVPB SCH ×2 (09:50→22:25)
[2021-05-04] MEDS: BACITRACIN 15 GM TUBE TOPICAL OINTMENT TP SCH (09:51)
[2021-05-04] MEDS: FLUDROCORTISONE ACETATE 0.1 MG TABLET (FP) PO SCH ×2 (09:52→09:53)
[2021-05-04] MEDS ORDERED: PT OWN MED DRAWER 7, Y5N ONE (21:00)
[2021-05-04] MEDS: MIDAZOLAM IN 0.9 % SOD.CHLORID 100 MG/100 ML PLAST..BAG IVPB SCH (22:24)
[2021-05-04] MEDS: NOREPINEPHRINE BITARTRATE 16,000 MCG in SODIUM CHLORIDE 484 ML IV SCH (22:24)
[2021-05-04] MEDS: CHLORHEXIDINE GLUCONATE 4% CLEANSER FOR DECOLONIZATION TP SCH (22:25)
[2021-05-05] MEDS: HYDROCORTISONE SOD SUCCINATE 100 MG/2 ML VIAL IVPUSH SCH ×4 (04:44→21:31)
[2021-05-05] MEDS: LACTATED RINGERS SOLUTION 1,000 ML/1,000 ML INFUS.BAG IV SCH ×2 (04:44→10:57)
[2021-05-05 06:22] LABS: HEMATOCRIT 19.8 % (35.4-49); MCH 31.9 pg (25.7-33.7); MCHC 33.2 g/dl (32.0-35.9); MEAN CELL VOLUME 96.1 fl (80-96); MEAN PLT VOLUME 7.5 fl (7.5-11.1); PLATELET COUNT 190 10^3/uL (134-434); RBC 2.06 M/mm3 (4.00-5.60); RDW 17.8 % (11.9-15.9); WHITE BLOOD COUNT 22.5 K/mm3 (4.0-10.0)
[2021-05-05 06:28] LABS: HEMOGLOBIN 6.6 GM/dL (11.7-16.9)
[2021-05-05 06:36] LABS: CALCIUM 7.2 mg/dL (8.5-10.1)
[2021-05-05 06:37] LABS: ALBUMIN 1.4 g/dl (3.4-5.0); BLOOD UREA NITROGEN 57.9 mg/dL (7-18); MAGNESIUM 1.9 mg/dL (1.8-2.4)
[2021-05-05 06:40] LABS: CREATININE 2.3 mg/dL (0.55-1.3); PHOSPHOROUS 5.8 mg/dL (2.5-4.9)
[2021-05-05 06:41] LABS: BILIRUBIN,TOTAL 0.2 mg/dL (0.2-1); TOT PROT 4.4 g/dl (6.4-8.2)
[2021-05-05] MEDS: BACITRACIN 15 GM TUBE TOPICAL OINTMENT TP SCH (09:42)
[2021-05-05] MEDS: PANTOPRAZOLE SODIUM 40 MG VIAL IVPUSH SCH ×2 (09:42→21:31)
[2021-05-05] MEDS: levETIRAcetam 500 MG/5 ML INJECTION VIAL IVPB SCH ×2 (09:42→21:31)
[2021-05-05] MEDS: FLUDROCORTISONE ACETATE 0.1 MG TABLET (FP) PO SCH (09:43)
[2021-05-05] MEDS: MORPHINE SULFATE/0.9% NACL/PF 100 MG/100 ML BAG IVPB SCH (09:43)
[2021-05-05] MEDS ORDERED: PT OWN MED DRAWER 7, Y5N ONE (09:45)
[2021-05-05] MEDS: NOREPINEPHRINE BITARTRATE 16,000 MCG in SODIUM CHLORIDE 484 ML IV SCH ×2 (10:57→20:52)
[2021-05-05] MEDS: MIDAZOLAM IN 0.9 % SOD.CHLORID 100 MG/100 ML PLAST..BAG IVPB SCH (21:30)
[2021-05-05] MEDS: CHLORHEXIDINE GLUCONATE 4% CLEANSER FOR DECOLONIZATION TP SCH (21:31)
[2021-05-06] MEDS: HYDROCORTISONE SOD SUCCINATE 100 MG/2 ML VIAL IVPUSH SCH ×2 (02:44→09:10)
[2021-05-06] MEDS: LACTATED RINGERS SOLUTION 1,000 ML/1,000 ML INFUS.BAG IV SCH (03:01)
[2021-05-06 06:29] LABS: BASO % 0.1 % (0-2.0); HEMATOCRIT 23.6 % (35.4-49); LYMPH % 2.1 % (8-40); MCH 32.1 pg (25.7-33.7); MCHC 33.8 g/dl (32.0-35.9); MEAN CELL VOLUME 94.7 fl (80-96); MEAN PLT VOLUME 7.9 fl (7.5-11.1); MONO % 1.8 % (3.8-10.2); PLATELET COUNT 211 10^3/uL (134-434); RDW 17.7 % (11.9-15.9); WHITE BLOOD COUNT 22.3 K/mm3 (4.0-10.0)
[2021-05-06 06:59] LABS: ALBUMIN 1.5 g/dl (3.4-5.0); BLOOD UREA NITROGEN 62.4 mg/dL (7-18); CALCIUM 7.2 mg/dL (8.5-10.1)
[2021-05-06 07:00] LABS: MAGNESIUM 1.9 mg/dL (1.8-2.4)
[2021-05-06 07:03] LABS: PHOSPHOROUS 5.3 mg/dL (2.5-4.9)
[2021-05-06 07:04] LABS: BILIRUBIN,TOTAL 0.5 mg/dL (0.2-1); TOT PROT 4.6 g/dl (6.4-8.2)
[2021-05-06] MEDS: PANTOPRAZOLE SODIUM 40 MG VIAL IVPUSH SCH (09:10)
[2021-05-06] MEDS: FLUDROCORTISONE ACETATE 0.1 MG TABLET (FP) PO SCH (09:10)
[2021-05-06] MEDS: levETIRAcetam 500 MG/5 ML INJECTION VIAL IVPB SCH (09:10)
[2021-05-06] MEDS: BACITRACIN 15 GM TUBE TOPICAL OINTMENT TP SCH (09:10)
[2021-05-06 09:40] LABS: ANISOCYTOSIS 1+; MACROCYTOSIS 0; PLATELET ESTIMATE NORMAL
[2021-05-06] MEDS ORDERED: LORazepam 2 MG/ML SDV VIAL IVPUSH PRN (10:23)
[2021-05-06] MEDS ORDERED: morphine SULFATE 4 MG/ML VIAL ONE (12:51)
[2021-05-06] MEDS ORDERED: morphine SULFATE 4 MG/ML VIAL IVPUSH PRN (13:00)
[2021-05-06] MEDS ORDERED: SCOPOLAMINE HYDROBROMIDE 1 PATCH PATCH.TD72 TD SCH (21:15)
[2021-05-06] MEDS: CHLORHEXIDINE GLUCONATE 4% CLEANSER FOR DECOLONIZATION TP SCH (21:31)
[2021-05-06] MEDS: MORPHINE SULFATE/0.9% NACL/PF 100 MG/100 ML BAG IVPB SCH (21:31)
[2021-05-07] MEDS: MORPHINE SULFATE/0.9% NACL/PF 100 MG/100 ML BAG IVPB SCH (01:42)
[2021-05-07 02:16] VITALS: PULSE 97
[2021-05-07 06:03] VITALS: BP 77/51; TEMP 97.6
[2021-05-07] MEDS: BACITRACIN 15 GM TUBE TOPICAL OINTMENT TP SCH (10:52)
== END 2021-05-07 11:50 | disposition expired | DRG 551 ==
LOC: JER 14:49 → JERBED 04-12 04:03 → J8W 04-12 05:46 → J7W 04-12 17:48 → J4W 04-13 19:18 → JICU 04-20 05:23
PROVIDERS: ADMIT Hospitalist; ATTEND Family Medicine
PROC: 5A1955Z Respiratory Ventilation, Greater than 96 Consecutive Hours (ICD-10-PCS; principal; 2021-04-20)
PROC: 0BH17EZ Insertion of Endotracheal Airway into Trachea, Via Natural or Artificial Opening (ICD-10-PCS; 2021-04-20)
PROC: 05HN33Z Insertion of Infusion Device into Left Internal Jugular Vein, Percutaneous Approach (ICD-10-PCS; 2021-04-20)
PROC: B544ZZA Ultrasonography of Left Jugular Veins, Guidance (ICD-10-PCS; 2021-04-20)
PROC: 05H633Z Insertion of Infusion Device into Left Subclavian Vein, Percutaneous Approach (ICD-10-PCS; 2021-04-21)
PROC: B547ZZA Ultrasonography of Left Subclavian Vein, Guidance (ICD-10-PCS; 2021-04-21)
PROC: 05HM33Z Insertion of Infusion Device into Right Internal Jugular Vein, Percutaneous Approach (ICD-10-PCS; 2021-05-01)
PROC: B543ZZA Ultrasonography of Right Jugular Veins, Guidance (ICD-10-PCS; 2021-05-01)
PROC: 30233N1 Transfusion of Nonautologous Red Blood Cells into Peripheral Vein, Percutaneous Approach (ICD-10-PCS; 2021-05-05)
DX: S32.040A Wedge compression fracture of fourth lumbar vertebra, initial encounter for closed fracture (principal); J69.0 Pneumonitis due to inhalation of food and vomit; J96.21 Acute and chronic respiratory failure with hypoxia; R65.21 Severe sepsis with septic shock; A41.9 Sepsis, unspecified organism; C34.90 Malignant neoplasm of unspecified part of unspecified bronchus or lung; K92.2 Gastrointestinal hemorrhage, unspecified; E87.2 Acidosis; N17.9 Acute kidney failure, unspecified; C79.31 Secondary malignant neoplasm of brain; C79.70 Secondary malignant neoplasm of unspecified adrenal gland; K56.41 Fecal impaction; E86.0 Dehydration; R53.1 Weakness; D72.829 Elevated white blood cell count, unspecified; E83.51 Hypocalcemia; J44.9 Chronic obstructive pulmonary disease, unspecified; N18.9 Chronic kidney disease, unspecified; D64.9 Anemia, unspecified; I95.9 Hypotension, unspecified; E87.6 Hypokalemia; L89.152 Pressure ulcer of sacral region, stage 2; R00.0 Tachycardia, unspecified; W19.XXXA Unspecified fall, initial encounter; Y93.9 Activity, unspecified; Y92.89 Other specified places as the place of occurrence of the external cause; Y99.9 Unspecified external cause status; E87.5 Hyperkalemia
CPT/HCPCS: 31500; 36415; 36430; 36511; 36600; 70450-TC; 71045-TC-FY; 71250-TC; 72131-TC; 74018-TC-FY; 74177-TC; 74230-TC-FY; 80048; 80053; 80076; 81003; 82140; 82172; 82436; 82550; 82570; 82803; 82962; 82977; 83010; 83605; 83735; 83883; 84100; 84133; 84146; 84300; 84460; 84484; 85025; 85027; 85045; 85610; 85651; 85730; 86704; 86850; 86900; 86901; 86922; 87040; 87070; 87077; 87086; 87205; 87324; 87340; 87389; 87449; 87899; 92611-GN; 93005; 93010; 94002; 94640; 95816; 97163-GP; 99285-25; C9803; J0131; J3480; P9016; P9038; P9058; Q9967; U0003; U0005